=== PATIENT | female | born 1975 | race Caucasian/White ===

== ENCOUNTER 2024-03-02 03:27 | Emergency (ER) | payer OTHER, SELFPAY ==
[2024-03-02 03:36] VITALS: BP 156/86; PULSE 74; TEMP 36.6; O2SAT 97; BMI 29.6
--- NOTE | 2024-03-02 03:38 | ED_ITS ---
[facility] HPI - General Adult General Chief complaint: Headache Stated complaint: HEADACHE Time Seen by Provider: 03/02/24 03:34 Source: patient Mode of arrival: walk-in Limitations: no limitations History of Present Illness HPI narrative: The patient is a 48-year-old female presenting to the emergency department with her significant other secondary to migraine headache. Migraines located on left side of her head. It is associated with nausea and photophobia. Patient does have a history of migraines. This is not different than any of her other bad migraines . It is not the worst headache of her life. She has no neck pain or stiffness. No fever or chills. Symptoms started at midnight. The patient took her own Maxalt and Excedrin. There was no relief. Patient has had to come to the emergency department in the past for her headaches. Patient denies any blurry vision, double vision, loss of vision, trouble speaking or comprehending. No numbness or weakness in her extremities. No recent trauma to the head. Pain is moderate in severity. Light makes it worse. Nothing in particular makes it better. Related Data Allergies Allergy/AdvReac Type Severity Reaction Status Date / Time azithromycin (From Zithromax) Allergy Mild Rash Verified 03/02/24 03:36 Penicillins Allergy Mild Rash Verified 03/02/24 03:36 Opioid HPI Opioid Management Most Recent Opioid Data: Last Pain Scale 7 03/02/24 04:09 03/02/24 Last MAR Pain Assessment 03/02/24 04:09 Review of Systems ROS Narrative 10 Systems were reviewed, and unless not ed in the HPI, all other systems are reviewed, unremarkable, or noncontributory. PFSH PFS Social History Little interest or pleasure in doing things: not at all Feeling down, depressed, or hopeless: not at all Exam Narrative Exam Narrative: Prior to examining the patient, I have washed with hospital approved and provided Antiseptic Hand Speech Pathologist and have also applied gloves.? Prior to touching the patient, I asked for consent to examine the patient.? General: Alert and oriented, well nourished, mild distress. Eye: PERRL, EOMI, normal conjunctiva. Glasses, 4 mm and reactive HENT: Normocephalic, normal hearing, moist oral mucosa, no scleral icterus, no sinus tenderness. Neck: Supple, non-tender, no carotid bruits, no JVD, no lymphadenopathy. Lungs: Clear to auscultation and percussion, non-labored respiration. No rhon chi, rales, wheezing Heart: Normal rate, regular rhythm, no murmur, gallop or edema. Abdomen: Soft, non-tender, non-distended, normal bowel sounds, no masses. Musculoskeletal: Normal range of motion and strength, no tenderness or swelling. Skin: Skin is warm, dry and pink, no rashes or lesions. Neurologic: Awake, alert, and oriented X3, CN II-XII intact. Psychiatric: Cooperative, appropriate mood and affect.? Following the conclusion of the examination, I have washed my hands thoroughly after removing examination gloves. Constitutional Vital Signs, click to edit/add: Last Vital Signs Temp 97.8 F 03/02/24 03:36 Pulse 74 03/02/24 03:36 Resp 16 03/02/24 03:36 BP 156/86 H 03/02/24 03:36 Pulse Ox 97 03/02/24 03:36 O2 Del Method Room Air 03/02/24 03:36 Documenting provider has reviewed patient's vital signs: yes Common normals: no apparent distress General appearance: cooperative, comfortable, well kempt and well developed Orientation/consciousness: Yes awake, Yes oriented to person, Yes oriented to place and Yes oriented to time Course Course Hospital Course: 03:48 upon assessment of the patient she is going to have an IV start. She will receive 0.9% normal saline bolus with 1 L, Toradol 15 mg IV push, Benadryl 25 mg IV push, and Reglan 10 mg IV piggyback. Vital Signs Vital signs: Vital Signs Temperature 97.8 F 03/02/24 03:36 Pulse Rate 74 03/02/24 03:36 Respiratory Rate 16 03/02/24 03:36 Blood Pressure 156/86 H 03/02/24 03:36 Pulse Oximetry 97 03/02/24 03:36 Oxygen Delivery Method Room Air 03/02/24 03:36 Temperature 97.8 F 03/02/24 03:36 Pulse Rate 74 03/02/24 03:36 Respiratory Rate 16 03/02/24 03:36 Blood Pressure 156/86 H 03/02/24 03:36 Pulse Oximetry 97 03/02/24 03:36 Oxygen Delivery Method Room Air 03/02/24 03:36 Medical Decision Making MDM Narrative Medical decision making narrative: Patient is a 48-year-old female who presents to the emergency department with an intractable migraine headache. Differential Diagnosis Differential Diagnosis: Migraine headache, generalized headache, sinusitis, meningitis, dehydration Medical Records Medical records reviewed: Yes I reviewed the patient's medical records Lab Data Lab results reviewed: Yes I reviewed the patient's lab results Discharge Plan Discharge Chief Complaint: Headache Clinical Impression: Migraine Patient Disposition: Home, Self-Care Time of Disposition Decision: 04:46 Condition: Good Print Language: Cameroonian Instructions: Migraine Headache (ED) Referrals: Physician,Non-Staff, MD [Primary Care Provider] - 1 week
[2024-03-02] MEDS: 0.9 % SODIUM CHLORIDE 1,000 ML 1000 ML IV (04:08)
[2024-03-02] MEDS: KETOROLAC TROMETHAMINE 30 MG/ML VIAL 15 MG IVP (04:09)
[2024-03-02] MEDS: METOCLOPRAMIDE HCL 10 MG/2 ML VIAL IVP (04:09)
[2024-03-02] MEDS: DIPHENHYDRAMINE HCL 50 MG/ML VIAL 25 MG IV (04:09)
[2024-03-02 05:08] VITALS: BP 134/76; PULSE 72; O2SAT 99
== END 2024-03-02 05:08 | disposition home or self-care (01) ==
PROVIDERS: Emergency Provider Emergency Medicine
DX: G43.909 Migraine, unspecified, not intractable, without status migrainosus (principal)
CPT/HCPCS: 96374; 96375; 99284; J1200; J1885; J2765

== ENCOUNTER 2024-08-31 19:58 | Emergency (ER) | payer OTHER, SELFPAY ==
--- OUTSIDE RECORDS SUMMARY | 2019-07-24 10:30 | XMS_ITS | Continuity of Care Document ---
Author Organization [facility] Address [address] [place] [address] Phone Care Team Providers Care Agent Contract Clerk Name Role Phone Naveen Cooper Unavailable Unavailable Allergies, Adverse Reactions, Alerts Substance Reaction Status Criticality Penicillins Rash Active No Information erythromycin base Rash Active No Informa tion Medications Medication Instructions Dosage Effective Dates (start - stop) Status Comments Colace 100 mg Cap take 1 capsule (100MG) by oral route every day at bedtime as needed 100 MG - Active DHA 300 mg Cap take 1 by Oral route every day 1 - Active okay to subsitute any vitamin allowed by insurance. Prozac 20 mg Cap take 1 capsule (20MG) by oral route every day in the morning 20 MG - Active verapamil 40 mg Tab take 1 tablet (40MG) by oral route 2 times every day 40 MG - Active Procedures Procedure Date Covid Testing [facility] OFFICE/OUTPATIENT VISIT, EST COUNSELING AND EDUCATION OFFICE/OUTPATIENT VISIT, EST OFFICE/OUTPATIENT VISIT, EST COUNSELING AND EDUCATION ROUTINE VENIPUNCTURE OFFICE/OUTPATIENT VISIT, EST OFFICE/OUTPATIENT VISIT, EST CARE COORDINATION OFFICE/OUTPATIENT VISIT, EST OFFICE/OUTPATIENT VISIT, EST OFFICE/OUTPATIENT VISIT, EST OFFICE/OUTPATIENT VISIT, EST CARE COORDINATION OFFICE/OUTPATIENT VISIT, EST OFFICE/OUTPATIENT VISIT, EST ROUTINE VENIPUNCTURE OFFICE/OUTPATIENT VISIT, EST OFFICE/OUTPATIENT VISIT, EST ROUTINE VENIPUNCTURE COUNSELING AND EDUCATION OFFICE/OUTPATIENT VISIT, EST OFFICE/OUTPATIENT VISIT, EST URINE TEST PREV VISIT, NEW, AGE 18-39 REMOVE INTRAUTERINE DEVICE THIN PREP AND HPV INSERT INTRAUTERINE DEVICE Levonorgestrel iu contracept URINALYSIS, NONAUTO W/SCOPE URINE TEST Condoms NEW FP MEDICAID Results Test Name Date and Time Measure Units Reference Range Abnormal Flag Status Comments Panel Description: SARS-CoV-2, MIGUELITO Final SARS-CoV- 2, MIGUELITO 09:05:00 Not Detected Not Detected Final This test was developed and its performance characteristics determinedby 27 bards. This test has not been FDA cleared orapproved. This test has been authorized by FDA under an Emergency UseAuthorization (EUA). This test is only authorized for the duration oftime the declaration that circumstances exist justifying theauthorization of the emergency use of in vitro diagnostic tests fordetection of SARS-CoV-2 virus and/or diagnosis of COVID-19 infectionunder section 564(b)(1) of the Act, 21 U.S.C. 360bbb-3(b)(1), unlessthe authorization is terminated or revoked sooner.When diagnostic testing is negative, the possibility of a falsenegative result should be considered in the context of a patient'srecent exposures and the presence of clinical signs and symptomsconsistent with COVID-19. An individual without symptoms of COVID-19and who is not shedding SARS-CoV-2 virus would expect to have anegative (not detected) result in this assay.Performed by:[facility] ([facility] Panel Description: SARS-CoV-2 Antibody, IgM [facility] al SARS-CoV- 2 Antibody, IgM 020 06:22:00 Negative Negative Final This sample do es not contain detectable SARS-CoV-2 IgM antibodies.This negative result does not rule out SARS-CoV-2 infection.Correlation with epidemiologic risk factors and other clinical andlaboratory findings is recommended. Serologic results should not beused as the sole basis to diagnose or exclude recent [id number].P erformed by:[employer] ([place]) Panel Description: SARS-CoV-2 Antibody, IgG Fin al SARS-CoV- 2 Antibody, IgG 020 04:19:00 Negative Negative Final This sample do es not contain detectable SARS-CoV-2 IgG antibodies.This negative result does not rule out SARS-CoV-2 infection.Correlation with epidemiologic risk factors and other clinical andlaboratory findings is recommended. Serologic results should not beused as the sole basis to diagnose or exclude recent [id number].T his assay was performed using the [employer] SARS-CoV-2 IgG assay.Performed by:[employer] ([place]) Advance Directives Directive Yes / No Effective Date File Name No Information Encounters Encounter Description Practice Location Reason(s) For Visit Diagnoses Date Provider Providers Copied on Encounter [facility], [address] [place] [address], [id number], [place] tel:[phone] COVID [facility] Encounter for screening for other viral disease Marcie Torres. [address], [place], [id number], [place]. tel:[phone] OFFICE/OUTPAT IENT VISIT, [facility], [address], [place], [id number], [place] tel:[phone] [facility] Routine PN Visit (chief complaint) No Information Marcie Torres. [address], [place], [id number], [place]. tel:[phone] OFFICE/OUTPAT IENT VISIT, [facility], [address], [place], [id number], [place] tel:[phone] [facility] Routine PN Visit (chief complaint) No Information Sydnee Auguste. [address], [place], [id number], [place]. tel:[phone] OFFICE/OUTPAT IENT VISIT, [facility], [address], [place], [id number], [place] tel:[phone] [facility] Routine PN Visit (chief complaint) Other abnormal clinical findings Sydnee Auguste. [address], [place], [id number], [place]. tel:[phone] OFFICE/OUTPAT IENT VISIT, [facility], [address], [place], [id number], [place] tel:[phone] [facility] Routine PN Visit (chief complaint) No Information Sydnee Auguste. [address], [place], [id number], [place]. tel:[phone] OFFICE/OUTPAT IENT VISIT, [facility], [address] [place] [address], [id number], [place] tel:[phone] [facility] headache (chief complaint)D izziness (chief complaint) No Information Sydnee Kalyani. [address], [place], [id number], [place]. tel:[phone] OFFICE/OUTPAT IENT VISIT, [facility], [address] [place] [address], [id number], [place] tel:[phone] [facility] Routine PN Visit (chief complaint) No Information Sydnee Kalyani. [address], [place], [id number], [place]. tel:[phone] OFFICE/OUTPAT IENT VISIT, [facility], [address], [place], [id number], [place] tel:[phone] [facility] Routine PN Visit (chief complaint) Supervision of other normal Sydnee Kalyani. [address] [place] [address], [id number], [place]. tel:[phone] OFFICE/OUTPAT IENT VISIT, [facility], [address], [place], [id number], [place] tel:[phone] [facility] No Information Sydnee Auguste. [address], [place], [id number], [place]. tel:[phone] OFFICE/OUTPAT IENT VISIT, EST [facility], [address], [place], [id number], [place] tel:[phone] [facility] No Information Visci DO Hodge. [address], [place], [id number], [place]. tel:[phone] PREV VISIT, NEW, AGE 18-39 [facility], [address], [place], [id number], [place] tel:[phone] [facility] No Information Sydnee Auguste. [address], [place], [id number], [place]. tel:[phone] [facility], [address], [place], [id number], [place] tel:[phone] [facility] No Information No Information [facility], [address], [place], [id number], [place] tel:[phone] [facility] No Information No Information Family History Family Member Type Diagnosis Age At Onset Brother Problem (finding) Heart disease Brother Problem (finding) raised blood lipids Father Problem (finding) Heart disease Mother Problem (finding) hx thrombosis Father Problem (finding) myocardial inf arct in 1st degree male relative <55 years 46 Mother Problem (finding) hypertension Payers Payer name Insurance type Covered constitution party ID Authoriza tion(s) No Information Social History Type Description Quantity Date Captured Comments Alcohol Use Details Unknown Caffeine Use Details Unknown Tobacco Use Status No Information Smoking Status No Information Sex Female Sexual Orientation Straight or heterosexual Gender Identity Female Chief Complaint And Reason For Visit No Information Reason For Referral Reason For Referral No Information Plan Of Treatment Date Type Action Status Goal Tdap. Due on due Goal Influenza vaccine. Due on due Goal Depression screening. Due on due Goal Breast exam. Due on 020 due History Of Present Illness Encounter Date Complaint History Of Prese nt Illness No Information Functional Status Date Functional Assessmen t No Information Instructions Date Instruction Additional Infor mation No Information Assessments Type Assessment Date assessment Encounter for screening for othe r viral disease Patient Care Teams Name Effective Dates (start - stop) Status Members No Information
--- OUTSIDE RECORDS SUMMARY | 2024-08-15 11:00 | XMS_ITS ---
Author Organization [facility] es Address [address] [place] [address] Care Team Providers Care Health Evaluator Name Role Phone Brent Jodie Primary Care Provider Dr. jT Campos Unavailable [phone] REASON FOR VISIT FILLING Encounters Encounter Location Date Provider Diagnosis [facility] Juan [place] [address] [place] [address] 2024 Tj Campos Plan Of Treatment Next Appt Details Provider Name:Tj Campos, 0 09/02/2024 04:30:00 PM, [address] [place], [address], Provider Name:Tj Campos, 1 02/23/2024 10:25:00 AM, [address], [place], [address], Provider Name:Tj Campos, 1 02/29/2024 09:30:00 AM, [address] [place], [address], Progress Notes * TYRON PAULINO BDOB:[birth year] (49 yo F)Acc No.[id number]:08/15/2024 Patient: TYRON GIRARD Provider: Terrence Campos DDS :1975 A ge:49 Y S ex:Female Date:08/15/2024 Address:[address], [id number] Pcp:Jodie Kennedy Subjective: * Chief Complaints: * 1 . FILLING. * Medical History: Objective: * Vitals: Assessment: Plan: * Treatment: * Images: * Electronic signature of Dr. Tj Campos , DMD on 08/31/2024 at 08:06 PM EDT Sign off status: Pending * Provider: Terrence Campos DDS Date: 0 08/15/2024 Generated for Albert chavarria/Reina/Misael on: 08/31/2024 08:06 PM EDT
--- OUTSIDE RECORDS SUMMARY | 2024-08-31 20:07 | XMS_ITS | Encounter Summary ---
Author Organization [facility] Address [address] [place] [address] Phone Care Team Providers Care Bead Cutter Name Role Phone Liya Millan Primary Care P rovider Encounter Details Date Type Department Care Team (Late st Contact Info) Description 07/01/2020 Orders Only [facility] [address] [place] [address] Conversion, Onbase Social History Tobacco Use Types Packs/Day Years Used Date Smoking Tobacco: Never Assessed Comments Unknown Sex and Gender Information Value Date Recorded Sex Assigned at Not on file Legal Sex Female 11:36 AM EST Gender Identity Not on file Sexual Orientation Not on file documented as of this encounter Plan of Treatment Scheduled Orders Name Type Priority Associated Diagnoses Orde r Schedule OUTSIDE LAB SCAN Lab Ordered: 07/01/2020 documented as of this encounter Visit Diagnoses Not on filedocumented in this encounter Care Teams Bead Cutter Relationship Specialty Start Date End Date Liya Millan APRN-CNP [address] [place], [place] [id number] PCP - General 08/28/22 documented as of this encounter
--- OUTSIDE RECORDS SUMMARY | 2024-08-31 20:07 | XMS_ITS | Encounter Summary ---
Author Organization [facility] Address [address] [place] [address] Phone Care Team Providers Care Leather Tooler Name Role Phone Liya Millan Primary Care P rovider Encounter Details Date Type Department Care Team (Late st Contact Info) Description 03/30/2023 Scanned Document [facility] [address] [place] [id number] Scanning, Generic Provider Social History Tobacco Use Types Packs/Day Years Used Date Smoking Tobacco: Never Alcohol Use Standard Drinks/Week Comments Never 0 (1 standard drink = 0.6 oz pur e alcohol) Comments Unknown Sex and Gender Information Value Date Recorded Sex Assigned at Not on file Legal Sex Female 11:36 AM EST Gender Identity Not on file Sexual Orientation Not on file documented as of this encounter Plan of Treatment Not on file documented as of this encounter Visit Diagnoses Not on filedocumented in this encounter Care Teams Leather Tooler Relationship Specialty Start Date End Date Liya Millan APRN-CNP [address] [facility] [place] [id number] PCP - General 08/28/22 documented as of this encounter
--- OUTSIDE RECORDS SUMMARY | 2024-08-31 20:07 | XMS_ITS | Clinical Summary ---
Author Organization [facility] Address [address] [place] [address] Phone Care Team Providers Care Senior Benefits Manager Name Role Phone Liya Millan HOSPITAL UNIT CLERK-SENIOR FOREMAN Primary Care P rovider Allergies Active Allergy Reactions Criticality Noted Date Comments Erythromycin Unknown 03/09/2023 Penicillins Unknown 03/09/2023 Medications erenumab (Aimovig Autoinjector) 140 mg/mL injection Inject 1 mL (140 mg) under the skin every 30 (thirty) days. 2 Active albuterol (Ventolin HFA) 90 mcg/actuation inhaler Inhale 2 puffs every 4 hours if needed for shortness of breath. 2 Active cetirizine (ZyrTEC) 10 mg tablet Take 1 tablet (10 mg) by mouth once daily. 2 Active magnesium oxide (Mag-Ox) 400 mg (241.3 mg magnesium) tablet Take 1 tablet (400 mg) by mouth 2 times a day. 2 Active meloxicam (Mobic) 15 mg tablet Take 1 tablet (15 mg) by mouth once daily. 2 Active montelukast (Singulair) 10 mg tablet Take 1 tablet (10 mg) by mouth once daily. 2 Active omeprazole (PriLOSEC) [address] capsule Take 1 capsule (40 mg) by mouth once daily. 2 Active PARoxetine (Paxil) 20 mg tablet Take 1 tablet (20 mg) by mouth once daily in the morning. Take before meals. 2 Active rizatriptan (Maxalt) 10 mg tablet Take 1 tablet (10 mg) by mouth. Take one tablet by mouth at onset of headache, may repeat every 2 hours as needed, maximum of 3 tablets in 24 hours Active metoprolol succinate XL (Toprol-XL) 25 mg 24 hr tabletIndicatio ns:Palpitations ,Paroxysmal SVT (supraventricul ar tachycardia) Take 1 tablet (25 mg) by mouth once daily. 90 tablet 3 4 Active Active Problems Problem Noted Date Diagnosed Date BMI 30.0-30.9,adult 08/06/2023 Palpitations 03/09/2023 Paroxysmal SVT (supraventricular tachycardia) Premature atrial contraction 03/09/2023 PVC (premature ventricular contraction) 03/09/19 Immunizations Immunization Administration Dates Next Due Moderna SARS-CoV-2 Vaccination 03/01/2021,2020,05/12/2020 Tdap vaccine, age 7 year and older (BOOSTRIX, ADACEL) 10/15/2020,10/05/2020 Family History Medical History Relation Name Comments tachycardia Brother Heart attack Father Angina Mother tachycardia Mother Relation Name Status Comments Brother Father Mother Social History Tobacco Use Types Packs/Day Years Used Date Smoking Tobacco: Never Smokeless Tobacco: Never Tobacco Cessation:Counseling Given: Not Answered Alcohol Use Standard Drinks/Week Comments Never 0 (1 standard drink = 0.6 oz pur e alcohol) Comments Unknown Sex and Gender Information Value Date Recorded Sex Assigned at Not on file Legal Sex Female 11:36 AM EST Gender Identity Not on file Sexual Orientation Not on file Last Filed Vital Signs Vital Sign Reading Time Taken Comments Blood Pressure 108/70 08/06/2023 2:33 PM EDT Pulse 72 08/06/2023 2:33 PM EDT Temperature - - Respiratory Rate - - Oxygen Saturation - - Inhaled Oxygen Concentration - - Weight 73.9 kg (163 lb) 08/06/2023 2:33 PM EDT Height 154.9 cm (5' 1 ) 08/06/2023 2:33 PM EDT Body Mass Index 30.8 08/06/2023 2:33 PM EDT Plan of Treatment Health Maintenance Due Date Last Done Comments CT Colonography 1973 Colonoscopy 1973 FIT 1973 HIV Screening 1973 Lipid Panel 1973 Sigmoidoscopy 1973 MMR Vaccines (1 of 1 - Standard series) 1974 Diabetes Screening 08/09/1991 Hepatitis C Screening 08/09/1991 Hepatitis B Vaccines (1 of 3 - 19+ 3-dose series) 1992 Pneumococcal Vaccine (1 of 2 - PCV) 1992 Cervical Cancer Screening 1994 HPV/Cotest 1994 Pap Smear 1994 Mammogram 2013 Zoster Vaccines (1 of 2) 08/09/2023 COVID-19 Vaccine ( - 2023-2 5 season) 2023 03/01/2021, 06/09/2020, 05/12/2020 Influenza Vaccine (#1) 2024 Yearly Adult Physical 12/03/2024 12/03/2023 Colorectal Cancer Screening 06/28/2026 FIT-DNA (Cologuard) 06/28/2026 06/29/2023 DTaP/Tdap/Td Vaccines (3 - T d or Tdap) 10/15/2030 10/15/2020, 10/05/2020 HIB Vaccines Aged Out No longer eligi ble based on patient's age to complete this topic HPV Vaccines (No Doses Required) Completed Hepatitis A Vaccines Aged Out No long er eligible based on patient's age to complete this topic IPV Vaccines Aged Out No longer eligi ble based on patient's age to complete this topic Meningococcal Vaccine Aged Out No alley [place] eligible based on patient's age to complete this topic Rotavirus Vaccines Aged Out No longer eligible based on patient's age to complete this topic Insurance [facility] [employer] Care Teams Senior Benefits Manager Relationship Specialty Start Date End Date Liya Millan, HOSPITAL UNIT CLERK-SENIOR FOREMAN [address] [place] [phone] PCP - General 08/28/22
--- OUTSIDE RECORDS SUMMARY | 2024-08-31 20:07 | XMS_ITS | Clinical Summary ---
Author Organization [facility] Address [address] [place] [address] Care Team Providers Care Photo Tech Name Role Phone Naveen Jack Primary Care Provider [phone] Social History Tobacco Use Types Packs/Day Years Used Date Smoking Tobacco: Never Assessed Comments Unknown Sex and Gender Information Value Date Recorded Sex Assigned at Not on file Legal Sex Female 5:51 PM EDT Gender Identity Not on file Sexual Orientation Not on file Plan of Treatment Health Maintenance Due Date Last Done Comments Anxiety Screening 08/09/1991 Depression Screening 08/09/1991 HIV Screening 08/09/1991 Hepatitis C Screening 08/09/1991 DTaP,Tdap,Td Vaccine (1 - Tdap) 1992 Hepatitis B Vaccine (1 of 3 - 19+ 3-dose series) 08/08 Cervical Cancer Screening [address] Colonography 2018 Cologuard (FIT-DNA) 2018 Colonoscopy 2018 Colorectal Cancer Screening 2018 Diabetes Screening 2018 Fecal Occult Blood 2018 Lipid Screening 2018 Sigmoidoscopy 2018 Pneumococcal Vaccine: 50+ (1 of 1 - PCV) 08/09/2023 Shingrix Vaccine (1 of 2) 08/09/2023 Covid-19 Vaccine (1 - 2023-25 season) 2023 Influenza Vaccine (#1) 2024 Insurance [employer] Care Teams Photo Tech Relationship Specialty Start Date End Date Naveen Jack [address] [place] [phone] PCP - General Dater Assembler 07/08/12
--- OUTSIDE RECORDS SUMMARY | 2024-08-31 20:07 | XMS_ITS | Encounter Summary ---
Author Organization [facility] Address [address] [place] [address] Phone Care Team Providers Care Route Delivery Clerk Name Role Phone Liya Millan Primary Care P rovider Encounter Details Date Type Department Care Team (Late st Contact Info) Description 10/20/2021 Orders Only [facility] [address] [place] [address] Conversion, Onbase Social History Tobacco Use Types [...] r Schedule OUTSIDE LAB SCAN Lab Ordered: 10/20/2021 documented as of this encounter Visit Diagnoses Not on filedocumented in this encounter Care Teams Route Delivery Clerk Relationship Specialty Start Date End Date Liya Millan APRN-CNP [address] [place], [place] [id number] PCP - General 08/28/22 documented as of this encounter
--- OUTSIDE RECORDS SUMMARY | 2024-08-31 20:07 | XMS_ITS | Clinical Summary ---
Author Organization [facility] [facility] Address [id number] [address] [place] [address] Care Team Providers Care Fish Bin Tender Name Role Phone No Pcp, No Pcp Primary Care Provider Unavailabl e Allergies Active Allergy Reactions Criticality Noted Date Comments Erythromycin 11/05/2019 Penicillins 11/05/2019 Medications cetirizine (ZyrTEC) 10 mg tablet Take 10 mg by mouth daily. 10/14/19 20 Active AIMOVIG AUTOINJECTOR 70 mg/mL auto-injector INJECT 1 ML SUBCUTANEOUSLY ONCE EVERY MONTH 10/19/19 20 Active LINZESS 145 mcg capsule TAKE 1 CAPSULE BY MOUTH ONCE DAILY AT LEAST 30 MINUTES BEFORE THE MAIN MEAL OF THE DAY ON AN EMPTY STOMACH 10/13/19 20 Active meclizine (ANTIVERT) 25 mg tablet 09/16/19 20 Active meloxicam (MOBIC) 15 mg tablet Take 15 mg by mouth daily. 10/14/19 20 Active metoprolol succinate XL (TOPROL-XL) 25 mg 24 hr tablet TAKE 1 & 1 2 (ONE & ONE HALF) TABLETS BY MOUTH ONCE DAILY FOR 30 DAYS 10/14/19 20 Active montelukast (SINGULAIR) 10 mg tablet TAKE 1 TABLET BY MOUTH ONCE DAILY FOR 30 DAYS 10/09/19 20 Active naratriptan (AMERGE) 2.5 mg tablet 09/17/19 20 Active omeprazole (PriLOSEC) 40 mg capsule Take 40 mg by mouth daily. 10/09/19 20 Active PARoxetine (PAXIL) 20 mg tablet Take 20 mg by mouth daily. 09/25/19 20 Active rizatriptan (MAXALT) 5 mg tablet TAKE 1 TABLET BY MOUTH NEEDED FOR MIGRAINE. MAY REPEAT ONCE IN 2 HOURS. MAX OF 2 PER HEADACHE AND MAX OF 4 TABLETS PER WEEK 09/01/19 Active verapamiL (CALAN) 40 mg tablet Take 40 mg by mouth daily. 09/18/19 Active albuterol (PROVENTIL) 5 mg/mL nebulizer solution Inhale 2.5 mg every 6 (six) hours as needed for wheezing. Active hydroCHLOROthiaz tosin (HYDRODIURIL) 25 mg tabletIndication s:Dizziness Take 1 tablet (25 mg total) by mouth daily. 30 tablet 4 11/05/19 Active Active Problems Problem Noted Date Diagnosed Date Dizziness 11/05/2019 Hearing loss 11/05/2019 Social History Tobacco Use Types Packs/Day Years Used Date Smoking Tobacco: Never Smokeless Tobacco: Never Alcohol Use Standard Drinks/Week Comments Not Currently 0 (1 standard drink = 0.6 oz pur e alcohol) Childcare Answer Date Recorded Childcare Unknown 07/29/2018 Employment Answer Date Recorded Employment Unknown 07/29/2018 Purpose - Life Answer Date Recorded Purpose and direction in life Unknown Comments Unknown Sex and Gender Information Value Date Recorded Sex Assigned at Not on file Legal Sex Female 12:38 PM EDT Gender Identity Not on file Sexual Orientation Not on file Last Filed Vital Signs Vital Sign Reading Time Taken Comments Blood Pressure 122/76 11/05/2019 4:07 PM EDT Pulse - - Temperature - - Respiratory Rate - - Oxygen Saturation - - Inhaled Oxygen Concentration - - Weight 68.9 kg (152 lb) 11/05/2019 4:07 PM EDT Height 154.9 cm (5' 1 ) 11/05/2019 4:07 PM EDT Body Mass Index 28.72 11/05/2019 4:07 PM EDT Plan of Treatment Health Maintenance Due Date Last Done Comments Depression Screening 1985 Tobacco Screening 1985 Adult BMI Screening 08/09/1991 DTaP,Tdap and Td Vaccines (1 - Tdap) 1992 Pap Smear 1994 Zoster (Shingles) Vaccine (1 of 2) 08/09/2023 Influenza Vaccine 10/20/2024 Medical Devices Not on file Insurance [employer] Care Teams Fish Bin Tender Relationship Specialty Start Date End Date No Pcp[place] [address] PCP - General Family Medicine 11/05/19
--- OUTSIDE RECORDS SUMMARY | 2024-08-31 20:07 | XMS_ITS | Clinical Summary ---
Author Organization [facility] Address [address] [place] [address] Care Team Providers Care Road Grader Operator Name Role Phone Unallocated, Noms Provider Primary Care Provi yefri Allergies Active Allergy Reactions Criticality Noted Date Comments Erythromycin Rash Low 06/25/2024 Penicillins Itching,Unknown 11/05/2019 Wound Dressing Adhesive Rash Low 03/13/2023 Medications metoprolol succinate XL (Toprol-XL) 25 MG 24 hr tablet Take 25 mg by mouth in the morning. 12/11/19 23 Active montelukast (Singulair) 10 MG tablet Take 1 tablet by mouth once daily for 30 days Active omeprazole (PriLOSEC) [address] capsule Take 1 capsule by mouth once daily for 30 days Active Aimovig 140 MG/ML injection INJECT 140MG SUBCUTANEOUSLY ONCE EVERY MONTH for 28 days Active cetirizine (ZyrTEC) 10 MG tablet Take 10 mg by mouth Daily Active albuterol HFA 90 mcg/act inhalerIndicati ons:Cough, unspecified type,Influenza A Inhale 2 puffs every 4 (four) hours if needed for wheezing or shortness of breath 18 g 04/11/19 25 Active PARoxetine (Paxil) 20 MG tablet Take 20 mg by mouth in the morning. 07/16/19 25 Active Active Problems Problem Noted Date Diagnosed Date Acute hypokalemia 02/14/2024 Arthritis 02/14/2024 Asthma attack 02/14/2024 Body aches 02/14/2024 Calculus of kidney 02/14/2024 Cervical paraspinal muscle spasm 02/14/2024 Cervical strain 02/14/2024 Closed head injury 02/14/2024 Depressive disorder 02/14/2024 Dysphagia 02/14/2024 Dysuria 02/14/2024 Flank pain 02/14/2024 Foreign body in bladder 02/14/2024 Gastroesophageal reflux disease 02/14/2024 Gross hematuria 02/14/2024 History of kidney stones 02/14/2024 Hx of lithotripsy 02/14/2024 Increased frequency of urination 02/14/2024 Insufficient sleep syndrome 02/14/2024 Chronic constipation 02/14/2024 Laceration of finger of right hand 02/14/2024 Migraine headache 02/14/2024 Migraine without aura, intractable 02/14/2024 Nausea 02/14/2024 Neurocardiogenic syncope 02/14/2024 Sore throat 02/14/2024 Sprain of foot, left 02/14/2024 Strain of thoracic back region 02/14/2024 Stress incontinence of urine 02/14/2024 Trigger point of neck 02/14/2024 Ureteral stone with hydronephrosis 02/14/2024 Urinary tract infection 02/14/2024 Viral URI 02/14/2024 BMI 30.0-30.9,adult 08/06/2023 Palpitations 03/09/2023 Paroxysmal SVT (supraventricular tachycardia) Premature atrial contraction 03/09/2023 PVC (premature ventricular contraction) 03/09/19 Hearing loss 11/05/2019 Dizziness 11/05/2019 Tachycardia 10/24/2012 Encounters Date Type Department Care Team Description 08/21/2024 Telephone [facility] [address] [place] [address] Louann Vivar LPN 08/14/2024 8:30 AM EDT Ancillary Procedure [facility] [address] [place] [address] Menorrhagia with irregular cycle; Dyspareunia in female 08/14/2024 Travel 07/31/2024 Results Follow-Up [facility] [address] [place] [address] Ivonne Lee MA 07/28/2024 10:15 AM EDT Procedure Visit [facility] [address] [place] [address] Naveen Jack, Menorrhagia with irregular cycle; Stress incontinence; Dyspareunia in female; Cystocele with rectocele; Urethral hypermobility; Post-void dribbling 07/28/2024 Travel 06/25/2024 3:00 PM EDT Office Visit [facility] [address] [place] [address] Naveen Jack, Menorrhagia with irregular cycle; Stress incontinence; Dyspareunia in female; Cystocele with rectocele; Urethral hypermobility; Uterine prolapse 06/25/2024 Travel from Last 3 Months Family History Medical History Relation Name Comments Heart disease Father Hypertension Father Hypertension Mother Heart disease Paternal Grandfather Cancer Paternal Grandmother Relation Name Status Comments Brother 1 Alive Daughter 2 Alive Father Mother Alive Paternal Grandfather Paternal Grandmother Son 2 Alive Social History Tobacco Use Types Packs/Day Years Used Date Smoking Tobacco: Never Smokeless Tobacco: Never Tobacco Cessation:Counseling Given: Yes Alcohol Use Standard Drinks/Week Comments Never 0 (1 standard drink = 0.6 oz pure alcohol) caffeine intake: 1-2 cups per day tea PHQ-2 Answer Date Recorded Patient Health Questionnaire-2 Score 0 12/03/2023 Comments No Sex and Gender Information Value Date Recorded Sex Assigned at Not on file Legal Sex Female 7:09 PM EDT Gender Identity Not on file Sexual Orientation Not on file Last Filed Vital Signs Vital Sign Reading Time Taken Comments Blood Pressure 118/80 07/28/2024 10:24 AM EDT Pulse 86 04/11/2024 10:41 AM EST Temperature 36 C (96.8 F) 04/11/2024 10:41 AM EST Respiratory Rate 16 03/26/2024 4:44 PM EST Oxygen Saturation 95% 04/11/2024 10:41 AM EST Inhaled Oxygen Concentration - - Weight 75.3 kg (166 lb) 07/28/2024 10:24 AM EDT Height 154.9 cm (5' 1 ) 03/26/2024 4:44 PM EST Body Mass Index 31.37 03/26/2024 4:44 PM EST Plan of Treatment Health Maintenance Due Date Last Done Comments CT Colonography 1973 Colonoscopy 1973 FIT 1973 FOBT 1973 Sigmoidoscopy 1973 Pap Smear 1994 Cervical Cancer Screening 08/09/2003 HPV/Cotest 08/09/2003 Mammogram 2013 Influenza Vaccine (#1) 2024 Colorectal Cancer Screening 06/28/2026 FIT-DNA 06/28/2026 06/29/2023 Procedures Procedure Name Priority Date/Time Associated Diagnosis Comments US PELVIS TRANSVAGINAL Routine 08/14/2024 9:08 AM EDT Menorrhagia with irregular cycle Dyspareunia in female CULTURE, URINE, ROUTINE Routine 07/28/2024 12:00 PM EDT Post-void dribbling DC INSJ NON-NDWELLG BLADDER CATHETER Routine 07/28/2024 10:47 AM EDT Post-void dribbling from Last 3 Months Results * US pelvis transvaginal (08/14/2024 9:08 AM EDT) Anatomical Region Laterality Modality Pelvis Ultrasound Study GA Study Date Study ALEX Working ALEX (Source) 08/14/2024 Narrative 08/20/2024 5:09 PM EDT See Viewpoint report for summary us Naveen Jack DO IMG US PROCEDURES Final Resul t * Urine culture (07/28/2024 12:00 PM EDT) Pathologist [facility] NOTE No Growth 2 Days 07/30/2024 9:54 AM EDT [facility] Urine Urine specimen obtained by clean catch procedure / Unknown 07/28/2024 12:00 PM EDT 07/28/2024 3:47 PM EDT Comment:Clean-Voided Midstre am us Naveen Jack DO LAB MICROBIOLOGY - GENERAL OR DERABLES Final Result [facility] [address] [place] [address], [facility] [address] [place] [address] * DC INSJ NON-NDWELLG BLADDER CATHETER (07/28/2024 10:47 AM EDT) Naveen Camarena DO - 07/28/2024 10:47 AM EDT Naveen Jack DO 07/28/2024 11:12 AM Bladder Catheterization Date/Time: 07/28/2024 10:47 AM Performed by: Naveen Jack DO Authorized by: Naveen Jack DO Consent: Consent obtained: Verbal Consent given by: Patient Risks, benefits, and alternatives were discussed: yes Risks discussed: Infection and pain [place] protocol: Procedure explained and questions answered to patient or proxy's satisfaction: yes Pre-procedure details: Procedure purpose: Diagnostic Procedure details: Catheter insertion: Non-indwelling Catheter size: 8 Fr Bladder irrigation: no Number of attempts: 1 Urine characteristics: Clear Post-procedure details: Procedure completion: Tolerated well, no immediate complications Comments: 12cc Naveen Jack DO IN CLINIC/BEDSIDE ORDERABLES Final Result from Last 3 Months Insurance [employer] Care Teams Road Grader Operator Relationship Specialty Start Date End Date Unallocated, Noms Provider, [place] [address] PCP - General Family Medicine 03/13/23
--- OUTSIDE RECORDS SUMMARY | 2024-08-31 20:07 | XMS_ITS | Encounter Summary ---
Author Organization [facility] Address [address] [facility] [place] [address] Care Team Providers Care Metal Washing Machine Operator Name Role Phone Unallocated, Noms Provider Primary Care Provi yefri Encounter Details Date Type Department Care Team (Late st Contact Info) Description 08/21/2024 Telephone [facility] [address] [facility] [address] [place] [phone] Louann Vivar LPN Social History Tobacco Use Types Packs/Day Years [...] on file documented as of this encounter Miscellaneous Notes * Telephone Encounter - Kelin Singletary LPN - 08/26/2024 11:47 AM EDT Result Communication No results found from the In Basket message. 11:47 AM Results were successfully communicated with the patient and they acknowledged their understanding. * Telephone Encounter - Louann Vivar LPN - 08/21/2024 8:16 AM EDT PER KARYNA: U/S normal, no polyps/fibroids/cysts etc.. endometrium 4.2mm Attempted to reach patient to notify above, unable to leave message as mailbox full. documented in this encounter Plan of Treatment Not on file documented as of this encounter Visit Diagnoses Not on filedocumented in this encounter Care Teams Metal Washing Machine Operator Relationship Specialty Start Date End Date Unallocated, Noms Provider, [address] [place] [address] PCP - General Family Medicine 03/13/23 documented as of this encounter
--- OUTSIDE RECORDS SUMMARY | 2024-08-31 20:07 | XMS_ITS | Patient Health Record ---
Author Organization [employer] [facility] Address [address] [place] [address] Care Team Providers Care Warehouse Administrative Assistant Name Role Phone Jodie Kennedy Primary Care Provider Yanira Ferraro Unavailable Dr. Tj Campos Unavailable [phone] Ruba Salcedo Unavailable David Portillo Unavailable [phone] Kelle Warner Unavailable [phone] Patricia Green Unavailable [phone] Yanira Wilkes Unavailable [phone] Allergies Allergen (clinical drug ingredient) Drug/Non Drug Allergy documented on EMR Reaction Allergy Type Onset Date Status erythromycin Erythromycin rash Drug Allergy A ctive Penicillin Unknown Drug Allergy Active Results Component Value Reference Range Notes Follicle Stimulating Hormone Reviewed date:05/07/2024 08:34:49 AM Interpretation: Performing Lab:, [facility], [address] [place] Notes/Report: Reason for Exam Missed menses Follicle Stimulating Hormone 54.2 FEMALE NORMALS (PREMENOPAUSE) MID-FOLLICULAR PHASE: 3.9-8.8 mIU/mL MID-CYCLE PEAK: 4.5-22.5 mIU/mL MID-LUTEAL PHASE: 1.8-5.1 mIU/mL FEMALE NORMALS (POSTMENOPAUSE): 16.7-113.6 mIU/mL MALE NORMALS: 1.3-19.3 mIU/mL HCG,Quantitative Reviewed date:05/07/2024 08:34:31 AM Interpretation: Performing Lab: Notes/Report: Reason for Exam Missed menses Approximate Approximate hCG Gestational Age Range (mIU/ml) (weeks) 0.2-1 5-50 1-2 50-500 2-3 100-5,000 3-4 500-10,000 4-5 1,000-50,000 5-6 10,000-100,000 6-8 15,000-200,000 8-12 10,000-100,000 HCG,Quantitative 1.54 Estradiol Reviewed date:05/09/2024 07:34:08 AM Interpretation: Performing Lab: Notes/Report: Reason for Exam Missed menses Estradiol 47.0 . pg/mL Adult Female Range Follicular phase 12.5 - 166.0 Ovulation phase 85.8 - 498.0 Luteal phase 43.8 - 211.0 Postmenopausal <6.0 - 54.7 1st trimester 215.0 - >4300.0 [place] ECLIA methodology Performed at: [address] [id number] Superintendent Transmission: Rajinder Farrell PhD, Phone: [phone] Luteinizing Hormone Reviewed date:05/09/2024 07:34:26 AM Interpretation: Performing Lab:, [facility], [address] [place] [address] Notes/Report: Reason for Exam Missed menses Luteinizing Hormone 69.5 . m[iU]/mL Adult Female Range Follicular phase 2.4 - 12.6 Ovulation phase 14.0 - 95.6 Luteal phase 1.0 - 11.4 Postmenopausal 7.7 - 58.5 CA cardiac event monitor Reviewed date:06/27/2024 04:15:30 PM Interpretation: Performing Lab: Notes/Report: US pelvic complete Reviewed date:05/14/2024 07:43:49 AM Interpretation: Performing Lab: Notes/Report: [facility] Main [address] [address] Ultrasound Report Signed Patient: Tyron Paulino MR#: [id number] 453 : 1975 Acct:[id number] Age/Sex: 48 / F ADM Date: 05/13/24 Loc: Room: [facility] Attending Dr: Yanira Ferraro LUMBER STACKER DRIVER-C Ordering Provider: Yanira Ferraro Date of Service: 05/13/24 US/US pelvic complete: Elevated serum hCG;Missed menses ([id number]) US/US transvaginal: . Copies to: Yanira Ferraro Pelvic ultrasound. Reason for exam: Missed menses. Elevated beta hCG. Comparison: none Technique: Transabdominal imaging of the uterus and ovaries was performed. Transvaginal imaging of the uterus and ovaries was also obtained. Additional spectral Doppler analysis of the ovaries was a lso obtained. Findings: Uterus measures 9.0 x 4.3 x 4.6 cm. Endometrium measures 11 mm without evidence of intrauterine . Small amount of simple free fluid is seen. The right ovary measures 1.9 x 0.9 x 1.5 cm. The left ovary measures 1.9 x 1.1 x 1.1 cm. Normal arterial and venous Doppler waveforms. No adnexal mass. US/US transvaginal Impression: No ultrasound evidence of intrauterine . Differential considerations includes early IUP, miscarriage or possibly ectopic , however no additional evidence of ectopic is seen to suggest complex free fluid or adnexal mass. Correlation with beta hCG trend and repeat ultrasound is suggested to confirm viability. Impression dictated by: Tj Knox Jr., D.OJodie05/13/2024 6:28 PM Dictation Location: [place] [address] Tech: Rae Nowak Transcribed By: ELSA 05/13/241827 Dictated By: Tj Knox Jr, DO 05/13/241825 Signed By: <Electronically signed by Tj Knox Jr, DO in OV> 05/13/24 182 ECG 12 lead ECG Reviewed date:04/13/2024 03:47:31 PM Interpretation: Performing Lab: Notes/Report: [facility] Main [place] [address] [place] [address] Electrocardiograph Report Signed Patient: Tyron Paulino MR#: [id number] 453 : 1975 Acct:[id number] Age/Sex: 48 / F ADM Date: 04/12/24 Loc: Room: Type: [facility] Attending Dr: Yanira Ferraro LUMBER STACKER DRIVER-C Ordering Provider: Yanira Ferraro Date of Service: 04/12/24 ECG/ECG 12 lead ECG: Palpitations;SVT (supraventricular tachycardia) Copies to: Test Reason : Blood Pressure : */* mmHG Vent. Rate : 67 BPM Atrial Rate : 67 BPM P-R Int : 152 ms QRS Dur : 74 ms QT Int : 414 ms P-R-T Axes : 53 23 16 degrees QTcB Int : 437 ms Normal sinus rhythm Normal ECG When compared with ECG of 30-Mar-2023 10:47, No significant change was found Confirmed by Jose Otero ([id number]) on 04/12/2024 8:25:01 PM Referred By: Electronically Signed By: Jose Otero Transcribed By: MUS Signed By Jose Otero MD 04/12/242024 Complete Blood Count Auto Di ff Reviewed date:04/14/2024 08:15:11 AM Interpretation: Performing Lab:, [facility], [address] [place] Notes/Report: Reason for Exam Palpitations;SVT (supraventricular tachycardia) White Blood Count 3.6 3.8-11.6 10*3/uL Uncorrected WBC 3.6 3.8-11.6 10*3/uL Red Blood Count 4.17 3.60-5.00 10*6/uL Hemoglobin 12.1 11.8-15.4 g/dL Hematocrit 35.8 34.0-46.4 % Mean Corpuscular Volume 85.9 80-100 fL Mean Corpuscular Hemoglobin 29.0 24.7-34.3 pg Mean Corpuscular HGB Conc 33.7 32.0-35.0 g/dL Red Cell Distribution Width 13.4 11.9-15.3 % Platelet Count 242 150-450 10*3/uL Mean Platelet Volume 7.8 6.3-10.7 fL Neutrophils % (Auto) 48.4 . % Lymphocytes % (Auto) 27.1 . % Monocytes % (Auto) 16.2 . % Eosinophils % (Auto) 7.2 . % Basophils % (Auto) 1.1 . % NRBC% 0.2 0-0.5 /100{WBC} Neutrophils # (Auto) 1.7 1.8-7.7 10*3/uL Lymphocytes # (Auto) 1.0 1.00-4.8 10*3/uL Monocytes # (Auto) 0.6 0.0-0.8 10*3/uL Eosinophils # (Auto) 0.3 0.0-0.45 10*3/uL Basophils # (Auto) 0.0 0.0-0.2 10*3/uL HCG,Quantitative Reviewed date:05/18/2024 10:18:57 AM Interpretation: Performing Lab:, [facility], [address] [place] [address] , [facility] Notes/Report: Reason for Exam Missed menses;Elevated serum hCG Approximate Approximate hCG Gestational Age Range (mIU/ml) (weeks) 0.2-1 5-50 1-2 50-500 2-3 100-5,000 3-4 500-10,000 4-5 1,000-50,000 5-6 10,000-100,000 6-8 15,000-200,000 8-12 10,000-100,000 HCG,Quantitative 1.41 Free T4 (Free Thyroxine) Reviewed date:04/14/2024 08:15:55 AM Interpretation: Performing Lab: Notes/Report: Reason for Exam Palpitations;SVT (supraventricular tachycardia) Reason for Exam Screening cholesterol level Free T4 (Free Thyroxine) 0.58 0.61-1.12 ng/dL Triiodothyronine (T3) Free Reviewed date:04/14/2024 08:14:55 AM Interpretation: Performing Lab:, [facility], [address] [place] [address] , [place] Notes/Report: Reason for Exam Palpitations;SVT (supraventricular tachycardia) Triiodothyronine (T3) Free 3.11 2.50-3.90 pg/m L CA holter monitor recording Reviewed date:04/21/2024 03:12:21 PM Interpretation: Performing Lab: Notes/Report: Thyroid Stimulating Hormone Reviewed date:04/14/2024 08:14:52 AM Interpretation: Performing Lab: Notes/Report: Reason for Exam Palpitations;SVT (supraventricular tachycardia) Reason for Exam Screening cholesterol level Thyroid Stimulating Hormone 2.12 0.45-5.33 u[i U]/mL Magnesium Reviewed date:04/14/2024 08:14:46 AM Interpretation: Performing Lab: Notes/Report: Reason for Exam Palpitations;SVT (supraventricular tachycardia) Reason for Exam Screening cholesterol level Magnesium 1.7 1.9-2.7 mg/dL Comprehensive Metabolic Pane l Reviewed date:04/12/2024 03:13:07 PM Interpretation: Performing Lab:, [facility], [address] [place] Notes/Report: Reason for Exam Palpitations;SVT (supraventricular tachycardia) Reason for Exam Screening cholesterol level Glucose 83 70-100 mg/dL Random Glucose Reference Range is dependent on time and content of last meal. Glucose of more than 200 mg/dL in a nonstressed, ambulatory subject supports the diagnosis of Diabetes Mellitus. ADA recommended reference range Blood Urea Nitrogen 13 7-25 mg/dL Creatinine 0.80 0.60-1.20 mg/dL Sodium 141 136-145 mmol/L Potassium 4.0 3.5-5.1 mmol/L Chloride 108 98-107 mmol/L Carbon Dioxide 27.5 21.0-31.0 mmol/L Calcium 8.7 8.6-10.3 mg/dL Total Protein 6.5 6.4-8.9 g/dL Albumin Level 4.1 3.5-5.7 g/dL Globulin 2.4 Albumin/Globulin Ratio 1.7 Bilirubin,Total 0.3 0.3-1.0 mg/dL Aspartate Amino Transferase 15 13-39 U/L Alanine Aminotransferase 13 7-52 U/L Alkaline Phosphatase 84 34-104 U/L Estimated GFR >60.0 Anion Gap 9.5 6.0-15.0 meq/L Lipid Panel Reviewed date:04/14/2024 08:14:38 AM Interpretation: Performing Lab: Notes/Report: Reason for Exam Palpitations;SVT (supraventricular tachycardia) Reason for Exam Screening cholesterol level Cholesterol 215 140-200 mg/dL Chol less than 200 mg/dl low risk Chol 201-239 mg/dl borderline risk Chol 240 mg/dl and greater high risk HDL Cholesterol 50 23-92 mg/dL HDL CHOL ATP-III CLASSIFICATION Cardiovascular Risk HDL > or equal to 60 mg/dL LOW HDL < 40 mg/dL HIGH Triglyceride w/Reflex 156 0-149 mg/dL TRIG ATP III CLASSIFICATION TRIG less than 150 mg/dL Normal TRIG 150-199 mg/dL Borderline high TRIG 200-500 mg/dL High TRIG greater than 500 mg/dL Very high Standard traceable to the Center for Disease Conrtrol and Prevention (CDC) test method. LDL Cholesterol,Calculated 134 0-100 mg/dL LDL ATP III CLASSIFICATION LDL less than 100 mg/dL Optimal LDL 100-129 mg/dL Near or above optimal LDL 130-159 mg/dL Borderline high LDL 160-189 mg/dL High LDL greater than 189 mg/dL Very high VLDL CHOLESTEROL 31 Chol/HDL Ratio 4.3 <5.0 US pelvic complete Reviewed date:05/27/2024 03:02:29 PM Interpretation: Performing Lab: Notes/Report: [facility] Main [place] [address] [place] [address] Ultrasound Report Signed Patient: Tyron Paulino MR#: [id number] 453 : 1975 Acct:[id number] Age/Sex: 48 / F ADM Date: 05/27/24 Loc: Room: Type: [facility] Attending Dr: Yanira Ferraro LUMBER STACKER DRIVER-C Ordering Provider: Yanira Ferraro Date of Service: 05/27/24 US/US transvaginal: Missed menses;Elevated serum hCG ([id number]) US/US pelvic complete: 1 Copies to: Yanira Ferraro Pelvic ultrasound. Reason for exam: Elevated hCG. Missed menses. Comparison: Pelvic ultrasound 05/13/2024 Technique: Transabdominal imaging of the uterus and ovaries was performed. Transvaginal imaging of the uterus and ovaries was also obtained. Additional spectral Doppler analysis of the ovaries was also obtained. Findings: Uterus measures 9.3 x 4.6 x 4.8 cm. No fibroid is seen. Endometrium measures 15 mm with endometrial cysts noted. No definite intrauterine is seen. No free fluid is seen. Right ovary measures 1.9 x 1.6 x 1.2 cm. Left ovary measures 2.3 x 1.9 x 1.8 cm. No adnexal mass or cyst. Normal arterial and venous Doppler waveforms of the ovaries. US/US transvaginal Impression: No definitive ultrasound evidence of intrauterine is seen. Correlation with beta-hCG trend a repeat ultrasound is suggested for viability. No ultrasound evidence of ectopic is seen. Endometrium measuring 15 mm with cystic changes. Given the history, attention on follow-up is suggested. Impression dictated by: Tj Knox Jr., D.O.05/27/2024 2:46 PM Dictation Location: [place] [address] Tech: Rae Nowak Transcribed By: ELSA 05/27/24 1446 Dictated By: Tj Knox Jr, DO 05/27/24 1440 Signed By: <Electronically signed by Tj Knox Jr, DO in OV> 05/27/24 1446 US abdomen limited Reviewed date:04/13/2024 03:47:53 PM Interpretation: Performing Lab: Notes/Report: [facility] Main [place] [address] [place] [address] Ultrasound Report Signed Patient: Tyron Paulino MR#: [id number] 453 : 1975 Acct:[id number] Age/Sex: 48 / F ADM Date: 04/12/24 Loc: Room: Type: [facility] Attending Dr: Yanira Ferraro LUMBER STACKER DRIVER-C Ordering Provider: Yanira Ferraro Date of Service: 04/12/24 US/US abdomen limited: Periumbilical hernia Copies to: Yanira Ferraro LIMITED/TARGETED ABDOMINAL ULTRASOUND: CLINICAL HISTORY: history of hernia /pain left of umbilicus COMPARISON: None TECHNIQUE: Targeted ultrasound to the site of patient's discomfort was performed. US/US abdomen limited FINDINGS/IMPRESSION: No focal sonographic abnormality is identified at site of discomfort/lump. Clinical correlation is recommended Impression dictated by: Farhan Heaton M.D.04/12/2024 4:47 PM Dictation Location: [place] [address] Tech: Yanira Suh Transcribed By: ELSA 04/12/24 1647 Dictated By: Farhan Heaton MD 04/12/24 1645 Signed By: <Electronically signed by Farhan Heaton MD in OV> 04/12/24 1647 URINE - Urinary Tract Infect ion + High Risk Sexual Behavior (HTRx) Reviewed date:03/12/2024 08:01:42 AM Interpretation: Performing Lab: Notes/Report: Real-Time polymerase chain reaction (TaqMan qPCR) was utilized for detection for all tested organisms and resistance genes. Initiation of antimicrobial therapy prior to testing may affect results and can lead to the detection of non-living microorganisms. Detection of microbes must be correlated with current/recent antibiotic usage and patient signs and symptoms. Microbial sensitivity testing is not performed at this lab. Emergency Management Specialist to CFU/mL equivalent thresholds were established based on studies using known CFU/mL urine specimens performed at [facility] in [place], [place]. Testing performed by [facility] ([address], [place] [address]; CLIA# [id number]; Superintendent Transmission Tami Piedra, PhD, [facility])). This test was developed, and its performance characteristics determined by [facility]. It has not been cleared or approved by the FDA. However, such approval/clearance is not required, as the laboratory is regulated and qualified under CLIA to perform high-complexity testing. This test is used for clinical purposes and should not be regarded as investigational or for research. *Approximate copies of target nucleic acid per &micro;L (Low: <2,500 copies/&micro;L, Moderate: 2,500-50,000 copies/&micro;L, High: >50,000 copies/&micro;L) National Infectious Disease Consensus Data Potentially effective oral antibiotics, based on presence of detected microbes, antimicrobial resistance genes, and national antimicrobial sensitivity data (see Summary Antibiogram). Trichomonas vaginalis 0.000 23.000 - 32.119 ppm Trichomonas vaginalis Not Detected 23.000 - 32.119 ppm Streptococcus pyogenes (Grou p A strep) 0.000 19.961 - 24.689 ppm Streptococcus pyogenes (Grou p A strep) Not Detected 19.961 - 24.689 ppm Streptococcus agalactiae (Group B Strep) 0.000 26.000 - 32.222 ppm Streptococcus agalactiae (Group B Strep) Not Detected 26.000 - 32.222 ppm Staphylococcus aureus 0.000 26.000 - 30.902 ppm Staphylococcus aureus Not Detected 26.000 - 30.902 ppm Serratia marcescens 0.000 23.000 - 31.204 ppm Serratia marcescens Not Detected 23.000 - 31.204 ppm Pseudomonas aeruginosa 0.000 23.000 - 28.500 pp m Pseudomonas aeruginosa Not Detected 23.000 - 28.500 pp m Proteus mirabilis, vulgaris 0.000 23.000 - 28.5 00 ppm Proteus mirabilis, vulgaris Not Detected 23.000 - 28.5 00 ppm Neisseria gonorrhoeae 0.000 23.000 - 32.117 ppm Neisseria gonorrhoeae Not Detected 23.000 - 32.117 ppm Klebsiella pneumoniae, oxytoca 0.000 23.000 - 30.500 ppm Klebsiella pneumoniae, oxytoca Not Detected 23.000 - 30.500 ppm Escherichia coli 0.000 23.000 - 28.500 ppm Escherichia coli Not Detected 23.000 - 28.500 ppm Enterococcus faecalis, faecium 0.000 26.000 - 31.575 ppm Enterococcus faecalis, faecium Not Detected 26.000 - 31.575 ppm Enterobacter aerogenes, cloacae 0.000 23.000 - 31.535 ppm Enterobacter aerogenes, cloacae Not Detected 23.000 - 31.535 ppm Citrobacter freundii 0.000 23.000 - 31.881 ppm Citrobacter freundii Not Detected 23.000 - 31.881 ppm Chlamydia trachomatis 0.000 23.000 - 31.467 ppm Chlamydia trachomatis Not Detected 23.000 - 31.467 ppm Acinetobacter baumannii 0.000 19.961 - 24.689 p pm Acinetobacter baumannii Not Detected 19.961 - 24.689 p pm Morganella morganii 0.000 19.961 - 24.689 ppm Morganella morganii Not Detected 19.961 - 24.689 ppm Cyndee albicans, parapsilosis, tropicalis 0.000 19.961 - 30.770 ppm Cyndee albicans, parapsilosis, tropicalis Not Detected 19.961 - 30.770 ppm Cyndee glabrata (Nakaseomyces glabratus) 0.000 23.000 - 32.138 ppm Cyndee glabrata (Nakaseomyces glabratus) Not Detected 23.000 - 32.138 ppm Cyndee krusei (Pichia kudriavzevii) 0.000 23.000 - 32.271 ppm Cyndee krusei (Pichia kudriavzevii) Not Detected 23.000 - 32.271 ppm Mycoplasma genitalium 0.000 19.961 - 24.689 ppm Mycoplasma genitalium Not Detected 19.961 - 24.689 ppm Mycoplasma hominis 0.000 19.961 - 24.689 ppm Mycoplasma hominis Not Detected 19.961 - 24.689 ppm Staphylococcus saprophyticus 0.000 19.961 - 24. 689 ppm Staphylococcus saprophyticus Not Detected 19.961 - 24. 689 ppm Staphylococcus epidermidis, haemolyticus, lugdunensis 0.000 19.961 - 24.689 ppm Staphylococcus epidermidis, haemolyticus, lugdunensis Not Detected 19.961 - 24.689 ppm Ureaplasma urealyticum 0.000 19.961 - 24.689 pp m Ureaplasma urealyticum Not Detected 19.961 - 24.689 pp m Ureaplasma parvum 0.000 19.961 - 24.689 ppm Ureaplasma parvum Not Detected 19.961 - 24.689 ppm Urinalysis automated Reviewed date:03/10/2024 05:58:48 PM Interpretation: Performing Lab: Notes/Report: Urine-Color yellow Appearance cloudy Specific Brainard 1.030 pH 6.0 Glucose neg Protein 15 Occult Blood 80 Bilirubin neg Urobilinogen,Semi-Qn 0.2 Nitrite, Urine neg Ketones neg WBC Esterase 70 MM screening mammo BI w/CAD Reviewed date:10/24/2023 02:49:06 PM Interpretation: Performing Lab: Notes/Report: [facility] [place] [address] Mammography Report Signed Patient: Tyron Paulino MR#: [id number] 453 : 1975 Acct:[id number] Age/Sex: 48 / F ADM Date: 10/24/23 Loc: [place] Room: Type: [facility] Attending Dr: Liya Millan APRN, NP-C Copies to: Liya Millan APRN, CNP NO FAMILY PHYSICIAN Ordering Provider: Liya Millan APRN, CNP Date of Service: 10/24/23 MM/MM screening mammo BI w/CAD: Screening mammogram for breast cancer CLINICAL DATA: Screening for malignancy. SCREENING MAMMOGRAM - FULL FIELD DIGITAL WITH TOMOSYNTHESIS AND CAD COMPARISON:Mammograms dating back to 2018. Tomosynthesis craniocaudal and mediolateral oblique views of both breasts were obtained using low- dose digital technique. This examination was reviewed with the aid of CAD. FINDINGS: The breast parenchyma is heterogeneously dense. There are no dominant masses, typically malignant calcifications or architectural distortion. There has been no significant interval change. MM/MM screening mammo BI w/CAD IMPRESSION: NO MAMMOGRAPHIC EVIDENCE OF MALIGNANCY. ROUTINE FOLLOW-UP IS RECOMMENDED IN ONE YEAR. RESULT CODE: 1 Negative DENSITY CODE: 3 (approximately 51-75% glandular) FOLLOW UP: 1YR The false-negative rate of mammography is approximately 10-percent. Management of a palpable abnormality must be based on clinical grounds. Patient was entered into a reminder system with a target due date for the next mammogram. Impression dictated by: Tj Knox Jr., D.OJodie10/24/2023 12:26 PM Dictation Location: [facility] Transcribed By: ELSA 10/24/23 1226 Dictated By: Tj Knox Jr, DO 10/24/23 1225 Signed By: <Electronically signed by Tj Knox Jr, DO in OV> 10/24/23 1226 MM diagnostic mammo BI w/CAD Reviewed date:08/29/2024 07:58:32 AM Interpretation: Performing Lab: Notes/Report: [facility] Main [place] [address] [place] [address] Ultrasound Report Signed Patient: Tyron Paulino MR#: [id number] 453 : 1975 Acct:[id number] Age/Sex: 48 / F ADM Date: 07/31/24 Loc: [place] Room: Type: [facility] Attending Dr: Nkechi Nicholas MD Ordering Provider: Jodie Kennedy DO, RES; Yu/Nkechi Patel MD Date of Service: 07/31/24 MM/MM diagnostic mammo BI w/CAD: Mass overlapping multiple quadrants of right breast ([id number]) US/US breast RT limited: MIGRAINE WITH STATUS MIGRAINOSUS Copies to: Jodie Kennedy DO, RES Ketvertis/Nkechi Patel MD CLINICAL DATA: Lump right breast Bilateral DIAGNOSTIC MAMMOGRAM - WITH TOMOSYNTHESIS AND CAD , rightLIMITED BREAST ULTRASOUND COMPARISON:Mammograms dating back to 2018 Tomosynthesis imaging was obtained using low-dose digital technique. This examination was reviewed with the aid of CAD. Additional ultrasound imaging was also obtained. Mammogram: The breasts are composed of heterogeneously dense fibroglandular tissue. No areas of architectural distortion, worrisome masses or suspicious microcalcifications. Ultrasound: In the area of lump involving the 7:00 position of the right breast 1.5 cm from the nipple, dilated ducts are present with a complex cyst noted measuring 6 x 4 x 4 mm. No solid component is seen. US/US breast RT limited IMPRESSION: NO MAMMOGRAPHIC OR ULTRASOUND EVIDENCE OF MALIGNANCY. ROUTINE FOLLOW-UP IS RECOMMENDED IN ONE YEAR. RESULT CODE: 2 Benign Findings(s) DENSITY CODE: 2 (approximately 25-50% glandular) There are scattered areas of fibroglandular density. FOLLOW UP: 1YR The false-negative rate of mammography is approximately 10-percent. Management of a palpable abnormality must be based on clinical grounds. Impression dictated by: Tj Knox Jr., Mamadou 07/31/2024 12:14 PM Dictation Location: [facility] Tech: Christina Gillis Transcribed By: ELSA 07/31/24 1214 Dictated By: Tj Knox Jr, DO 07/31/24 1152 Signed By: <Electronically signed by Tj Knox Jr, DO in OV> 07/31/24 1214 US breast LT limited Reviewed date:11/14/2023 09:29:17 AM Interpretation: Performing Lab: Notes/Report: [facility] Main [place] [address] [place] [address] Ultrasound Report Signed Patient: Tyron Paulino MR#: [id number] 453 : 1975 Acct:[id number] Age/Sex: 48 / F ADM Date: 11/13/23 Loc: [facility] Room: Type: [facility] Attending Dr: Yanira Ferraro LUMBER STACKER DRIVER-C Ordering Provider: Yanira Ferraro Date of Service: 11/13/23 US/US breast LT limited: Breast pain, left;Mass of lower outer quadrant of left breas Copies to: Yanira Ferraro LIMITED LEFT BREAST ULTRASOUND CLINICAL DATA: Episode of dark yellowish nipple discharge. Burning sensation at the upper outer quadrant. COMPARISON: Reference is made to mammogram from October 24, 2023 Real-time ultrasound evaluation of the retroareolar and periareolar region was performed with extension toward the upper outer quadrant. There are some areas of dense echogenic glandular tissue. No discrete cystic or solid masses are seen. There is retroareolar duct ectasia however no intraluminal filling defects are noted. US/US breast LT limited IMPRESSION: RETROAREOLAR DUCT ECTASIA. NO OTHER SIGNIFICANT FINDINGS. Clinical management is recommended for patient's nipple discharge. Impression dictated by: Rolanda Grewal M.D.11/13/2023 11:39 AM Dictation Location: [facility] Tech: Neida Charlton Transcribed By: ELSA 11/13/23 1139 Dictated By: Rolanda Grewal MD 11/13/23 1122 Signed By: <Electronically signed by MD Rolanda Grewal in OV> 11/13/23 1139 Reason For Referral Reason 12/02 Due for pap, has not had for several years and has concerns for perimenopausal symptoms wants to discuss. *F/U 09/13 Diagnosis 1 Cervical cancer scre ening (Z12.4) Diagnosis 2 Perimenopausal sympt oms (N95.1) Referral Organization [facility] Referring Provider First Name Yanira Referring Provider Last Name Ronan Referring Provider Speciality Nurse Prac titioner Referred Provider [facility] PUBLIC HEALTH ASSISTANT, Group Referred Provider Specialty OB - Gynecol ogy General Notes Steel, Ronna 2023 01:46:14 PM >SENT TO [facility] Referral Priority Routine Reason DUPLICATE Urinary incontinence, leakage. Pt reports prolapsed bladder. Requests to see Dr. Jaquez. Diagnosis 1 Acquired female blad yefri prolapse (N81.10) Diagnosis 2 Frequency of micturi tion (R35.0) Diagnosis 3 Other urinary incont inence (N39.498) Referral Organization [facility] Referring Provider First Name Yanira Referring Provider Last Name Ronan Referring Provider Speciality Nurse Prac titioner Referred Provider HEMANTH JAQUEZ Referred Provider Specialty OB - Gynecol ogy Referral Priority Routine Reason Requests Dr. Devon holt. Ongoing left ankle pain for 5 weeks with swelling intermittently. Sprained and seen in ER. Xray neg for fx. Diagnosis 1 Acute left ankle true n (M25.572) Referral Organization [facility] Referring Provider First Name Yanira Referring Provider Last Name Ronan Referring Provider Speciality Nurse Marina casiano Referred Provider [facility] Referred Provider Specialty Orthopedic S urgery Referral Priority Routine Reason SCHEDULED 06/25 Send US and labs from 2024. Please send to Dr. Jaquez per pt request to see this provider. Low positive HCG, missed menses, no evidence of but Endometrium measuring 15 mm (thicker than last check) with cystic changes. Diagnosis 1 Missed menses (N92.6 ) Diagnosis 2 Elevated serum hCG ( R79.89) Diagnosis 3 Thickened endometriu m (R93.89) Referral Organization [facility] Referring Provider First Name Yanira Referring Provider Last Name Roann Referring Provider Speciality Nurse Marina casiano Referred Provider HEMANTH JAQUEZ Referred Provider Specialty OB - Gynecol ogy Referral Priority Urgent Medications Medication SIG (Take, Route, Frequency, Duration) Notes Start Date End Date Status Omeprazole 40 MG Take 1 capsule by mouth once daily; Duration: 90 days Active Magnesium Oxide 400 MG 1 tablet with food Orally Once a day; Duration: 30 days 04/16/2024 10/19/2024 Active Metoprolol Succinate 25 MG 1 tablet Orally Once a day; Duration: 30 days *CARDIOLOGY 10/07/2020 Active Meloxicam 15 MG TAKE 1 TABLET BY MOUTH ONCE DAILY Oral Once a day; Duration: 90 days Active Erenumab-aooe 140 MG/ML injection once a month Subcutaneous monthly; Duration: 90 days 07/09/2024 01/04/2025 Active PARoxetine HCl 20 MG 1 tablet in the morning Orally Once a day; Duration: 90 days Active Magnesium *CARDIOLOGY 10/07/2020 Active Triamcinolone Acetonide 0.1 % 1 application Externally Twice per day; Duration: 30 days As needed PRN 03/10/2024 Not-Taking Aimovig 140 MG/ML as directed Subcutaneous monthly; Duration: 28 days Active Rizatriptan Benzoate 5 MG 1 tablet Orally Once a day As needed PRN Not-Taking Albuterol Sulfate HFA 108 (90 Base) MCG/ACT 2 puffs as needed Inhalation every 4 hrs as needed shortness of breath; Duration: 30 days PRN Not-Taking Ajovy 225 MG/1.5ML as directed Subcutaneous every 30 days; Duration: 30 days 07/02/2024 09/30/2024 Active Albuterol Sulfate (2.5 MG/3ML) 0.083% 3 ml as needed Inhalation four times a day (qid) as needed (prn); Duration: 10 days PRN Not-Taking Cetirizine HCl 10 MG Take 1 tablet by mouth once daily; Duration: 90 days Active Montelukast Sodium 10 MG Take 1 tablet by mouth once daily; Duration: 90 days Active Immunizations Vaccine Route Administration Date Status Comme nts MODERNA Unknown 05/12/2020 Administered Received at [facility] MODERNA Unknown 06/09/2020 Administered received at pharmacy MODERNA Unknown 03/01/2021 Administered TDAP Unknown 10/15/2020 Administered zzz do not use FLUARIX 3 YRS AND OLDER Adult Unknown 02/01/2016 Refused Social History Tobacco Use: Social History Observation Description Date Details (start date - stop date) Never Smoker NA - NA Tobacco Screen: Question Answer Notes Are you a: never smoker Sexual Hx: Question Answer Notes Had sex in the last 12 months (vaginal, oral, or anal)? No Have you ever had an STD? No Alcohol Screening: Question Answer Notes Did you have a drink containing alcohol in the p ast year? No Interpretation Negative PRAPARE Question Answer Notes Date Completed/Updated: 10/20/2021 What is your current housing situation? I have h ousing Are you worried about losing your housing? No What is the highest level of school that you have finished? 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 Check all that apply I do not have problems meeting my needs Has lack of transportation k ept you from medical appointments, meetings, work or from getting things needed for daily living? No How often do you see or talk to people that you care about and feel close to? (For example: talking to friends on the phone, visiting friends or family, going to temple or club meetings) More than 5 times a week How stressed are you? Stress is when someone feels tense, nervous, anxious, or cant sleep at night because their mind is troubled Not at all In the past year have you sp ent more than 2 nights in a row in a penitentiary, long-term, jail center, or juvenile correctional facility? No Are you a refugee? No What country are you from? [place] Do you feel physically and e motionally safe where you currently live? Yes In the past year, have you b een afraid of your partner or ex-partner? No PRAPARE Score: 3 Section Notes: No alcohol 08-22-11: denies tobacco, joel es ETOH, denies illegal drug use 08-22-11: denies tobacco, joel es ETOH, denies illegal drug use 08-22-11: denies tobacco, joel es ETOH, denies illegal drug use 08-22-11: denies tobacco, joel es ETOH, denies illegal drug use 08-22-11: denies tobacco, joel es ETOH, denies illegal drug use 08-22-11: denies tobacco, joel es ETOH, denies illegal drug use 08-22-11: denies tobacco, joel es ETOH, denies illegal drug use 08-22-11: denies tobacco, joel es ETOH, denies illegal drug use No alcohol 04/20/11: denies tobacco, denies ETOH, denies illegal drug use. 08-22-11: denies tobacco, denies ETOH, denies illegal drug use 08-22-11: denies tobacco, joel es ETOH, denies illegal drug use 08-22-11: denies tobacco, joel es ETOH, denies illegal drug use 08-22-11: denies tobacco, joel es ETOH, denies illegal drug use 08-22-11: denies tobacco, joel es ETOH, denies illegal drug use 08-22-11: denies tobacco, joel es ETOH, denies illegal drug use 08-22-11: denies tobacco, joel es ETOH, denies illegal drug use 08-22-11: denies tobacco, joel es ETOH, denies illegal drug use 08-22-11: denies tobacco, joel es ETOH, denies illegal drug use 08-22-11: denies tobacco, joel es ETOH, denies illegal drug use 08-22-11: denies tobacco, joel es ETOH, denies illegal drug use 08-22-11: denies tobacco, joel es ETOH, denies illegal drug use 08-22-11: denies tobacco, joel es ETOH, denies illegal drug use 04/20/11: denies tobacco, joel es ETOH, denies illegal drug use. No alcohol No alcohol 08-22-11: denies tobacco, joel es ETOH, denies illegal drug use 08-22-11: denies tobacco, joel es ETOH, denies illegal drug use 08-22-11: denies tobacco, joel es ETOH, denies illegal drug use Problems Problem Type SNOMED Code ICD Code Onset Dates Problem Status W/U Status Risk Notes Problem Headache disorder (154227867) Other headache syndrome (G44.89) Active confirmed Problem Anxiety (44136763) Anxiety (F41.9) Active confi rmed Problem Chronic constipation (627920365) Chronic constipation (K59.00) Active confirmed Problem Gastroesophageal reflux disease (918944989) GERD without esophagitis (K21.9) Active confirmed Problem Chronic pain (28180313) Other chronic pain (G89.29) Active confirmed Problem Kidney stone (92696296) Kidney stones (N20.0) Active confirmed Problem Migraine (67395601) Migraine (G43.909) Active c onfirmed Problem Status migrainosus (301649063) Migraine with status migrainosus, not intractable, unspecified migraine type (G43.901) Active confirmed Problem Dysphagia (60462627) Dysphagia, unspecified type (R13.10) Active confirmed Problem Missed period (56609000) Missed menses (N92.6) Active confirmed Problem Tension-type headache (742463373) Tension-type headache, not intractable, unspecified chronicity pattern (G44.209) Active confirmed Problem Sciatica (76162310) Sciatic nerv e pain (M54.30) Active confirmed Problem Mild persistent asthma (267889566) Mild persistent asthma (J45.30) Active confirmed Problem Kidney stone (67456114) Left nephrolithiasis (N20.0) Active confirmed Problem Urinary incontinence (786010979) Other urinary incontinence (N39.498) Active confirmed Problem Neck pain (70329119) Neck pain, acute (M54.2) Active confirmed Problem Endometrium thickened (478098070) Thickened endometrium (R93.89) Active confirmed Vital Signs Heart Rate 67 /min 07/09/2024 Temperature 97.5 degrees Fahrenheit 07/09/2024 Respiratory Rate 18 /min 07/09/2024 Oximetry 99 % 07/09/2024 Blood pressure diastolic 75 mm Hg 07/09/2024 Height 61 in 07/09/2024 Blood pressure systolic 113 mm Hg 07/09/2024 Weight 165.7 lbs 07/09/2024 BMI 31.31 kg/m2 07/09/2024 Encounters Encounter Location Date Provider Diagnosis [address] [place] [address] 10/01/2023 Yanira Ferraro [place] [address] [place] [address] 10/09/2023 Yanira Ferraro Mild persistent asthma J45.30 [address] [place] [address] [place] [address] 11/14/2023 Yanira Ferraro [address] [place] [place] [address] 11/27/2023 Yanira Ferraro Migraine G43.[address] [place] [address] [place] [address] 01/15/2024 Yanira Ferraro Anxiety F41.9 and GERD without esophagitis K21.[address] [place] [address] [place] [address] 01/30/2024 Yanira Ferraro [place] [address] [place] [address] 02/18/2024 Yanira Ferraro Migraine G43.909 and Mild persistent asthma J45.30 [address] [place] [address] [place] [address] 03/05/2024 Yanira Ferraro [place] [address] [place] [address] 03/10/2024 Yanira Ferraro [place] [address] [place] [address] 03/12/2024 Yanira Ferraro [place] [address] [place] [address] 03/18/[address] [facility] [address] [place] [address] 04/14/[address] [facility] [address] [place] [address] 05/07/2024 Yanira Ferraro Elevated serum hCG R79.89 and Missed menses N92.6 [facility] [address] [place] [address] 05/14/2024 Yanira Ferraro Missed menses N92.6 and Elevated serum hCG R79.89 [facility] [address] [place] [address] 05/18/2024 Yanira Ferraro [address] [place] [address] 05/21/2024 Yanira Ronan GERD without esophagitis K21.9 [facility] [address] [place] [address] 05/21/[address] [facility] [address] [place] [address] 05/22/2024 Yanira Ferraro Anxiety F41.9 [facility] [address] [place] [address] 05/27/2024 Yanira Ferraro Missed menses N92.6 and Elevated serum hCG R79.89 [facility] [address] [place] [address] 06/03/[address] [facility] [address] [place] [address] 06/05/[address] [facility] [address] [place] [address] 06/27/2024 Jodie Kennedy Mild persistent asth ma J45.30 [facility] [address] [place] [address] 07/02/[address] [facility] [address] [place] [address] 07/07/[address] [facility] [address] [place] [address] 07/11/2024 Yanira [place] overlapping multiple quadrants of right breast N63.15 [address] [place] [address] 07/21/2024 [place] [place] [address] 08/01/2024 [address] [place] [address] 08/21/2024 [facility] Anxiety F41.[address] without esophagitis K21.9 [place] [address] [place] [address] 08/29/2024 [facility] [address] [place] [address] 09/03/2023 Yanira Ferraro GERD without esophagitis K21.9 ; Left nephrolithiasis N20.0 ; Mild persistent asthma J45.30 ; Migraine G43.909 ; Anxiety F41.9 ; Skin lesion L98.9 ; Other constipation K59.09 ; Screening mammogram for breast cancer Z12.31 ; Cervical cancer screening Z12.4 and Perimenopausal symptoms N95.1 [facility] [address] [place] [address] 10/24/2023 Yanira Ferraro Left nephrolithiasis N20.0 ; Migraine G43.909 ; Breast pain, left N64.4 and Mass of lower outer quadrant of left breast N63.23 [facility] [address] [place] [address] 03/10/2024 Yanirawoodrow Hodgeson Painful urination R30.9 ; Neck pain, acute M54.2 ; Acquired female bladder prolapse N81.10 ; Other eczema L30.8 and Acute left ankle pain M25.572 [facility] [address] [place] [address] 03/17/2024 Yanirawoodrow Hodgeson Neck pain, acute M54.2 ; Acquired female bladder prolapse N81.10 ; Periumbilical hernia K42.9 and Chronic constipation K59.09 [facility] [address] [place] [address] 04/01/2024 Yanira Ferraro Palpitations R00.2 ; SVT (supraventricular tachycardia) I47.10 ; Chronic constipation K59.09 and Screening cholesterol level Z13.220 [facility] [address] [place] [address] 05/02/2024 Yanira Ferraro Palpitations R00.2 ; SVT (supraventricular tachycardia) I47.10 and Missed menses N92.6 [facility] [address] [place] [address] 07/09/2024 Yanira Wilkes Migraine with status migrainosus, not intractable, unspecified migraine type G43.901 and Mass overlapping multiple quadrants of right breast N63.15 [facility] [address] [facility] [place] [address] 03/29/2024 David Portillo Somatic dysfunction of cervical region M99.01 ; Pain in thoracic spine M54.6 ; Somatic dysfunction of thoracic region M99.02 ; Other chronic pain G89.29 and Somatic dysfunction of head region M99.00 [address] [place] [address] 05/16/2024 Ruba Sánchez Encounter for dental examination and cleaning with abnormal findings Z01.21 ; Other dental procedure status Z98.818 ; Necrosis of pulp K04.1 and Dental caries on pit and fissure surface penetrating into dentin K02.52 [facility] [address] [place] [address] 08/18/2024 Patricia Green Dental caries on pit and fissure surface penetrating into dentin K02.52 and Necrosis of pulp K04.1 Assessments Encounter Date Diagnosis (ICD Code) Assessment Notes Treatment Notes Treatment Clinical Notes Section Notes 09/03/2023 GERD without esophagitis (ICD-10 - K21.9) GERD stable. Will continue current medications 09/03/2023 Left nephrolithiasis (ICD-10 - N20.0) Pt presenting with documented nephrolithiasis. Pt is established with Urology and has to have procedure to break up stone bc too large to pass. Discussed red flags and when to return to care. Joey order KUB for pt to get test if flank pain returns. Counseled on stone prevention guidelines and has medication in place for discomforts. 10/09/2023 Mild persistent asthma (ICD-10 - J45.30) 10/24/2023 Migraine (ICD-10 - G43.909) Migraines stable. Will continue current medication. F/u 3 months & PRN 10/24/2023 Left nephrolithiasis (ICD-10 - N20.0) Pt did have her lithotripsy and has one tiny stone on the right and gravel and feeling much better. 11/27/2023 Migraine (ICD-10 - G43.909) 01/15/2024 Anxiety (ICD-10 - F41.9) 02/18/2024 Migraine (ICD-10 - G43.909) 03/10/2024 Painful urination (ICD-10 - R30.9) U/A consistent for UTI, will send for culture. Start antibiotic, pt advised to take as prescribed and until gone. Potential side effects of abx discussed including upset stomach, diarrhea, if symptoms occur, please notify office. Good jimi-hygiene is discussed. Always wipe front to back, void after intercourse, avoid rectal to vaginal intercourse as this can transfer bacteria, void after intercourse. Increase oral fluids to flush system. Cranberry juice and orange juice are more acidic and good for the urinary tract. Avoid irritants such as alcohol, caffeine. If you develop fever, chills, blood in urine, back pain, go to the ER/urgent care. 03/10/2024 Neck pain, acute (ICD-10 - M54.2) Pt is advised to rest, ice for 20 min TID, home stretches are also encouraged. Will prescribe ketorolac 5 day course and education on use of med and possible s/e, do not take the mobic while taking. Muscle relaxer for spasm per instruction, pt VO. Can also schedule for OMT. 03/17/2024 Neck pain, acute (ICD-10 - M54.2) Pt is advised to rest, ice for 20 min TID, home stretches are also encouraged. Will prescribe ketorolac 5 day course and education on use of med and possible s/e, do not take the mobic while taking. Muscle relaxer for spasm per instruction, pt VO. Can also schedule for OMT will see if we can get her with resident who has evening or weekend hours. 03/29/2024 Pain in thoracic spine (ICD-10 - M54.6) Based on history and physical exam, the patient's back pain is likely benign in etiology. Discussed the importance of rest and conservative management. The patient has never had imaging of the thoracic spine before Recs: 1) TENS unit that can be used buying it from a place like [facility] 2) Icy/hot patch 3) Alternating between Tylenol and Ibuprofen PLAN: Zanaflex 4 mg BID 03/29/2024 Somatic dysfunction of cervical region (ICD-10 - M99.01) 04/01/2024 Palpitations (ICD-10 - R00.2) Will place order for EKG. Discussed normal heart rate variations and ectopic beats. Discussed red flag symptoms, parameters to RTC. Patient verbalized understanding. 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 Ordering event monitor. Pt does VU of when to go to ER and will call to schedule with her superintendent power and notify of her complaint also. 05/07/2024 Missed menses (ICD-10 - N92.6) 05/07/2024 Elevated serum hCG (ICD-10 - R79.89) 05/14/2024 Missed menses (ICD-10 - N92.6) 05/14/2024 Elevated serum hCG (ICD-10 - R79.89) 05/21/2024 GERD without esophagitis (ICD-10 - K21.9) 05/22/2024 Anxiety (ICD-10 - F41.9) 05/27/2024 Missed menses (ICD-10 - N92.6) 05/27/2024 Elevated serum hCG (ICD-10 - R79.89) 06/27/2024 Mild persistent asthma (ICD-10 - J45.30) 07/09/2024 Migraine with status migrainosus, not intractable, unspecified migraine type (ICD-10 - G43.901) Will represcribed amovig and complete a prior auth. Patient previously on amovig with great results. She has been to neurology and on multiple meds previously without improvement in her migraines. Her migraines are increasing in number and intensity while not on amovig. 07/09/2024 Mass overlapping multiple quadrants of right breast (ICD-10 - N63.15) Order placed for Mammogram and us of breast for further evaluation of right breast mass/cyst. All questions and concerns addressed. Follow up in 6 months sooner if needed. 07/11/2024 Mass overlapping multiple quadrants of right breast (ICD-10 - N63.15) 08/18/2024 Dental caries on pit and fissure surface penetrating into dentin (ICD-10 - K02.52) 04/01/2024 SVT (supraventricular tachycardia) (ICD-10 - I47.10) Pt does report hx of SVT and does have superintendent power. On metoprolol which pt reports was working to control her palpitations and/or SVT but now having frequent episodes. Pt recommended to get ECG and labs to see if any possible abnormality causing her to have more frequent palps. Pt does VU of when to go to ER and will call to schedule with her superintendent power and notify of her complaint also. 05/02/2024 Palpitations (ICD-10 - R00.2) Education on her testing results and did not capture irregular HR. Will have pt complete event monitor. Still has not scheduled with her Brim Presser and recommended to do so. 05/16/2024 Encounter for dental examination and cleaning with abnormal findings (ICD-10 - Z01.21) 08/21/2024 Anxiety (ICD-10 - F41.9) 08/21/2024 GERD without esophagitis (ICD-10 - K21.9) 05/16/2024 Other dental procedure status (ICD-10 - Z98.818) 05/02/2024 Missed menses (ICD-10 - N92.6) Pt reports no menses since Feb. Took home tests that were neg. Will get blood test and also hormone testing. 08/18/2024 Necrosis of pulp (ICD-10 - K04.1) 03/29/2024 Somatic dysfunction of thoracic region (ICD-10 - M99.02) Patient had somatic dysfunctions to the cervical, thoracic, and head regions, OMT was performed to 3 areas with a combination of soft tissue techniques and muscle energy. The patient tolerated it well with improvement in her pain from a 5/10 to a 3/10. Educated the patient about increasing water intake and that she may be sore for about a day after today's session. Discussed the use of NSAIDs PRN as well as alternating ice and heat to help with pain 03/17/2024 Acquired female bladder prolapse (ICD-10 - N81.10) Waiting to hear from OBGYN about referral. If she does not hear in next two weeks call our office. 03/10/2024 Acquired female bladder prolapse (ICD-10 - N81.10) Pt reports leaking and told in past she has prolapsed bladder. Would like to see OBGYN. Will place referral. 02/18/2024 Mild persistent asthma (ICD-10 - J45.30) 01/15/2024 GERD without esophagitis (ICD-10 - K21.9) 10/24/2023 Breast pain, left (ICD-10 - N64.4) Will get US bc of pt concerns, Mammogram came back normal. 09/03/2023 Mild persistent asthma (ICD-10 - J45.30) Asthma stable. Will continue current medication. 09/03/2023 Migraine (ICD-10 - G43.909) Migraines stable. Will continue current medication. 10/24/2023 Mass of lower outer quadrant of left breast (ICD-10 - N63.23) 03/10/2024 Other eczema (ICD-10 - L30.8) Exam consistent with eczema. Encouraged using a lotion like eucerin 4x a day. Can do topical steroid sparingly. Reviewed risks of long term care pharmacist steroid use. 03/17/2024 Periumbilical hernia (ICD-10 - K42.9) Will get US to evaluate her documented periumbilical hernia. Causing pain in left abdomen. 03/29/2024 Other chronic pain (ICD-10 - G89.29) 04/01/2024 Screening cholesterol level (ICD-10 - Z13.220) 04/01/2024 Chronic constipation (ICD-10 - K59.09) Encourage fluid intake, high fiber foods. Will send in for senna and colace since pt feels miralax not really helping. Pt can use suppositories to help with acute constipation and hard stools painful to pass at the rectum. Pt is recommended to keep bathroom routine to that can help encourage increased output. This can be something as simple as recommending patient sitting on the toilet for 5-10 minutes before bath time. after dinner or after school. These should be relaxing and stress free times that can include screen time, reading a book or magazine of choice to encouraging a relaxing environment. We never want patient to view or interpret these times in a negative way that would increase stress which could increase the issues surrounding the constipation. 05/16/2024 Necrosis of pulp (ICD-10 - K04.1) 05/16/2024 Dental caries on pit and fissure surface penetrating into dentin (ICD-10 - K02.52) 03/17/2024 Chronic constipation (ICD-10 - K59.09) Encourage fluid intake, high fiber foods. Will also start Miralax for patient to take daily until bowels moving and then can back down to maintenance dosing to keep stools soft and passable. Pt can use suppositories to help with acute constipation and hard stools painful to pass at the rectum. Pt is recommended to keep bathroom routine to that can help encourage increased output. This can be something as simple as recommending patient sitting on the toilet for 5-10 minutes before bath time. after dinner or after school. These should be relaxing and stress free times that can include screen time, reading a book or magazine of choice to encouraging a relaxing environment. We never want patient to view or interpret these times in a negative way that would increase stress which could increase the issues surrounding the constipation. 03/29/2024 Somatic dysfunction of head region (ICD-10 - M99.00) 03/10/2024 Acute left ankle pain (ICD-10 - M25.572) S/S consistent with a strain. Pt is advised to rest, ice for 20 min TID, home stretches are also encouraged. Prescribed Toradol 5 day course for pain in neck and ankle also. Can take Tylenol PRN also. Pt can use fabiola wrap for support. Will send to Ortho since persisting. 09/03/2023 Anxiety (ICD-10 - F41.9) Anxiety stable. Will continue current medication 09/03/2023 Skin lesion (ICD-10 - L98.9) Saw derm and addressed the lesion she was getting on her forehead. told herpes type lesion and given med to take if recurs. 09/03/2023 Other constipation (ICD-10 - K59.09) Discussed the importance of increasing water and fiber in diet, scheduled stooling routine. May use fiber gummies, or prune juice daily for maintenance. Discussed with pt that if daily maintenance does not produce regular BM's, may add MiraLax daily until regular BM's then slowly wean down to maintenance dose. Will also send stimulant med to use as needed. Pt VU. 09/03/2023 Screening mammogram for breast cancer (ICD-10 - Z12.31) Still has to complete. 09/03/2023 Cervical cancer screening (ICD-10 - Z12.4) Recommended to schedule pap. 09/03/2023 Perimenopausal symptoms (ICD-10 - N95.1) Requests to see OBGYN bc of perimenopausal symptoms such as irreg menses, variation in flow, anxiety at times, hot flashes. Will send referral. 09/03/2023 Other Order for cologuard sent 03/10/2024 Other CancelRx Respon se got Denied on 2024-03-10 18:40:35 for 'Nitrofurantoin Monohyd Macro 100 MG Capsule'Pharmacy Notes: Cancelled 03/29/2024 Other 07/09/2024 Other Body Mass Index : Care Instructions material was published, Body Mass Index: Care Instructions material was printed Plan Of Treatment Pending Test Test Name Order Date MM diagnostic mammo BI w/CAD 07/11/2024 MM screening mammo BI w/CAD 07/09/2024 breast BI limited 07/09/2024 Next Appt Details Provider Name:Tj Campos, 0 09/02/2024 04:30:00 PM, [address] [place], [address], Provider Name:Tj Campos, 1 02/23/2024 10:25:00 AM, [address], [place], [address], Provider Name:Tj Campos, 1 02/29/2024 09:30:00 AM, [address], [place], [address], Insurance Providers Payer Name Payer Address Payer Phone Subscriber Number Group Number Insured Name Patient Relationship to Insured Coverage Start Date Coverage End Date [employer] [place] [address] [place] [address] [id number] TYRON PAULINO Self - patient is the insured 2 [facility] [address] [place] [address] [id number] TYRON PAULINO Self - patient is the insured 1 [employer]ter[employer] [address] [place] [address] [id number] TRYON PAULINO Self - patient is the insured 3 3 zMEDICAID [facility] [address] [place] [address] [id number] TYRON PAULINO Self - patient is the insured 2 3 [facility] [address] [place] [address] [id number] TYRON PAULINO Self - patient is the insured 3 Dental [employer] [facility] [address] [place] [address] [id number] TYRON PAULINO Self - patient is the insured 3 Medications Administered Medication Instructions Date of Administration Dosage Notes TORADOL 07/04/2021 2 mL TORADOL 09/12/2022 60 mg Medical (General) History Medical History History ICD Code Asthma Tachycardia Depression SVT Nephrolithiasis EDC 09/18/12 Migraines 6 MM Left Kidney Stone Nonobstructing pe r CT 09/11 Surgical History Surgery Date(Month/Year) Breast Biopsy-benign 2002 D+C Lithotripsy 2023 Hospitalization History Reason Date(Month/Year) Vaginal Delivery x3
--- OUTSIDE RECORDS SUMMARY | 2024-08-31 20:07 | XMS_ITS | Encounter Summary ---
Author Organization [facility] Address [address] [place] [address] Phone Care Team Providers Care Dining Room Host/Hostess Name Role Phone Liya Millan APRN-TRANSMITTER ENGINEER Primary Care P rovider Encounter Details Date Type Department Care Team (Late st Contact Info) Description 09/19/2023 Scanned Document [facility] [address] [place] [id number] Scanning, Generic Provider Social History Tobacco Use [...] on filedocumented in this encounter Care Teams Dining Room Host/Hostess Relationship Specialty Start Date End Date Liya Millan APRN-CNP [address] [facility] [place] [phone] PCP - General 08/28/22 documented as of this encounter
--- OUTSIDE RECORDS SUMMARY | 2024-08-31 20:09 | XMS_ITS | CCD ---
Author Organization [facility] Inform ion Partnership [facility] Care Team Providers Care Animal Trainer Name Role Phone ChrisDionisio Unavailable Unavailable Unavailable LIYA MILLAN Primary Care Physician [facility] Services Primary Care Provider YENNY Perez Attending Provider MELINDA Millan Attending Provider [facility] Primary Care Provider [phone] Brendan Gastelum Unavailable [phone] [facility] Services Primary Care Provider MELINDA Millan Attending Provider MD Brendan Gastelum Attending Provider [facility] Primary Care Provider MELINDA Millan Attending Provider Dena Guillaume Unavailable Liya Millan Unavailable [phone] Dr. Mindy Garcia Referring Unavaila chelly Garcia, Dr. Menon Attending Unavaila Ms. Liya Le Primary Care Alea Dr. Mindy Billy Referring Unavaila ble Bernardo, Dr. Menon Attending Unavaila ble Yolande Alfred Unavailable [facility] Services Primary Care Provider YENNY Ferraro Attending Pr ovider MD Brendan Gastelum Attending Provider [phone] YENNY Alfred Attending Provider [facility] Services Primary Care Provider DO Elton Carrera Emergency Provider MD Carina Mcnulty Attending Provider MELINDA Millan Attending Provider [facility] Primary Care Provider DO Elton Carrera Emergency Provider MD Carina Mcnulty Attending Provider MELINDA Millan Attending Provider DO [place] Emergency Provider [facility] Primary Care Provider MELINDA Millan Attending Provider MD Carina Ward Attending Provider MYRNA York Attending Provider Liya Tristan Primary Care P rovider MINDY GARCIA Attending Unavailable LIYA MILLAN Primary Care Unavail able MINDY GARCIA Referring Unavailable LIYA MILLAN Primary Care Unavail able [facility], Services Primary Care Provider MELINDA Alfred Emergency Provider [facility] Primary Care Provider [phone] MD Carina Ward Attending Provider MELINDA Pabon Attending Provider [facility] Primary Care Provider [phone] NO FAMILY, PHYSICIAN Primary Care Provider MELINDA Nazario Attending Provider [phone] MELINDA Millan Attending Provider YENNY Ferraronifer Silva Attending Pr ovider [facility] Primary Care Provider MD Carina Ward Attending Provider Lulae Carina M. Attending Unavailable Lue, Carina M. Attending Unavailable Lue, Carina M. Attending Unavailable Lue, Carina M. Admitting Unavailable Lue, Carina M. Attending Unavailable Lue, Carina M. Referring Unavailable Lue, Carina M. Attending Unavailable Lue, Carina M. Referring Unavailable Lue, Carina MJodie Attending Unavailable Unallocated , [place] Provider Primary Care Provi yefri [facility] Care Prov ider Darek Alfred APRN Emergency Provider Sherin Garza APRN Emergency Provider Carina Ward Attending Unavailable Lue, Carina MJodie Attending Unavailable Lue, Carina MJodie Attending Unavailable Lue, Carina MJodie Referring Unavailable Ferraro TIMBER APPRAISER-CYanira Attending Pr ovider [facility] Primary Care Prov ider Sherin Garza APRN Emergency Provider [phone] Ronan MARTINEZ-Yanira Marsh Attending Pr ovider [facility] Primary Care Prov ider Ronan MARTINEZ-CYanira Attending Pr ovider Hemanth Jaquez DO Attending Provider [phone] Nkechi Nicholas Attending Unavailable Jodie Kennedy Referring Unavailable NON STAFF Primary Care Unavailable Yu, Nkechi Admitting Unavailable Melinda Verdin Attending Unavailable Melinda Verdin Admitting Unavailable NO FAMILY, PHYSICIAN Primary Care Unavailable [facility], Services Primary Care U Sherin Reeves Attending Unavailable Sherin Garza Admitting Unavailable [facility], Services Primary Care U Yanira Nunes Attending U navYanira Gramajo Admitting U navailable Liya Millan Attending Unavailab Liya Telles Admitting Unavailab le NO FAMILY, PHYSICIAN Primary Care Unavailable Carina Ward Attending Unavailable Carina Ward M Admitting Unavailable [facility] Primary Care Unavaila ble LuCarina rodriguez M Admitting Unavailable [facility] Primary Care Unavaila ble Carina Ward Attending Unavailable Darek Alfred Admitting Unavailable Darek Alfred Attending Unavailable [facility] Primary Care Unavaila ble Aubrie, Darek Attending Unavailable [facility] Darek Alfred Admitting Unavailable Yanira Ferraro Attending U [facility] Primary [facility] Yanira Ferraro Admitting U navailable Sharonda Pabon Admitting Unavailable Sharonda Pabon Attending Unavailable Marcie, Hemanth Attending Unavailable Hemanth Jaquez Admitting Unavailable Yanira Ferraro Admitting [facility] Yanira Ferraro Attending [facility] NO FAMILY, PHYSICIAN Primary Care Unavailable Carina Ward Admitting Unavailable Carina Ward Attending Unavailable NO FAMILY, PHYSICIAN Primary Care Unavailable [facility] Services Primary [facility] Yanira Ferraro [facility] Ronan, Yanira Ascencio Admitting U [facility], Services Primary Care U navailable Ronan, Yanira Ascencio Attending U [facility] Ronan, Yanira Ascencio Admitting U [facility] Attending [facility] Ferraro, Yanira Ascencio Admitting U [facility], Services Primary Care U navailable Ronan, Yanira Ascencio Admitting [facility] Ronan, Yanira Ascencio Attending U [facility], Services Primary [facility] Ronan, Yanira Ascencio Admitting [facility] Ronan, Yanira Ascencio Attending U navailable Carina Ward Attending Unavailable Carina Ward Admitting Unavailable [facility] Primary Care Unavaila KIKO Ibanez Attending Unavailable KIKO YORK Attending Unavailable YUNI SHOEMAKER Attending Unavailable HEMANTH JAQUEZ Attending Unavailable HEMANTH JAQUEZ Attending Unavailable DEREK SHORT Attending Unavailable DAREK EMMANUEL Attending Unavailable Allergies Allergy Classification Reported Allergen(s) Allergy Type Date of Onset Reaction(s) Facility Macrolides (antibiotic) (1 source) Azithromycin; Translations: [azithromycin] Drug Allergy Unknown (qualifier value) [facility] Penicillins (antibiotic) (3 sources) Penicillin; Translations: [penicillin] Drug Allergy 4 rash, unknown [facility] (20 sources) Erythromycin; Translations: [erythromycin] Drug Allergy 4 rash, Unknown [facility] (20 sources) Penicillin G Drug Allergy 3 [facility] (20 sources) Seasonal allergy Propensity to adverse reactions 3 Unknown, Itching [facility] (20 sources) Penicillins; Translations: [Penicillins] Allergy to drug (finding) 2 [facility] (9 sources) Azithromycin; Translations: [azithromycin] Drug Allergy Unknown (qualifier value) [facility] (9 sources) Penicillin; Translations: [penicillin] Drug Allergy unknown [facility] (20 sources) erythromycin base Allergy to substance 2 [facility] (1 source) Penicillins Drug Allergy 4 Unknown [facility] Work Phone: (15 sources) Penicillins Drug Allergy 0 Itching, Unknown [facility] (15 sources) Wound Dressing Adhesive Propensity to adverse reactions 4 [facility] Medications Current Medications Medication Drug Class(es) Dates Sig (Normalized) Sig (Original) Aimovig 140 MG/ML (2 sources) Aimovig 140 MG/M L as directed Subcutaneous Active [id number] 200 actuat albuterol 0.09 mg/actuat metered dose inhaler (20 sources) beta2-Adrenergic Agonist Start: 04-11-2024 take 2 puff(s) by inhalation every four hours for wheezing albuterol HFA 90 mcg/act inhaler Indications: Cough, unspecified type , Influenza A Inhale 2 puffs every 4 (four) hours if needed for wheezing or shortness of breath 18 g 04/11/2024 Active Start: 07-04-2021 take 2 puff(s) by in halation every four hours albuterol (Ventolin HFA) 90 mcg/actuation inhaler Inhale 2 puffs every 4 hours if needed for shortness of breath. 07/04/2021 Active Start: 07-04-2021 take 2 puff(s) by mo uth every four hours as needed Ventolin HFA 108 (90 Base) MCG/ACT Inhalation Aerosol Solution INHALE 2 PUFFS BY MOUTH EVERY 4 HOURS NEEDED FOR SHORTNESS OF BREATH Quantity: 18 Refills: 0 Ordered: 18-Jul-2021 DO Start : 04-Jul-2021 Active Start: 05-06-2020 albuterol Star t Date: 05/06/20 Status: Ordered Start: 01-31-2020 End: 01-10-2022 take 1 puff(s) by inhalation every four to six hours as needed for wheezing Albuterol Sulfate (Proventil Hfa) 90 mcg/actuation Hfa Aerosol Inhaler Discontinued 2 PUFF INHALATION EVERY 4-6 HOURS as needed for Shortness Of Breath Or Wheezing January 31, 2020 1:00am January 10, 2022 1:55pm with spacer Start: 01-26-2019 End: 07-28-2024 take 2.5 mg by inhalation every six hours as needed Albuterol Sulfate 2.5 mg/0.5 mL solution for nebulization Discontinued 2.5 MG INHALATION Q6H as needed for bronchospasm January 26, 2019 4:37pm July 28, 2024 6:09pm Start: 04-20-2018 End: 01-26-2019 take 5 mg by inhalation every six hours as needed Albuterol Sulfate 2.5 mg/0.5 mL solution for nebulization Discontinued 5 MG INHALATION Q6H as needed for bronchospasm April 20, 2018 1:00am January 26, 2019 4:37pm Start: 11-05-2016 Albuterol Sulf ate Active 2 INH INHALATION Q6H November 04, 2016 11:00pm administer with spacer Start: 11-05-2016 Albuterol Sulf ate Active 2 INH INHALATION Q6H November 05, 2016 12:00am administer with spacer End: 04-11-2024 take 2 puff(s) by inhalation every four hours as needed albuterol HFA 90 mcg/act inhaler 2 puffs as needed Inhalation every 4 hrs as needed shortness of breath for 30 days 04/11/2024 Discontinued (Reorder) take 1 puff(s) by in halation every four hours as needed Proventil HFA 108 (90 Base) MCG/ACT 1 puff as needed Inhalation every 4 hrs Active Albuterol 90 MCG/ACT (14 sources) Albuterol 90 MCG /ACT Inhalation Active Albuterol Sulfate 90 mcg/actuation HFA aerosol inhaler (9 sources) Start: 11-05-2016 Albuterol Sulf ate 90 mcg/actuation HFA aerosol inhaler Active 2 INH INHALATION Q6H as needed for bronchospasm November 05, 2016 12:00am administer with spacer Start: 11-05-2016 Albuterol Sulf ate 90 mcg/actuation HFA aerosol inhaler Active 2 INH INHALATION Q6H as needed for bronchospasm November 04, 2016 11:00pm administer with spacer black cohosh extract 40 mg oral capsule (2 sources) Start: 12-03-2023 End: 01-02-2024 take 1 tablet by mouth once daily Black Cohosh 40 MG capsule Indications: Hormone imbalance Take 1 tablet by mouth Daily 30 capsule 3 12/03/2023 01/02/2024 Active cetirizine hydrochloride 10 mg oral tablet (20 sources) Histamine-1 Receptor Antagonist Start: 11-04-2016 take 1 tablet by mouth once daily at bedtime Cetirizine 10 mg tablet Active 10 MG PO Daily at bedtime November 04, 2016 12:00am dextromethorphan hydrobromide 15 mg / guaiFENesin 400 mg / pseudoephedrine hydrochloride 60 mg oral tablet (1 source) alpha-Adrenergic Agonist, Uncompetitive Z-irqabt-K-aspartat e Receptor Antagonist, Sigma-1 Agonist Start: 12-07-2022 take 1 tablet by mouth every four hours Capmist DM 60-15-400 MG 1 tablet as needed Orally every 4 hours for 10 days Nov, Active doxycycline monohydrate 100 mg oral capsule (20 sources) Tetracycline-class Drug Start: 02-14-2022 take 1 capsule by mouth every twelve hours Doxycycline Monohydrate 100 MG 1 capsule Orally Twice a day for 7 day(s) Jan, Active Start: 03-30-2018 End: 04-20-2018 take 1 capsule by mouth twice daily Doxycycline Hyclate 100 mg capsule Discontinued 100 MG PO Twice daily 08 12March 30, 2018 1:00am April 20, 2018 5:18pm 1 ml erenumab-aooe 140 mg/ml auto-injector (20 sources) Start: 10-20-2021 inject 140 mg by subcutaneous injection every month Erenumab-Aooe (Aimovig Autoinjector) 140 mg/mL auto-injector Active 140 MG SUBCUT every month September 28, 2023 12:00am Start: 10-20-2021 Aimovig SureCl ick Autoinjector-aooe 140 mg/mL subcutaneous solution Refills(s) 0 Start Date: 03/29/23 Status: Ordered Start: 12-30-2019 End: 09-28-2023 inject 70 mg by subcutaneous injection every month Erenumab-Aooe (Aimovig Autoinjector) 70 mg/mL auto-injector Discontinued 70 MG SUBCUT every month December 30, 2019 1:00am September 28, 2023 5:14pm fluconazole 150 mg oral tablet (1 source) Azole Antifungal Start: 09-25-2022 Diflucan 150 MG 1 tablet Orally once for 2 days Take the first pill today, take the second pill in 3 days Sep, Active fluticasone propionate 0.05 mg/actuat metered dose nasal spray (5 sources) Corticosteroid Start: 12-07-2022 take 1 spray(s) nasal route once daily Flonase Allergy Relief 50 MCG/ACT 1 spray in each nostril Nasally Once a day for 30 day(s) Nov, Active Start: 02-14-2022 take 1 spray(s) nasa l route twice daily Fluticasone Propionate 50 MCG/ACT 1 spray in each nostril Nasally Twice a day for 14 days Jan, Active meloxicam 15 mg oral tablet (20 sources) Nonsteroidal Anti-inflammatory Drug Start: 01-26-2019 take 1 tablet by mouth once daily at bedtime Meloxicam 15 mg tablet Active 15 MG PO Daily at bedtime January 26, 2019 1:00am 24 hr metoprolol succinate 25 mg extended release oral tablet (20 sources) beta-Adrenergic Lavern Start: 12-10-2022 take 1 tablet by mouth every twenty-four hours in the morning metoprolol succinate XL (Toprol-XL) 25 MG 24 hr tablet Take 25 mg by mouth in the morning. 12/10/2022 Active Start: 01-26-2019 End: 08-05-2024 take 1 tablet by mouth once daily at bedtime Metoprolol Succinate 25 mg tablet extended release 24 hr Active 25 MG PO Daily at bedtime January 26, 2019 1:00am take 1 tablet by [facility] once at mealtime Metoprolol Tartrate 25 MG 1 tablet with food Orally once dialy Active Metoprolol Tartr ate Active montelukast 10 mg oral tablet (20 sources) Leukotriene Receptor Antagonist Start: 11-04-2016 take 1 tablet by mouth once daily at bedtime Montelukast 10 mg tablet Active 10 MG PO Daily at bedtime November 04, 2016 12:00am take 2 tablets by [facility] every twenty-four hours Singulair 5 MG 2 tablets in the evening Orally Once a day Active omeprazole 20 mg delayed release oral capsule (20 sources) Proton Pump Inhibitor Start: 05-06-2020 take 1 capsule by mouth once daily omeprazole 20 mg Cap-DR 20 mg = 1 cap(s), Oral, Daily, # 30 cap(s) Start Date: 05/06/20 Status: Ordered Start: 11-04-2016 take 1 capsule by [facility] once daily at bedtime Omeprazole 40 mg capsule,delayed release(DR/EC) Active 40 MG PO Daily at bedtime November 04, 2016 12:00am oseltamivir 75 mg oral capsule (2 sources) Neuraminidase Inhibitor Start: 04-11-2024 End: 04-16-2024 take 1 capsule by mouth in the morning oseltamivir (Tamiflu) 75 MG capsule Indications: Cough, unspecified type , Influenza A Take 1 capsule (75 mg) by mouth in the morning and 1 capsule (75 mg) before bedtime. Do all this for 5 days. 10 capsule 04/11/2024 04/16/2024 Active PARoxetine hydrochloride 20 mg oral tablet (20 sources) Serotonin Reuptake Inhibitor Start: 11-04-2016 End: 02-06-2017 take 1 tablet by mouth once daily at bedtime Paroxetine Hcl (Paxil) 20 mg Tablet Active 20 MG PO Daily at bedtime February 06, 2017 1:00am End: 07-28-2024 PARoxetine (Paxil) 10 MG tab let 1 (one) time each day at the same time 07/28/2024 Discontinued (Dose adjustment) Paxil Active predniSONE 20 mg oral tablet (20 sources) Start: 07-28-2024 take 3 tablets by mouth once daily, then take 2 tablets by mouth once daily, then take 1 tablet by mouth once daily Prednisone 20 mg tablet Active 20 MG PO .COMPLEX July 28, 2024 12:00am Take 3 tabs po daily x 3 days, then take 2 tabs po daily x 3 days, then take 1 tab po daily x 3 days. Start: 02-14-2022 take 1 tablet by [place] th every twelve hours predniSONE 20 MG 1 tablet Orally twice a day for 5 days Jan, Active Start: 01-31-2020 End: 01-10-2022 Prednisone 10 mg Tablet Discontinued 60 MG PO Daily January 31, 2020 1:00am January 10, 2022 1:56pm administer with food or milk Start: 01-31-2020 End: 01-10-2022 take 60 mg by mouth once daily at mealtime Prednisone Discontinued 60 MG PO Daily January 31, 2020 1:00am January 10, 2022 1:56pm administer with food or milk Start: 03-30-2018 End: 04-20-2018 take 3 tablets by mouth once daily at mealtime Prednisone 20 mg tablet Discontinued 60 MG PO Daily 9 March 30, 2018 1:00am April 20, 2018 5:18pm administer with food or milk Start: 03-30-2018 End: 04-20-2018 take 60 mg by mouth once daily at mealtime Prednisone Discontinued 60 MG PO Daily 9 March 30, 2018 1:00am April 20, 2018 5:18pm administer with food or milk Start: 11-05-2016 End: 02-06-2017 take 3 tablets by mouth once daily at mealtime Prednisone 20 mg tablet Discontinued 60 MG PO Daily November 05, 2016 12:00am February 06, 2017 8:14pm administer with food or milk Start: 11-05-2016 End: 02-06-2017 take 60 mg by mouth once daily at mealtime Prednisone Discontinued 60 MG PO Daily November 05, 2016 12:00am February 06, 2017 8:14pm administer with food or milk rizatriptan 5 mg oral tablet (20 sources) Serotonin-1b and Serotonin-1d Receptor Agonist Start: 05-06-2020 Maxalt Oral, Daily Start Date: 05/06/20 Status: Ordered Start: 06-23-2017 End: 10-05-2020 take 1 tablet by mouth once daily as needed for headache Rizatriptan 5 mg tablet Active 5 MG PO Daily as needed for Headache October 05, 2020 12:00am Start: 06-03-2017 Maxalt 10 MG 1 tablet as needed one time Orally at onset migraine, may repeat single dose in 1-2 hrs for 1 day(s) May, Active rizatriptan (Max alt) 10 mg tablet Take 1 tablet (10 mg) by mouth. Take one tablet by mouth at onset of headache, may repeat every 2 hours as needed, maximum of 3 tablets in 24 hours Active Sennosides (Vegetable Laxative) 8.6 mg tablet (15 sources) Start: 09-28-2023 take 1 tablet by [place] th once daily as needed for constipation Sennosides (Vegetable Laxative) 8.6 mg tablet Active 8.6 MG PO Daily as needed for constipation September 28, 2023 12:00am Start: 09-28-2023 take 1 tablet by [place] th once daily as needed for constipation Sennosides (Vegetable Laxative) 8.6 mg tablet Active 8.6 MG PO Daily as needed for constipation September 27, 2023 11:00pm Start: 09-28-2023 take 1 tablet by mouth once da qi Sennosides (Vegetable Laxative) 8.6 mg tablet Active 8.6 MG PO Daily September 28, 2023 12:00am sennosides, nursing home 8.6 mg oral tablet (2 sources) Start: 09-28-2023 Sennosides (Vegetable Laxative) 8.6 mg tablet Active MG PO September 28, 2023 12:00am verapamil hydrochloride 40 mg oral tablet (20 sources) Calcium Channel Lavern Start: 05-06-2020 take 1 mg by mouth three times daily verapamil 40 mg oral tablet mg tab(s), Oral, TID Start Date: 05/06/20 Status: Ordered Start: 11-04-2016 End: 10-05-2020 take 1 tablet by mouth once daily Verapamil 40 mg tablet Discontinued 40 MG PO Daily November 04, 2016 12:00am October 05, 2020 6:53am Completed/Discontinued Medications Medication Drug Class(es) Dates Sig (Normalized) Sig (Original) acetaminophen 325 mg / HYDROcodone bitartrate 5 mg oral tablet (20 sources) Opioid Agonist Start: 03-16-2024 End: 07-28-2024 take 1 tablet by mouth every four to six hours as needed for pain Hydrocodone-Acetami nophen 5-325 mg tablet Discontinued 1 TAB PO EVERY 4-6 HOURS as needed for pain 10 March 16, 2024 July 28, 2024 6:01pm Start: 06-23-2017 End: 11-17-2017 take 1 tablet by mouth every six hours as needed for pain Hydrocodone-Acetaminophen ([place]) 5-325 mg tablet Discontinued 1 TAB PO Q6H as needed for pain June 23, 2017 November 17, 2017 12:39pm cefadroxil 500 mg oral capsule (2 sources) Cephalosporin Antibacterial Start: 11-06-2022 take 1 capsule by mouth every twelve hours Cefadroxil 500 MG 1 capsule Orally every 12 hrs for 7 days Oct, Not-Taking cefdinir 300 mg oral capsule (5 sources) Cephalosporin Antibacterial Start: 04-20-2022 take 1 capsule by mouth every twelve hours Cefdinir 300 MG 1 capsule Orally every 12 hrs for 10 day(s) Apr, Not-Taking cephalexin 500 mg oral capsule (20 sources) Cephalosporin Antibacterial Start: 10-16-2023 End: 07-28-2024 take 1 capsule by mouth twice daily Cephalexin 500 mg capsule Discontinued 500 MG PO Twice daily 11 23October 16, 2023 12:00am July 28, 2024 6:00pm Start: 11-29-2021 take 1 capsule by [facility] every twelve hours Cephalexin 500 MG 1 capsule Orally Twice a day for 10 days Nov, Active Start: 09-21-2019 End: 12-30-2019 take 1 capsule by mouth four times daily Cephalexin (Keflex) 500 mg capsule Discontinued 500 MG PO Four times daily 40 September 21, 2019 12:00am December 30, 2019 1:13pm Start: 01-26-2019 End: 12-30-2019 take 2 capsules by mouth twice daily Cephalexin (Keflex) 500 mg capsule Discontinued 1000 MG PO Twice daily 15 09January 26, 2019 1:00am December 30, 2019 1:13pm ciprofloxacin 500 mg oral tablet (20 sources) Quinolone Antimicrobial Start: 03-18-2023 End: 05-03-2023 take 1 tablet by mouth twice daily Ciprofloxacin Hcl 500 mg tablet Discontinued 500 MG PO Twice daily 01 09March 18, 2023 1:00am May 03, 2023 8:15am cyclobenzaprine hydrochloride 10 mg oral tablet (20 sources) Muscle Relaxant Start: 06-23-2017 End: 11-17-2017 take 1 tablet by mouth every eight hours as needed for muscle spasms Cyclobenzaprine 10 mg tablet Discontinued 10 MG PO Q8H as needed for muscle spasm June 23, 2017 12:00am November 17, 2017 12:39pm diclofenac sodium 75 mg delayed release oral tablet (20 sources) Nonsteroidal Anti-inflammatory Drug Start: 11-17-2017 End: 03-30-2018 take 1 tablet by mouth once daily Diclofenac Sodium 75 mg tablet,delayed release (DR/EC) Discontinued 75 MG PO Daily November 17, 2017 12:00am March 30, 2018 11:09pm ibuprofen 600 mg oral tablet (20 sources) Nonsteroidal Anti-inflammatory Drug Start: 01-26-2019 End: 10-05-2020 Ibuprofen 600 mg tablet Discontinued 600 MG PO every 6 to 8 hours as needed for pain January 26, 2019 1:00am October 05, 2020 6:53am Start: 06-23-2017 End: 11-17-2017 take 1 tablet by mouth three times daily as needed for pain Ibuprofen 800 mg tablet Discontinued 800 MG PO Three times daily as needed for pain June 23, 2017 12:00am November 17, 2017 12:39pm Ketorolac (20 sources) Nonsteroidal Anti-inflammatory Drug, Cyclooxygenase Inhibitor Start: 08-11-2018 Toradol p er 15 mg Jul, 60 mg Start: 02-24-2018 Toradol per 15 mg Feb, 60 mg Start: 02-26-2017 Toradol per 15 mg Feb, 2 mL Start: 12-19-2015 Toradol per 15 mg Nov, 30 mg lidocaine 0.05 mg/mg medicated patch (20 sources) Antiarrhythmic, Amide Local Anesthetic Start: 04-24-2021 End: 01-10-2022 apply 1 dose topically every twenty-four hours Lidocaine 5 % adhesive patch,medicated Discontinued 1 PATCH TOPICAL Q24H April 24, 2021 1:00am January 10, 2022 1:55pm leave on most painful area for up to 12 hrs magnesium oxide 400 mg oral tablet (20 sources) Start: 01-10-2022 End: 07-06-2023 take 1 tablet by mouth once daily Magnesium Oxide 400 mg (241.3 mg magnesium) tablet Discontinued 400 MG PO Daily January 10, 2022 1:00am July 06, 2023 12:17pm Start: 10-18-2021 take 1 tablet by [place] twice daily magnesium oxide (Mag-Ox) 400 mg (241.3 mg magnesium) tablet Take 1 tablet (400 mg) by mouth 2 times a day. 10/18/2021 Active Start: 10-18-2021 take 1 tablet by [place] twice daily Magnesium Oxide -Mg Supplement 400 (240 Mg) MG Oral Tablet TAKE 1 TABLET BY MOUTH TWICE DAILY Quantity: 180 Refills: 3 Ordered: 28-Aug-2022 Mindy Garcia MD Start : 18-Oct-2021 Active methocarbamol 750 mg oral tablet (20 sources) Muscle Relaxant Start: 04-24-2021 End: 01-10-2022 take 1 tablet by mouth three times daily Methocarbamol 750 mg tablet Discontinued 750 MG PO Three times daily April 24, 2021 1:00am January 10, 2022 1:55pm mupirocin 0.02 mg/mg topical ointment (2 sources) RNA Synthetase Inhibitor Antibacterial Start: 11-06-2022 Mupirocin 2 % 1 application to affected area Externally once a day for 7 days Oct, Not-Taking naproxen 500 mg oral tablet (20 sources) Nonsteroidal Anti-inflammatory Drug Start: 03-18-2023 End: 05-03-2023 take 1 tablet by mouth twice daily as needed for pain Naproxen (Naprosyn) 500 mg tablet Discontinued 500 MG PO Twice daily as needed for pain 14 March 18, 2023 1:00am May 03, 2023 8:16am nitrofurantoin, macrocrystals 25 mg / nitrofurantoin, monohydrate 75 mg oral capsule (18 sources) Nitrofuran Antibacterial Start: 09-28-2023 End: 10-16-2023 take 1 capsule by mouth every twelve hours at mealtime Nitrofurantoin Monohyd/M-Cryst (Macrobid) 100 mg capsule Discontinued 100 MG PO Every 12 hours 14 7 September 28, 2023 12:00am October 16, 2023 11:49am must administer with a meal/food Start: 07-31-2021 take [address] [facility] every twelve hours Macrobid 100 MG 1 capsule with food Orally twice a day for 7 day(s) Jul, Active ondansetron 4 mg disintegrating oral tablet (20 sources) Serotonin-3 Receptor Antagonist Start: 08-29-2023 End: 10-16-2023 take 1 tablet by mouth every six hours as needed for nausea and vomiting Ondansetron 4 mg tablet,disintegrating Discontinued 4 MG PO Every 6 hours as needed for nausea and vomiting August 29, 2023 12:31pm October 16, 2023 11:49am Start: 03-18-2023 End: 05-03-2023 take 1 tablet by mouth every eight hours as needed for nausea and vomiting Ondansetron Hcl 4 mg tablet Discontinued 4 MG PO Q8H as needed for nausea and vomiting 15 March 18, 2023 1:00am May 03, 2023 8:16am Start: 2021 take 1 tablet by [facility] every eight hours as needed Ondansetron 8 MG 1 tablet on the tongue and allow to dissolve as needed Orally every 8 hours as needed for 3 day(s) Jul, Active Start: 09-21-2019 End: 10-05-2020 take 1 tablet by mouth every eight hours as needed for nausea and vomiting Ondansetron 4 mg tablet,disintegrating Discontinued 4 MG PO Q8H as needed for nausea and vomiting September 21, 2019 12:00am October 05, 2020 6:53am OXcarbazepine 150 mg oral tablet (20 sources) Anti-epileptic Agent Start: 06-23-2017 End: 04-20-2018 take 1 tablet by mouth once daily Oxcarbazepine (Trileptal) 150 mg Tablet Discontinued 150 MG PO Daily June 23, 2017 12:00am April 20, 2018 5:18pm oxybutynin chloride 5 mg oral tablet (15 sources) Cholinergic Muscarinic Antagonist Start: 10-01-2023 End: 07-28-2024 take 1 tablet by mouth three times daily as needed for pain Oxybutynin Chloride 5 mg tablet Discontinued 5 MG PO Three times daily as needed for bladder spasms, stent pain 60 October 01, 2023 12:00am July 28, 2024 6:10pm oxyCODONE hydrochloride 5 mg oral tablet (20 sources) Opioid Agonist Start: 03-18-2023 End: 05-03-2023 take 1 tablet by mouth once daily as needed for pain Oxycodone 5 mg tablet Discontinued 5 MG PO Daily as needed for severe pain (scale score 7-10) 7 March 18, 2023 May 03, 2023 8:16am potassium chloride 20 meq extended release oral tablet (20 sources) Start: 02-07-2017 End: 06-23-2017 take 1 tablet by mouth once daily at mealtime Potassium Chloride 20 mEq tablet extended release Discontinued 20 MEQ PO Daily February 07, 2017 1:00am June 23, 2017 7:35pm administer with food (meal or snack) sulfamethoxazole 800 mg / trimethoprim 160 mg oral tablet (15 sources) Dihydrofolate Reductase Inhibitor Antibacterial, Sulfonamide Antimicrobial Start: 10-01-2023 End: 10-16-2023 take 1 tablet by mouth every twelve hours Sulfamethoxazole- Trimethoprim (Bactrim Ds) 800-160 mg tablet Discontinued 1 TAB PO Every 12 hours 2 October 01, 2023 12:00am October 16, 2023 11:49am tamsulosin hydrochloride 0.4 mg oral capsule (20 sources) alpha-Adrenergic Lavern Start: 09-28-2023 Tamsulosin Active MG PO September 28, 2023 12:00am Start: 08-24-2023 End: 07-28-2024 take 1 capsule by mouth once daily Tamsulosin 0.4 mg capsule Discontinued 0.4 MG PO Daily September 28, 2023 12:00am July 28, 2024 6:10pm Start: 03-18-2023 End: 05-03-2023 take 1 capsule by mouth once daily Tamsulosin (Flomax) 0.4 mg capsule Discontinued 0.4 MG PO Daily March 18, 2023 1:00am May 03, 2023 8:16am valACYclovir 1000 mg oral tablet (18 sources) Herpesvirus Nucleoside Analog DNA Polymerase Inhibitor, Herpes Simplex Virus Nucleoside Analog DNA Polymerase Inhibitor, Herpes Zoster Virus Nucleoside Analog DNA Polymerase Inhibitor Start: 09-19-2023 End: 10-01-2023 Valacyclovir 1 gram tablet Discontinued 1000 MG PO As Directed as needed for skin rash September 19, 2023 12:00am October 01, 2023 11:44am Start: 09-19-2023 End: 10-01-2023 Valacyclovir Discontinued 10 00 MG PO As Directed September 19, 2023 12:00am October 01, 2023 11:44am Problems Active Problems Problem Classification Problem Date Documented Da te Episodic/Chronic Abdominal pain (20 sources) Flank pain; Translations: [Unspecified abdominal pain] Onset: 4 05-06-2020 Episodic Acute and chronic tonsillitis (14 sources) Acute bacterial tonsillitis; Translations: [Acute tonsillitis due to other specified organisms] Episodic Allergic reactions (2 sources) Contact dermatitis; Translations: [Unspecified contact dermatitis, unspecified cause] 07-28-2024 Episodic Asthma (20 sources) Asthma; Translations: [Exacerbation of asthma] Onset: 4 05-06-2020 Chronic Rojo (1 source) Burn of second degree of left lower leg, initial encounter Episodic Calculus of urinary tract (20 sources) Kidney stone; Translations: [Calculus of kidney] Onset: 4 05-06-2020 Episodic Cardiac dysrhythmias (20 sources) Premature atrial contraction; Translations: [Supraventricular premature beats] Onset: 4 05-06-2020 Chronic Conditions associated with dizziness or vertigo (20 sources) Dizziness; Translations: [Dizziness and giddiness] Onset: 0 02-07-2017 Episodic Esophageal disorders (20 sources) Gastroesophageal reflux disease; Translations: [Gastro-esophageal reflux disease without esophagitis] Onset: 4 05-06-2020 Chronic Fluid and electrolyte disorders (20 sources) Acute hypokalemia; Translations: [Hypokalemia] Onset: 4 02-07-2017 Episodic Genitourinary symptoms and ill-defined conditions (20 sources) Genuine stress incontinence; Translations: [Stress incontinence (female) (male)] Onset: 4 05-31-2020 Chronic Headache; including migraine (20 sources) Refractory migraine; Translations: [Migraine, unspecified, intractable, with status migrainosus] Onset: 4 05-06-2020 Chronic Immunizations and screening for infectious disease (1 source) Encounter for screening for other viral diseases Episodic Influenza (2 sources) Influenza due to Influenza A virus; Translations: [Influenza due to other identified influenza virus with other respiratory manifestations] 04-11-2024 Episodic Menstrual disorders (4 sources) Menometrorrhagia; Translations: [Excessive and frequent menstruation with irregular cycle] Onset: 5 06-25-2024 Chronic Miscellaneous mental health disorders (13 sources) Not getting enough sleep; Translations: [Insufficient sleep syndrome] Onset: 4 02-14-2024 Chronic Mood disorders (20 sources) Depressive disorder; Translations: [Depressive disorder] Onset: 4 05-06-2020 Chronic Nausea and vomiting (20 sources) Nausea; Translations: [Nausea] Onset: 4 09-13-2019 Episodic Open wounds of extremities (20 sources) Laceration of finger; Translations: [Laceration without foreign body of unspecified finger without damage to nail, initial encounter] Onset: 4 10-05-2020 Episodic Osteoarthritis (20 sources) Arthritis; Translations: [Unspecified osteoarthritis, unspecified site] Onset: 4 05-06-2020 Chronic Other acquired deformities (2 sources) Contracture of joint of right ankle; Translations: [Contracture, right ankle] 03-26-2024 Chronic Other diseases of bladder and urethra (3 sources) Urethral hypermobility; Translations: [Hypermobility of urethra] 06-25-2024 Episodic Other diseases of kidney and ureters (1 source) Urinary tract obstruction; Translations: [Hydronephrosis with renal and ureteral calculous obstruction] Onset: 4 Episodic Other diseases of veins and lymphatics (4 sources) Vascular insufficiency; Translations: [Venous insufficiency (chronic) (peripheral)] 03-17-2024 Episodic Other ear and sense organ disorders (13 sources) Hearing loss; Translations: [Unspecified hearing loss, unspecified ear] Onset: 0 02-14-2024 Chronic Other endocrine disorders (2 sources) Disorder of endocrine system; Translations: [Endocrine disorder, unspecified] 12-03-2023 Episodic Other female genital disorders (3 sources) Pain in female genitalia on intercourse; Translations: [Unspecified dyspareunia] 06-25-2024 Chronic Other gastrointestinal disorders (20 sources) Irritable bowel syndrome characterized by constipation; Translations: [Irritable bowel syndrome with constipation] 05-06-2020 Chronic Other gastrointestinal disorders (14 sources) Chronic idiopathic constipation; Translations: [Chronic idiopathic constipation] Chronic Other gastrointestinal disorders (20 sources) Irritable bowel syndrome; Translations: [Irritable bowel syndrome without diarrhea] 12-30-2019 Chronic Other gastrointestinal disorders (14 sources) Constipation; Translations: [Constipation, unspecified] Episodic Other gastrointestinal disorders (20 sources) Chronic constipation; Translations: [Other constipation] Onset: 4 12-30-2019 Episodic Other gastrointestinal disorders (20 sources) Dysphagia; Translations: [Dysphagia, unspecified] Onset: 4 01-11-2022 Episodic Other gastrointestinal disorders (5 sources) Dysphagia, unspecified; Translations: [Dysphagia, unspecified] Episodic Other injuries and conditions due to external causes (20 sources) Closed injury of head; Translations: [Unspecified injury of head, initial encounter] Onset: 4 04-24-2021 Episodic Other lower respiratory disease (4 sources) Cough; Translations: [Cough, unspecified type] 02-14-2024 Episodic Other nutritional; endocrine; and metabolic disorders (15 sources) Body mass index 30+ - obesity; Translations: [Body mass index (BMI) 30.0-30.9, adult] Onset: 4 08-06-2023 Chronic Other nutritional; endocrine; and metabolic disorders (2 sources) Body mass index (BMI) 30.0-30.9, adult; Translations: [Body mass index (BMI) 30.0-30.9, adult] Onset: 4 Chronic Other nutritional; endocrine; and metabolic disorders (20 sources) Body mass index 25-29 - overweight; Translations: [Body mass index (BMI) 27.0-27.9, adult] 05-06-2020 Episodic Other nutritional; endocrine; and metabolic disorders (5 sources) Overweight in adulthood with body mass index of 25 or more but less than 30; Translations: [Body Mass Index 29.0-29.9, adult] Episodic Other nutritional; endocrine; and metabolic disorders (3 sources) Overweight; Translations: [Overweight] Episodic Other screening for suspected conditions (not mental disorders or infectious disease) (7 sources) Cancer cervix screening status; Translations: [Encounter for screening for malignant neoplasm of cervix] Onset: 4 12-03-2023 Episodic Other upper respiratory infections (20 sources) Acute pharyngitis, unspecified; Translations: [Acute upper respiratory infection, unspecified] Onset: 4 Episodic Prolapse of female genital organs (5 sources) Cystocele; Translations: [Cystocele, unspecified] 06-25-2024 Chronic Residual codes; unclassified (20 sources) Past history of procedure; Translations: [Other specified postprocedural states] Onset: 4 07-06-2023 Episodic Residual codes; unclassified (20 sources) Generalized aches and pains; Translations: [Pain, unspecified] Onset: 4 07-06-2023 Episodic Spondylosis; intervertebral disc disorders; other back problems (20 sources) Low back pain; Translations: [Low back pain] Onset: 4 01-26-2019 Episodic Sprains and strains (20 sources) Strain of thoracic region; Translations: [Strain of muscle and tendon of back wall of thorax, initial encounter] Onset: 4 06-23-2017 Episodic Unclassified (1 source) Supraventricular tachycardia, unspecified (CMS-HCC); Translations: [Supraventricular tachycardia, unspecified (CMS-HCC)] Onset: 4 Unclassified (1 source) Unspecified lump in the right breast, overlapping quadrants; Translations: [Unspecified lump in the right breast, overlapping quadrants] Onset: 5 Unclassified (1 source) Supraventricular tachycardia, unspecified; Translations: [Supraventricular tachycardia, unspecified] Onset: 5 Urinary tract infections (20 sources) Acute cystitis with hematuria; Translations: [Urinary tract infectious disease] Onset: 2 Resolved: 2 Episodic Viral infection (2 sources) Disease caused by 2019-nCoV; Translations: [COVID-19] 02-14-2024 Episodic Past or Other Problems Problem Classification Problem Date Documented Date Episodic/Chronic Abdominal hernia (1 source) Umbilical hernia without obstruction or gangrene; Translations: [Umbilical hernia without obstruction or gangrene] Onset: 04-12-2024 Episodic Cardiac dysrhythmias (20 sources) Palpitations; Translations: [Palpitations] Onset: 10-24-2012 08-06-2023 Episodic Fracture of lower limb (10 sources) Closed fracture of distal fibula ; Translations: [Other fracture of upper and lower end of right fibula, initial encounter for closed fracture] Onset: 03-16-2024 03-16-2024 Episodic Genitourinary symptoms and ill-defined conditions (20 sources) Dysuria; Translations: [Sarath hematuria] Onset: 07-31-2021 Resolved: 07-31-2021 Episodic Nonmalignant breast conditions (2 sources) Unspecified lump in the left breast, lower outer quadrant; Translations: [Mastodynia] Onset: 11-13-2023 Episodic Other connective tissue disease (13 sources) Spasm of cervical paraspinous muscle; Translations: [Other muscle spasm] Onset: 02-14-2024 02-14-2024 Episodic Other diseases of kidney and ureters (13 sources) Hydronephrosis with renal and ureteral calculous obstruction; Translations: [Calculus of ureter] Onset: 02-14-2024 02-14-2024 Episodic Other injuries and conditions due to external causes (16 sources) Foreign body in bladder; Translations: [Foreign body in bladder, initial encounter] Onset: 10-11-2023 Episodic Syncope (16 sources) Near syncope; Translations: [Syncope and collapse] Onset: 02-14-2024 02-14-2024 Episodic Unclassified (2 sources) Never smoked tobacco; Translations: [Never a smoker] Unclassified (1 source) Vaginal yeast infection B37.31 Unclassified (1 source) Cough R05.9 Unclassified (7 sources) Obstructive hydronephrosis 03-29-2023 Unclassified (1 source) Supraventricular tachycardia, unspecified (CMS-HCC); Translations: [Supraventricular tachycardia, unspecified (CMS-HCC)] Onset: 08-06-2023 Results Test Name Value Interpretation Reference Range Facility MM diagnostic mammo BI w/CAD on 07-31-2024 MM diagnostic mammo BI w/CAD [facility] Main [place] [address] [place] [address] Ultrasound Report Signed Patient: Tyron Paulino MR#: [id number] : 1975 Acct:[id number] Age/Sex: 48 / F ADM Date: 07/31/24 Loc: [place] Room: Type: [facility] Attending Dr: Nkechi Nicholas MD Ordering Provider: Jodie Kennedy DO, RES; Yu/PreceptorNkechi MD Date of Service: 07/31/24 MM/MM diagnostic mammo BI w/CAD: Mass overlapping multiple quadrants of right breast ([id number]) US/US breast RT limited: MIGRAINE WITH STATUS [...] grounds. Impression dictated by: Tj Knox Jr., D.O. 07/31/2024 12:14 PM Dictation Location: [facility] Tech: Christina Gillis Transcribed By: ELSA 07/31/24 1214 Dictated By: Tj Knox Jr, DO 07/31/24 1152 Signed By: 07/31/24 1214 Normal [facility] Bladder Catheterizationon Hemanth Jaquez DO 07/28/2024 11:12 AM Bladder Catheterization Date/Time: 07/28/2024 10:47 AM Performed by: Hemanth Jaquez DO Authorized by: Hemanth Jaquez DO Consent: Consent obtained: Verbal Consent given by: Patient Risks, benefits, and alternatives were discussed: yes Risks discussed: Infection and pain [place] protocol: Procedure explained and questions answered to patient or proxy's satisfaction: yes Pre-procedure details: Procedure purpose: Diagnostic Procedure details: Catheter insertion: Non-indwelling Catheter size: 8 Fr Bladder irrigation: no Number of attempts: 1 Urine characteristics: Clear Post-procedure details: Procedure completion: Tolerated well, no immediate complications Comments: [facility]cc [facility] Urine Cultureon 07-28-2024 Bacteria identified Cx Nom (U) No Growth 2 Days PERFORMED BY: [place] [address] PATHOLOGIST BIOINFORMATICS SPECIALIST FRANKLYN WANG M.D. Normal [facility] Comment on above: Performed By: #### A DDONUAPLUS #### [address] US pelvic completeon 025 US pelvic complete [facility] [place] [address] Ultrasound Report Signed Patient: Tyron Paulino MR#: [id number] : 1975 Acct:[id number] Age/Sex: 48 / F ADM Date: 05/27/24 Loc: Room: Type: [facility] Attending Dr: Yanira Ferraro TIMBER APPRAISER-C Ordering Provider: Yanira Ferraro Date of Service: 05/27/24 US/US transvaginal: Missed menses;Elevated serum hCG ([id number]) US/US pelvic complete: 1 Copies to: Yanira [...] Knox Jr., D.O.05/27/2024 2:46 PM Dictation Location: [facility] Tech: Rae Eliu Transcribed By: ELSA 05/27/24 1446 Dictated By: Tj Knox Jr, DO 05/27/24 1440 Signed By: 05/27/24 1446 Normal [facility] Choriogonadotropin.beta subu nit [Units/volume] in Serum or PlasmaOrdered By: Yanira Ferraro on 05-17-2024 HCG.beta subunit Qn Choriogonadotropin.b eta subunit [Units/volume] in Serum or Plasma [facility] Comment on above: Approximate Approxim ate hCG Gestational Age Range (mIU/ml) (weeks)0.2-1 5-50 1-2 50-500 2-3 100-5,000 3-4 500-10,000 4-5 1,000-50,000 5-6 10,000-100,000 6-8 15,000-200,000 8-12 10,000-100,000 HCG,Quantitativeon 5 HCG,Quantitative 1.41 m[iU]/mL Normal [facility] Comment on above: Order Comment: Reaso n for Exam Missed menses;Elevated serum hCG Result Comment: Appr oximate Approximate hCG Gestational Age Range (mIU/ml) (weeks) 0.2-1 5-50 1-2 50-500 2-3 100-5,000 3-4 500-10,000 4-5 1,000-50,000 5-6 10,000-100,000 6-8 15,000-200,000 8-12 10,000-100,000 PERFORMED BY: [place] [address] PATHOLOGIST BIOINFORMATICS SPECIALIST DOROTEO LANDON M.D. Performed By: #### H CGQNT #### [address] US pelvic completeon 025 US pelvic complete [facility] Main [place] [address] [place] [address] Ultrasound Report Signed Patient: Tyron Paulino MR#: [id number] : 1975 Acct:[id number] Age/Sex: 48 / F ADM Date: 05/13/24 Loc: Room: Type: [facility] Attending Dr: Yanira Ferraro TIMBER APPRAISER-C Ordering Provider: Yanira Ferraro Date of Service: 05/13/24 US/US pelvic complete: Elevated serum hCG;Missed menses ([id number]) US/US transvaginal: . Copies to: Yanira Ferraro [...] Knox Jr., D.OJodie05/13/2024 6:28 PM Dictation Location: [place] [address] Tech: Rae Nowak Transcribed By: ELSA 05/13/241827 Dictated By: Tj Knox Jr, DO 05/13/241825 Signed By: 05/13/241827 Normal [facility] Choriogonadotropin.beta subu nit [Units/volume] in Serum or PlasmaOrdered By: Yanira Ferraro on 05-06-2024 HCG.beta subunit Qn Choriogonadotropin.b eta subunit [Units/volume] in Serum or Plasma [facility] Comment on above: Approximate Approxim ate hCG Gestational Age Range (mIU/ml) (weeks)0.2-1 5-50 1-2 50-500 2-3 100-5,000 3-4 500-10,000 4-5 1,000-50,000 5-6 10,000-100,000 6-8 15,000-200,000 8-12 10,000-100,000 Estradiolon 05-06-2024 Estradiol 47.0 pg/mL Normal . [facility] Comment on above: Order Comment: SEND TO [facility] Result Comment: Adul t Female Range Follicular phase 12.5 - 166.0 Ovulation phase 85.8 - 498.0 Luteal phase 43.8 - 211.0 Postmenopausal <6.0 - 54.7 1st trimester 215.0 - >4300.0 [place] ECLIA methodology Performed at: - [facility] [id number] Resident Hall Director: Rajinder Farrell PhD, Phone: [phone] PERFORMED BY: [place] [address] [place] [address] PATHOLOGIST BIOINFORMATICS SPECIALIST DOROTEO LANDON M.D. Performed By: #### C IKTTY #### [facility] , Follicle Stimulating Hormone on 05-06-2024 Follicle Stimulating Hormone 54.2 m[iU]/mL Normal [facility] Comment on above: Order Comment: Name Collection Type:: Clean-Voided Midstream Result Comment: FEMA LE NORMALS (PREMENOPAUSE) MID-FOLLICULAR PHASE: 3.9-8.8 mIU/mL MID-CYCLE PEAK: 4.5-22.5 mIU/mL MID-LUTEAL PHASE: 1.8-5.1 mIU/mL FEMALE NORMALS (POSTMENOPAUSE): 16.7-113.6 mIU/mL MALE NORMALS: 1.3-19.3 mIU/mL Performed By: #### A DDONUAPLUS #### [address] Follitropin [Units/volume] i n Serum or PlasmaOrdered By: Yanira Ferraro on 05-06-2024 Follitropin Qn Follitropin [Units/v olume] in Serum or Plasma [facility] Comment on above: FEMALE NORMALS (ADITYA ENOPAUSE) MID-FOLLICULAR PHASE: 3.9-8.8 mIU/mL MID-CYCLE PEAK: 4.5-22.5 mIU/mL MID-LUTEAL PHASE: 1.8-5.1 mIU/mLFEMALE NORMALS (POSTMENOPAUSE): 16.7-113.6 mIU/mLMALE NORMALS: 1.3-19.3 mIU/mL HCG,Quantitativeon HCG,Quantitative 1.54 m[iU]/mL Normal [facility] Comment on above: Order Comment: Name Collection Type:: Clean-Voided Midstream Result Comment: Appr oximate Approximate hCG Gestational Age Range (mIU/ml) (weeks) 0.2-1 5-50 1-2 50-500 2-3 100-5,000 3-4 500-10,000 4-5 1,000-50,000 5-6 10,000-100,000 6-8 15,000-200,000 8-12 10,000-100,000 PERFORMED BY: [place] [address] PATHOLOGIST BIOINFORMATICS SPECIALIST DOROTEO LANDON M.D. Performed By: #### A DDONUAPLUS #### [facility] [address] [place] [id number] [facility] Luteinizing Hormoneon 2024 Luteinizing Hormone 69.5 m[iU]/mL Normal . [facility] Comment on above: Order Comment: Name Collection Type:: Clean-Voided Midstream Result Comment: Adul t Female Range Follicular phase 2.4 - 12.6 Ovulation phase 14.0 - 95.6 Luteal phase 1.0 - 11.4 Postmenopausal 7.7 - 58.5 Performed By: #### A DDONUAPLUS #### [facility] [address] [place] [id number] [facility] Serum or plasma estradiol (E 2) measurement (mass/volume)Ordered By: Yanira Ferraro on 05-06-2024 E2 [Mass/Vol] Serum or plasma estr adiol (E2) measurement (mass/volume) . [facility] Comment on above: Adult Female Range F ollicular phase 12.5 - 166.0 Ovulation phase 85.8 - 498.0 Luteal phase 43.8 - 211.0 Postmenopausal <6.0 - 54.7 1st trimester 215.0 - >4300.0[place] ECLIA methodologyPerformed at: [facility] [address] [id number] Director: Rajinder Farrell PhD, Phone: [phone] Serum or plasma lutropin apolonia surement (units/volume)Ordered By: Yanira Ferraro on 05-06-2024 Lutropin Qn Serum or plasma lutr opin measurement (units/volume) . [facility] Comment on above: Adult Female Range F ollicular phase 2.4 - 12.6 Ovulation phase 14.0 - 95.6 Luteal phase 1.0 - 11.4 Postmenopausal 7.7 - 58.5 Alanine aminotransferase [En zymatic activity/volume] in Serum or PlasmaOrdered By: Yanira Ferraro on 04-12-2024 ALT [Catalytic activity/Vol] Alanine aminotransferase [Enzymatic activity/volume] in Serum or Plasma [facility] Albumin [Mass/volume] in Ser um or Plasma by Bromocresol green (BCG) dye binding methoOrdered By: Yanira Ferraro on 04-12-2024 Albumin BCG dye [Mass/Vol] Albumin [Mass/volume] in Serum or Plasma by Bromocresol green (BCG) dye binding metho 3.5-5.7 [facility] Alkaline phosphatase [Enzyma tic activity/volume] in Serum or PlasmaOrdered By: Yanira Ferraro on 04-12-2024 ALP [Catalytic activity/Vol] Alkaline phosphatase [Enzymatic activity/volume] in Serum or Plasma 34-104 [facility] Aspartate aminotransferase [ Enzymatic activity/volume] in Serum or PlasmaOrdered By: Yanira Ferraro on 04-12-2024 AST [Catalytic activity/Vol] Aspartate aminotransferase [Enzymatic activity/volume] in Serum or Plasma 13-39 [facility] Basophils Auto (Bld) [#/Vol] Ordered By: Yanira Ferraro on 04-12-2024 Basophils (Bld) [#/Vol] Automated basophil count 0.0-0.2 [facility] Basophils/100 WBC Auto (Bld) Ordered By: Yanira Ferraro on 04-12-2024 Basophils/100 WBC (Bld) Automated basophil % . [facility] Bilirubin.total [Mass/volume ] in Serum or PlasmaOrdered By: Yanira Ferraro on 04-12-2024 Bilirubin [Mass/Vol] Bilirubin.total [Mass/volume] in Serum or Plasma 0.3-1.0 [facility] Calcium [Mass/volume] in Ser um or PlasmaOrdered By: Yanira Ferraro on 04-12-2024 Calcium [Mass/Vol] Calcium [Mass/volume ] in Serum or Plasma 8.6-10.3 [facility] Carbon dioxide, total [Moles /volume] in Serum or PlasmaOrdered By: Yanira Ferraro on 04-12-2024 CO2 [Moles/Vol] Carbon dioxide, tota l [Moles/volume] in Serum or Plasma 21.0-31.0 [facility] Chloride [Moles/volume] in S crow or PlasmaOrdered By: Yanira Ferraro on 04-12-2024 Chloride [Moles/Vol] Chloride [Moles/vol ume] in Serum or Plasma High 98-107 [facility] Cholesterol [Mass/volume] in Serum or PlasmaOrdered By: Yanira Ferraro on 04-12-2024 Cholesterol [Mass/Vol] Cholesterol [Mass/volume] in Serum or Plasma High 140-200 [facility] Comment on above: Chol less than 200 m g/dl low riskChol 201-239 mg/dl borderline riskChol 240 mg/dl and greater high risk Cholesterol in HDL [Mass/vol ume] in Serum or PlasmaOrdered By: Yanira Ferraro on 04-12-2024 Cholesterol in HDL [Mass/Vol] Serum or plasma high density lipoprotein (HDL) cholesterol measurement [facility] Comment on above: HDL CHOL ATP-III CLA SSIFICATION Cardiovascular RiskHDL > or equal to 60 mg/dL LOWHDL < 40 mg/dL HIGH Cholesterol in LDL Calc [Mas s/Vol]Ordered By: Yanira Ferraro on 04-12-2024 Cholesterol in LDL [Mass/Vol] Cholesterol in LDL [Mass/volume] in Serum or Plasma by calculation High 0-100 [facility] Comment on above: LDL ATP III CLASSIFI CATIONLDL less than 100 mg/dL OptimalLDL 100-129 mg/dL Near or above optimalLDL 130-159 mg/dL Borderline highLDL 160-189 mg/dL HighLDL greater than 189 mg/dL Very high Cholesterol in VLDL Calc [Ma ss/Vol]Ordered By: Yanira Ferraro on 04-12-2024 Cholesterol in VLDL [Mass/Vol] Cholesterol in VLDL [Mass/volume] in Serum or Plasma by calculation [facility] Complete Blood Count Auto Di ffon 04-12-2024 Basophils (Bld) [#/Vol] 0.0 10*3/uL Normal 0.0-0.2 [facility] Comment on above: Order Comment: Reaso n for Exam Palpitations;SVT (supraventricular tachycardia) Result Comment: PERF ORMED BY: [place] [address] PATHOLOGIST BIOINFORMATICS SPECIALIST DOROTEO LANDON M.D. Performed By: #### L IPID, TSH3, CBC, T4F, T3F, CMP, MG #### [address] Basophils/100 WBC (Bld) 1.1 % Normal . [facility] Comment on above: Order Comment: Reaso n for Exam Palpitations;SVT (supraventricular tachycardia) Performed By: #### L IPID, TSH3, CBC, T4F, T3F, CMP, MG #### [address] Eosinophils (Bld) [#/Vol] 0.3 10*3/uL Normal 0.0-0.45 [facility] Comment on above: Order Comment: Reaso n for Exam Palpitations;SVT (supraventricular tachycardia) Performed By: #### L IPID, TSH3, CBC, T4F, T3F, CMP, MG #### [address] Eosinophils/100 WBC (Bld) 7.2 % Normal . [facility] Comment on above: Order Comment: Reaso n for Exam Palpitations;SVT (supraventricular tachycardia) Performed By: #### L IPID, TSH3, CBC, T4F, T3F, CMP, MG #### [address] Erythrocyte distribution width (RBC) [Ratio] 13.4 % Normal 11.9-15.3 [facility] Comment on above: Order Comment: Reaso n for Exam Palpitations;SVT (supraventricular tachycardia) Performed By: #### L IPID, TSH3, CBC, T4F, T3F, CMP, MG #### [address] Hematocrit (Bld) [Volume fraction] 35.8 % Normal 34.0-46.4 [facility] Comment on above: Order Comment: Reaso n for Exam Palpitations;SVT (supraventricular tachycardia) Performed By: #### L IPID, TSH3, CBC, T4F, T3F, CMP, MG #### [address] Hemoglobin (Bld) [Mass/Vol] 12.1 g/dL Normal 11.8-15.4 [facility] Comment on above: Order Comment: Reaso n for Exam Palpitations;SVT (supraventricular tachycardia) Performed By: #### L IPID, TSH3, CBC, T4F, T3F, CMP, MG #### [address] Lymphocytes (Bld) [#/Vol] 1.0 10*3/uL Normal 1.00-4.8 [facility] Comment on above: Order Comment: Reaso n for Exam Palpitations;SVT (supraventricular tachycardia) Performed By: #### L IPID, TSH3, CBC, T4F, T3F, CMP, MG #### [address] Lymphocytes/100 WBC (Bld) 27.1 % Normal . [facility] Comment on above: Order Comment: Reaso n for Exam Palpitations;SVT (supraventricular tachycardia) Performed By: #### L IPID, TSH3, CBC, T4F, T3F, CMP, MG #### [address] MCH (RBC) [Entitic mass] 29.0 pg Normal 24.7-34.3 [facility] Comment on above: Order Comment: Reaso n for Exam Palpitations;SVT (supraventricular tachycardia) Performed By: #### L IPID, TSH3, CBC, T4F, T3F, CMP, MG #### [address] MCV (RBC) [Entitic vol] 85.9 fL Normal 80-100 [facility] Comment on above: Order Comment: Reaso n for Exam Palpitations;SVT (supraventricular tachycardia) Performed By: #### L IPID, TSH3, CBC, T4F, T3F, CMP, MG #### [address] Mean Corpuscular HGB Conc 33.7 g/dL Normal 32.0-35.0 [facility] Comment on above: Order Comment: Reaso n for Exam Palpitations;SVT (supraventricular tachycardia) Performed By: #### L IPID, TSH3, CBC, T4F, T3F, CMP, MG #### [facility] [address] Monocytes (Bld) [#/Vol] 0.6 10*3/uL Normal 0.0-0.8 [facility] Comment on above: Order Comment: Reaso n for Exam Palpitations;SVT (supraventricular tachycardia) Performed By: #### L IPID, TSH3, CBC, T4F, T3F, CMP, MG #### [place] [address] [place] Monocytes/100 WBC (Bld) 16.2 % Normal . [facility] Comment on above: Order Comment: Reaso n for Exam Palpitations;SVT (supraventricular tachycardia) Performed By: #### L IPID, TSH3, CBC, T4F, T3F, CMP, MG #### [address] Neutrophils (Bld) [#/Vol] 1.7 10*3/uL Low 1.8-7.7 [facility] Comment on above: Order Comment: Reaso n for Exam Palpitations;SVT (supraventricular tachycardia) Performed By: #### L IPID, TSH3, CBC, T4F, T3F, CMP, MG #### [address] Neutrophils/100 WBC (Bld) 48.4 % Normal . [facility] Comment on above: Order Comment: Reaso n for Exam Palpitations;SVT (supraventricular tachycardia) Performed By: #### L IPID, TSH3, CBC, T4F, T3F, CMP, MG #### [address] NRBC% 0.2 /100{WBC} Normal 0-0.5 [facility] Comment on above: Order Comment: Reaso n for Exam Palpitations;SVT (supraventricular tachycardia) Performed By: #### L IPID, TSH3, CBC, T4F, T3F, CMP, MG #### [place] [address] [place] Platelet mean volume (Bld) [Entitic vol] 7.8 fL Normal 6.3-10.7 [facility] Comment on above: Order Comment: Reaso n for Exam Palpitations;SVT (supraventricular tachycardia) Performed By: #### L IPID, TSH3, CBC, T4F, T3F, CMP, MG #### [address] Platelets (Bld) [#/Vol] 242 10*3/uL Normal 150-450 [facility] Comment on above: Order Comment: Reaso n for Exam Palpitations;SVT (supraventricular tachycardia) Performed By: #### L IPID, TSH3, CBC, T4F, T3F, CMP, MG #### [address] RBC (Bld) [#/Vol] 4.17 10*6/uL Normal 3.60-5.00 [facility] Comment on above: Order Comment: Reaso n for Exam Palpitations;SVT (supraventricular tachycardia) Performed By: #### L IPID, TSH3, CBC, T4F, T3F, CMP, MG #### [address] WBC (Bld) [#/Vol] 3.6 10*3/uL Low 3.8-11.6 [facility] Comment on above: Order Comment: Reaso n for Exam Palpitations;SVT (supraventricular tachycardia) Performed By: #### L IPID, TSH3, CBC, T4F, T3F, CMP, MG #### [address] Comprehensive Metabolic Pane nolan 04-12-2024 Albumin [Mass/Vol] 4.1 g/dL Normal 3.5-5.7 [facility] Comment on above: Order Comment: Reaso n for Exam Palpitations;SVT (supraventricular tachycardia) Reason for Exam Screening cholesterol level Performed By: #### L IPID, TSH3, CBC, T4F, T3F, CMP, MG #### [address] Albumin/Globulin [Mass ratio] 1.7 {ratio} Normal [facility] Comment on above: Order Comment: Reaso n for Exam Palpitations;SVT (supraventricular tachycardia) Reason for Exam Screening cholesterol level Performed By: #### L IPID, TSH3, CBC, T4F, T3F, CMP, MG #### [facility] [address] ALP [Catalytic activity/Vol] 84 U/L Normal 34-104 [facility] Comment on above: Order Comment: Reaso n for Exam Palpitations;SVT (supraventricular tachycardia) Reason for Exam Screening cholesterol level Performed By: #### L IPID, TSH3, CBC, T4F, T3F, CMP, MG #### [facility] [address] [place] [id number] [facility] ALT [Catalytic activity/Vol] 13 U/L Normal 7-52 [facility] Comment on above: Order Comment: Reaso n for Exam Palpitations;SVT (supraventricular tachycardia) Reason for Exam Screening cholesterol level Performed By: #### L IPID, TSH3, CBC, T4F, T3F, CMP, MG #### [facility] [address] [place], [place] [id number] [facility] Anion gap [Moles/Vol] 9.5 mmol/L Normal 6.0-15.0 [facility] Comment on above: Order Comment: Reaso n for Exam Palpitations;SVT (supraventricular tachycardia) Reason for Exam Screening cholesterol level Performed By: #### L IPID, TSH3, CBC, T4F, T3F, CMP, MG #### [facility] [address] [place] [id number] [facility] AST [Catalytic activity/Vol] 15 U/L Normal 13-39 [facility] Comment on above: Order Comment: Reaso n for Exam Palpitations;SVT (supraventricular tachycardia) Reason for Exam Screening cholesterol level Performed By: #### L IPID, TSH3, CBC, T4F, T3F, CMP, MG #### [facility] [address] [place], [place] [id number] [facility] Bilirubin [Mass/Vol] 0.3 mg/dL Normal 0.3-1.0 [facility] Comment on above: Order Comment: Reaso n for Exam Palpitations;SVT (supraventricular tachycardia) Reason for Exam Screening cholesterol level Performed By: #### L IPID, TSH3, CBC, T4F, T3F, CMP, MG #### [facility] [address] [place] [id number] [facility] Calcium [Mass/Vol] 8.7 mg/dL Normal 8.6-10.3 [facility] Comment on above: Order Comment: Reaso n for Exam Palpitations;SVT (supraventricular tachycardia) Reason for Exam Screening cholesterol level Performed By: #### L IPID, TSH3, CBC, T4F, T3F, CMP, MG #### [facility] [address] [place] [id number] [place] Chloride [Moles/Vol] 108 mmol/L High 98-107 [facility] Comment on above: Order Comment: Reaso n for Exam Palpitations;SVT (supraventricular tachycardia) Reason for Exam Screening cholesterol level Performed By: #### L IPID, TSH3, CBC, T4F, T3F, CMP, MG #### [facility] [address] [place] [id number] [place] CO2 [Moles/Vol] 27.5 mmol/L Normal 21.0-31.0 [facility] Comment on above: Order Comment: Reaso n for Exam Palpitations;SVT (supraventricular tachycardia) Reason for Exam Screening cholesterol level Performed By: #### L IPID, TSH3, CBC, T4F, T3F, CMP, MG #### [facility] [address] [place] [id number] [place] Creatinine [Mass/Vol] 0.80 mg/dL Normal 0.60-1.20 [facility] Comment on above: Order Comment: Reaso n for Exam Palpitations;SVT (supraventricular tachycardia) Reason for Exam Screening cholesterol level Performed By: #### L IPID, TSH3, CBC, T4F, T3F, CMP, MG #### [facility] [address] [place] [id number] [place] GFR/1.73 sq M.predicted MDRD (S/P/Bld) [Vol rate/Area] mL/min/{1.73_m2} Normal [facility] Comment on above: Order Comment: Reaso n for Exam Palpitations;SVT (supraventricular tachycardia) Reason for Exam Screening cholesterol level Performed By: #### L IPID, TSH3, CBC, T4F, T3F, CMP, MG #### [facility] [address] Globulin (S) [Mass/Vol] 2.4 g/dL Normal [facility] Comment on above: Order Comment: Reaso n for Exam Palpitations;SVT (supraventricular tachycardia) Reason for Exam Screening cholesterol level Performed By: #### L IPID, TSH3, CBC, T4F, T3F, CMP, MG #### [facility] [address] Glucose [Mass/Vol] 83 mg/dL Normal 70-100 [facility] Comment on above: Order Comment: Reaso n for Exam Palpitations;SVT (supraventricular tachycardia) Reason for Exam Screening cholesterol level Result Comment: [facility] Glucose Reference Range is dependent on time and content of last meal. Glucose of more than 200 mg/dL in a nonstressed, ambulatory subject supports the diagnosis of Diabetes Mellitus. ADA recommended reference range Performed By: #### L IPID, TSH3, CBC, T4F, T3F, CMP, MG #### [facility] [address] Potassium [Moles/Vol] 4.0 mmol/L Normal 3.5-5.1 [facility] Comment on above: Order Comment: Reaso n for Exam Palpitations;SVT (supraventricular tachycardia) Reason for Exam Screening cholesterol level Performed By: #### L IPID, TSH3, CBC, T4F, T3F, CMP, MG #### [facility] [address] [place] [address] [place] Protein [Mass/Vol] 6.5 g/dL Normal 6.4-8.9 [facility] Comment on above: Order Comment: Reaso n for Exam Palpitations;SVT (supraventricular tachycardia) Reason for Exam Screening cholesterol level Performed By: #### L IPID, TSH3, CBC, T4F, T3F, CMP, MG #### [facility] [address] [place] [phone] [facility] Sodium [Moles/Vol] 141 mmol/L Normal 136-145 [facility] Comment on above: Order Comment: Reaso n for Exam Palpitations;SVT (supraventricular tachycardia) Reason for Exam Screening cholesterol level Performed By: #### L IPID, TSH3, CBC, T4F, T3F, CMP, MG #### [facility] [address] [place] [id number] [facility] Urea nitrogen [Mass/Vol] 13 mg/dL Normal 7-25 [facility] Comment on above: Order Comment: Reaso n for Exam Palpitations;SVT (supraventricular tachycardia) Reason for Exam Screening cholesterol level Performed By: #### L IPID, TSH3, CBC, T4F, T3F, CMP, MG #### [facility] [address] Creatinine [Mass/volume] in Serum or PlasmaOrdered By: Yanira Ferraro on 04-12-2024 Creatinine [Mass/Vol] Creatinine [Mass/v olume] in Serum or Plasma 0.60-1.20 [facility] ECG 12 lead ECGon 04-12-2024 ECG 12 lead ECG [facility] [place] [address] [place] [address] Electrocardiograph Report Signed Patient: Tyron Paulino MR#: [id number] : 1975 Acct:[id number] Age/Sex: 48 / F ADM Date: 04/12/24 Loc: Room: Type: [facility] Attending Dr: Yanira Ferraro TIMBER APPRAISER-C Ordering Provider: Yanira Ferraro Date of Service: [...] change was found Confirmed by Jose Otero ([id number]) on 04/12/2024 8:25:01 PM Referred By: Electronically Signed By: Jose Otero Transcribed By: MUS Signed By Jose Otero MD 04/12/242024 Normal [facility] Eosinophils Auto (Bld) [#/Vo l]Ordered By: Yanira Ferraro on 04-12-2024 Eosinophils (Bld) [#/Vol] Automated eosinophil count 0.0-0.45 [facility] Eosinophils/100 WBC Auto (Bl d)Ordered By: Yanira Ferraro on 04-12-2024 Eosinophils/100 WBC (Bld) Automated eosinophil % . [facility] Erythrocyte distribution wid th Auto (RBC) [Ratio]Ordered By: Yanira Ferraro on 04-12-2024 Erythrocyte distribution width (RBC) [Ratio] Erythrocyte distribution width [Ratio] by Automated count 11.9-15.3 [facility] Free T4 (Free Thyroxine)on 0 04-12-2024 Free T4 [Mass/Vol] 0.58 ng/dL Low 0.61-1.12 [facility] Comment on above: Order Comment: Reaso n for Exam Palpitations;SVT (supraventricular tachycardia) Reason for Exam Screening cholesterol level Performed By: #### L IPID, TSH3, CBC, T4F, T3F, CMP, MG #### [facility] [address] [place] [address] Globulin Calc (S) [Mass/Vol] Ordered By: Yanira Ferraro on 04-12-2024 Globulin (S) [Mass/Vol] Serum globulin measurement by calculation (mass/volume) [facility] Glucose [Mass/volume] in Ser um or PlasmaOrdered By: Yanira Ferraro on 04-12-2024 Glucose [Mass/Vol] Glucose [Mass/volume ] in Serum or Plasma 70-100 [facility] Comment on above: ADA recommended refe rence rangeRandom Glucose Reference Range is dependent on time and content of last meal. Glucose of more than 200 mg/dL in a nonstressed, ambulatory subject supports the diagnosis of Diabetes Mellitus. Hematocrit Auto (Bld) [Volum e fraction]Ordered By: Yanira Ferraro on 04-12-2024 Hematocrit (Bld) [Volume fraction] Hematocrit [Volume Fraction] of Blood by Automated count 34.0-46.4 [facility] Hemoglobin [Mass/volume] in BloodOrdered By: Yanira Ferraro on 04-12-2024 Hemoglobin (Bld) [Mass/Vol] Hemoglobin [Mass/volume] in Blood 11.8-15.4 [facility] Leukocytes [#/volume] correc federico for nucleated erythrocytes in Blood by Automated counOrdered By: aYnira Ferraro on 04-12-2024 WBC corrected for nucl RBC Auto (Bld) [#/Vol] Leukocytes [#/volume] corrected for nucleated erythrocytes in Blood by Automated coun Low 3.8-11.6 [facility] Lipid Panelon 04-12-2024 Cholesterol [Mass/Vol] 215 mg/dL High 140-200 [facility] Comment on above: Order Comment: Reaso n for Exam Palpitations;SVT (supraventricular tachycardia) Reason for Exam Screening cholesterol level Result Comment: Chol less than 200 mg/dl low risk Chol 201-239 mg/dl borderline risk Chol 240 mg/dl and greater high risk Performed By: #### L IPID, TSH3, CBC, T4F, T3F, CMP, MG #### [facility] [address] Cholesterol in HDL [Mass/Vol] 50 mg/dL Normal 23-92 [facility] Comment on above: Order Comment: Reaso n for Exam Palpitations;SVT (supraventricular tachycardia) Reason for Exam Screening cholesterol level Result Comment: HDL CHOL ATP-III CLASSIFICATION Cardiovascular Risk HDL > or equal to 60 mg/dL LOW HDL < 40 mg/dL HIGH Performed By: #### L IPID, TSH3, CBC, T4F, T3F, CMP, MG #### [facility] [address] [place] [phone] [place] Cholesterol.total/Cho lesterol in HDL [Mass ratio] 4.3 {ratio} Normal <5.0 [facility] Comment on above: Order Comment: Reaso n for Exam Palpitations;SVT (supraventricular tachycardia) Reason for Exam Screening cholesterol level Performed By: #### L IPID, TSH3, CBC, T4F, T3F, CMP, MG #### [facility] [address] LDL Cholesterol,Calculate d 134 mg/dL High 0-100 [facility] Comment on above: Order Comment: Reaso n for Exam Palpitations;SVT (supraventricular tachycardia) Reason for Exam Screening cholesterol level Result Comment: LDL ATP III CLASSIFICATION LDL less than 100 mg/dL Optimal LDL 100-129 mg/dL Near or above optimal LDL 130-159 mg/dL Borderline high LDL 160-189 mg/dL High LDL greater than 189 mg/dL Very high Performed By: #### L IPID, TSH3, CBC, T4F, T3F, CMP, MG #### [facility] [address] Triglyceride w/Reflex 156 mg/dL High 0-149 [facility] Comment on above: Order Comment: Reaso n for Exam Palpitations;SVT (supraventricular tachycardia) Reason for Exam Screening cholesterol level Result Comment: TRIG ATP III CLASSIFICATION TRIG less than 150 mg/dL Normal TRIG 150-199 mg/dL Borderline high TRIG 200-500 mg/dL High TRIG greater than 500 mg/dL Very high Standard traceable to the Center for Disease Conrtrol and Prevention (CDC) test method. Performed By: #### L IPID, TSH3, CBC, T4F, T3F, CMP, MG #### [facility] [address] VLDL CHOLESTEROL 31 mg/dL Normal [facility] Comment on above: Order Comment: Reaso n for Exam Palpitations;SVT (supraventricular tachycardia) Reason for Exam Screening cholesterol level Performed By: #### L IPID, TSH3, CBC, T4F, T3F, CMP, MG #### [facility] [address] Lymphocytes Auto (Bld) [#/Vo l]Ordered By: Yanira Ferraro on 04-12-2024 Lymphocytes (Bld) [#/Vol] Lymphocytes [#/volume] in Blood by Automated count 1.00-4.8 [facility] Lymphocytes/100 WBC Auto (Bl d)Ordered By: Yanira Ferraro on 04-12-2024 Lymphocytes/100 WBC (Bld) Lymphocytes/100 leukocytes in Blood by Automated count . [facility] MCH Auto (RBC) [Entitic mass ]Ordered By: Yanira Ferraro on 04-12-2024 MCH (RBC) [Entitic mass] MCH [Entitic mass] by Automated count 24.7-34.3 [facility] MCHC Auto (RBC) [Mass/Vol]Or dered By: Yanira Ferraro on 04-12-2024 MCHC (RBC) [Mass/Vol] MCHC [Mass/volume] by Automated count 32.0-35.0 [facility] MCV Auto (RBC) [Entitic vol] Ordered By: Yanira Ferraro on 04-12-2024 MCV (RBC) [Entitic vol] MCV [Entitic volume] by Automated count 80-100 [facility] Magnesiumon 04-12-2024 Magnesium [Mass/Vol] 1.7 mg/dL Low 1.9-2.7 [facility] Comment on above: Order Comment: Reaso n for Exam Palpitations;SVT (supraventricular tachycardia) Reason for Exam Screening cholesterol level Performed By: #### L IPID, TSH3, CBC, T4F, T3F, CMP, MG #### [facility] [address] [place] [address] Magnesium [Mass/volume] in S crow or PlasmaOrdered By: Yanira Ferraro on 04-12-2024 Magnesium [Mass/Vol] Magnesium [Mass/vol ume] in Serum or Plasma Low 1.9-2.7 [facility] Monocytes Auto (Bld) [#/Vol] Ordered By: Yanira Ferraro on 04-12-2024 Monocytes (Bld) [#/Vol] Automated blood monocyte count 0.0-0.8 [facility] Monocytes/100 WBC Auto (Bld) Ordered By: Yanira Ferraro on 04-12-2024 Monocytes/100 WBC (Bld) Automated monocyte % . [facility] Neutrophils Auto (Bld) [#/Vo l]Ordered By: Yanira Ferraro on 04-12-2024 Neutrophils (Bld) [#/Vol] Neutrophils [#/volume] in Blood by Automated count Low 1.8-7.7 [facility] Neutrophils/100 WBC Auto (Bl d)Ordered By: Yanira Ferraro on 04-12-2024 Neutrophils/100 WBC (Bld) Automated neutrophil % . [facility] No Panel InformationOrdered By: Yanira Ferraro on 04-12-2024 Estimated GFR (CKD-EPI) > 60.0 mL/Min [facility] Creatinine Clearance (Chem N/A [facility] Nucleated erythrocytes [Pres ence] in Blood by Automated countOrdered By: Yanira Ferraro on 04-12-2024 Nucleated RBC Auto Ql (Bld) Nucleated erythrocytes [Presence] in Blood by Automated count 0-0.5 [facility] Platelet mean volume Auto (B ld) [Entitic vol]Ordered By: Yanira Ferraro on 04-12-2024 Platelet mean volume (Bld) [Entitic vol] Platelet mean volume [Entitic volume] in Blood by Automated count 6.3-10.7 [facility] Platelets Auto (Bld) [#/Vol] Ordered By: Yanira Ferraro on 04-12-2024 Platelets (Bld) [#/Vol] Platelets [#/volume] in Blood by Automated count 150-450 [facility] Potassium [Moles/volume] in Serum or PlasmaOrdered By: Yanira Ferraro on 04-12-2024 Potassium [Moles/Vol] Potassium [Moles/v olume] in Serum or Plasma 3.5-5.1 [facility] Protein [Mass/volume] in Ser um or PlasmaOrdered By: Yanira Ferraro on 04-12-2024 Protein [Mass/Vol] Protein [Mass/volume ] in Serum or Plasma 6.4-8.9 [facility] RBC Auto (Bld) [#/Vol]Ordere d By: Yanira Ferraro on 04-12-2024 RBC (Bld) [#/Vol] Erythrocytes [#/volu me] in Blood by Automated count 3.60-5.00 [facility] Serum or plasma albumin/glob ulin mass ratioOrdered By: Yanira Ferraro on 04-12-2024 Albumin/Globulin [Mass ratio] Serum or plasma albumin/globulin mass ratio [facility] Serum or plasma anion gap de terminationOrdered By: Yanira Ferraro on 04-12-2024 Anion gap [Moles/Vol] Serum or plasma an ion gap determination 6.0-15.0 [facility] Serum or plasma total choles terol/high density lipoprotein (HDL) cholesterol mass ratOrdered By: Yanira Ferraro on 04-12-2024 Cholesterol.total/Cho lesterol in HDL [Mass ratio] Serum or plasma total cholesterol/high density lipoprotein (HDL) cholesterol mass rat <5.0 [facility] Sodium [Moles/volume] in Ser um or PlasmaOrdered By: Yanira Ferraro on 04-12-2024 Sodium [Moles/Vol] Sodium [Moles/volume ] in Serum or Plasma 136-145 [facility] Thyroid Stimulating Hormoneo n 04-12-2024 TSH Qn 2.12 m[IU]/L Normal 0.45-5.33 [facility] Comment on above: Order Comment: Name Collection Type:: Clean-Voided Midstream Result Comment: PERF ORMED BY: [place] [address] PATHOLOGIST BIOINFORMATICS SPECIALIST DOROTEO LANDON M.D. Performed By: #### A DDONUAPLUS #### [address] Thyrotropin [Units/volume] i n Serum or PlasmaOrdered By: Yanira Ferraro on 04-12-2024 TSH Qn Thyrotropin [Units/v olume] in Serum or Plasma 0.45-5.33 [facility] Thyroxine (T4) free [Mass/vo lume] in Serum or PlasmaOrdered By: Yanira Ferraro on 04-12-2024 Free T4 [Mass/Vol] Thyroxine (T4) free [Mass/volume] in Serum or Plasma Low 0.61-1.12 [facility] Triglyceride [Mass/volume] i n Serum or PlasmaOrdered By: Yanira Ferraro on 04-12-2024 Triglyceride [Mass/Vol] Triglyceride [Mass/volume] in Serum or Plasma High 0-149 [facility] Comment on above: TRIG ATP III CLASSIF ICATIONTRIG less than 150 mg/dL NormalTRIG 150-199 mg/dL Borderline highTRIG 200-500 mg/dL High TRIG greater than 500 mg/dL Very highStandard traceable to the Center for Disease Conrtrol and Prevention (CDC) test method. Triiodothyronine (T3) Freeon 04-12-2024 Triiodothyronine (T3) Free 3.11 pg/mL Normal 2.50-3.90 [facility] Comment on above: Order Comment: Reaso n for Exam Palpitations;SVT (supraventricular tachycardia) Result Comment: PERF ORMED BY: [place] [address] PATHOLOGIST BIOINFORMATICS SPECIALIST DOROTEO LANDON M.D. Performed By: #### L IPID, TSH3, CBC, T4F, T3F, CMP, MG #### [address] Triiodothyronine (T3) Free [ Mass/volume] in Serum or PlasmaOrdered By: Yanira Ferraro on 04-12-2024 Free T3 [Mass/Vol] Triiodothyronine (T3 ) Free [Mass/volume] in Serum or Plasma 2.50-3.90 [facility] US abdomen limitedon 025 US abdomen limited [facility] [place] [address] Ultrasound Report Signed Patient: Tyron Paulino MR#: [id number] 453 : 1975 Acct:[id number] Age/Sex: 48 / F ADM Date: 04/12/24 Loc: Room: Type: [facility] Attending Dr: Yanira Ferraro TIMBER APPRAISER-C Ordering Provider: Yanira Ferraro Date of Service: [...] Farhan Heaton M.D.04/12/2024 4:47 PM Dictation Location: [place] [address] Tech: Yanira Suh Transcribed By: ELSA 04/12/241646 Dictated By: Farhan Heaton MD 04/12/241644 Signed By: 04/12/241646 Normal [facility] Urea nitrogen [Mass/volume] in Serum or PlasmaOrdered By: Yanira Ferraro on 04-12-2024 Urea nitrogen [Mass/Vol] Urea nitrogen [Mass/volume] in Serum or Plasma 09-12 [facility] WBC Auto (Bld) [#/Vol]Ordere d By: Yanira Ferraro on 04-12-2024 WBC (Bld) [#/Vol] Leukocytes [#/volume ] in Blood by Automated count Low 3.8-11.6 [facility] No Panel Informationon 04-11 Interpretation and review of laboratory results Abnormal [facility] RESULT 1 Positive Negatvie [facility] RESULT 2 Negative Negatvie [facility] S. pyogenes DNA MIGUELITO+probe No m (Unsp spec)on 04-11-2024 Interpretation and review of laboratory results Normal [facility] RESULT Negative Negative [facility] Patient Letter FTon 2024 Patient Letter [facility] Patient Letter [facility] March 20, 2024 TYRON [address] [place] [address] : 1975 Dear Tyron , You missed your scheduled appointment on: 03/20/2024. Please note our appointment slots fill quickly. When you fail to cancel or reschedule an appointment the office is unable to fill the appointment slot that was reserved for you. In the future, we ask that you call 24 hours in advance to cancel your appointment. Our current reminder system gives you the opportunity to cancel by responding to our reminder text, phone call or email. You can also call the office to reschedule during normal business hours or use our on-line scheduling portal at your convenience. Our goal is to provide convenient and quality care to all of our patients. We appreciate your consideration regarding any future cancellations. Sincerely, [facility] [address] [place] [address] [place] [address] [facility] Reminderson 03-20-2024 Reminders Reminders From: Olivia Oro To: SHANNON Odenshukri Ward; Sent: 10/12/2023 08:12:03 EDT Show up: 03/13/2024 07:12:00 EST Subject: schedule 6 mos JOHNATHAN Due Date/Time: 04/13/2024 07:11:00 EST Reminder Message Please Remember to:_please schedule this pt for a 6 mos JOHNATHAN. she will also need KUB for appt. both ordered today on 10/12/23. thanks. 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 [facility] XR ankle RT min 3V*on 2024 XR ankle RT min 3V* [facility] Main [place] [address] [place] [address] XRay Report Signed Patient: Tyron Paulino MR#: [id number] 453 : 1975 Acct:[id number] Age/Sex: 48 / F ADM Date: 03/16/24 Loc: ER Room: Type: [facility] ER Attending Dr: Copies to: Sherin Garza APRN Ordering Provider: Sherin Garza APRN Date of Service: 03/16/24 XR/XR ankle RT min 3V*: Extremity Injury, Lower RIGHT ANKLE - 3 views CLINICAL HISTORY: Right ankle pain status post fall today COMPARISON: Right ankle 03/04/2016 FINDINGS: Soft tissue swelling is present. Ankle mortise appears intact without acute bony process. Plantar spurring. XR/XR ankle RT min 3V* IMPRESSION: SOFT TISSUE SWELLING WITHOUT ACUTE BONY PROCESS. Impression dictated by: Tj Knox Jr., D.O.03/17/2024 8:29 AM Dictation Location: [facility] Transcribed By: [facility] 03/17/24828 Dictated By: Tj Knox Jr, DO 03/17/24827 Signed By: 03/17/24828 Normal [facility] Laboratory - Microbiology an d Antimicrobial susceptibilityon 02-14-2024 SARS-CoV-2 (COVID-19) RNA MIGUELITO+probe Ql (Unsp spec) Positive [facility] Healthcare No Panel Informationon 02-13 Interpretation and review of laboratory results Abnormal [facility] Healthcare [facility] XR ankle LT min 3V*on 2023 XR ankle LT min 3V* [facility] Main [place] [id number] XRay Report Signed Patient: Tyron Paulino MR#: [id number] 453 : 1975 Acct:[id number] Age/Sex: 48 / F ADM Date: 02/04/24 Loc: ER Room: Type: [facility] ER Attending Dr: Copies to: Darek Alfred APRN Ordering Provider: Darek Alfrde APRN Date of Service: 02/04/24 XR/XR ankle LT min 3V*: Extremity Injury, Lower LEFT ANKLE - 3 views CLINICAL DATA: Patient rolled left ankle a few days ago and has continued lateral pain and swelling COMPARISON: None AP, lateral and oblique views were obtained. There is no evidence of fracture or dislocation. There is a plantar calcaneal spur. Slight anterolateral soft tissue swelling is noted. XR/XR ankle LT min 3V* IMPRESSION: NO ACUTE BONY INJURY. Impression dictated by: Rolanda Grewal M.D.02/04/2024 5:52 PM Dictation Location: [facility] Transcribed By: ELSA 02/04/241751 Dictated By: Rolanda Grewal MD 02/04/241749 Signed By: 02/04/241751 Normal [facility] Provider Letteron 11-30-2023 Provider Letter Provider Letter November 30, 2023 TYRON LORA [address] [place] [address] : 1975 Dear Tyron Paulino, We have been trying to reach you with no success. It is important that you return our call regarding your results upon receiving this letter. Also, at the time of your call, please provide us with your current information. Thank you for your prompt attention to this matter. Sincerely, Carina Ward MD [address] [place] [address] [phone] Normal [facility] US renal BIon 11-26-2023 [place] [address] Ultrasound Report Signed Patient: Tyron Paulino MR#: [id number] 453 : 1975 Acct:[id number] Age/Sex: 48 / F ADM Date: 11/26/23 Loc: Room: Type: [facility] Attending Dr: Carina Ward MD Ordering Provider: Carina Ward MD Date of Service: 11/26/23 US/US renal BI: KIDNEY STNES Copies to: Carina Ward MD BILATERAL RENAL AND BLADDER ULTRASOUND CLINICAL HISTORY: Kidney stones. COMPARISON: KUB performed today FINDINGS: Estimation of renal size is approximately 11.23 cm on the right and 11.03 cm on the left. No contour deforming mass, shadowing stone or hydronephrosis. The urinary bladder is minimally distended with a volume of 3.38 ml. No shadowing stone or focal lesion. US/US renal BI IMPRESSION: No acute findings. Impression dictated by: Tj Knox Jr., D.O.11/26/2023 10:57 AM Dictation Location: [place] [address] Tech: Christina Laguna Transcribed By: [facility] 11/26/23 1057 Dictated By: Tj Knox Jr, DO 11/26/23 1053 Signed By: 11/26/23 1057 Normal [facility] XR KUBon 11-26-2023 XR KUB [place] [id number] XRay Report Signed Patient: Tyron Paulino MR#: [id number] 453 : 1975 Acct:[id number] Age/Sex: 48 / F ADM Date: 11/26/23 Loc: Room: Type: [facility] CLI Attending Dr: Carina Ward MD Copies to: Carina Ward MD Ordering Provider: Carina Ward MD Date of Service: 11/26/23 XR/XR KUB: KIDNEY STONE KUB: CLINICAL INFORMATION: Follow-up right kidney stone. COMPARISON: KUB 03/28/2023. FINDINGS: Moderate stool burden limits evaluation. A punctate stone is seen involving the right kidney measuring 2 mm. No additional suspicious urinary tract calculi are noted. Phleboliths are seen within the pelvis. No bowel obstruction or free air. XR/XR KUB IMPRESSION: 2 MM STONE RIGHT KIDNEY. Impression dictated by: Tj Knox Jr., D.OJodie11/26/2023 10:59 AM Dictation Location: [place] [address] Transcribed By: [facility] 11/26/23 1059 Dictated By: Tj Knox Jr, DO 11/26/23 1057 Signed By: 11/26/23 1059 Normal [facility] US breast LT limitedon 11-12 US breast LT limited [facility] [place] [address] Ultrasound Report Signed Patient: Tyron Paulino MR#: [id number] 453 : 1975 Acct:[id number] Age/Sex: 48 / F ADM Date: 11/13/23 Loc: [facility] Room: [facility] Attending Dr: Yanira Ferraro 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 Ordering Provider: Yanira Ferraro Date of Service: [...] Rolanda Grewal M.D.11/13/2023 11:39 AM Dictation Location: [facility] Tech: Neida Charlton Transcribed By: ELSA 11/13/23 1139 Dictated By: Rolanda Grewal MD 11/13/23 1122 Signed By: 11/13/23 1139 Normal [facility] MM screening mammo BI w/CADo n 10-24-2023 MM screening mammo BI w/CAD [facility] Main [place] [address] [place] [address] Mammography Report Signed Patient: Tyron Paulino MR#: [id number] 453 : 1975 Acct:[id number] Age/Sex: 48 / F ADM Date: 10/24/23 Loc: [place] Room: Type: [facility] Attending Dr: LISETH Smith APRNC Copies to: Liya Millan APRN, CNP NO [...] mammogram. Impression dictated by: Tj Knox Jr., D.O.10/24/2023 12:26 PM Dictation Location: [facility] Transcribed By: ELSA 10/24/23 1226 Dictated By: Tj Knox Jr, DO 10/24/23 1225 Signed By: 10/24/23 1226 Normal [facility] Laboratory - Chemistry and C hemistry - challengeon 10-16-2023 Bilirubin Ql (U) Negative [facility] Glucose (U) [Mass/Vol] Negative [facility] Ketones Ql (U) Negative [facility] pH (U) 6.0 [pH] [facility] Specific gravity (U) [Rel density] 1.020 [facility] Urobilinogen (U) [Mass/Vol] 0.2 mg/dL [facility] Laboratory - Specimen inform ationon 10-16-2023 Appearance (U) clear [facility] Color (U) yellow [facility] Laboratory - Urinalysison Leukocyte esterase Test strip Ql (U) Negative [facility] Nitrite Ql (U) Negative [facility] Protein Ql (U) trace [facility] No Panel Informationon 10-15 Urine Occult Blood Negative [facility] Urine Cultureon 10-16-2023 Bacteria identified Cx Nom (U) 50,000 colonies/ml mixed bacterial skin contaminants 2 Days PERFORMED BY: [place] [address] PATHOLOGIST BIOINFORMATICS SPECIALIST SHINE PARKS M.D. Normal [facility] Comment on above: Performed By: #### A DDONUAPLUS #### [address] Urine culture routineOrdered By: Melinda Verdin on 10-16-2023 Bacteria identified Cx Nom (U) 2 Days [facility] Ambulatory Visit Summaryon 0 10-12-2023 Ambulatory Visit Summary Ambulatory Visit Summary TYRON PAULINO :1975 Visit Date:10/12/2023 Ambulatory Visit Instructions Your Diagnosis Foreign body in bladder Kidney stones Tests Performed US Renal -- Results Pending -- XR Abdomen 1 View -- Results Pending -- Please visit your patient portal for your results or contact your primary care physician. Your Care Team Attending Physician - Carina Ward MD Primary Care Physician - LIYA MILLAN CNP This Is Your Medications List tamsulosin (tamsulosin 0.4 mg Cap) Contact prescribing physician if questions or concerns albuterol cetirizine (cetirizine 10 mg Tab) erenumab (Aimovig SureClick Autoinjector-aooe 140 mg/mL subcutaneous solution) meloxicam (meloxicam 15 mg oral tablet) montelukast (montelukast 10 mg Tab) omeprazole (omeprazole 20 mg Cap-DR) paroxetine (Paxil 20 mg Tab) rizatriptan (Maxalt) verapamil (verapamil 40 mg oral tablet) Procedures Performed Cystoscopic removal of ureteric stent (10/12/2023), Cystoscopic removal of ureteric stent (04/12/2023), Cystoscopic insertion of ureteric stent (04/03/2023), Breast surgery, Colonoscopy, D&C - Dilatation and curettage, Mammogram. Discharge Vitals Heart Rate (Peripheral) 64 Blood Pressure 114/82 Height 155 cm Height 61 in Weight 75 kg Weight 165 lb BMI 31.22 What to do next Scheduled Follow-Up Appointments 2024 9:00 AM EST With: Carina Ward MD Where: [facility] [address] [place] [address]- You Need to Schedule the Following Appointments Follow Up with Carina Ward MD, URL, URO When: Where: Medications What How Much When Instructions Unchanged tamsulosin (tamsulosin 0.4 mg Cap) 1 Capsules By Mouth Every day stone passage Unchanged albuterol Contact prescribing physician if questions or concerns Unchanged cetirizine (cetirizine 10 mg Tab) TAKE 1 TABLET BY MOUTH ONCE DAILY Contact prescribing physician if questions or concerns Unchanged erenumab (Aimovig SureClick Autoinjector-aooe 140 mg/ mL subcutaneous solution) Contact prescribing physician if questions or concerns Unchanged meloxicam (meloxicam 15 mg oral tablet) By Mouth Every day Contact prescribing physician if questions or concerns Unchanged montelukast (montelukast 10 mg Tab) By Mouth Every day Contact prescribing physician if questions or concerns Unchanged omeprazole (omeprazole 20 mg Cap-DR) 1 Capsules By Mouth Every day Contact prescribing physician if questions or concerns Unchanged paroxetine (Paxil 20 mg Tab) By Mouth Every day Contact prescribing physician if questions or concerns Unchanged rizatriptan (Maxalt) By Mouth Every day Contact prescribing physician if questions or concerns Unchanged verapamil (verapamil 40 mg oral tablet) By Mouth 3 times a day Contact prescribing physician if questions or concerns Medications and Immunizations Administered Given lidocaine Top 2% Gel w/Appl 6 mL, 6 mL, Topical. For: Foreign body in bladder, Kidney stones Allergies azithromycin (Unknown) penicillin (unknown) Problems Ongoing - Any problem that you are currently receiving treatment for. Arthritis Asthma BMI 29.0-29.9,adult Chronic GERD Depression Flank pain Foreign body in bladder Frequent urination Gross hematuria History of kidney stones Irritable bowel syndrome with constipation Kidney stones Left flank pain Migraines Nephrolithiasis Stress incontinence SVT (supraventricular tachycardia) Historical - Any problem that you are no longer receiving treatment for. Ureteral stone with hydronephrosis Patient Survey You may receive a survey via text or e-mail asking about your office visit. Please share your experience with us by completing your survey. We appreciate your feedback and thank you for choosing us for your care. Education Materials Dietary Guidelines to Help Prevent Kidney Stones Kidney stones are deposits of minerals and salts that form inside your kidneys. Your risk of developing kidney stones may be greater depending on your diet, your lifestyle, the medicines you take, and whether you have certain medical conditions. Most people can lower their risks of developing kidney stones by following these dietary guidelines. Your dietitian may give you more specific instructions depending on your overall health and the type of kidney stones you tend to develop. What are tips for following this plan? Reading food labels ? Choose foods with no salt added or low-salt labels. Limit your salt (sodium) intake to less than 1,500 mg a day. ? Choose foods with calcium for each meal and snack. Try to eat about 300 mg of calcium at each meal. Foods that contain 200?500 mg of calcium a serving include: ? 8 oz (237 mL) of milk, [id number] milk, and calcium-fortifiedfruit juice. Calcium-fortified me (more content not included)... Normal [facility] Urology Office/Clinic Noteon 10-12-2023 Urology Office/Clinic Note Urology Office/Clinic Note Chief Complaint Cysto Lt stent removal HPI Staff Cysto/Lt stent removal. History of Present Illness Tests reviewed: reviewed op note, stone analysis I have reviewed the previous health record information and history for this patient from Dr. Ward. I have reviewed and verified the staff HPI to be accurate for this encounter. Review of Systems PHQ Score Initial Depression Screen Score: 0 SCORE ROS - Provider Constitutional: denies weight loss, denies hot flashes. Eyes: denies eye problems. Gastrointestinal: denies nausea, denies vomiting. Cardiovascular: denies chest pain or angina. Integumentary: no dryness Musculoskeletal: denies musculoskeletal symptoms. ENMT: denies otolaryngeal symptoms. Respiratory: no shortness of breath. Heme/Lymph: denies easy bleeding tendency, denies easy bruising tendency. Psychiatric: no confusion, no anxiety. Genitourinary: See HPI. Physical Exam Vitals & Measurements HR: 64(Peripheral) BP: 114/82 HT: 61 in HT: 155 cm WT: 75 kg WT: 165 lb BMI: 31.22 General Appearance: alert , no acute distress, well nourished, well developed female. Head: normocephalic . Eyes: normal orbit and globe. ENMT: normal examination of external ears. Chest: symmetric chest rise, respirations non labored . Cardiovascular: regular rate and rhythm. Abdomen: soft , non distended, no tenderness Genitourinary: bladder nonpalpable, no flank tenderness. Lymph Nodes: unremarkable palpation of the cervical area. Skin: warm, dry, no bruising. Psychiatric: cooperative, affect appropriate for age, normal judgement, euthymic mood. Procedure Operative Information Anesthesia Type: Local Procedure: Local Cystoscopy with Stent Removal Complications: None Surgical risks, benefits, details of the procedure have been explained to the patient. Full informed consent has been obtained. Intraoperative Information Prepped: Patient is placed in supine/frog leg position. The patient was prepped with the Betadine solution. Anesthesia: 2% Xylocaine Jelly per urethra. Procedure: Cystoscopy and left stent removal. The flexible Cystoscope was passed in retrograde fashion into the bladder without difficulty. The bladder was viewed in entirety and found to be without tumors or stones. Mild inflammation was seen surrounding the orifice with the stent seen protruding from it. The stent was then grasped and removed in its entirety. Specimens Removed: None Postoperative Information The patient tolerated the procedure well and was subsequently discharged home. Assessment/Plan 1. Foreign body in bladder (T19.1XXA: Foreign body in bladder, initial encounter) S/p cysto, L RGP, URS, laser litho, basket extraction, stent placement 10/01/23. Pt had IO cysto, L stent removal today wo complications. 2. Kidney stones (N20.0: Calculus of kidney) CT AP wo con 08/28/23 [facility] - Multiple bilateral renal stones, L>R. Largest is on L 6-7 mm. No hydro. S/p cysto, L RGP, URS, laser litho, basket extraction, stent placement 10/01/23. Stone analysis - 90% CaOx mono, 10% CaOx di. Educated pt on dietary modifications and fluid intake for stone prevention. Follow up 6 mos with KUB and JOHNATHAN or sooner if needed. Pt understands and agrees with plan. -JOHNATHAN in 6-8 wks to ensure no hydro (wo appt). Will call with results. -Increase fluid intake. Add lemon. Diet mods. Follow-up With When Contact Information Ed ESTEBAN, Carina Sharma, URL, URO Additional Instructions: 6 mos with KUB and JOHNATHAN Patient Education Dietary Guidelines to Help Prevent Kidney Stones Olivia Padron, personally scribed for Dr. Ward on 10/12/2023 08:08:09. . Documentation recorded by the scribe, Olivia Oro, accurately reflects the services(s) I performed and decisions made by me. Authenticated by Dr. Ward on 10/12/2023 17:45:13. Problem List/Past Medical History Ongoing Arthritis Asthma BMI 29.0-29.9,adult Chronic GERD Depression Flank pain Foreign body in bladder Frequent urination Gross hematuria History of kidney stones Irritable bowel syndrome with constipation Kidney stones Left flank pain Migraines Nephrolithiasis Stress incontinence SVT (supraventricular tachycardia) Historical Ureteral stone with hydronephrosis Procedure/Surgical History Cystoscopic removal of ureteric stent (10/12/2023), Cystoscopic removal of ureteric stent (04/12/2023), Cystoscopic insertion of ureteric stent (04/03/2023), Breast surgery, Colonoscopy, D&C - Dilatation and curettage, Mammogram. Medications Aimovig SureClick Autoinjector-aooe 140 mg/mL subcutaneous solution albuterol cetirizine 10 mg Tab Maxalt, Oral, Daily meloxicam 15 mg oral tablet, Oral, Daily montelukast 10 mg Tab, Oral, Daily omeprazole 20 mg Cap-DR, 20 mg= 1 cap(s), Oral, Daily Paxil 20 mg Tab, Oral, Daily tamsulosin 0.4 mg Cap, 0.4 mg= 1 cap(s), Oral, Daily, 1 (more content not included)... Normal [facility] Comment on above: Result Comment: Elec tronically Signed By: Carina Ward MD\.br\Date and Time Signed: 10/12/23 17:45 EDT\.br\Electronically Co-Signed By: Olivia Oro\.br\Date and Time Co-Signed: 10/12/23 08:08 EDT Ammonium urate crystals dete ction in stone by infrared spectroscopyOrdered By: Carina Ward on 10-01-2023 Ammonium urate crystals Infrared spectroscopy Ql (Stone) N/A [facility] Calcium bilirubinate measure mentOrdered By: Carina Ward on 10-01-2023 Calcium bilirubinate (Stone) [Mass fraction] N/A [facility] Calcium carbonate measuremen tOrdered By: Carina Ward on 10-01-2023 Calcium carbonate (Stone) [Mass fraction] N/A [facility] Calcium hydrogen phosphate d ihydrate/Total in StoneOrdered By: Carina Ward on 10-01-2023 Calcium hydrogen phosphate dihydrate (Stone) [Mass fraction] N/A [facility] Calcium oxalate dihydrate cr ystals detection in stone by infrared spectroscopyOrdered By: Carina Ward on 10-01-2023 Calcium oxalate dihydrate crystals Infrared spectroscopy Ql (Stone) 10 % . [facility] Calcium oxalate monohydrate/ Total in StoneOrdered By: Carina Ward on 10-01-2023 Calcium oxalate monohydrate (Stone) [Mass fraction] 90 % . [facility] Calcium phosphate measuremen tOrdered By: Carina Ward on 10-01-2023 Calcium phosphate (Stone) [Mass fraction] N/A [facility] Calculi, Urinaryon Ca Oxalate Dihydrate 10 % Normal . [facility] Comment on above: Order Comment: SEND TO [facility] Performed By: #### C ALCULI #### [facility] , Ca Oxalate Monohydrate 90 % Normal . [facility] Comment on above: Order Comment: SEND TO [facility] Performed By: #### C ALCULI #### [facility] , Color (U) Brown Normal . [facility] Comment on above: Order Comment: SEND TO [facility] Performed By: #### C ALCULI #### [facility] , Comment: Comment Normal . [facility] Comment on above: Order Comment: SEND TO [facility] Result Comment: Joanna sanders questions regarding Calculi Analysis contact [facility] at: [phone]. Performed By: #### C ALCULI #### [facility] , Composition Comment Normal . [facility] Comment on above: Order Comment: SEND TO [facility] Result Comment: Perc entage (Represents the % composition) Performed By: #### C ALCULI #### [facility] , Disclaimer: Comment Normal . [facility] Comment on above: Order Comment: SEND TO [facility] Result Comment: This test was developed and its performance characteristics determined by [facility]. It has not been cleared or approved by the Food and Drug Administration. Performed at: [facility] - [facility] [id number] Resident Hall Director: Zofia Castaneda PhD, Phone: [phone] Performed By: #### C ALCULI #### [facility] , Note Comment Normal . [facility] Comment on above: Order Comment: SEND TO [facility] Result Comment: Calc javier report will follow via computer, mail or assistant director of residence life delivery. PERFORMED BY: [facility] [place] [address] PATHOLOGIST BIOINFORMATICS SPECIALIST SHINE PARKS M.D. Performed By: #### C ALCULI #### [facility] , Photo Comment Normal . [facility] Comment on above: Order Comment: SEND TO [facility] Result Comment: Phot ograph will follow under a separate cover Performed By: #### C ALCULI #### [facility] , Size 3x2 Normal . [facility] Comment on above: Order Comment: SEND TO [facility] Result Comment: Mult iple pieces received. Dimensions of the largest piece reported. Performed By: #### C ALCULI #### [facility] , Source Comment Normal . [facility] Comment on above: Order Comment: SEND TO [facility] Result Comment: Left Kidney Performed By: #### C ALCULI #### [facility] , Weight 35 Normal . [facility] Comment on above: Order Comment: SEND TO [facility] Performed By: #### C ALCULI #### [facility] , Calculus analysis interpreta tion in stoneOrdered By: Carina Ward on 10-01-2023 Calculus analysis [Interp] N/A [facility] Calculus analysis [Interp] Comment . [facility] Comment on above: Physician questions regarding Calculi [facility]: [phone]. Calculi report will follow via computer, mail or courierdelivery. Calculus analysis with calcu tyler photography interpretation in stoneOrdered By: Carina Ward on 10-01-2023 Calculus analysis with calculus photography [Interp] Comment . [facility] Comment on above: Photograph will foll ow under a separate cover Cellular material measuremen t in stone by estimated (mass/mass)Ordered By: Carina Ward on 10-01-2023 Cellular material Est (Stone) [Mass/Mass] N/A [facility] Cholesterol/Total in StoneOr dered By: Carina Ward on 10-01-2023 Cholesterol (Stone) [Mass fraction] N/A [facility] Composition of stoneOrdered By: Carina Ward on 10-01-2023 Composition Nom (Stone) Comment . [facility] Comment on above: Percentage (Represen ts the % composition) Cystine measurementOrdered B y: Carina Ward on 10-01-2023 Cystine (Unsp spec) [Moles/Vol] N/A [facility] Determination of color of ca lculusOrdered By: Carina Ward on 10-01-2023 Color (Stone) Brown . [facility] [place] urethrocystogram retroon 10-01-2023 [place] urethrocystogram retro [facility] [place] [address] Fluoroscopy Report Signed Patient: Tyron Paulino MR#: [id number] : 1975 Acct:[id number] Age/Sex: 48 / F ADM Date: 10/01/23 Loc: [place] Room: Type: [facility] Attending Dr: Carina Ward MD Copies to: Carina Ward MD Ordering Provider: Carina Ward MD Date of Service: 10/01/23 FL/FL urethrocystogram retro: RETRO Fluoroscopic assessment for left retrograde pyelogram HISTORY: Left nephrolithiasis. 23 image was obtained. Cumulative Air Kerma in mGy: 5 mGy Left nephrolithiasis redemonstrated. The retrograde catheter placement. Contrast administered. Stones removed. Ureteral stent placed. FL/FL urethrocystogram retro IMPRESSION: Intraoperative assessment for left ureteral stone removal and stent placement Impression dictated by: Kayode Squires M.D.10/01/2023 4:04 PM Dictation Location: [place] [address] Transcribed By: [facility] 10/01/23 1604 Dictated By: Kayode Squires DO 10/01/23 1602 Signed By: 10/01/23 1604 Normal [facility] HCG ( test) IA.rapi d Ql (U)Ordered By: Darek Deal on 10-01-2023 HCG ( test) Ql (U) Negative [facility] HCG,Urineon 10-01-2023 Beta HCG ( test) Ql (U) Negative Normal [facility] Comment on above: Result Comment: PERF ORMED BY: [facility] [place] [address] PATHOLOGIST BIOINFORMATICS SPECIALIST SHINE PARKS M.D. Performed By: #### C ALCULI #### [facility] , Hydroxyapatite [Energy Diffe rence] in 24 hour UrineOrdered By: Carina Ward on 10-01-2023 Hydroxyapatite (24H U) [Energy diff] N/A [facility] Nolan 10-01-2023 L Specimen: [id number] Received: 10/01/23 Status: CHARLES Relisa Num: [id number] Spec Type: Surgical Subm Dr: Carina Ward MD Tissues: A Gross Only (LEFT KIDNEY STONES) Procedures: Level 1 Gross Age/ Patient Sex Location Account Attending Physician Tyron Paulino 48/F [place] [id number] Carina Ward MD SPEC NUM: [id number] RECD: 10/01/23 STATUS: CHARLES ALEMAN NUM: [id number] JERE: 10/01/23- SUBM DR: Carina Ward MD ENTERED: 10/01/[address] [facility] [address]: SPEC TYPE: Surgical DEPT: S ENTERED BY: [id number] RECV BY: [id number] ORDERED: Level 1 Gross ORDERED: Level 1 Gross Pathological Diagnosis Left Kidney stone, removal: Urinary calculus, gross examination only. Sent for chemical analysis. Clinical Information Kidney stones Gross Description Received fresh, labeled with the patient's name, date of and L kidney stone are 8 ochoa, rough and irregularly shaped stones ranging from 0.2-0.1 cm and collectively measuring 1.0 x 0.2 x 0.1 cm. The specimen is for gross only examination and is entirely sent out to [facility] for chemical analysis. CPT Codes 27468 Specimen: [id number] Received: 10/01/23 Status: CHARLES Ramoslisa Num: [id number] Spec Type: Surgical Subm Dr: Carina Ward MD Tissues: A Gross Only (LEFT KIDNEY STONES) Procedures: Level 1 Gross Patient: Tyron Paulino [id number] (Continued) Signed (signature on file) Doroteo Landon MD 10/16/23 4757 Normal [facility] Measurement of proportion of calculus composed of dried blood (mass/mass)Ordered By: Carina Ward on 10-01-2023 Blood.dried (Stone) [Mass fraction] N/A [facility] Newberyite/Total in StoneOrd ered By: Carina Ward on 10-01-2023 Newberyite (Stone) [Mass fraction] N/A [facility] No Panel InformationOrdered By: Carina Ward on 10-01-2023 Stone 2,8 Dihydroxyadenine N/A [facility] Stone Analysis Disclaimer Comment . [facility] Comment on above: This test was develo ped and its performance characteristicsdetermined by [employer]. It has not been cleared or approvedby the Food and Drug Administration.Performed at: [facility] [id number] Director: Zofia Castaneda PhD, Phone: [phone] Stone Bilirubinate N/A [facility] Stone Calcium Palmitate N/A [facility] Stone Calcium Stearate N/A [facility] Stone Carbonate Apatite N/A [facility] Stone Drug or Metabolite N/A [facility] Stone Other Constituent N/A [facility] Stone Xanthine N/A [facility] Size [Entitic volume] of Sto neOrdered By: Carina Ward on 10-01-2023 Size (Stone) [Entitic vol] 3x2 mm . [facility] Comment on above: Multiple pieces rece ived. Dimensions of the largest piecereported. Sodium urate crystals detect ion in stone by infrared spectroscopyOrdered By: Carina Ward on 10-01-2023 Sodium urate crystals Infrared spectroscopy Ql (Stone) N/A [facility] Specimen source subject [Typ e]Ordered By: Carina Ward on 10-01-2023 Specimen source subject Nom Comment . [facility] Comment on above: Left Kidney Triamterene measurement in c alculusOrdered By: Carina Ward on 10-01-2023 Triamterene (Stone) [Mass fraction] N/A [facility] Triple phosphate/Total in St oneOrdered By: Carina Ward on 10-01-2023 Triple phosphate (Stone) [Mass fraction] N/A [facility] Uric acid dihydrate crystals detection in stone by infrared spectroscopyOrdered By: Carina Ward on 10-01-2023 Urate dihydrate crystals Infrared spectroscopy Ql (Stone) N/A [facility] Laboratory - Chemistry and C hemistry - challengeon 09-28-2023 Bilirubin Ql (U) [facility] Glucose (U) [Mass/Vol] Negative [facility] Ketones Ql (U) trace [facility] pH (U) 7.0 [pH] [facility] Specific gravity (U) [Rel density] 1.020 [facility] Urobilinogen (U) [Mass/Vol] 0.2 mg/dL [facility] Laboratory - Specimen inform ationon 09-28-2023 Appearance (U) cloudy [facility] Color (U) yellow [facility] Laboratory - Urinalysison Leukocyte esterase Test strip Ql (U) [facility] Nitrite Ql (U) Positive [facility] Protein Ql (U) 100 [facility] No Panel Informationon 09-27 Urine Occult Blood large [facility] Urine Cultureon 09-28-2023 Bacteria identified Cx Nom (U) ORGANISM: Escherichia coli (O:ESCCOL) [place] Count >100,000 Aerobic MARCELINO Charge ([id number]) SUSCEPTIBILITY ORGANISM: O:ESCCOL ANTIBIOTIC INTERPRETATION MARCELINO Amikacin S <16 Amoxacillin/K Clavulanate S <8 Ampicillin S <8 Ampicillin/Sulbactam S <4 Aztreonam S <4 Cefazolin S <2 Cefepime S <2 Ceftazidime S <1 Ceftazidime/Avibactam S <4 Ceftolozane/Tazobactam S <2 Ceftriaxone S <1 Cefuroxime S <4 Ciprofloxacin R >2 Ertapenem S <0.5 Gentamicin S <2 Levofloxacin R >4 Meropenem S <1 Meropenem/Vaborbactam S <2 Nitrofurantoin S <32 Piperacillin/Tazobactam S <8 Tetracycline S <4 Tigecycline S <2 Tobramycin S <2 Trimethoprim/Sulfamethoxaz ole S <0.5 S = SUSCEPTIBLE I = INTERMEDIATE R = RESISTANT BLANK = DATA NOT AVAILABLE, OR DRUG NOT ADVISABLE OR TESTED R* = RESISTANCE DUE TO EXTENDED SPECTRUM BETA-LACTAMASES ESBL = EXTENDED SPECTRUM BETA-LACTAMASE TFG = THYMIDINE-DEPENDENT STRAIN LEE = BETA-LACTAMASE POSITIVE IB = INDUCIBLE BETA-LACTAMASE. APPEARS IN PLACE OF 'S' WITH SPECIES KNOWN TO POSSESS INDUCIBLE BETA-LACTAMASES. POTENTIALLY THEY MAY BECOME RESISTANT TO ALL B-LACTAM DRUGS. PERFORMED BY: [place] [address] PATHOLOGIST BIOINFORMATICS SPECIALIST SHINE PARKS M.D. Normal [facility] Comment on above: Performed By: #### C UU #### [facility] [address] [place] [address] Urine culture routineOrdered By: Sharonda Pabon on 09-28-2023 Bacteria identified Cx Nom (U) Escherichia coli Abnormal [facility] Activated partial thrombopla stin time (aPTT) in platelet poor plasma by coagulation aOrdered By: Carina Ward on 09-19-2023 aPTT Coag (PPP) [Time] 31.7 s 25.1-36.5 [facility] Comment on above: A hematocrit value g reater than 55% may lead to inaccurate results in coagulation testing. Patients having hematocrit values >55% require a special collection tube for coagulation studies. Please contact the laboratory at [phone] for redraw instructions. Automated basophil %Ordered By: Carina Ward on 09-19-2023 Basophils/100 WBC (Bld) 1.2 % Normal . [facility] Comment on above: Performed By: #### A DDONUAPLUS #### [facility] [address] [place] [address] Automated basophil countOrde red By: Carina Ward on 09-19-2023 Basophils (Bld) [#/Vol] 0.1 10*3/uL Normal 0.0-0.2 [facility] Comment on above: Result Comment: PERF ORMED BY: [place] [address] PATHOLOGIST BIOINFORMATICS SPECIALIST SHINE PARKS M.D. Performed By: #### A DDONUAPLUS #### [address] Automated blood monocyte cou ntOrdered By: Carina Ward on 09-19-2023 Monocytes (Bld) [#/Vol] 0.4 10*3/uL Normal 0.0-0.8 [facility] Comment on above: Performed By: #### A DDONUAPLUS #### [address] Automated eosinophil %Ordere d By: Carina Ward on 09-19-2023 Eosinophils/100 WBC (Bld) 2.2 % Normal . [facility] Comment on above: Performed By: #### A DDONUAPLUS #### [address] Automated eosinophil countOr dered By: Carina Ward on 09-19-2023 Eosinophils (Bld) [#/Vol] 0.1 10*3/uL Normal 0.0-0.45 [facility] Comment on above: Performed By: #### A DDONUAPLUS #### [address] Automated monocyte %Ordered By: Carina Ward on 09-19-2023 Monocytes/100 WBC (Bld) 6.7 % Normal . [facility] Comment on above: Performed By: #### A DDONUAPLUS #### [address] Automated neutrophil %Ordere d By: Carina Ward on 09-19-2023 Neutrophils/100 WBC (Bld) 59.5 % Normal . [facility] Comment on above: Performed By: #### A DDONUAPLUS #### [address] Basic Metabolic Panelon 08-21 GFR/1.73 sq M.predicted MDRD (S/P/Bld) [Vol rate/Area] mL/min/{1.73_m2} Normal [facility] Comment on above: Performed By: #### A DDONUAPLUS #### [address] Bilirubin Test strip Ql (U)O rdered By: Carina Ward on 09-19-2023 Bilirubin Ql (U) Negative Negative [facility] Calcium [Mass/volume] in Ser um or PlasmaOrdered By: Carina Ward on 09-19-2023 Calcium [Mass/Vol] 8.9 mg/dL Normal 8.6-10.3 [facility] Comment on above: Result Comment: PERF ORMED BY: [place] [address] PATHOLOGIST BIOINFORMATICS SPECIALIST SHINE PARKS M.D. Performed By: #### A DDONUAPLUS #### [address] Carbon dioxide, total [Moles /volume] in Serum or PlasmaOrdered By: Carina Ward on 09-19-2023 CO2 [Moles/Vol] 25.6 mmol/L Normal 21.0-31.0 [facility] Comment on above: Performed By: #### A DDONUAPLUS #### [address] Chloride [Moles/volume] in S crow or PlasmaOrdered By: Carina Ward on 09-19-2023 Chloride [Moles/Vol] 108 mmol/L High 98-107 [facility] Comment on above: Performed By: #### A DDONUAPLUS #### [address] Color of Urine by AutoOrdere d By: Carina Ward on 09-19-2023 Color (U) Light-yellow Normal Yellow [facility] Comment on above: Order Comment: Name Collection Type:: Clean-Voided Midstream Performed By: #### A DDONUAPLUS #### [place] [address] [place] Complete Blood Count Auto Di ffon 09-19-2023 Mean Corpuscular HGB Conc 33.8 g/dL Normal 32.0-35.0 [facility] Comment on above: Performed By: #### A DDONUAPLUS #### [address] NRBC% 0.1 /100{WBC} Normal 0-0.5 [facility] Comment on above: Performed By: #### A DDONUAPLUS #### [address] Creatinine [Mass/volume] in Serum or PlasmaOrdered By: Carina Ward on 09-19-2023 Creatinine [Mass/Vol] 0.71 mg/dL Normal 0.60-1.20 [facility] Comment on above: Performed By: #### A DDONUAPLUS #### [address] Erythrocyte distribution wid th [Ratio] by Automated countOrdered By: Carina Ward on 09-19-2023 Erythrocyte distribution width (RBC) [Ratio] 13.6 % Normal 11.9-15.3 [facility] Comment on above: Performed By: #### A DDONUAPLUS #### [address] Erythrocytes [#/volume] in B lood by Automated countOrdered By: Carina Ward on 09-19-2023 RBC (Bld) [#/Vol] 4.25 10*6/uL Normal 3.60-5.00 [facility] Comment on above: Performed By: #### A DDONUAPLUS #### [address] Glucose [Mass/volume] in Ser um or PlasmaOrdered By: Carina Ward on 09-19-2023 Glucose [Mass/Vol] 91 mg/dL Normal 70-100 [facility] Comment on above: ADA recommended refe rence rangeRandom Glucose Reference Range is dependent on time and content of last meal. Glucose of more than 200 mg/dL in a nonstressed, ambulatory subject supports the diagnosis of Diabetes Mellitus. Result Comment: Celina om Glucose Reference Range is dependent on time and content of last meal. Glucose of more than 200 mg/dL in a nonstressed, ambulatory subject supports the diagnosis of Diabetes Mellitus. ADA recommended reference range Performed By: #### A DDONUAPLUS #### [address] Glucose [Mass/volume] in Uri ne by Test stripOrdered By: Carina Ward on 09-19-2023 Glucose Test strip (U) [Mass/Vol] Normal mg/dL Normal [facility] Hematocrit [Volume Fraction] of Blood by Automated countOrdered By: Carina Ward on 09-19-2023 Hematocrit (Bld) [Volume fraction] 36.8 % Normal 34.0-46.4 [facility] Comment on above: Performed By: #### A DDONUAPLUS #### [address] Hemoglobin Test strip Ql (U) Ordered By: Carina Ward on 09-19-2023 Hemoglobin Ql (U) Negative Negative [facility] Hemoglobin [Mass/volume] in BloodOrdered By: Carina Ward on 09-19-2023 Hemoglobin (Bld) [Mass/Vol] 12.4 g/dL Normal 11.8-15.4 [facility] Comment on above: Performed By: #### A DDONUAPLUS #### [address] Ketones [Presence] in Urine by Test stripOrdered By: Carina Ward on 09-19-2023 Ketones Ql (U) Negative Normal Negative [facility] Comment on above: Order Comment: Name Collection Type:: Clean-Voided Midstream Performed By: #### A DDONUAPLUS #### [place] [address] [place] Leukocyte esterase [Presence ] in Urine by Test stripOrdered By: Carina Ward on 09-19-2023 Leukocyte esterase Test strip Ql (U) Negative Normal Negative [facility] Comment on above: Order Comment: Name Collection Type:: Clean-Voided Midstream Performed By: #### A DDONUAPLUS #### [address] Leukocytes [#/volume] correc federico for nucleated erythrocytes in Blood by Automated counOrdered By: Carina Ward on 09-19-2023 WBC corrected for nucl RBC Auto (Bld) [#/Vol] 5.8 10*3/uL 3.8-11.6 [facility] Leukocytes [#/volume] in Blo od by Automated countOrdered By: Carina Ward on 09-19-2023 WBC (Bld) [#/Vol] 5.8 10*3/uL Normal 3.8-11.6 [facility] Comment on above: Performed By: #### A DDONUAPLUS #### [address] Lymphocytes [#/volume] in Bl ood by Automated countOrdered By: Carina Ward on 09-19-2023 Lymphocytes (Bld) [#/Vol] 1.8 10*3/uL Normal 1.00-4.8 [facility] Comment on above: Performed By: #### A DDONUAPLUS #### [address] Lymphocytes/100 leukocytes i n Blood by Automated countOrdered By: Carina Ward on 09-19-2023 Lymphocytes/100 WBC (Bld) 30.4 % Normal . [facility] Comment on above: Performed By: #### A DDONUAPLUS #### [address] MCH [Entitic mass] by Automa federico countOrdered By: Carina Ward on 09-19-2023 MCH (RBC) [Entitic mass] 29.3 pg Normal 24.7-34.3 [facility] Comment on above: Performed By: #### A DDONUAPLUS #### [address] MCHC Auto (RBC) [Mass/Vol]Or dered By: Carina Ward on 09-19-2023 MCHC (RBC) [Mass/Vol] 33.8 g/dL 32.0-35.0 [facility] MCV [Entitic volume] by Auto mated countOrdered By: Carina Ward on 09-19-2023 MCV (RBC) [Entitic vol] 86.6 fL Normal 80-100 [facility] Comment on above: Performed By: #### A DDONUAPLUS #### [facility] [address] Neutrophils [#/volume] in Bl ood by Automated countOrdered By: Carina Ward on 09-19-2023 Neutrophils (Bld) [#/Vol] 3.4 10*3/uL Normal 1.8-7.7 [facility] Comment on above: Performed By: #### A DDONUAPLUS #### [address] Nitrite Test strip Ql (U)Ord ered By: Carina Ward on 09-19-2023 Nitrite Ql (U) Negative Negative [facility] No Panel InformationOrdered By: Carina Ward on 09-19-2023 Estimated GFR (CKD-EPI) > 60.0 mL/Min [facility] Creatinine Clearance (Chem N/A [facility] Nucleated erythrocytes [Pres ence] in Blood by Automated countOrdered By: Carina Ward on 09-19-2023 Nucleated RBC Auto Ql (Bld) 0.1 /100{WBC} 0-0.5 [facility] Partial Thromboplastin Timeo n 09-19-2023 aPTT Coag (Bld) [Time] 31.7 s Normal 25.1-36.5 [facility] Comment on above: Result Comment: A he matocrit value greater than 55% may lead to inaccurate results in coagulation testing. Patients having hematocrit values >55% require a special collection tube for coagulation studies. Please contact the laboratory at [phone] for redraw instructions. PERFORMED BY: [place] [address] PATHOLOGIST BIOINFORMATICS SPECIALIST SHINE PARKS M.D. Performed By: #### A DDONUAPLUS #### [address] Platelet mean volume [Entiti c volume] in Blood by Automated countOrdered By: Carina Ward on 09-19-2023 Platelet mean volume (Bld) [Entitic vol] 7.6 fL Normal 6.3-10.7 [facility] Comment on above: Performed By: #### A DDONUAPLUS #### [place] [address] [place] Platelets [#/volume] in Bloo d by Automated countOrdered By: Carina Ward on 09-19-2023 Platelets (Bld) [#/Vol] 284 10*3/uL Normal 150-450 [facility] Comment on above: Performed By: #### A DDONUAPLUS #### [place] [address] [place] Potassium [Moles/volume] in Serum or PlasmaOrdered By: Carina Ward on 09-19-2023 Potassium [Moles/Vol] 4.4 mmol/L Normal 3.5-5.1 [facility] Comment on above: Performed By: #### A DDONUAPLUS #### [address] Protein Test strip (U) [Mass /Vol]Ordered By: Carina Ward on 09-19-2023 Protein (U) [Mass/Vol] Negative Negative [facility] Serum or plasma anion gap de terminationOrdered By: Carina Ward on 09-19-2023 Anion gap [Moles/Vol] 8.8 mmol/L Normal 6.0-15.0 [facility] Comment on above: Performed By: #### A DDONUAPLUS #### [place] [address] [place] Sodium [Moles/volume] in Ser um or PlasmaOrdered By: Carina Ward on 09-19-2023 Sodium [Moles/Vol] 138 mmol/L Normal 136-145 [facility] Comment on above: Performed By: #### A DDONUAPLUS #### [address] Specific gravity Test strip (U) [Rel density]Ordered By: Carina Ward on 07-31-2024 Specific gravity (U) [Rel density] 1.019 1.001-1.03 0 [facility] Urea nitrogen [Mass/volume] in Serum or PlasmaOrdered By: Carina Ward on 09-19-2023 Urea nitrogen [Mass/Vol] 12 mg/dL Normal 7-25 [facility] Comment on above: Performed By: #### A DDONUAPLUS #### [address] Urinalysison 09-19-2023 Bilirubin,Urine Negative Normal Negative [facility] Comment on above: Order Comment: Name Collection Type:: Clean-Voided Midstream Performed By: #### A DDONUAPLUS #### [address] Glucose Ql (U) Normal Normal Normal [facility] Comment on above: Order Comment: Name Collection Type:: Clean-Voided Midstream Performed By: #### A DDONUAPLUS #### [place] [address] [place] Nitrite,Urine Negative Normal Negative [facility] Comment on above: Order Comment: Name Collection Type:: Clean-Voided Midstream Performed By: #### A DDONUAPLUS #### [address] Occult Blood,Urine Negative Normal Negative [facility] Comment on above: Order Comment: Name Collection Type:: Clean-Voided Midstream Result Comment: PERF ORMED BY: [place] [id number] PATHOLOGIST BIOINFORMATICS SPECIALIST SHINE PARKS M.D. Performed By: #### A DDONUAPLUS #### [place] [address] [place] Protein,Urine Negative Normal Negative [facility] Comment on above: Order Comment: Name Collection Type:: Clean-Voided Midstream Performed By: #### A DDONUAPLUS #### [address] Specificy [place],Urine 1.019 Normal 1.001-1.03 0 [facility] Comment on above: Order Comment: Name Collection Type:: Clean-Voided Midstream Performed By: #### A DDONUAPLUS #### [address] Urobilinogen,Urine Normal Normal Normal [facility] Comment on above: Order Comment: Name Collection Type:: Clean-Voided Midstream Performed By: #### A DDONUAPLUS #### [address] Urine appearanceOrdered By: Carina Ward on 09-19-2023 Appearance (U) Clear Normal Clear [facility] Comment on above: Order Comment: Name Collection Type:: Clean-Voided Midstream Performed By: #### A DDONUAPLUS #### [address] Urobilinogen Test strip (U) [Mass/Vol]Ordered By: Carina Ward on 09-19-2023 Urobilinogen (U) [Mass/Vol] Normal mg/dL Normal [facility] pH of Urine by Test stripOrd ered By: Carina Ward on 09-19-2023 pH (U) 8.0 [pH] Normal 5.0-9.0 [facility] Comment on above: Order Comment: Name Collection Type:: Clean-Voided Midstream Performed By: #### A DDONUAPLUS #### [place] [address] [place] Urine Cytology ([facility])on 08-30-2023 Microscopic exam Cytology (U) [Interp] Diagnosis Info Invalid Interpretation Code [facility] Comment on above: Result Comment: A:Ur ine,Urine:Voided Interpretation - Adequate cellularity for evaluation. MicroScopic Description - Adequacy - Adequate Gross Description Site ID:A color dark Yellow fixative Alcohol Specimen designated Urine received in alcohol preservative and labeled with the patient?s name, consists of 100ml clear dark yellow fluid. Electronically signed by : on: 08/30/2023 17:40:01 Performed By: #### 1 [id number] #### [facility] [address] [place] [address] Bacteria [Presence] in Urine by AutomatedOrdered By: Darek Alfred on 08-29-2023 Bacteria Auto Ql (U) None seen [HPF] None Seen [facility] Bilirubin Test strip Ql (U)O rdered By: Darek Alfred on 08-29-2023 Bilirubin Ql (U) Negative Negative [facility] Calcium oxalate crystals [Pr esence] in Urine by Computer assisted methodOrdered By: Darek Alfred on 08-29-2023 Calcium oxalate crystals Computer assisted Ql (U) Rare [HPF] [facility] Color of Urine by AutoOrdere d By: Darek Alfred on 08-29-2023 Color (U) Light-yellow Normal Yellow [facility] Comment on above: Order Comment: Name Collection Type:: Clean-Voided Midstream Performed By: #### A DDONUAPLUS #### [place] [address] [place] Dipstick and Microscopicon 0 08-29-2023 Bacteria,Urine None Seen Normal None Seen [facility] Comment on above: Order Comment: Name Collection Type:: Clean-Voided Midstream Performed By: #### A DDONUAPLUS #### [facility] [address] [id number] [place] Bilirubin,Urine Negative Normal Negative [facility] Comment on above: Order Comment: Name Collection Type:: Clean-Voided Midstream Performed By: #### A DDONUAPLUS #### [facility] [address] [id number] [place] Calcium Oxalate Crystals,Urine Rare Normal [facility] Comment on above: Order Comment: Name Collection Type:: Clean-Voided Midstream Performed By: #### A DDONUAPLUS #### [facility] [address] [id number] [place] Glucose Ql (U) Normal Normal Normal [facility] Comment on above: Order Comment: Name Collection Type:: Clean-Voided Midstream Performed By: #### A DDONUAPLUS #### [facility] [address] [id number] [place] Hyaline Casts,Urine None Normal 0-8 [facility] Comment on above: Order Comment: Name Collection Type:: Clean-Voided Midstream Performed By: #### A DDONUAPLUS #### [place] [address] [place] Mucus,Urine Rare Normal [facility] Comment on above: Order Comment: Name Collection Type:: Clean-Voided Midstream Result Comment: PERF ORMED BY: [place] [address] PATHOLOGIST BIOINFORMATICS SPECIALIST SHINE PARKS M.D. Performed By: #### A DDONUAPLUS #### [place] [address] [place] Nitrite,Urine Negative Normal Negative [facility] Comment on above: Order Comment: Name Collection Type:: Clean-Voided Midstream Performed By: #### A DDONUAPLUS #### [place] [address] [place] Occult Blood,Urine 3+ High Negative [facility] Comment on above: Order Comment: Name Collection Type:: Clean-Voided Midstream Result Comment: PERF ORMED BY: [place] [address] PATHOLOGIST BIOINFORMATICS SPECIALIST SHINE PARKS M.D. Performed By: #### A DDONUAPLUS #### [place] [address] [place] Protein,Urine Negative Normal Negative [facility] Comment on above: Order Comment: Name Collection Type:: Clean-Voided Midstream Performed By: #### A DDONUAPLUS #### [place] [address] [place] RBC,Urine Innumerable High 0-4 [facility] Comment on above: Order Comment: Name Collection Type:: Clean-Voided Midstream Performed By: #### A DDONUAPLUS #### [place] [address] [place] Specificy [place],Urine 1.018 Normal 1.001-1.03 0 [facility] Comment on above: Order Comment: Name Collection Type:: Clean-Voided Midstream Performed By: #### A DDONUAPLUS #### [facility] [address] Squamous Epithelial Cell,Urine 1-2 Normal 0-2 [facility] Comment on above: Order Comment: Name Collection Type:: Clean-Voided Midstream Performed By: #### A DDONUAPLUS #### [facility] [address] Urobilinogen,Urine Normal Normal Normal [facility] Comment on above: Order Comment: Name Collection Type:: Clean-Voided Midstream Performed By: #### A DDONUAPLUS #### [facility] [address] WBC,Urine 1-2 Normal 0-4 [facility] Comment on above: Order Comment: Name Collection Type:: Clean-Voided Midstream Performed By: #### A DDONUAPLUS #### [address] Epithelial cells.squamous [# /area] in Urine sediment by Automated countOrdered By: Darek Alfred on 08-29-2023 Epithelial cells.squamous Auto (Urine sed) [#/Area] 1-2 [HPF] 0-2 [facility] Erythrocytes [#/area] in Uri ne sediment by Automated countOrdered By: Darek Alfred on 08-29-2023 RBC Auto (Urine sed) [#/Area] Innumerable [HPF] High 0-4 [facility] Glucose [Mass/volume] in Uri ne by Test stripOrdered By: Darek Alfred on 08-29-2023 Glucose Test strip (U) [Mass/Vol] Normal mg/dL Normal [facility] Hemoglobin Test strip Ql (U) Ordered By: Darek Alfred on 08-29-2023 Hemoglobin Ql (U) 3+ High Negative [facility] Hyaline casts [#/area] in Ur ine sediment by Automated countOrdered By: Darek Alfred on 08-29-2023 Hyaline casts Auto (Urine sed) [#/Area] None [LPF] 0-8 [facility] Ketones [Presence] in Urine by Test stripOrdered By: Darek Alfred on 08-29-2023 Ketones Ql (U) Negative Normal Negative [facility] Comment on above: Order Comment: Name Collection Type:: Clean-Voided Midstream Performed By: #### A DDONUAPLUS #### [facility] [address] Leukocyte esterase [Presence ] in Urine by Test stripOrdered By: Darek Alfred on 08-29-2023 Leukocyte esterase Test strip Ql (U) Negative Normal Negative [facility] Comment on above: Order Comment: Name Collection Type:: Clean-Voided Midstream Performed By: #### A DDONUAPLUS #### [facility] [address] [place] [address] [place] Leukocytes [#/area] in Urine sediment by Automated countOrdered By: Darek Alfred on 08-29-2023 WBC Auto (Urine sed) [#/Area] 1-2 [HPF] 0-4 [facility] Mucus [Presence] in Urine by AutomatedOrdered By: Darek Alfred on 08-29-2023 Mucus Auto Ql (U) Rare [LPF] [facility] Nitrite Test strip Ql (U)Ord ered By: Darek Alfred on 08-29-2023 Nitrite Ql (U) Negative Negative [facility] Protein Test strip (U) [Mass /Vol]Ordered By: Darek Alfred on 08-29-2023 Protein (U) [Mass/Vol] Negative Negative [facility] Specific gravity Test strip (U) [Rel density]Ordered By: Darek Alfred on 08-29-2023 Specific gravity (U) [Rel density] 1.018 1.001-1.03 0 [facility] Urine appearanceOrdered By: Darek Alfred on 08-29-2023 Appearance (U) Clear Normal Clear [facility] Comment on above: Order Comment: Name Collection Type:: Clean-Voided Midstream Performed By: #### A DDONUAPLUS #### [place] [address] [place] Urobilinogen Test strip (U) [Mass/Vol]Ordered By: Darek Alfred on 07-10-2024 Urobilinogen (U) [Mass/Vol] Normal mg/dL Normal [facility] pH of Urine by Test stripOrd ered By: Darek Alfred on 08-29-2023 pH (U) 7.5 [pH] Normal 5.0-9.0 [facility] Comment on above: Order Comment: Name Collection Type:: Clean-Voided Midstream Performed By: #### A DDONUAPLUS #### [address] abdomen pelvis wo conon 0 08-28-2023 CT abdomen pelvis wo con [facility] [place] [address] [place] [address] CT Scan Report Signed Patient: Tyron Paulino MR#: [id number] : 1975 Acct:[id number] Age/Sex: 48 / F ADM Date: 08/28/23 Loc: CT Room: Type: [facility] Attending Dr: Carina Ward MD Copies to: Carina Ward MD Ordering Provider: Carina Ward MD Date of Service: 08/28/23 CT/CT abdomen pelvis wo con: FLANK PAIN, KIDNEY STONE CT ABDOMEN AND PELVIS WITHOUT CONTRAST COMPARISON: 03/10/2023 CLINICAL DATA: Left flank pain and intermittent hematuria. History of kidney stones. Spiral images were obtained through the abdomen and pelvis without contrast. This CT exam was performed using one or more following dose reduction techniques: Automated exposure control, adjustment of the mA and/or kV according to patient size, or use of iterative reconstruction technique. Limited cuts through the lung bases show no contributory findings. Evaluation of the intra-abdominal organs is slightly limited by the absence of contrast. No calcified gallstones are visualized. No intrahepatic masses are seen. Spleen, pancreas and adrenal glands show no acute findings. There are multiple bilateral renal stones, greater on the left. The largest stone is on the left measuring 6 - 7 mm in size. No hydronephrosis is present. No ureteral dilatation is seen. The ureters are difficult to follow distally. There are no obvious stones along the expected course. The abdominal aorta is normal caliber. There are small lymph nodes. No ascites is seen. Small bowel loops are not dilated. Moderate stool is visualized throughout the colon. There is minimal degenerative change at the spine. There is a tiny umbilical hernia containing fat. Images through the pelvis show no dilated small bowel. There is no appendiceal inflammation. There is additional stool at the distal colon. No diverticular disease is seen. The uterus is slightly levoverted. There are no adnexal cysts. The urinary bladder is collapsed, precluding evaluation. There is no ascites. CT/CT abdomen pelvis wo con IMPRESSION: BILATERAL NEPHROLITHIASIS. NO OBVIOUS OBSTRUCTIVE UROPATHY. COLLAPSED URINARY BLADDER, LIMITING ASSESSMENT. NO OTHER ACUTE FINDINGS. Impression dictated by: Rolanda Grewal M.D.08/28/2023 2:11 PM Dictation Location: [place] [address] Transcribed By: [facility] 08/28/23 1411 Dictated By: Rolanda Grewal MD 08/28/23 1323 Signed By: 08/28/23 1411 Normal [facility] Physician [facility] Ambulatory Visit Summaryon 0 08-24-2023 Ambulatory Visit Summary Ambulatory Visit Summary TYRON PAULINO :1975 Visit Date:08/24/2023 Ambulatory Visit Instructions Your Diagnosis Kidney stones Gross hematuria History of kidney stones Left flank pain Tests Performed CT Abdomen/Pelvis w/o Contrast -- Results Pending -- Please visit your patient portal for your results or contact your primary care physician. Your Care Team Attending Physician - Carina Ward MD Primary Care Physician - LIYA MILLAN CNP This Is Your Medications List tamsulosin (tamsulosin 0.4 mg Cap) Contact prescribing physician if questions or concerns albuterol cetirizine (cetirizine 10 mg Tab) erenumab (Aimovig SureClick Autoinjector-aooe 140 mg/mL subcutaneous solution) meloxicam (meloxicam 15 mg oral tablet) montelukast (montelukast 10 mg Tab) omeprazole (omeprazole 20 mg Cap-DR) paroxetine (Paxil 20 mg Tab) rizatriptan (Maxalt) verapamil (verapamil 40 mg oral tablet) Procedures Performed Cystoscopic removal of ureteric stent (04/12/2023), Cystoscopic insertion of ureteric stent (04/03/2023), Breast surgery, Colonoscopy, D&C - Dilatation and curettage, Mammogram. Discharge Vitals Heart Rate (Peripheral) 60 Respiratory Rate 18 Blood Pressure 116/84 Height 155 cm Height 61 in Weight 75 kg Weight 165 lb BMI 31.22 What to do next Scheduled Follow-Up Appointments Sunday 9:00 AM EDT With: Ed ESTEBAN, Carina Sharma Where: [facility] Normal [facility] Provider Letteron 08-24-2023 Provider Letter Provider Letter August 24, 2023 TYRON PAULINO [address] [place] [address] : 1975 To Whom It May Concern, Please excuse above patient from work. Date of Illness: From: 08/24/2023 To: 08/24/2023 May Return to Work On: Restrictions: _ Comments: _ Sincerely, [facility] [address] [place] [address] Normal [facility] Urine Cytology ([facility])on 0 08-24-2023 Method of Extraction Voided Normal [facility] Comment on above: Performed By: #### 1 [id number] #### [facility] [address] [place] [address] Number of Jars 1 Invalid Interpretation Code [facility] Comment on above: Performed By: #### 1 [id number] #### [facility] [address] [place] [address] Specimen Urine Normal [facility] Comment on above: Performed By: #### 1 [id number] #### [facility] [address] [place] [address] Type of Service Technical Only Normal [facility] Comment on above: Performed By: #### 1 [id number] #### [facility] [address] [place] [address] Urology Office/Clinic Noteon 08-24-2023 Urology Office/Clinic Note Urology Office/Clinic Note Chief Complaint PO Lithotripsy HPI Staff PO Lithotripsy/stent placement 04/03/23 Cysto/stent removal 04/12/23 JOHNATHAN 06/08/23 Previous DX: kidney stones, gross hematuria, frequency and stress incontinence. Dysuria: denies Incomplete bladder emptying: denies Hematuria: yes visible blood off and on for the past few weeks, UA shows LARGE Frequency: denies Urgency: sometimes Nocturia: denies Stream: denies Leaking: yes Post void dripping: denies Wearing pads/ Depends: sometimes wears liner Urge incontinence: yes Stress incontinence: yes Incontinence without Sensory Awareness: denies Abdominal pain: denies Flank pain: yes left sided pain started 3 days ago Sexual complaints: denies History of Present Illness Tests reviewed: reviewed UA, JOHNATHAN I have reviewed the previous health record information and history for this patient from Dr. Ward. I have reviewed and verified the staff HPI to be accurate for this encounter. There have been no associated fever, chills. Denies any urinary infections since last encounter. Review of Systems PHQ Score Initial Depression Screen Score: 0 SCORE ROS - Provider Constitutional: denies weight loss, denies hot flashes. Eyes: denies eye problems. Gastrointestinal: denies nausea, denies vomiting. Cardiovascular: denies chest pain or angina. Integumentary: no dryness Musculoskeletal: denies musculoskeletal symptoms. ENMT: denies otolaryngeal symptoms. Respiratory: no shortness of breath. Heme/Lymph: denies easy bleeding tendency, denies easy bruising tendency. Psychiatric: no confusion, no anxiety. Genitourinary: See HPI. Physical Exam Vitals & Measurements HR: 60(Peripheral) RR: 18 BP: 116/84 HT: 61 in HT: 155 cm WT: 75 kg WT: 165 lb BMI: 31.22 General Appearance: alert , no acute distress, well nourished, well developed female. 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 BBS not completed (10). 1. Kidney stones (N20.0: Calculus of kidney) CT 04/2020 - stones in the renal collecting system bilaterally. [facility] ER visit 03/18/23 due to hematuria and L flank pain. Had completed Cipro abx course a few weeks prior for UTI. 03/18/23 - BUN 15. Cr 0.79. CT AP wo con 03/18/23 [facility] - Bilateral renal stones measuring up to 7 mm. Moderate R hydroureteronephrosis with small column of stones in distal R ureter in pelvis measuring up to 5 mm. Personal review: RLP stone 4 mm, possible Hardik's plaque. L- multiple 7 mm lower pole stones and smaller stones throughout. KUB 03/28/23 [facility] - 5 mm right distal ureteral stone still noted, overlying SI joint inferiorly. Several calcified renal stones at mid to lower pole on L, measure up to 5 mm. Cysto, R RGP, R URS, laser litho, ureteral stone extraction, R stent placement, R renal stone removal 04/03/23. 100% Ca Ox Bowman. Cysto, R ureteral stent removed 04/12/23. JOHNATHAN 06/08/23 - Neg. Reviewed JOHNATHAN with pt. Previously had L flank pain while she was passing a R sided stone. Having L flank pain x 3 days. Follow up 1 month to review imaging or sooner if needed. Pt understands and agrees with plan. -Pt to call or go to the ER if they were to experience fever, shaking, chills, uncontrolled nausea, vomiting, or pain. -Will call with CT scan results if acute, otherwise review at fu. Pt declined quicker JOHNATHAN/KUB at this time. -Would like medical expulsive therapy if stone < 5 mm. Risks/benefits discussed -Will schedule cysto, L RPG, stent possible L URS, Laser Lithotripsy pending CT large ureteral stone with low chance of passing or uncontrolled pain. The procedural risks, benefits, details, and treatment alternatives have been discussed with the patient. These include bleeding, infection, inability to break or retrieve all of the stone, injury to the ureter (the tube which connects the kidney to the bladder), injury to the kidney scarring of the ureter, and need for repeat procedures, among others. Full informed consent has been obtained. Will order General anesthesia. -Start tamsulosin 0.4 mg daily for stone passage. Risks/benefits discussed 2. Gross hematuria (R31.0: Gross hematuria) FISH/cytology negative 04/2020. Cysto 04/03/23 neg for bladder tumors. Non-smoker. UA shows large blood, neg for infection. Visible blood off and on for the past few weeks. Had brown urine 3 days ago. Has also been bright red. -Will send urine for cytology. (In case no stone noted on CT). 3. History of kidney stones (Z87.442: Personal history of urinary calculi) Passed a stone approximately 09/2021. 4. Left flank pain (R10.9: Unspecified abdominal pain) Having L sided flank pain x 3 days. No nausea, fever, or chills. See #1. Follow-up With When Contact Information Ed ESTEBAN, Carina Sharma, URL, URO Additional Instructions: f/u pending CT Patient Education Laser Therapy for Kidney Stones I, ivis Braga (more content not included)... Normal [facility] Comment on above: Result Comment: Elec tronically Signed By: Carina Ward MD\.br\Date and Time Signed: 08/24/23 11:00 EDT\.br\Electronically Co-Signed By: Olivia Oro P\.br\Date and Time Co-Signed: 08/24/23 10:51 EDT ECG 12 Leadon 08-06-2023 Normal sinus rhythm with nonspecific inferior ST-T changes were normal QRS duration and QTc interval [facility] Work Phone: Influenza virus B Ag [Presen ce] in Upper respiratory specimen by Rapid immunoassayon 07-06-2023 FLUBV Ag IA.rapid Ql (Nph) Negative [facility] No Panel Informationon 07-05 Influenza Type A (Rapid) Negative [facility] POC SARS CoV-2 Antigen Negative [facility] No Panel InformationOrdered By: Stephanie Dubon on 07-06-2023 Quick Strep (POC) [facility] RAD - Ultrasound Reporton RAD - Ultrasound Report [id number] Normal [facility] Alanine aminotransferase [En zymatic activity/volume] in Serum or PlasmaOrdered By: Liya Millan on 05-31-2023 ALT [Catalytic activity/Vol] 11 U/L 7-52 [facility] Albumin [Mass/volume] in Ser um or Plasma by Bromocresol green (BCG) dye binding methoOrdered By: Liya Millan on 05-31-2023 Albumin BCG dye [Mass/Vol] 3.9 g/dL 3.5-5.7 [facility] Alkaline phosphatase [Enzyma tic activity/volume] in Serum or PlasmaOrdered By: Liya Millan on 05-31-2023 ALP [Catalytic activity/Vol] 55 U/L 34-104 [facility] Aspartate aminotransferase [ Enzymatic activity/volume] in Serum or PlasmaOrdered By: Liya Millan on 05-31-2023 AST [Catalytic activity/Vol] 13 U/L 13-39 [facility] Bilirubin.total [Mass/volume ] in Serum or PlasmaOrdered By: Liya Millan on 05-31-2023 Bilirubin [Mass/Vol] 0.3 mg/dL 0.3-1.0 [facility] Calcium [Mass/volume] in Ser um or PlasmaOrdered By: Liya Millan on 05-31-2023 Calcium [Mass/Vol] 8.5 mg/dL Low 8.6-10.3 [facility] Carbon dioxide, total [Moles /volume] in Serum or PlasmaOrdered By: Liya Millan on 05-31-2023 CO2 [Moles/Vol] 24.2 mmol/L 21.0-31.0 [facility] Chloride [Moles/volume] in S crow or PlasmaOrdered By: Liya Millan on 05-31-2023 Chloride [Moles/Vol] 109 mmol/L High 98-107 [facility] Cholesterol [Mass/volume] in Serum or PlasmaOrdered By: Liya Millan on 05-31-2023 Cholesterol [Mass/Vol] 218 mg/dL High 140-200 [facility] Comment on above: Chol less than 200 m g/dl low riskChol 201-239 mg/dl borderline riskChol 240 mg/dl and greater high risk Cholesterol in LDL Calc [Mas s/Vol]Ordered By: Liya Millan on 05-31-2023 Cholesterol in LDL [Mass/Vol] 140 mg/dL High 0-100 [facility] Comment on above: LDL ATP III CLASSIFI CATIONLDL less than 100 mg/dL OptimalLDL 100-129 mg/dL Near or above optimalLDL 130-159 mg/dL Borderline highLDL 160-189 mg/dL HighLDL greater than 189 mg/dL Very high Cholesterol in VLDL Calc [Ma ss/Vol]Ordered By: Liya Millan on 05-31-2023 Cholesterol in VLDL [Mass/Vol] 21 mg/dL [facility] Creatinine [Mass/volume] in Serum or PlasmaOrdered By: Liya Millan on 05-31-2023 Creatinine [Mass/Vol] 0.72 mg/dL 0.60-1.20 [facility] Globulin Calc (S) [Mass/Vol] Ordered By: Liya Millan on 05-31-2023 Globulin (S) [Mass/Vol] 2.5 g/dL [facility] Glucose [Mass/volume] in Ser um or PlasmaOrdered By: Liya Millan on 05-31-2023 Glucose [Mass/Vol] 89 mg/dL 70-100 [facility] Comment on above: ADA recommended refe rence rangeRandom Glucose Reference Range is dependent on time and content of last meal. Glucose of more than 200 mg/dL in a nonstressed, ambulatory subject supports the diagnosis of Diabetes Mellitus. No Panel InformationOrdered By: Liya Millan on 05-31-2023 Estimated GFR (CKD-EPI) > 60.0 mL/Min [facility] Creatinine Clearance (Chem N/A [facility] Potassium [Moles/volume] in Serum or PlasmaOrdered By: Liya Millan on 05-31-2023 Potassium [Moles/Vol] 4.4 mmol/L 3.5-5.1 [facility] Protein [Mass/volume] in Ser um or PlasmaOrdered By: Liya Millan on 05-31-2023 Protein [Mass/Vol] 6.4 g/dL 6.4-8.9 [facility] Serum or plasma albumin/glob ulin mass ratioOrdered By: Liya Millan on 05-31-2023 Albumin/Globulin [Mass ratio] 1.6 {ratio} [facility] Serum or plasma anion gap de terminationOrdered By: Liya Millan on 05-31-2023 Anion gap [Moles/Vol] 8.2 mmol/L 6.0-15.0 [facility] Serum or plasma high density lipoprotein (HDL) cholesterol measurementOrdered By: Liya Millan on 05-31-2023 Cholesterol in HDL [Mass/Vol] 57 mg/dL 23- [facility] Comment on above: HDL CHOL ATP-III CLA SSIFICATION Cardiovascular RiskHDL > or equal to 60 mg/dL LOWHDL < 40 mg/dL HIGH Serum or plasma total choles terol/high density lipoprotein (HDL) cholesterol mass ratOrdered By: Liya Millan on 05-31-2023 Cholesterol.total/Cho lesterol in HDL [Mass ratio] 3.8 {ratio} <5.0 [facility] Sodium [Moles/volume] in Ser um or PlasmaOrdered By: Liya Millan on 05-31-2023 Sodium [Moles/Vol] 137 mmol/L 136-145 [facility] Thyrotropin [Units/volume] i n Serum or PlasmaOrdered By: Liya Millan on 05-31-2023 TSH Qn 4.17 m[IU]/L 0.45-5.33 [facility] Triglyceride [Mass/volume] i n Serum or PlasmaOrdered By: Liya Millan on 05-31-2023 Triglyceride [Mass/Vol] 106 mg/dL 0-149 [facility] Comment on above: TRIG ATP III CLASSIF ICATIONTRIG less than 150 mg/dL NormalTRIG 150-199 mg/dL Borderline highTRIG 200-500 mg/dL High TRIG greater than 500 mg/dL Very highStandard traceable to the Center for Disease Conrtrol and Prevention (CDC) test method. Urea nitrogen [Mass/volume] in Serum or PlasmaOrdered By: Liya Millan on 05-31-2023 Urea nitrogen [Mass/Vol] 12 mg/dL 7 [facility] Operative Reporton Operative Report [id number]#1.00TIFF Normal [facility] Operative Reporton 4 Operative Report [id number]#1.00TIFF Normal [facility] Lab Reportson 04-12-2023 Lab Reports [id number]#1.00TIFF Normal [facility] Consent for Procedure/Surger yon 04-06-2023 Consent for Procedure/Surgery [id number]#1.00TIFF Normal [facility] Pathology Noteon 04-06-2023 Pathology Note [id number]#1.00TIFF Normal [facility] Operative Reporton 4 Operative Report [id number]#1.00TIFF Normal [facility] Ammonium urate crystals dete ction in stone by infrared spectroscopyOrdered By: Carina Ward on 04-03-2023 Ammonium urate crystals Infrared spectroscopy Ql (Stone) N/A [facility] Calcium bilirubinate measure mentOrdered By: Carina Ward on 04-03-2023 Calcium bilirubinate (Stone) [Mass fraction] N/A [facility] Calcium carbonate measuremen tOrdered By: Carina Ward on 04-03-2023 Calcium carbonate (Stone) [Mass fraction] N/A [facility] Calcium hydrogen phosphate d ihydrate/Total in StoneOrdered By: Carina Ward on 04-03-2023 Calcium hydrogen phosphate dihydrate (Stone) [Mass fraction] N/A [facility] Calcium oxalate dihydrate cr ystals detection in stone by infrared spectroscopyOrdered By: Carina Ward on 04-03-2023 Calcium oxalate dihydrate crystals Infrared spectroscopy Ql (Stone) N/A [facility] Calcium oxalate monohydrate/ Total in StoneOrdered By: Carina Ward on 04-03-2023 Calcium oxalate monohydrate (Stone) [Mass fraction] 100 % . [facility] Calcium phosphate measuremen tOrdered By: Carina Ward on 04-03-2023 Calcium phosphate (Stone) [Mass fraction] N/A [facility] Calculus analysis interpreta tion in stoneOrdered By: Carina Ward on 04-03-2023 Calculus analysis [Interp] N/A [facility] Calculus analysis [Interp] See comment . [facility] Comment on above: Calculus received we t. Wet calculi must be dried beforeanalysis, which delays reporting of results. Leaving calculiwet (such as water, saline, blood, urine) may lead tochanges in composition. Physician questions regarding Calculi Analysis contactLog[facility] HospitalCorp at: [phone]. Calculi report will follow via computer, mail or courierdelivery. Calculus analysis with calcu tyler photography interpretation in stoneOrdered By: Carina Ward on 04-03-2023 Calculus analysis with calculus photography [Interp] See comment . [facility] Comment on above: Photograph will foll ow under a separate cover Cellular material measuremen t in stone by estimated (mass/mass)Ordered By: Carina Ward on 04-03-2023 Cellular material Est (Stone) [Mass/Mass] N/A [facility] Cholesterol/Total in StoneOr dered By: Carina Ward on 04-03-2023 Cholesterol (Stone) [Mass fraction] N/A [facility] Composition of stoneOrdered By: Carina Ward on 04-03-2023 Composition Nom (Stone) See comment . [facility] Comment on above: Percentage (Represen ts the % composition) Cystine measurementOrdered B y: Carina Ward on 04-03-2023 Cystine (Unsp spec) [Moles/Vol] N/A [facility] Determination of color of ca lculusOrdered By: Carina Ward on 04-03-2023 Color (Stone) Brown . [facility] Hydroxyapatite [Energy Diffe rence] in 24 hour UrineOrdered By: Carina Ward on 04-03-2023 Hydroxyapatite (24H U) [Energy diff] N/A [facility] Measurement of proportion of calculus composed of dried blood (mass/mass)Ordered By: Carina Ward on 04-03-2023 Blood.dried (Stone) [Mass fraction] N/A [facility] Newberyite/Total in StoneOrd ered By: Carina Ward on 04-03-2023 Newberyite (Stone) [Mass fraction] N/A [facility] No Panel InformationOrdered By: Carina Ward on 04-03-2023 Stone 2,8 Dihydroxyadenine N/A [facility] Stone Analysis Disclaimer See comment . [facility] Comment on above: This test was develo ped and its performance characteristicsdetermined by [employer]. It has not been cleared or approvedby the Food and Drug Administration.Performed at: [facility] - [address] [id number] Director: Zofia Castaneda PhDDA, Phone: [phone] Stone Bilirubinate N/A [facility] Stone Calcium Palmitate N/A [facility] Stone Calcium Stearate N/A [facility] Stone Carbonate Apatite N/A [facility] Stone Drug or Metabolite N/A [facility] Stone Other Constituent N/A [facility] Stone Xanthine N/A [facility] Size [Entitic volume] of Sto neOrdered By: Carina Ward on 04-03-2023 Size (Stone) [Entitic vol] 3x7 mm . [facility] Comment on above: Multiple pieces rece ived. Dimensions of the largest piecereported. Sodium urate crystals detect ion in stone by infrared spectroscopyOrdered By: Carina Ward on 04-03-2023 Sodium urate crystals Infrared spectroscopy Ql (Stone) N/A [facility] Specimen source subject [Typ e]Ordered By: Carina Ward on 04-03-2023 Specimen source subject Nom Ureter . [facility] Triamterene measurement in c alculusOrdered By: Carina Ward on 04-03-2023 Triamterene (Stone) [Mass fraction] N/A [facility] Triple phosphate/Total in St oneOrdered By: Carina Ward on 04-03-2023 Triple phosphate (Stone) [Mass fraction] N/A [facility] Uric acid dihydrate crystals detection in stone by infrared spectroscopyOrdered By: Carina Ward on 04-03-2023 Urate dihydrate crystals Infrared spectroscopy Ql (Stone) N/A [facility] Lab Reportson 04-02-2023 Lab Reports [id number]#1.00TIFF Normal [facility] RAD - MISCon 04-02-2023 RAD - MISC [id number]#1.00TIFF Normal [facility] Activated partial thrombopla stin time (aPTT) in platelet poor plasma by coagulation aOrdered By: Carina Ward on 03-30-2023 aPTT Coag (PPP) [Time] 31.8 s 25.1-36.5 [facility] Comment on above: A hematocrit value g reater than 55% may lead to inaccurate results in coagulation testing. Patients having hematocrit values >55% require a special collection tube for coagulation studies. Please contact the laboratory at [phone] for redraw instructions. Automated erythrocytes count in urine sediment (number/area)Ordered By: Carina Ward on 03-30-2023 RBC Auto (Urine sed) [#/Area] 20-49 [HPF] 0-4 [facility] Automated leukocytes count i n urine sediment (number/area)Ordered By: Carina Ward on 03-30-2023 WBC Auto (Urine sed) [#/Area] 5-9 [HPF] 0-4 [facility] Basophils Auto (Bld) [#/Vol] Ordered By: Carina Ward on 03-30-2023 Basophils (Bld) [#/Vol] 0.1 10*3/uL 0.0-0.2 [facility] Basophils/100 WBC Auto (Bld) Ordered By: Carina Ward on 03-30-2023 Basophils/100 WBC (Bld) 0.8 % . [facility] Bilirubin Test strip Ql (U)O rdered By: Carina Ward on 03-30-2023 Bilirubin Ql (U) Negative Negative [facility] Calcium [Mass/volume] in Ser um or PlasmaOrdered By: Craina Ward on 03-30-2023 Calcium [Mass/Vol] 8.9 mg/dL 8.6-10.3 [facility] Carbon dioxide, total [Moles /volume] in Serum or PlasmaOrdered By: Carina Ward on 03-30-2023 CO2 [Moles/Vol] 27.1 mmol/L 21.0-31.0 [facility] Chloride [Moles/volume] in S crow or PlasmaOrdered By: Carina Ward on 03-30-2023 Chloride [Moles/Vol] 106 mmol/L 98-107 [facility] Color Auto (U)Ordered By: Sarah Ward on 03-30-2023 Color (U) Yellow Yellow [facility] Consent for Procedure/Surger yon 03-30-2023 Consent for Procedure/Surgery [id number]#1.00TIFF Normal [facility] Consent for Procedure/Surgery [id number]#1.00TIFF Normal [facility] Creatinine [Mass/volume] in Serum or PlasmaOrdered By: Carina Ward on 03-30-2023 Creatinine [Mass/Vol] 0.77 mg/dL 0.60-1.20 [facility] ED Note-Physicianon 03-30-19 ED Note-Physician [id number]#1.00TIFF Normal [facility] Eosinophils Auto (Bld) [#/Vo l]Ordered By: Carina Ward on 03-30-2023 Eosinophils (Bld) [#/Vol] 0.2 10*3/uL 0.0-0.45 [facility] Eosinophils/100 WBC Auto (Bl d)Ordered By: Carina Ward on 03-30-2023 Eosinophils/100 WBC (Bld) 2.6 % . [facility] Erythrocyte distribution wid th Auto (RBC) [Ratio]Ordered By: Carina Ward on 03-30-2023 Erythrocyte distribution width (RBC) [Ratio] 13.4 % 11.9-15.3 [facility] Glucose [Mass/volume] in Ser um or PlasmaOrdered By: Carina Ward on 03-30-2023 Glucose [Mass/Vol] 87 mg/dL 70-100 [facility] Comment on above: ADA recommended refe rence rangeRandom Glucose Reference Range is dependent on time and content of last meal. Glucose of more than 200 mg/dL in a nonstressed, ambulatory subject supports the diagnosis of Diabetes Mellitus. Hematocrit Auto (Bld) [Volum e fraction]Ordered By: Carina Ward on 03-30-2023 Hematocrit (Bld) [Volume fraction] 36.7 % 34.0-46.4 [facility] Hemoglobin [Mass/volume] in BloodOrdered By: Carina Ward on 03-30-2023 Hemoglobin (Bld) [Mass/Vol] 12.5 g/dL 11.8-15.4 [facility] Ketones Auto test strip (U) [Mass/Vol]Ordered By: Carina Ward on 03-30-2023 Ketones (U) [Mass/Vol] Negative Negative [facility] Lab Reportson 03-30-2023 Lab Reports [id number]#1.00TIFF Normal [facility] - UrinalysisOrder ed By: Carina Ward on 03-30-2023 Hyaline casts LM Ql (Urine sed) 0-8 [LPF] 0-8 [facility] Leukocytes [#/volume] correc federico for nucleated erythrocytes in Blood by Automated counOrdered By: Carina Ward on 03-30-2023 WBC corrected for nucl RBC Auto (Bld) [#/Vol] 6.4 10*3/uL 3.8-11.6 [facility] Lymphocytes Auto (Bld) [#/Vo l]Ordered By: Carina Ward on 03-30-2023 Lymphocytes (Bld) [#/Vol] 2.4 10*3/uL 1.00-4.8 [facility] Lymphocytes/100 WBC Auto (Bl d)Ordered By: Carina Ward on 03-30-2023 Lymphocytes/100 WBC (Bld) 37.0 % . [facility] MCH Auto (RBC) [Entitic mass ]Ordered By: Carina Ward on 03-30-2023 MCH (RBC) [Entitic mass] 30.0 pg 24.7-34.3 [facility] MCHC Auto (RBC) [Mass/Vol]Or dered By: Carina Ward on 03-30-2023 MCHC (RBC) [Mass/Vol] 34.0 g/dL 32.0-35.0 [facility] MCV Auto (RBC) [Entitic vol] Ordered By: Carina Ward on 03-30-2023 MCV (RBC) [Entitic vol] 88.2 fL 80-100 [facility] Monocytes Auto (Bld) [#/Vol] Ordered By: Carina Ward on 03-30-2023 Monocytes (Bld) [#/Vol] 0.5 10*3/uL 0.0-0.8 [facility] Monocytes/100 WBC Auto (Bld) Ordered By: Carina Ward on 03-30-2023 Monocytes/100 WBC (Bld) 7.6 % . [facility] Neutrophils Auto (Bld) [#/Vo l]Ordered By: Carina Ward on 03-30-2023 Neutrophils (Bld) [#/Vol] 3.3 10*3/uL 1.8-7.7 [facility] Neutrophils/100 WBC Auto (Bl d)Ordered By: Carina Ward on 03-30-2023 Neutrophils/100 WBC (Bld) 52.0 % . [facility] Nitrite Test strip Ql (U)Ord ered By: Carina Ward on 03-30-2023 Nitrite Ql (U) Negative Negative [facility] No Panel InformationOrdered By: Carina Ward on 03-30-2023 Estimated GFR (CKD-EPI) > 60.0 mL/Min [facility] Creatinine Clearance (Chem N/A [facility] Nucleated erythrocytes [Pres ence] in Blood by Automated countOrdered By: Carina Ward on 03-30-2023 Nucleated RBC Auto Ql (Bld) 0.1 /100{WBC} 0-0.5 [facility] Physician Orderon 03-30-2023 Physician Order [id number]#1.00TIFF Normal [facility] Platelet mean volume Auto (B ld) [Entitic vol]Ordered By: Carina Ward on 03-30-2023 Platelet mean volume (Bld) [Entitic vol] 7.4 fL 6.3-10.7 [facility] Platelets Auto (Bld) [#/Vol] Ordered By: Carina Ward on 03-30-2023 Platelets (Bld) [#/Vol] 278 10*3/uL 150-450 [facility] Potassium [Moles/volume] in Serum or PlasmaOrdered By: Carina Ward on 03-30-2023 Potassium [Moles/Vol] 4.3 mmol/L 3.5-5.1 [facility] Protein Auto test strip (U) [Mass/Vol]Ordered By: Carina Ward on 03-30-2023 Protein (U) [Mass/Vol] Trace mg/dL Negative [facility] RBC Auto (Bld) [#/Vol]Ordere d By: Carina Ward on 03-30-2023 RBC (Bld) [#/Vol] 4.16 10*6/uL 3.60-5.00 [facility] 03-30-2023 Screens [id number]#1.00TIFF Normal [facility] Serum or plasma anion gap de terminationOrdered By: Carina Ward on 03-30-2023 Anion gap [Moles/Vol] 10.2 mmol/L 6.0-15.0 [facility] Sodium [Moles/volume] in Ser um or PlasmaOrdered By: Carina Ward on 03-30-2023 Sodium [Moles/Vol] 139 mmol/L 136-145 [facility] Specific gravity Auto test s trip (U) [Rel density]Ordered By: Carina Ward on 03-30-2023 Specific gravity (U) [Rel density] 1.020 1.001-1.03 0 [facility] Squamous epithelial cells de tection in urine sediment by light microscopyOrdered By: Carina Ward on 03-30-2023 Epithelial cells.squamous LM Ql (Urine sed) 10-19 [HPF] 0-2 [facility] Urea nitrogen [Mass/volume] in Serum or PlasmaOrdered By: Carina Ward on 03-30-2023 Urea nitrogen [Mass/Vol] 14 mg/dL 7-25 [facility] Urine bacteria detection by automated methodOrdered By: Carina Ward on 03-30-2023 Bacteria Auto Ql (U) 2+ None Seen [facility] Urine clarity by refractomet ry automatedOrdered By: Carina Ward on 03-30-2023 Clarity Refractometry automated (U) Clear Clear [facility] Urine glucose measurement by automated test strip (mass/volume)Ordered By: Carina Ward on 03-30-2023 Glucose Auto test strip (U) [Mass/Vol] Normal mg/dL Normal [facility] Urine hemoglobin detection b y automated test stripOrdered By: Carina Ward on 03-30-2023 Hemoglobin Auto test strip Ql (U) 1+ Negative [facility] Urine leukocyte esterase det ection by automated test stripOrdered By: Carina Ward on 03-30-2023 Leukocyte esterase Auto test strip Ql (U) Negative Negative [facility] Urobilinogen Auto test strip (U) [Mass/Vol]Ordered By: Carina Ward on 03-30-2023 Urobilinogen (U) [Mass/Vol] Normal mg/dL Normal [facility] WBC Auto (Bld) [#/Vol]Ordere d By: Carina Ward on 03-30-2023 WBC (Bld) [#/Vol] 6.4 10*3/uL 3.8-11.6 [facility] pH Auto test strip (U)Ordere d By: Carina Ward on 03-30-2023 pH (U) 8.5 [pH] 5.0-9.0 [facility] Ambulatory Visit Summaryon 0 03-29-2023 Ambulatory Visit Summary TYRON PAULINO :1975 Visit Date:03/29/2023 Ambulatory Visit Instructions Your Diagnosis Ureteral stone with hydronephrosis Kidney stones Gross hematuria History of kidney stones Your Care Team Attending Physician - Carina Ward MD Primary Care Physician - LIYA MILLAN CNP This Is Your Medications List Contact prescribing physician if questions or concerns albuterol cetirizine (cetirizine 10 mg Tab) erenumab (Aimovig SureClick Autoinjector-aooe 140 mg/mL subcutaneous solution) meloxicam (meloxicam 15 mg oral tablet) montelukast (montelukast 10 mg Tab) omeprazole (omeprazole 20 mg Cap-DR) paroxetine (Paxil 20 mg Tab) rizatriptan (Maxalt) verapamil (verapamil 40 mg oral tablet) Procedures Performed Breast surgery, Colonoscopy, D&C - Dilatation and curettage, Mammogram. Discharge Vitals Blood Pressure 122/78 Height 155 cm Height 61 in Weight 71.9 kg Weight 158.18 lb BMI 29.93 What to do next You Need to Schedule the Following Appointments Follow Up with Ed ESTEBAN, RACHEL Neves, URO When: Comments: venecia R ureteroscopy Where: [address] [place] [address] [phone] Medications What How Much When Instructions Unchanged albuterol Contact prescribing physician if questions or concerns Unchanged cetirizine (cetirizine 10 mg Tab) TAKE 1 TABLET BY MOUTH ONCE DAILY Contact prescribing physician if questions or concerns Unchanged erenumab (Aimovig SureClick Autoinjector-aooe 140 mg/ mL subcutaneous solution) Contact prescribing physician if questions or concerns Unchanged meloxicam (meloxicam 15 mg oral tablet) By Mouth Every day Contact prescribing physician if questions or concerns Unchanged montelukast (montelukast 10 mg Tab) By Mouth Every day Contact prescribing physician if questions or concerns Unchanged omeprazole (omeprazole 20 mg Cap-DR) 1 Capsules By Mouth Every day Contact prescribing physician if questions or concerns Unchanged paroxetine (Paxil 20 mg Tab) By Mouth Every day Contact prescribing physician if questions or concerns Unchanged rizatriptan (Maxalt) By Mouth Every day Contact prescribing physician if questions or concerns Unchanged verapamil (verapamil 40 mg oral tablet) By Mouth 3 times a day Contact prescribing physician if questions or concerns Allergies azithromycin (Unknown) penicillin (unknown) Problems Ongoing - Any problem that you are currently receiving treatment for. Arthritis Asthma BMI 29.0-29.9,adult Chronic GERD Depression Flank pain Frequent urination Gross hematuria History of kidney stones Irritable bowel syndrome with constipation Kidney stones Migraines Nephrolithiasis Stress incontinence SVT (supraventricular tachycardia) Ureteral stone with hydronephrosis Patient Survey You may receive a survey via text or e-mail asking about your office visit. Please share your experience with us by completing your survey. We appreciate your feedback and thank you for choosing us for your care. Education Materials Ureteroscopy, Care After After a ureteroscopy, it is common to have a burning feeling when you urinate. It is also common to have: ? Blood in your urine. ? Mild soreness in the bladder or kidney. ? A need to urinate often and urgently. If you need a tube to keep your ureter open (ureteral stent), this may cause some pain in the kidney or bladder areas. The pain is usually mild. You may need to urinate often and urgently. Follow these instructions at home: The instructions below may help you care for yourself at home. Your health care provider may give you more instructions. If you have questions, ask your health care provider. Medicines ? Take loca-jcf-nsjxqrt and prescription medicines as told by your health care provider. ? If you were prescribed antibiotics, take them as told by your health care provider. Do not stop taking them even if you start to feel better. General instructions ? Keep all follow-up visits. This is important. If you had a stent placed, ask your health care provider when you need to have it removed. Eating and drinking restrictions ? Follow instructions from your health care provider about what you may eat and drink. ? Drink enough fluid to keep your urine pale yellow. Drink 16 ounces of water each hour for the next few hours as told. Bathing ? Take a warm bath or hold a warm, damp washcloth over the urethral opening to relieve any burning feeling. Activity ? If you were given a sedative during your procedure, do not drive or use machines until your health care provider says that it is safe. A sedative is a medicine that helps you relax. ? Return to your normal activities when your health care provider says that it is safe. Contact a health care provider if: ? You have chills or a fever. ? You have burning pain for longer than 24 hours. ? (more content not included)... Normal [facility] Patient Educationon 03-29-19 Patient Education Urology Ureteroscopy, Care After After a ureteroscopy, it is common to have a burning feeling when you urinate. It is also common to have: ? Blood in your urine. ? Mild soreness in the bladder or kidney. ? A need to urinate often and urgently. If you need a tube to keep your ureter open (ureteral stent), this may cause some pain in the kidney or bladder areas. The pain is usually mild. You may need to urinate often and urgently. Follow these instructions at home: The instructions below may help you care for yourself at home. Your health care provider may give you more instructions. If you have questions, ask your health care provider. Medicines ? Take hqyg-vtz-jnsfcni and prescription medicines as told by your health care provider. ? If you were prescribed antibiotics, take them as told by your health care provider. Do not stop taking them even if you start to feel better. General instructions ? Keep all follow-up visits. This is important. If you had a stent placed, ask your health care provider when you need to have it removed. Eating and drinking restrictions ? Follow instructions from your health care provider about what you may eat and drink. ? Drink enough fluid to keep your urine pale yellow. Drink 16 ounces of water each hour for the next few hours as told. Bathing ? Take a warm bath or hold a warm, damp washcloth over the urethral opening to relieve any burning feeling. Activity ? If you were given a sedative during your procedure, do not drive or use machines until your health care provider says that it is safe. A sedative is a medicine that helps you relax. ? Return to your normal activities when your health care provider says that it is safe. Contact a health care provider if: ? You have chills or a fever. ? You have burning pain for longer than 24 hours. ? You have blood in your urine for longer than 24 hours. Get help right away if: ? You have large amounts of blood in your urine. ? You have blood clots in your urine. ? You have bad pain. ? You have chest pain or trouble breathing. ? You feel like you have a full bladder, but cannot urinate. These symptoms may be an emergency. Get help right away. Call 911. ? Do not wait to see if the symptoms will go away. ? Do not drive yourself to the hospital. Summary ? If you need a tube to keep your ureter open, this may cause some pain in the kidney or bladder areas. The pain is usually mild. You may need to urinate often and urgently. ? If you were given a sedative, do not drive or use machines until your health care provider says that it is safe. ? Contact your health care provider if you have burning pain for longer than 24 hours. This information is not intended to replace advice given to you by your health care provider. Make sure you discuss any questions you have with your health care provider. Document Revised: 06/02/2022 Document Reviewed: 06/02/2022 [employer] Patient Education ? 2022 iodine. Ureteroscopy Ureteroscopy is a procedure to check for and treat problems inside part of the urinary tract. In this procedure, a long rigid or flexible tube with a lens and light at the end (ureteroscope) is used to look at the inside of the kidneys and the ureters. The ureters are the tubes that carry urine from the kidneys to the bladder. The ureteroscope is inserted into one or both of the ureters. You may need this procedure if you have frequent urinary tract infections (UTIs), blood in your urine, or a stone in one or both of your ureters. A ureteroscopy can be done: ? To find the cause of urine blockage in a ureter and to evaluate other abnormalities inside the ureters or kidneys. ? To remove stones. ? To remove or treat growths of tissue (polyps), abnormal tissue, and some types of tumors. ? To remove a tissue sample and check it for disease under a microscope (biopsy). Tell a health care provider about: ? Any allergies you have. ? All medicines you are taking, including vitamins, herbs, eye drops, creams, and ugzg-ibr-[id number] medicines. ? Any problems you or family members have had with anesthetic medicines. ? Any bleeding problems you have. ? Any surgeries you have had. ? Any medical conditions you have. ? Whether you are or may be . What are the risks? Your health care provider will talk with you about risks. These may include: ? Abdominal pain or a burning feeling or pain while urinating. ? Abnormal bleeding. ? A UTI. ? Allergic reactions to medicines. ? Scarring that narrows the ureter (stricture) or swelling. ? Creating a hole (perforation) in the ureter. ? Damage to other structures or organs, such as the part of your body that drains urine from your bladder (urethra), your bladder, or your uterus. What happens before the procedure? When to stop eating and drinking ? 8 hours bef (more content not included)... Normal [facility] RAD - MISCon 03-29-2023 [facility] MIS [id number] Normal [facility] Urology Office/Clinic Noteon 03-29-2023 Urology Office/Clinic Note Chief Complaint [facility] F/U for hematuria and left side flank pain HPI Staff RWR Pt. Pt was last seen on 11/15/21. Pt was seen at [facility] on 03/18/23 due to hematuria and left sided flank pain, nausea. CT SCAN 03/18/23. BUN 15, Creatinine 0.79 03/18/23. Previous DX: kidney stones, gross hematuria, frequency and stress incontinence. Has not passed yet Flomax 0.4 mg- she said she gets dizzy sometimes and does not know if this from the med PVR 50 B&BSQ 10 Dysuria: _sometimes after urinating, pain and burning, ranges from pain for a couple minutes to a couple hours Incomplete bladder emptying: _usually Hematuria: sometimes, last time she seen blood was 03/18/23 when she went [facility] last about 3 days Frequency: _every 3-4 hours Urgency: usually Nocturia: _denies Stream: denies hesitation, normal stream Leaking: _yes Post void dripping: yes Wearing pads/ Depends: _pads wore if she has a cold because she will leak when she coughs Urge incontinence: _denies Stress incontinence: _yes Incontinence without Sensory Awareness: denies Abdominal pain: right side pain started 1-2 days before ER Flank pain: right side pain started 1-2 days before ER Sexual complaints: denies History of Present Illness Tests reviewed: reviewed UA, external records including CT scan, ER notes, labs, KUB I have reviewed the previous health record information and history for this patient from Dr. Sprague and external providers I have reviewed and verified the staff HPI to be accurate for this encounter. Review of Systems PHQ Score Initial Depression Screen Score: 0 SCORE ROS - Provider Constitutional: denies weight loss, denies hot flashes. Eyes: denies eye problems. Gastrointestinal: denies nausea, denies vomiting. Cardiovascular: denies chest pain or angina. Integumentary: no dryness Musculoskeletal: denies musculoskeletal symptoms. ENMT: denies otolaryngeal symptoms. Respiratory: no shortness of breath. Heme/Lymph: denies easy bleeding tendency, denies easy bruising tendency. Psychiatric: no confusion, no anxiety. Genitourinary: See HPI. Physical Exam Vitals & Measurements BP: 122/78 HT: 61 in HT: 155 cm WT: 71.9 kg WT: 158.18 lb BMI: 29.93 General Appearance: alert , no acute distress, well nourished, well developed female. Genitourinary: bladder nonpalpable, moderate flank pain. 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 BBS 10. 1. Ureteral stone with hydronephrosis (N13.2: Hydronephrosis with renal and ureteral calculous obstruction) CT 04/2020 - stones in the renal collecting system bilaterally. [facility] ER visit 03/18/23 due to hematuria and L flank pain. Had completed Cipro abx course a few weeks prior for UTI. 03/18/23 - BUN 15. Cr 0.79. CT AP wo con 03/18/23 FR - Bilateral renal stones measuring up to 7mm. Moderate R hydroureteronephrosis with small column of stones in distal R ureter in pelvis measuring up to 5mm. Personal review: RLP stone 4mm, possible Hardik's plaque. L- multiple 7 mm lower pole stones and smaller stones throughout. KUB 03/28/23 [facility] -5 mm right distal ureteral stone still noted, overlying SI joint inferiorly. Several calcified renal stones at mid to lower pole on L, measure up to 5mm. Discussed imaging results. Advised pt she has more stones on L but R stone is in ureter which is causing pain and needs to be addressed more urgently. Was not given strainer. Will provide strainer for pt today. Patient has not passed stone yet. Still having intermittent flank pain and nausea, denies fever or chills. Discussed management options including medical expulsive therapy x 4-6 week vs intervention including extracorporeal shockwave lithotripsy vs ureteroscopy with laser lithotripsy/stone basket extraction possible stent. Risks/benefits of each were discussed including but not limited to: MET- renal damage, pain or infection; ESWL- bleeding, hematoma, pain, infection, inability to break up the stone, ureteral obstruction, cardiac arrhythmias, damage to surrounding structures and need for additional procedures; ureteroscopy - bleeding, pain, infection, damage to surrounding structures, ureteral perforation, stricture, inability to treat the stone and need for additional procedures. If a stent is placed, pt understands this is not permanent and needs to be removed or exchanged within 3 months to prevent encrustation, infection, permanent renal damage and need for more invasive procedures. Pt prefers to proceed with ureteroscopy for definitive stone treatment -Strain urine -Will schedule a Cystoscopy with Right Retrogrades, Right Ureteroscopy, Right Laser Litho, Right Stone Basket, Right possible stent placement. The procedure risks, benefits, alternatives and complications have been discussed with the patient. These include but are not limited to bleeding, pain, infection, ureteral perforation, extravasation, stricture formation, sepsis, obstruction, inability t (more content not included)... Normal [facility] Comment on above: Result Comment: Elec tronically Signed By: Carina Ward MD\.br\Date and Time Signed: 03/29/23 13:08 EST\.br\Electronically Co-Signed By: April Matthew\.br\Date and Time Co-Signed: 03/29/23 11:15 EST Alanine aminotransferase [En zymatic activity/volume] in Serum or PlasmaOrdered By: Elton Carrera on 03-18-2023 ALT [Catalytic activity/Vol] 11 U/L 7-52 [facility] Albumin [Mass/volume] in Ser um or Plasma by Bromocresol green (BCG) dye binding methoOrdered By: Elton Carrera on 03-18-2023 Albumin BCG dye [Mass/Vol] 4.2 g/dL 3.5-5.7 [facility] Alkaline phosphatase [Enzyma tic activity/volume] in Serum or PlasmaOrdered By: Elton Carrera on 03-18-2023 ALP [Catalytic activity/Vol] 69 U/L 34-104 [facility] Aspartate aminotransferase [ Enzymatic activity/volume] in Serum or PlasmaOrdered By: Elton Carrera on 03-18-2023 AST [Catalytic activity/Vol] 17 U/L 13-39 [facility] Automated erythrocytes count in urine sediment (number/area)Ordered By: Elton Carrera on 03-18-2023 RBC Auto (Urine sed) [#/Area] Innumerable [HPF] 0-4 [facility] Automated leukocytes count i n urine sediment (number/area)Ordered By: Elton Carrera on 03-18-2023 WBC Auto (Urine sed) [#/Area] Innumerable [HPF] 0-4 [facility] Automated urine hyaline cast s count (number/volume)Ordered By: Elton Carrera on 03-18-2023 Hyaline casts Auto (U) [#/Vol] None seen [LPF] 0-1 [facility] Basophils Auto (Bld) [#/Vol] Ordered By: Elton Carrera on 03-18-2023 Basophils (Bld) [#/Vol] 0.0 10*3/uL 0.0-0.2 [facility] Basophils/100 WBC Auto (Bld) Ordered By: Elton Carrera on 03-18-2023 Basophils/100 WBC (Bld) 0.5 % . [facility] Bilirubin Test strip Ql (U)O rdered By: Elton Carrera on 03-18-2023 Bilirubin Ql (U) Negative Negative [facility] Bilirubin.direct [Mass/volum e] in Serum or PlasmaOrdered By: Elton Carrera on 03-18-2023 Bilirubin.direct [Mass/Vol] 0.00 mg/dL 0.03-0.18 [facility] Comment on above: If the DBIL is less than 0.1, IBIL is not able to becalculated. Bilirubin.total [Mass/volume ] in Serum or PlasmaOrdered By: Elton Carrera on 03-18-2023 Bilirubin [Mass/Vol] 0.3 mg/dL 0.3-1.0 [facility] Calcium [Mass/volume] in Ser um or PlasmaOrdered By: Elton Carrera on 03-18-2023 Calcium [Mass/Vol] 8.8 mg/dL 8.6-10.3 [facility] Carbon dioxide, total [Moles /volume] in Serum or PlasmaOrdered By: Elton Carrera on 03-18-2023 CO2 [Moles/Vol] 24.2 mmol/L 21.0-31.0 [facility] Casts typing in urine sedime nt by light microscopyOrdered By: Elton Carrera on 03-18-2023 Casts LM Nom (Urine sed) None seen [LPF] None Seen [facility] Chloride [Moles/volume] in S crow or PlasmaOrdered By: Elton Carrera on 03-18-2023 Chloride [Moles/Vol] 106 mmol/L 98-107 [facility] Color Auto (U)Ordered By: Benito Carrera on 03-18-2023 Color (U) Red Yellow [facility] Creatinine [Mass/volume] in Serum or PlasmaOrdered By: Elton Carrera on 03-18-2023 Creatinine [Mass/Vol] 0.79 mg/dL 0.60-1.20 [facility] Eosinophils Auto (Bld) [#/Vo l]Ordered By: Elton Carrera on 03-18-2023 Eosinophils (Bld) [#/Vol] 0.1 10*3/uL 0.0-0.45 [facility] Eosinophils/100 WBC Auto (Bl d)Ordered By: Elton Carrera on 03-18-2023 Eosinophils/100 WBC (Bld) 1.5 % . [facility] Erythrocyte distribution wid th Auto (RBC) [Ratio]Ordered By: Elton Carrera on 03-18-2023 Erythrocyte distribution width (RBC) [Ratio] 13.2 % 11.9-15.3 [facility] Globulin Calc (S) [Mass/Vol] Ordered By: Elton Carrera on 03-18-2023 Globulin (S) [Mass/Vol] 3.1 g/dL [facility] Glucose [Mass/volume] in Ser um or PlasmaOrdered By: Elton Carrera on 03-18-2023 Glucose [Mass/Vol] 111 mg/dL 70-100 [facility] Comment on above: ADA recommended refe rence rangeRandom Glucose Reference Range is dependent on time and content of last meal. Glucose of more than 200 mg/dL in a nonstressed, ambulatory subject supports the diagnosis of Diabetes Mellitus. HCG ( test) IAsilvina d Ql (U)Ordered By: Elton Carrera on 03-18-2023 HCG ( test) Ql (U) Negative [facility] Hematocrit Auto (Bld) [Volum e fraction]Ordered By: Elton Carrera on 03-18-2023 Hematocrit (Bld) [Volume fraction] 41.3 % 34.0-46.4 [facility] Hemoglobin [Mass/volume] in BloodOrdered By: Elton Carrera on 03-18-2023 Hemoglobin (Bld) [Mass/Vol] 14.0 g/dL 11.8-15.4 [facility] Ketones Auto test strip (U) [Mass/Vol]Ordered By: Elton Carrera on 03-18-2023 Ketones (U) [Mass/Vol] Negative Negative [facility] Leukocytes [#/volume] correc federico for nucleated erythrocytes in Blood by Automated counOrdered By: Elton Carrera on 03-18-2023 WBC corrected for nucl RBC Auto (Bld) [#/Vol] 8.3 10*3/uL 3.8-11.6 [facility] Lipase [Enzymatic activity/v olume] in Serum or PlasmaOrdered By: Elton Carrera on 03-18-2023 Lipase [Catalytic activity/Vol] 35.0 U/L 11.0-82.0 [facility] Lymphocytes Auto (Bld) [#/Vo l]Ordered By: Elton Carrera on 03-18-2023 Lymphocytes (Bld) [#/Vol] 1.8 10*3/uL 1.00-4.8 [facility] Lymphocytes/100 WBC Auto (Bl d)Ordered By: Elton Carrera on 03-18-2023 Lymphocytes/100 WBC (Bld) 21.5 % . [facility] MCH Auto (RBC) [Entitic mass ]Ordered By: Elton Carrera on 03-18-2023 MCH (RBC) [Entitic mass] 30.0 pg 24.7-34.3 [facility] MCHC Auto (RBC) [Mass/Vol]Or dered By: Elton Carrera on 03-18-2023 MCHC (RBC) [Mass/Vol] 33.9 g/dL 32.0-35.0 [facility] MCV Auto (RBC) [Entitic vol] Ordered By: Elton Carrera on 03-18-2023 MCV (RBC) [Entitic vol] 88.4 fL 80-100 [facility] Monocyte distribution width [Entitic volume] in Blood by AutomatedOrdered By: Elton Carrera on 03-18-2023 Monocyte distribution width Auto (Bld) [Entitic vol] 19.31 % 0.00-20.00 [facility] Monocytes Auto (Bld) [#/Vol] Ordered By: Elton Carrera on 03-18-2023 Monocytes (Bld) [#/Vol] 0.4 10*3/uL 0.0-0.8 [facility] Monocytes/100 WBC Auto (Bld) Ordered By: Elton Carrera on 03-18-2023 Monocytes/100 WBC (Bld) 4.7 % . [facility] Neutrophils Auto (Bld) [#/Vo l]Ordered By: Elton Carrera on 03-18-2023 Neutrophils (Bld) [#/Vol] 5.9 10*3/uL 1.8-7.7 [facility] Neutrophils/100 WBC Auto (Bl d)Ordered By: Elton Carrera on 03-18-2023 Neutrophils/100 WBC (Bld) 71.8 % . [facility] Nitrite Test strip Ql (U)Ord ered By: Elton Carrera on 03-18-2023 Nitrite Ql (U) Negative Negative [facility] No Panel InformationOrdered By: Elton Carrera on 03-18-2023 Estimated GFR (CKD-EPI) > 60.0 mL/Min [facility] Creatinine Clearance (Chem 80.59 [facility] Nucleated erythrocytes [Pres ence] in Blood by Automated countOrdered By: Elton Carrera on 03-18-2023 Nucleated RBC Auto Ql (Bld) 0.0 /100{WBC} 0-0.5 [facility] Platelet mean volume Auto (B ld) [Entitic vol]Ordered By: Elton Carrera on 03-18-2023 Platelet mean volume (Bld) [Entitic vol] 7.4 fL 6.3-10.7 [facility] Platelets Auto (Bld) [#/Vol] Ordered By: Elton Carrera on 03-18-2023 Platelets (Bld) [#/Vol] 289 10*3/uL 150-450 [facility] Potassium [Moles/volume] in Serum or PlasmaOrdered By: Elton Carrera on 03-18-2023 Potassium [Moles/Vol] 4.3 mmol/L 3.5-5.1 [facility] Protein Auto test strip (U) [Mass/Vol]Ordered By: Elton Carrera on 03-18-2023 Protein (U) [Mass/Vol] 100 mg/dL Negative [facility] Protein [Mass/volume] in Ser um or PlasmaOrdered By: Elton Carrera on 03-18-2023 Protein [Mass/Vol] 7.3 g/dL 6.4-8.9 [facility] RBC Auto (Bld) [#/Vol]Ordere d By: Elton Carrera on 03-18-2023 RBC (Bld) [#/Vol] 4.67 10*6/uL 3.60-5.00 [facility] Serum or plasma albumin/glob ulin mass ratioOrdered By: Elton Carrera on 03-18-2023 Albumin/Globulin [Mass ratio] 1.4 {ratio} [facility] Serum or plasma anion gap de terminationOrdered By: Elton Carrera on 03-18-2023 Anion gap [Moles/Vol] 10.1 mmol/L 6.0-15.0 [facility] Serum or plasma non-glucuron idated bilirubin measurement (mass/volume)Ordered By: Elton Carrera on 03-18-2023 Bilirubin.indirect [Mass/Vol] 0.3 mg/dL [facility] Sodium [Moles/volume] in Ser um or PlasmaOrdered By: Elton Carrera on 03-18-2023 Sodium [Moles/Vol] 136 mmol/L 136-145 [facility] Specific gravity Auto test s trip (U) [Rel density]Ordered By: Elton Carrera on 03-18-2023 Specific gravity (U) [Rel density] 1.023 1.001-1.03 0 [facility] Squamous epithelial cells de tection in urine sediment by light microscopyOrdered By: Elton Carrera on 03-18-2023 Epithelial cells.squamous LM Ql (Urine sed) 10-19 [HPF] 0-2 [facility] Urea nitrogen [Mass/volume] in Serum or PlasmaOrdered By: Elton Carrera on 03-18-2023 Urea nitrogen [Mass/Vol] 15 mg/dL 7-25 [facility] Urine bacteria detection by automated methodOrdered By: Elton Carrera on 03-18-2023 Bacteria Auto Ql (U) 2+ None Seen [facility] Urine clarity by refractomet ry automatedOrdered By: Elton Carrera on 03-18-2023 Clarity Refractometry automated (U) Turbid Clear [facility] Urine culture routineOrdered By: Elton Carrera on 03-18-2023 Bacteria identified Cx Nom (U) 2 Days [facility] Bacteria identified Cx Nom (U) 2 Days [facility] Urine glucose measurement by automated test strip (mass/volume)Ordered By: Elton Carrera on 03-18-2023 Glucose Auto test strip (U) [Mass/Vol] Normal mg/dL Normal [facility] Urine hemoglobin detection b y automated test stripOrdered By: Elton Carrera on 03-18-2023 Hemoglobin Auto test strip Ql (U) 3+ Negative [facility] Urine leukocyte esterase det ection by automated test stripOrdered By: Elton Carrera on 03-18-2023 Leukocyte esterase Auto test strip Ql (U) 3+ Negative [facility] Urobilinogen Auto test strip (U) [Mass/Vol]Ordered By: Elton Carrera on 03-18-2023 Urobilinogen (U) [Mass/Vol] Normal mg/dL Normal [facility] WBC Auto (Bld) [#/Vol]Ordere d By: Elton Carrera on 03-18-2023 WBC (Bld) [#/Vol] 8.3 10*3/uL 3.8-11.6 [facility] Yeast detection in urine sed iment by light microscopyOrdered By: Eltonabdoulaye Carrera on 03-18-2023 Yeast LM Ql (Urine sed) None seen [HPF] None Seen [facility] pH Auto test strip (U)Ordere d By: Elton Carrera on 03-18-2023 pH (U) 6.0 [pH] 5.0-9.0 [facility] Quick Strepon 12-07-2022 S. pyogenes Org specific cx Ql (Throat) Negative [employer] Other Quick Strep [employer] Other SARS-CoV-2 (COVID-19) RNA NA A+probe Ql (Resp)on 12-07-2022 SARS-CoV-2 (COVID-19) RNA MIGUELITO+probe Ql (Unsp spec) Negative [employer] Other Urinalysis - DIPSTICKon 08-0 Appearance (U) cloudy [employer] Other Bilirubin Ql (U) small [employer] Other Color (U) YELLOW [employer] Other Glucose Ql (U) Negative [employer] Other Hemoglobin Ql (U) large [employer] Other Ketones Ql (U) trace [employer] Other Leukocyte esterase Test strip Ql (U) trace [employer] Other Nitrite Ql (U) Negative [employer] Other pH (U) 6.0 [pH] [employer] Other Protein Ql (U) +100 [employer] Other Specific gravity (U) [Rel density] 1.025 [employer] Other Urobilinogen (U) [Mass/Vol] wnl [employer] Other Urinalysis - DIPSTICK [employer] Other HCG ( test) IAsilvina d Ql (U)Ordered By: Brendan Gastelum on 09-13-2022 HCG ( test) Ql (U) Negative [facility] Office Visit (Cardiology)on 08-28-2022 Follow-up visit Diagnoses/Problems Assessed Palpitations (785.1) (R00.2) PVC (premature ventricular contraction) (427.69) (I49.3) Premature atrial contraction (427.61) (I49.1) Paroxysmal SVT (supraventricular tachycardia) (427.0) (I47.1) Overweight with body mass index (BMI) of 29 to 29.9 in adult (278.02,V85.25) (E66.3,Z68.29) Never a smoker Orders Overweight with body mass index (BMI) of 29 to 29.9 in adult Healthy Weight Tips; Status:Complete - Retrospective Authorization; Done: [id number] Some eating tips that can help you lose weight.; Status:Complete - Retrospective Authorization; Done: [id number] Paroxysmal SVT (supraventricular tachycardia) Renew: Metoprolol Succinate ER 25 MG Oral Tablet Extended Release 24 Hour; TAKE 1 TABLET BY MOUTH EVERY DAY Paroxysmal SVT (supraventricular tachycardia), Premature atrial contraction IO EKG Electrocardiogram- 12 Lead; Status:Complete; Done: [id number] Paroxysmal SVT (supraventricular tachycardia), PVC (premature ventricular contraction) Renew: Magnesium Oxide -Mg Supplement 400 (240 Mg) MG Oral Tablet; TAKE 1 TABLET BY MOUTH TWICE DAILY SocHx: Never a smoker Tobacco Use Screening; Status:Complete; Done: [id number] Patient Instructions Please bring all medicines, vitamins, and herbal supplements with you when you come to the office. Prescriptions will not be filled unless you are compliant with your follow up appointments or have a follow up appointment scheduled as per instruction of your physician. Refills should be requested at the time of your visit. Chief Complaint TYRON PAULINO is being seen for a 9 month follow-up of. History of Present Illness Patient is here for follow-up to management for previous complaint of palpitation with documentation of PACs and PVCs markedly improved with low-dose beta-lavern and magnesium. Since last time I saw her she denies any change in cardiac status or symptoms and she feels well. She described good response to current medical therapy. She denies any active cardiac symptomatology described functional class I. Assessment 1. Palpitation clearly due to ectopic beat with previous documentation of sporadic PACs and PVCs markedly improved with adjustment of his medication to metoprolol and magnesium oxide 2. History of supraventricular tachycardia with no recent recurrence 3. Previous history of lightheadedness and dizziness improved with increasing fluid and salt intake 4. Mild obesity Plan 1. I advised the patient to continue present medical regimen 2. I advised the patient to buy a home heart rate monitoring device 3. I advised her to exercise and lose weight 4. I reviewed with her the result of previous echo Holter etc. 5. We will see her back in the office in 8 a month Surgical History Problems History of Breast biopsy History of Complete colonoscopy History of Dilation and curettage Current Meds Medication NameInstruction Aimovig 140 MG/ML Subcutaneous Solution Auto-injectorINJECT 140 MG SUBCUTANEOUSLY ONCE A MONTH Cetirizine HCl - 10 MG Oral TabletTAKE 1 TABLET DAILY. Magnesium Oxide -Mg Supplement 400 (240 Mg) MG Oral TabletTAKE 1 TABLET BY MOUTH TWICE DAILY Maxalt 10 MG Oral TabletTAKE 1 TABLET AT ONSET OF HEADACHE. MAY REPEAT EVERY 2 HOURS NEEDED. MAXIMUM 3 TABLETS IN 24 HOURS. Meloxicam 15 MG Oral TabletTAKE 1 TABLET DAILY. Metoprolol Succinate ER 25 MG Oral Tablet Extended Release 24 HourTAKE 1 TABLET BY MOUTH EVERY DAY Montelukast Sodium 10 MG Oral TabletTAKE 1 TABLET DAILY. Omeprazole 40 MG Oral Capsule Delayed ReleaseTAKE 1 CAPSULE Daily PARoxetine HCl - 20 MG Oral TabletTAKE 1 TABLET BY MOUTH ONCE DAILY IN THE MORNING Ventolin HFA 108 (90 Base) MCG/ACT Inhalation Aerosol SolutionINHALE 2 PUFFS BY MOUTH EVERY 4 HOURS NEEDED FOR SHORTNESS OF BREATH Patient did not bring medication list or bottles. Updated verbally with patient Allergies Medication erythromycin Recorded By: Tammy Nichole; 12/23/2020 12:51:52 PM Penicillins Recorded By: Tammy Nichole; 12/23/2020 12:51:52 PM Social History Problems Caffeine use (V49.89) (Z78.9) GREEN TEA DAILY Never a smoker No alcohol use No illicit drug use Review of Systems Constitutional: not feeling tired. Cardiovascular: no intermittent leg claudication and as noted in HPI. Respiratory: no cough and no shortness of breath. Gastrointestinal: no change in bowel habits and no blood in stools. Integumentary: no skin rashes. Neurological: no seizures and no frequent falls. All other systems have been reviewed and are negative for complaint. Vitals Vital Signs Recorded: 28Aug2022 03:23PM Heart Rate64, L Radial [id number], LUE, Sitting [id number], LUE, Sitting Height5 ft 1 in Fdtthk162 lb BMI Xyuhivbtdg10.48 kg/m2 BSA Calculated1.7 Tobacco Useb) No PHQ-2 #1. Over the last 2 weeks have you felt down, depressed or hopeless? (If yes, answer PHQ-9 below)No PHQ-2 #2. Over the last 2 weeks have you felt little i (more content not included)... Normal [employer] Tobacco Screening.on 023 Adult depression screening assessment No [facility] 250 DO Work Phone: Tobacco use status CPHS b) No [facility] 250 DO Work Phone: Quick Strepon 04-20-2022 S. pyogenes Org specific cx Ql (Throat) Positive [employer] Other Quick Strep [employer] Other SARS-CoV-2 (COVID-19) RNA NA A+probe Ql (Resp)on 02-05-2022 SARS-CoV-2 (COVID-19) RNA MIGUELITO+probe Ql (Unsp spec) Positive [employer] Other [facility] 02-03-2022 S. pyogenes Org specific cx Ql (Throat) Positive [employer] Other Quick Strep [employer] Other HCG ( test) IA.rapi d Ql (U)Ordered By: Brendan Gastelum on 01-11-2022 HCG ( test) Ql (U) Negative [facility] COVID-19 SOFIAOrdered By: Patsy Gastelum on 01-09-2022 SARS-CoV+SARS-CoV-2 (COVID-19) Ag IA.rapid Ql (Resp) Negative Negative [facility] Comment on above: This is a duplicate Angela SARS Antigen (ALEYDA) result to be used for statistical tracking purpose only. No Panel InformationOrdered By: Brendan Gastelum on 01-09-2022 SARS Antigen (LFIA) [facility] SARS Antigen (LFIA) [facility] Quick Strepon 01-04-2022 S. pyogenes Org specific cx Ql (Throat) Negative [email or web address] [facility] [employer] Other Quick Strep [email or web address] [facility] [employer] Other SARS-CoV-2 (COVID-19) RNA NA A+probe Ql (Resp)on 01-04-2022 SARS-CoV-2 (COVID-19) RNA MIGUELITO+probe Ql (Unsp spec) Negative [facility] [employer] Other Human papilloma virus 16+18+ 31+33+35+39+45+51+52+56+58+59+66+68 DNA [Presence] in CerOrdered By: Liya Millan on 11-30-2021 HPV 16+18+31+33+35+39+45+ 51+52+56+58+59+66+68 DNA Probe+sig amp Ql (Cvx) Negative Negative [facility] Comment on above: This nucleic acid am plification test detects fourteen high- risk HPV types (16,18,31,33,35,39,45,51,52,56,58,59,66,68)without differentiation.Performed at: =G - [facility] [address] [id number] Director: Amy Abbott MD, Phone: [phone] at: - [facility] [address] [id number] Director: Amy Abbott MD, Phone: [phone] No Panel InformationOrdered By: Liya Millan on 11-30-2021 Thin Prep Pap Comment Note . [facility] Comment on above: TESTS RESULT FLAG UN ITS REF RANGE LAB D IAGNOSIS: 02 NEGATIVE FOR INTRAEPITHELIAL LESION OR MALIGNANCY.Specimen adequacy: 02 Satisfactory for evaluation. No endocervical component is identified.Performed by: Jose Ortiz Hand Tennis Ball Coverer ([facility]). 02Note: Note 02 The Pap smear is a screening test designed to aid in the detection of premalignant and malignant conditions of the uterine cervix. It is not a diagnostic procedure and should not be used as the sole means of detecting cervical cancer. Both false-positive and false-negative reports do occur.Test Methodology: Note 02 This liquid based ThinPrep(R) pap test was screened with the use of an image guided system. --- FLAG LEGEND: L-Low Normal,H-High Normal,LL-Alert Low,HH-Alert High <-Panic Low,>-Panic High,A-Abnormal,AA-Critical Abnormal ----Performed at:[address] [address] Amy Abbott MD, Thin Prep Pap Screen Note . [facility] Comment on above: TESTS RESULT FLAG UN ITS REF RANGE LAB Clinician Provided Cytology Information No. of containers..01 ThinPrep MarciaAge Damiano OSEI Soraya... 30-65 01 FLAG LEGEND: L-Low Normal,H-High Normal,LL-Alert Low,HH-Alert High <-Panic Low,>-Panic High,A-Abnormal,AA-Critical Abnormal ----Performed at:[address] [address] Amy Abbott MD, Office Visit (Cardiology)on 11-30-2021 Follow-up visit Diagnoses/Problems Assessed Palpitations (785.1) (R00.2) Premature atrial contraction (427.61) (I49.1) Paroxysmal SVT (supraventricular tachycardia) (427.0) (I47.1) PVC (premature ventricular contraction) (427.69) (I49.3) Never a smoker Overweight with body mass index (BMI) of 29 to 29.9 in adult (278.02,V85.25) (E66.3,Z68.29) Orders Overweight with body mass index (BMI) of 29 to 29.9 in adult Healthy Weight Tips; Status:Complete - Retrospective Authorization; Done: 30Nov2021 Paroxysmal SVT (supraventricular tachycardia) Renew: Magnesium Oxide 400 (240 Mg) MG Oral Tablet; TAKE 1 TABLET BY MOUTH TWICE DAILY SocHx: Never a smoker Tobacco Use Screening; Status:Complete; Done: 30Nov2021 Tobacco Use Screening; Status:Complete; Done: 30Nov2021 Patient Instructions Please bring all medicines, vitamins, and herbal supplements with you when you come to the office. Prescriptions will not be filled unless you are compliant with your follow up appointments or have a follow up appointment scheduled as per instruction of your physician. Refills should be requested at the time of your visit home ECG monitoring device's discussed- [employer]ala[employer]al/ [employer] Follow up in 9 months with an ECG Chief Complaint OVERDUE NEEDS REFILLS. History of Present Illness Patient is here for follow-up continue management for previous evaluation for palpitation with documentation of few PACs and PVCs. Since last time I saw her she reports marked improvement with the addition of low-dose beta-blockers and magnesium. She feels well. She denies lightheadedness, dizziness or syncope. Assessment 1. Palpitation clearly due to ectopic beat with previous documentation of sporadic PACs and PVCs markedly improved with adjustment of his medication to metoprolol and magnesium oxide 2. History of supraventricular tachycardia with no recent recurrence 3. Previous history of lightheadedness and dizziness improved with increasing fluid and salt intake 4. Mild obesity Plan 1. I advised the patient to continue present medical regimen 2. I advised the patient to buy a home heart rate monitoring device 3. I advised her to exercise and lose weight 4. I reviewed with her the result of previous echo Holter etc. 5. We will see her back in the office in 9 months with an EKG Current Meds Medication NameInstruction Aimovig 140 MG/ML Subcutaneous Solution Auto-injectorINJECT 140 MG SUBCUTANEOUSLY ONCE A MONTH Cetirizine HCl - 10 MG Oral TabletTAKE 1 TABLET DAILY. Magnesium Oxide 400 (240 Mg) MG Oral TabletTAKE 1 TABLET BY MOUTH TWICE DAILY Maxalt 10 MG Oral TabletTAKE 1 TABLET AT ONSET OF HEADACHE. MAY REPEAT EVERY 2 HOURS NEEDED. MAXIMUM 3 TABLETS IN 24 HOURS. Meloxicam 15 MG Oral TabletTAKE 1 TABLET DAILY. Metoprolol Succinate ER 25 MG Oral Tablet Extended Release 24 HourTAKE 1 TABLET BY MOUTH EVERY DAY Montelukast Sodium 10 MG Oral TabletTAKE 1 TABLET DAILY. Omeprazole 40 MG Oral Capsule Delayed ReleaseTAKE 1 CAPSULE Daily PARoxetine HCl - 20 MG Oral TabletTAKE 1 TABLET BY MOUTH ONCE DAILY IN THE MORNING Ventolin HFA 108 (90 Base) MCG/ACT Inhalation Aerosol SolutionINHALE 2 PUFFS BY MOUTH EVERY 4 HOURS NEEDED FOR SHORTNESS OF BREATH Allergies Medication erythromycin Recorded By: Tammy Nichole; 12/23/2020 12:51:52 PM Penicillins Recorded By: Tammy Nichole; 12/23/2020 12:51:52 PM Social History Problems Caffeine use (V49.89) (Z78.9) GREEN TEA DAILY Never a smoker No alcohol use No illicit drug use Review of Systems Constitutional: not feeling tired. Cardiovascular: no intermittent leg claudication and as noted in HPI. Respiratory: no cough and no shortness of breath. Gastrointestinal: no change in bowel habits and no blood in stools. Integumentary: no skin rashes. Neurological: no seizures and no frequent falls. All other systems have been reviewed and are negative for complaint. Vitals Vital Signs Recorded: 30Nov2021 03:13PM Heart Rate72, L Radial Chsrvwfo892, LUE, Sitting Mcntssptl58, LUE, Sitting Height5 ft 1 in Ntgtcp075 lb BMI Gaumeagkkl14.48 kg/m2 BSA Calculated1.7 Tobacco Useb) No PHQ-2 #1. Over the last 2 weeks have you felt down, depressed or hopeless? (If yes, answer PHQ-9 below)No PHQ-2 #2. Over the last 2 weeks have you felt little interest or pleasure in doing things? (If yes, answer PHQ-9 below)No Physical Exam Constitutional: alert and in no acute distress. Neck: neck is supple, symmetric, trachea midline, no masses and no thyromegaly . Pulmonary: no increased work of breathing or signs of respiratory distress and lungs clear to auscultation. Cardiovascular: carotid pulses 2+ bilaterally with no bruit , JVP was normal, no thrills , regular rhythm, normal S1 and S2, no murmurs , pedal pulses 2+ bilaterally and no edema . Abdomen: abdomen non-tender, no masses and no hepatomegaly . Skin: skin warm and dry, normal skin turgor . Psychiatric judgment and insight is normal and (more content not included)... Normal [employer] Tobacco Screening.on 022 Adult depression screening assessment No [facility] 250 DO Work Phone: Tobacco use status CPHS b) No [facility] 250 DO Work Phone: Albumin [Mass/volume] in Ser um or PlasmaOrdered By: Liya Millan on 10-20-2021 Albumin [Mass/Vol] 3.8 g/dL 3.2-5.5 [facility] Basophils Auto (Bld) [#/Vol] Ordered By: Liya Millan on 10-20-2021 Basophils (Bld) [#/Vol] 0.1 10*3/uL 0.0-0.2 [facility] Basophils/100 WBC Auto (Bld) Ordered By: Liya Millan on 10-20-2021 Basophils/100 WBC (Bld) 1.1 % . [facility] Blood hemoglobin measurement (mass/volume)Ordered By: Liya Millan on 10-20-2021 Hemoglobin (Bld) [Mass/Vol] 13.4 g/dL 11.8-15.4 [facility] Blood leukocytes automated c ount (number/volume)Ordered By: Liya Millan on 10-20-2021 WBC (Bld) [#/Vol] 4.8 10*3/uL 4.5-11.0 [facility] Creatinine and Glomerular fi ltration rate.predicted panel (S/P/Bld)Ordered By: Liya Millan on 10-20-2021 Creatinine [Mass/Vol] 0.68 mg/dL 0.44-1.03 [facility] Eosinophils Auto (Bld) [#/Vo l]Ordered By: Liya Millan on 10-20-2021 Eosinophils (Bld) [#/Vol] 0.1 10*3/uL 0.0-0.45 [facility] Eosinophils/100 WBC Auto (Bl d)Ordered By: Liya Millan on 10-20-2021 Eosinophils/100 WBC (Bld) 2.5 % . [facility] Erythrocyte distribution wid th Auto (RBC) [Ratio]Ordered By: Liya Millan on 10-20-2021 Erythrocyte distribution width (RBC) [Ratio] 13.5 % 11.9-15.3 [facility] Estimated glomerular filtrat ion rate (GFR) non- AmericanOrdered By: Liya Millan on 10-20-2021 GFR/1.73 sq M.predicted among non-blacks MDRD (S/P/Bld) [Vol rate/Area] > 60 mL/Min [facility] Globulin Calc (S) [Mass/Vol] Ordered By: Liya Millan on 10-20-2021 Globulin (S) [Mass/Vol] 2.5 g/dL [facility] Hematocrit Auto (Bld) [Volum e fraction]Ordered By: Liya Millan on 10-20-2021 Hematocrit (Bld) [Volume fraction] 40.1 % 34.0-46.4 [facility] Laboratory - Chemistry and C hemistry - challengeOrdered By: Liya Millan on 10-20-2021 Cobalamin (Vitamin B12) [Mass/Vol] 376 pg/mL 180-914 [facility] - Hematology and Cell countsOrdered By: Liya Millan on 10-20-2021 Nucleated RBC/100 WBC (Bld) [Ratio] 0.1 % 0-0.5 [facility] Lymphocytes Auto (Bld) [#/Vo l]Ordered By: Liya Millan on 10-20-2021 Lymphocytes (Bld) [#/Vol] 1.3 10*3/uL 1.00-4.8 [facility] Lymphocytes/100 WBC Auto (Bl d)Ordered By: Liya Millan on 10-20-2021 Lymphocytes/100 WBC (Bld) 27.5 % . [facility] MCH Auto (RBC) [Entitic mass ]Ordered By: Liya Millan on 10-20-2021 MCH (RBC) [Entitic mass] 30.4 pg 24.7-34.3 [facility] MCHC Auto (RBC) [Mass/Vol]Or dered By: Lyia Millan on 10-20-2021 MCHC (RBC) [Mass/Vol] 33.5 g/dL 32.0-35.0 [facility] MCV Auto (RBC) [Entitic vol] Ordered By: Liya Millan on 10-20-2021 MCV (RBC) [Entitic vol] 90.6 fL 80-100 [facility] Monocytes Auto (Bld) [#/Vol] Ordered By: Liya Millan on 10-20-2021 Monocytes (Bld) [#/Vol] 0.3 10*3/uL 0.0-0.8 [facility] Monocytes/100 WBC Auto (Bld) Ordered By: Liya Millan on 10-20-2021 Monocytes/100 WBC (Bld) 5.8 % . [facility] Neutrophils Auto (Bld) [#/Vo l]Ordered By: Liya Millan on 10-20-2021 Neutrophils (Bld) [#/Vol] 3.0 10*3/uL 1.8-7.7 [facility] Neutrophils/100 WBC Auto (Bl d)Ordered By: Liya Millan on 10-20-2021 Neutrophils/100 WBC (Bld) 63.1 % . [facility] No Panel InformationOrdered By: Liya Millan on 10-20-2021 Estimated GFR () > 60 mL/Min [facility] Comment on above: GFR estimated refere nce range: According to KDOQI guidelines, <60 ml/min/1.73m2 is sufficient to diagnose a patient with chronic kidney disease. Pharmacy Creatinine Clearance (Chem N/A [facility] Platelet mean volume Auto (B ld) [Entitic vol]Ordered By: Liya Millan on 10-20-2021 Platelet mean volume (Bld) [Entitic vol] 8.6 fL 6.3-10.7 [facility] Platelets Auto (Bld) [#/Vol] Ordered By: Liya Millan on 10-20-2021 Platelets (Bld) [#/Vol] 306 10*3/uL 150-450 [facility] Protein [Mass/volume] in Ser um or PlasmaOrdered By: Liya Millan on 10-20-2021 Protein [Mass/Vol] 6.3 g/dL 6.1-7.9 [facility] RBC Auto (Bld) [#/Vol]Ordere d By: Liya Millan on 10-20-2021 RBC (Bld) [#/Vol] 4.42 10*6/uL 3.60-5.00 [facility] Serum or plasma alanine brown otransferase measurement without P-5'-P (enzymatic activiOrdered By: Liya Millan on 10-20-2021 ALT No additional P-5'-P [Catalytic activity/Vol] 11 U/L 10-60 [facility] Serum or plasma albumin/glob ulin mass ratioOrdered By: Liya Millan on 10-20-2021 Albumin/Globulin [Mass ratio] 1.5 {ratio} [facility] Serum or plasma alkaline yaw sphatase measurement (enzymatic activity/volume)Ordered By: Liya Millan on 10-20-2021 ALP [Catalytic activity/Vol] 57 U/L 32-92 [facility] Serum or plasma anion gap de terminationOrdered By: Liya Millan on 10-20-2021 Anion gap [Moles/Vol] 10.5 mmol/L 6.0-15.0 [facility] Serum or plasma aspartate am inotransferase measurement (enzymatic activity/volume)Ordered By: Liya Millan on 10-20-2021 AST [Catalytic activity/Vol] 12 U/L 10-42 [facility] Serum or plasma calcium syl urement (mass/volume)Ordered By: Liya Millan on 10-20-2021 Calcium [Mass/Vol] 9.2 mg/dL 8.2-10.2 [facility] Serum or plasma chloride apolonia surement (moles/volume)Ordered By: Liya Millan on 10-20-2021 Chloride [Moles/Vol] 106 mmol/L 95-114 [facility] Serum or plasma glucose syl urement (mass/volume)Ordered By: Liya Millan on 10-20-2021 Glucose [Mass/Vol] 90 mg/dL 70-100 [facility] Comment on above: ADA recommended refe rence range Random Glucose Reference Range is dependent on time and content of last meal. Glucose of more than 200 mg/dL in a nonstressed, ambulatory subject supports the diagnosis of Diabetes Mellitus. ADA recommended refe rence rangeRandom Glucose Reference Range is dependent on time and content of last meal. Glucose of more than 200 mg/dL in a nonstressed, ambulatory subject supports the diagnosis of Diabetes Mellitus. Serum or plasma potassium me asurement (moles/volume)Ordered By: Liya Millan on 10-20-2021 Potassium [Moles/Vol] 4.0 mmol/L 3.5-5.1 [facility] Serum or plasma sodium measu rement (moles/volume)Ordered By: Liya Millan on 10-20-2021 Sodium [Moles/Vol] 137 mmol/L 136-146 [facility] Serum or plasma total biliru bin measurement (mass/volume)Ordered By: Liya Millan on 10-20-2021 Bilirubin [Mass/Vol] 0.5 mg/dL 0.3-1.2 [facility] Serum or plasma total carbon dioxide measurement (moles/volume)Ordered By: Liya Millan on 10-20-2021 CO2 [Moles/Vol] 24.5 mmol/L 22.0-30.0 [facility] Serum or plasma urea nitroge n measurement (mass/volume)Ordered By: Liya Millan on 10-20-2021 Urea nitrogen [Mass/Vol] 13 mg/dL 9-23 [facility] TSH DL <= 0.005 mIU/L QnOrde red By: Liya Millan on 10-20-2021 TSH Qn 2.55 m[IU]/L 0.45-5.33 [facility] Urine culture routineOrdered By: Dionisio Perez on 08-02-2021 Bacteria identified Cx Nom (U) 2 Days [facility] Urinalysis - DIPSTICKon 07-20 Appearance (U) clear [employer] Other Bilirubin Ql (U) Negative [employer] Other Color (U) yellow [employer] Other Glucose Ql (U) Negative [employer] Other Hemoglobin Ql (U) moderate [email or web address] Other Ketones Ql (U) Negative [employer] Other Leukocyte esterase Test strip Ql (U) trace [employer] Other Nitrite Ql (U) Negative [employer] Other pH (U) 6.0 [pH] [facility] [employer] Other Protein Ql (U) Negative [employer] Other Specific gravity (U) [Rel density] 1.[address] [facility] [employer] Other Urobilinogen (U) [Mass/Vol] 0.2 mg/dL [facility] [employer] Other Urinalysis - DIPSTICK [facility] [employer] Other Vital Signs Date Time Vital Sign Value Performing Clinician Facility 07-28-2024 18:04-0400 Body height 157.48 cm [facility] [employer] Work Phone: [facility] 07-28-2024 18:04-0400 Body mass index (BMI) [Ratio] 29.2 kg/m2 [facility] [employer] Work Phone: [facility] 07-28-2024 18:04-0400 Body temperature 98.1 [degF] [facility] [employer] Work Phone: [facility] 07-28-2024 18:04-0400 Body weight 72.57 kg [facility] [employer] Work Phone: [facility] 07-28-2024 18:04-0400 Diastolic blood pressure 73 mm[Hg] [facility] [employer] Work Phone: [facility] 07-28-2024 18:04-0400 Heart rate 76 /min [facility] [employer] Work Phone: [facility] 07-28-2024 18:04-0400 Respiratory rate 16 /min [facility] [employer] Work Phone: [facility] 07-28-2024 18:04-0400 SaO2% (BldA) [Mass fraction] 97 % [facility] [employer] Work Phone: [facility] 07-28-2024 18:04-0400 Systolic blood pressure 111 mm[Hg] [facility] [employer] Work Phone: [facility] 07-28-2024 10:24-0400 Body mass index (BMI) [Ratio] 31.37 kg/m2 Hemanth Visci DO Work Phone: [facility] 07-28-2024 10:24-0400 Body weight 75.3 kg Hemanth Visci DO Work Phone: [facility] 07-28-2024 10:24-0400 Diastolic blood pressure 80 mm[Hg] Hemanth Visci DO Work Phone: [facility] 07-28-2024 10:24-0400 Systolic blood pressure 118 mm[Hg] Hemanth Visci DO Work Phone: [facility] 06-25-2024 15:03-0400 Body mass index (BMI) [Ratio] 31.18 kg/m2 Hemanth Visci DO Work Phone: [facility] 06-25-2024 15:03-0400 Body weight 74.84 kg Hemanth Visci DO Work Phone: [facility] 06-25-2024 15:03-0400 Diastolic blood pressure 74 mm[Hg] Hemanth Visci DO Work Phone: [facility] 06-25-2024 15:03-0400 Systolic blood pressure 102 mm[Hg] Hemanth Visci DO Work Phone: [facility] 04-11-2024 10:41-0500 Body mass index (BMI) [Ratio] 29.29 kg/m2 Yuni Shoemaker [employer] Work Phone: [facility] 04-11-2024 10:41-0500 Body temperature 96.8 [degF] Yuni Shoemaker [employer] Work Phone: [facility] 04-11-2024 10:41-0500 Body weight 70.31 kg Yuni Shoemaker [employer] Work Phone: [facility] 04-11-2024 10:41-0500 Diastolic blood pressure 60 mm[Hg] Yuni Shoemaker [employer] Work Phone: [facility] 04-11-2024 10:41-0500 Heart rate 86 /min Yuni Shoemaker [employer] Work Phone: [facility] 04-11-2024 10:41-0500 SaO2% (BldA) [Mass fraction] 95 % Yuni Shoemaker [employer] Work Phone: [facility] 04-11-2024 10:41-0500 Systolic blood pressure 142 mm[Hg] Yuni Shoemaker [employer] Work Phone: [facility] 03-26-2024 16:44-0500 Body height 154.9 cm Kiko Brown DPM Work Phone: [facility] 03-26-2024 16:44-0500 Body mass index (BMI) [Ratio] 30.42 kg/m2 Kiko Brown DPM Work Phone: [facility] 03-26-2024 16:44-0500 Body weight 73.03 kg Kiko Brown DPM Work Phone: [facility] 03-26-2024 16:44-0500 Respiratory rate 16 /min Kiko Brown DPM Work Phone: [facility] 03-17-2024 10:43-0500 Body height 154.9 cm Kiko Brown DPM Work Phone: [facility] 03-17-2024 10:43-0500 Body mass index (BMI) [Ratio] 30.42 kg/m2 Kiko Brown DPM Work Phone: [facility] 03-17-2024 10:43-0500 Body weight 73.03 kg Kiko Brown DPM Work Phone: [facility] 03-17-2024 10:43-0500 Respiratory rate 18 /min Kiko Brown DPM Work Phone: [facility] 03-16-2024 21:11-0500 Body height 157.48 cm [facility] Work Phone: [facility] 03-16-2024 21:11-0500 Body temperature 97.7 [degF] [facility] Work Phone: [facility] 03-16-2024 21:11-0500 Body weight 75.2 kg [facility] [employer] Work Phone: [facility] 03-16-2024 21:11-0500 Diastolic blood pressure 60 mm[Hg] [facility] [employer] Work Phone: [facility] 03-16-2024 21:11-0500 Heart rate 67 /min [facility] [employer] Work Phone: [facility] 03-16-2024 21:11-0500 Respiratory rate 16 /min [facility] [employer] Work Phone: [facility] 03-16-2024 21:11-0500 SaO2% (BldA) [Mass fraction] 99 % [facility] [employer] Work Phone: [facility] 03-16-2024 21:11-0500 Systolic blood pressure 124 mm[Hg] [facility] [employer] Work Phone: [facility] 02-14-2024 17:02-0500 Body mass index (BMI) [Ratio] 30.42 kg/m2 Darek Sebring DO Work Phone: [facility] 02-14-2024 17:02-0500 Body temperature 97.81 [degF] Darek Sebring DO Work Phone: [facility] 02-14-2024 17:02-0500 Body weight 73.03 kg Darek Sebring DO Work Phone: [facility] 02-14-2024 17:02-0500 Diastolic blood pressure 80 mm[Hg] Darek Sebring DO Work Phone: [facility] 02-14-2024 17:02-0500 Heart rate 69 /min Darek Sebring DO Work Phone: [facility] 02-14-2024 17:02-0500 SaO2% (BldA) [Mass fraction] 98 % Darek Sebring DO Work Phone: [facility] 02-14-2024 17:02-0500 Systolic blood pressure 132 mm[Hg] Darek Emmanuel DO Work Phone: [facility] 02-04-2024 17:03-0500 Body height 157.48 cm [facility] Work Phone: [facility] 02-04-2024 17:03-0500 Body temperature 98.2 [degF] [facility] [employer] Work Phone: [facility] 02-04-2024 17:03-0500 Body weight 71.5 kg [facility] [employer] Work Phone: [facility] 02-04-2024 17:03-0500 Diastolic blood pressure 55 mm[Hg] [facility] [employer] Work Phone: [facility] 02-04-2024 17:03-0500 Heart rate 80 /min [facility] [employer] Work Phone: [facility] 02-04-2024 17:03-0500 Respiratory rate 16 /min [facility] [employer] Work Phone: [facility] 02-04-2024 17:03-0500 SaO2% (BldA) [Mass fraction] 97 % [facility] [employer] Work Phone: [facility] 02-04-2024 17:03-0500 Systolic blood pressure 114 mm[Hg] [facility] [employer] Work Phone: [facility] 12-03-2023 13:18-0400 Body mass index (BMI) [Ratio] 30.42 kg/m2 Derek Short MD Work Phone: [facility] 12-03-2023 13:18-0400 Body weight 73.03 kg Derek Short MD Work Phone: [facility] 12-03-2023 13:18-0400 Diastolic blood pressure 78 mm[Hg] Derek Short MD Work Phone: [facility] 12-03-2023 13:18-0400 Systolic blood pressure 120 mm[Hg] Derek Short MD Work Phone: [facility] 10-16-2023 11:53-0400 Body height 157.48 cm [facility] Work Phone: [facility] 10-16-2023 11:53-0400 Body mass index (BMI) [Ratio] 29.8 kg/m2 [facility] Work Phone: [facility] 10-16-2023 11:53-0400 Body temperature 98.2 [degF] [facility] Work Phone: [facility] 10-16-2023 11:53-0400 Body weight 73.93 kg Services [employer] Work Phone: [facility] 10-16-2023 11:53-0400 Diastolic blood pressure 65 mm[Hg] Services [employer] Work Phone: [facility] 10-16-2023 11:53-0400 Heart rate 61 /min Services [employer] Work Phone: [facility] 10-16-2023 11:53-0400 SaO2% (BldA) [Mass fraction] 98 % Services [employer] Work Phone: [facility] 10-16-2023 11:53-0400 Systolic blood pressure 98 mm[Hg] Services [facility] [employer] Work Phone: [facility] 10-12-2023 07:52-0400 Blood Pressure Location Carina Lue [facility] 10-12-2023 07:52-0400 Diastolic blood pressure 82 mm[Hg] Carina Lue [facility] 10-12-2023 07:52-0400 Heart rate 64 /min Carina Lue [facility] 10-12-2023 07:52-0400 Systolic blood pressure 114 mm[Hg] Carina Lue [facility] 10-01-2023 16:15-0400 Diastolic blood pressure 70 mm[Hg] [facility] Work Phone: [facility] 10-01-2023 16:15-0400 Heart rate 72 /min [facility] Work Phone: [facility] 10-01-2023 16:15-0400 Respiratory rate 20 /min [facility] Work Phone: [facility] 10-01-2023 16:15-0400 SaO2% (BldA) [Mass fraction] 97 % [facility] Work Phone: [facility] 10-01-2023 16:15-0400 Systolic blood pressure 118 mm[Hg] [facility] Work Phone: [facility] 10-01-2023 13:38-0400 Body temperature 97.5 [degF] [facility] Work Phone: [facility] 10-01-2023 13:38-0400 Inhaled oxygen flow rate 8 L/min [facility] Work Phone: [facility] 10-01-2023 11:46-0400 Body height 157.48 cm [facility] Work Phone: [facility] 10-01-2023 11:46-0400 Body weight 74 kg [facility] Work Phone: [facility] 10-01-2023 00:00-0400 Body weight 35 mg [facility] Work Phone: [facility] 09-28-2023 17:09-0400 Body height 157.48 cm [facility] Work Phone: [facility] 09-28-2023 17:09-0400 Body mass index (BMI) [Ratio] 29.8 kg/m2 [facility] Work Phone: [facility] 09-28-2023 17:09-0400 Body temperature 98.1 [degF] [facility] Work Phone: [facility] 09-28-2023 17:09-0400 Body weight 73.93 kg [facility] Work Phone: [facility] 09-28-2023 17:09-0400 Diastolic blood pressure 70 mm[Hg] [facility] Work Phone: [facility] 09-28-2023 17:09-0400 Heart rate 85 /min [facility] Work Phone: [facility] 09-28-2023 17:09-0400 SaO2% (BldA) [Mass fraction] 98 % [facility] Work Phone: [facility] 09-28-2023 17:09-0400 Systolic blood pressure 101 mm[Hg] [facility] Work Phone: [facility] 08-29-2023 10:33-0400 Body height 157.48 cm [facility] Work Phone: [facility] 08-29-2023 10:33-0400 Body temperature 97.9 [degF] [facility] Work Phone: [facility] 08-29-2023 10:33-0400 Body weight 74.7 kg [facility] Work Phone: [facility] 08-29-2023 10:33-0400 Diastolic blood pressure 56 mm[Hg] [facility] Work Phone: [facility] 08-29-2023 10:33-0400 Heart rate 69 /min [facility] Work Phone: [facility] 08-29-2023 10:33-0400 Respiratory rate 18 /min [facility] Work Phone: [facility] 08-29-2023 10:33-0400 SaO2% (BldA) [Mass fraction] 99 % [facility] Work Phone: [facility] 08-29-2023 10:33-0400 Systolic blood pressure 116 mm[Hg] [facility] Work Phone: [facility] 08-24-2023 10:33-0400 Blood Pressure Location Carina Lue [facility] 08-24-2023 10:33-0400 Diastolic blood pressure 84 mm[Hg] Carina Lue [facility] 08-24-2023 10:33-0400 Heart rate 60 /min Carina Lue [facility] 08-24-2023 10:33-0400 Respiratory rate 18 /min Carina Lue [facility] 08-24-2023 10:33-0400 Systolic blood pressure 116 mm[Hg] Carina Lue [facility] 08-06-2023 14:33-0400 Body height 154.9 cm Mindy Garcia MD Work Phone: [facility] 08-06-2023 14:33-0400 Body mass index (BMI) [Ratio] 30.8 kg/m2 Mindy Garcia MD Work Phone: [facility] 08-06-2023 14:33-0400 Body weight 73.94 kg Mindy Garcia MD Work Phone: [facility] 08-06-2023 14:33-0400 Diastolic blood pressure 70 mm[Hg] Mindy Garcia MD Work Phone: [facility] 08-06-2023 14:33-0400 Heart rate 72 /min Mindy Garcia MD Work Phone: [facility] 08-06-2023 14:33-0400 Systolic blood pressure 108 mm[Hg] Mindy Garcia MD Work Phone: [facility] 07-06-2023 12:15-0400 Body height 157.48 cm [facility] Work Phone: [facility] 07-06-2023 12:15-0400 Body mass index (BMI) [Ratio] 29.2 kg/m2 [facility] Work Phone: [facility] 07-06-2023 12:15-0400 Body temperature 97.4 [degF] [facility] Work Phone: [facility] 07-06-2023 12:15-0400 Body weight 72.57 kg [facility] Work Phone: [facility] 07-06-2023 12:15-0400 Diastolic blood pressure 71 mm[Hg] [facility] Work Phone: [facility] 07-06-2023 12:15-0400 Heart rate 75 /min [facility] Work Phone: [facility] 07-06-2023 12:15-0400 SaO2% (BldA) [Mass fraction] 98 % [facility] Work Phone: [facility] 07-06-2023 12:15-0400 Systolic blood pressure 105 mm[Hg] Services [employer] Work Phone: [facility] 05-03-2023 10:58-0400 Diastolic blood pressure 54 mm[Hg] [facility] Work Phone: [facility] 05-03-2023 10:58-0400 Heart rate 89 /min [facility] Work Phone: [facility] 05-03-2023 10:58-0400 Respiratory rate 18 /min [facility] Work Phone: [facility] 05-03-2023 10:58-0400 SaO2% (BldA) [Mass fraction] 99 % [facility] Work Phone: [facility] 05-03-2023 10:58-0400 Systolic blood pressure 103 mm[Hg] [facility] Work Phone: [facility] 05-03-2023 08:14-0400 Body temperature 97.4 [degF] [facility] Work Phone: [facility] 05-03-2023 08:12-0400 Body height 157.48 cm [facility] Work Phone: [facility] 05-03-2023 08:12-0400 Body weight 73 kg [facility] Work Phone: [facility] 04-03-2023 11:35-0500 Body weight 118 mg [facility] Work Phone: [facility] 03-29-2023 10:07-0500 Blood Pressure Location Carina Lue [facility] 03-29-2023 10:07-0500 Diastolic blood pressure 78 mm[Hg] Carina Lue [facility] 03-29-2023 10:07-0500 Systolic blood pressure 122 mm[Hg] Carina Lue [facility] 03-18-2023 14:37-0500 Diastolic blood pressure 57 mm[Hg] [facility] Work Phone: [facility] 03-18-2023 14:37-0500 Heart rate 60 /min [facility] Work Phone: [facility] 03-18-2023 14:37-0500 Respiratory rate 16 /min [facility] Work Phone: [facility] 03-18-2023 14:37-0500 SaO2% (BldA) [Mass fraction] 98 % [facility] Work Phone: [facility] 03-18-2023 14:37-0500 Systolic blood pressure 105 mm[Hg] [facility] Work Phone: [facility] 03-18-2023 13:57-0500 Body temperature 98 [degF] Services Family [employer] Work Phone: [facility] 03-18-2023 11:17-0500 Body height 157.48 cm Services [facility] [employer] Work Phone: [facility] 03-18-2023 11:17-0500 Body weight 73 kg Services [facility] Work Phone: [facility] 12-07-2022 13:20-0400 Body height 154.94 cm Dena Guillaume Other [employer] Other 12-07-2022 13:20-0400 Body mass index (BMI) [Ratio] 29.47 kg/m2 Dena Guillaume Other [employer] Other 12-07-2022 13:20-0400 Body temperature 98.2 [degF] Dena Guillaume Other [employer] Other 12-07-2022 13:20-0400 Body weight 70.76 kg Dena Guillaume Other [employer] Other 12-07-2022 13:20-0400 Diastolic blood pressure 67 mm[Hg] Dena Guillaume Other [employer] Other 12-07-2022 13:20-0400 SaO2% (BldA) [Mass fraction] 97 % Dena Guillaume Other [employer] Other 12-07-2022 13:20-0400 Systolic blood pressure 101 mm[Hg] Dena Guillaume Other [employer] Other 11-06-2022 18:00-0400 Body height 154.94 cm Dionisio Perez Other [employer] Other 11-06-2022 18:00-0400 Body mass index (BMI) [Ratio] 29.28 kg/m2 Dionisio Perez Other [employer] Other 11-06-2022 18:00-0400 Body weight 70.31 kg Dionisio Perez Other [employer] Other 11-06-2022 18:00-0400 Diastolic blood pressure 75 mm[Hg] Dionisio Perez Other [employer] Other 11-06-2022 18:00-0400 Respiratory rate 18 /min Dionisio Perez Other [employer] Other 11-06-2022 18:00-0400 SaO2% (BldA) [Mass fraction] 98 % Dionisio Perez Other [employer] Other 11-06-2022 18:00-0400 Systolic blood pressure 114 mm[Hg] Dionisio Perez Other [employer] Other 09-25-2022 11:15-0400 Body height 154.94 cm Yolande Natarajanmond Other [employer] Other 09-25-2022 11:15-0400 Body mass index (BMI) [Ratio] 29.28 kg/m2 Yolande Natarajanmond Other [employer] Other 09-25-2022 11:15-0400 Body temperature 97.8 [degF] Yolande Natarajanmond Other [employer] Other 09-25-2022 11:15-0400 Body weight 70.31 kg Yolande Natarajanmond Other [employer] Other 09-25-2022 11:15-0400 Diastolic blood pressure 78 mm[Hg] Yolande Alfred Other [employer] Other 09-25-2022 11:15-0400 SaO2% (BldA) [Mass fraction] 98 % Yolande Alfred Other [email or web address] [facility] [employer] Other 09-25-2022 11:15-0400 Systolic blood pressure 117 mm[Hg] Yolande Alfred Other [employer] Other 09-13-2022 14:07-0400 Diastolic blood pressure 58 mm[Hg] Services [employer] Work Phone: [facility] 09-13-2022 14:07-0400 Heart rate 77 /min [facility] Work Phone: [facility] 09-13-2022 14:07-0400 Respiratory rate 16 /min Services [employer] Work Phone: [facility] 09-13-2022 14:07-0400 SaO2% (BldA) [Mass fraction] 100 % [facility] Work Phone: [facility] 09-13-2022 14:07-0400 Systolic blood pressure 102 mm[Hg] [facility] Work Phone: [facility] 09-13-2022 12:03-0400 Body height 156.21 cm [facility] Work Phone: [facility] 09-13-2022 12:03-0400 Body weight 69.39 kg [facility] Work Phone: [facility] 08-28-2022 15:23-0400 Body height 154.94 cm Liya Millan Work Phone: [facility] 250 DO Work Phone: 08-28-2022 15:23-0400 Body mass index (BMI) [Ratio] 29.48 kg/m2 Liya Marshall Yana Work Phone: [facility] [employer] 250 DO Work Phone: 08-28-2022 15:23-0400 Body surface area Derived from formula 1.7 m2 Liya Marshall Yana Work Phone: [facility] [employer] 250 DO Work Phone: 08-28-2022 15:23-0400 Body weight 70.76 kg Liya Marshall Naylaerrodolfo Work Phone: [facility] [employer] 250 DO Work Phone: 08-28-2022 15:23-0400 Diastolic blood pressure 78 mm[Hg] Liya Marshall Naylaerrodolfo Work Phone: [facility] 250 DO Work Phone: 08-28-2022 15:23-0400 Heart rate 64 /min Liya Marshall Naylaerrodolfo Work Phone: [facility] 250 DO Work Phone: 08-28-2022 15:23-0400 Systolic blood pressure 110 mm[Hg] Liya Marshall Yana Work Phone: [facility] [place] 250 DO Work Phone: 04-20-2022 18:05-0500 Body height 154.94 cm Dena Guillaume Other [employer] Other 04-20-2022 18:05-0500 Body mass index (BMI) [Ratio] 29.28 kg/m2 Dena Guillaume Other [employer] Other 04-20-2022 18:05-0500 Body temperature 98 [degF] Dena Guillaume Other [employer] Other 04-20-2022 18:05-0500 Body weight 70.31 kg Dena Guillaume Other [employer] Other 04-20-2022 18:05-0500 Diastolic blood pressure 77 mm[Hg] Dena Guillaume Other [employer] Other 04-20-2022 18:05-0500 Respiratory rate 18 /min Dena Guillaume Other [employer] Other 04-20-2022 18:05-0500 SaO2% (BldA) [Mass fraction] 98 % Dena Guillaume Other [employer] Other 04-20-2022 18:05-0500 Systolic blood pressure 115 mm[Hg] Dena Guillaume Other [employer] Other 02-14-2022 17:15-0500 Body height 154.94 cm Dionisio Perez Other [employer] Other 02-14-2022 17:15-0500 Body mass index (BMI) [Ratio] 29.47 kg/m2 Dionisio Perez Other [employer] Other 02-14-2022 17:15-0500 Body temperature 98 [degF] Dionisio Chris Other [employer] Other 02-14-2022 17:15-0500 Body weight 70.76 kg Dionisio Chris Other [employer] Other 02-14-2022 17:15-0500 Respiratory rate 18 /min Dionisio Chris Other [employer] Other 02-14-2022 17:15-0500 SaO2% (BldA) [Mass fraction] 98 % Dionisio Perez Other [employer] Other 02-03-2022 16:40-0500 Body height 154.94 cm Dionisio Perez Other [employer] Other 02-03-2022 16:40-0500 Body mass index (BMI) [Ratio] 29.47 kg/m2 Dionisio Perez Other [employer] Other 02-03-2022 16:40-0500 Body temperature 97.3 [degF] Dionisio Perez Other [employer] Other 02-03-2022 16:40-0500 Body weight 70.76 kg Dionisio Perez Other [employer] Other 02-03-2022 16:40-0500 Diastolic blood pressure 68 mm[Hg] Dionisio Perez Other [employer] Other 02-03-2022 16:40-0500 SaO2% (BldA) [Mass fraction] 97 % Dionisio Perez Other [employer] Other 02-03-2022 16:40-0500 Systolic blood pressure 111 mm[Hg] Dionisio Chris Other [employer] Other 01-11-2022 12:59-0500 Diastolic blood pressure 67 mm[Hg] [facility] Work Phone: [facility] 01-11-2022 12:59-0500 Heart rate 71 /min [facility] Work Phone: [facility] 01-11-2022 12:59-0500 Respiratory rate 16 /min [facility] Work Phone: [facility] 01-11-2022 12:59-0500 SaO2% (BldA) [Mass fraction] 98 % Services [employer] Work Phone: [facility] 01-11-2022 12:59-0500 Systolic blood pressure 120 mm[Hg] Services [employer] Work Phone: [facility] 01-11-2022 11:14-0500 Body height 154.94 cm Services [employer] Work Phone: [facility] 01-11-2022 11:14-0500 Body temperature 97.8 [degF] Services [facility] [employer] Work Phone: [facility] 01-11-2022 11:14-0500 Body weight 70.76 kg Services [employer] Phone: [facility] 01-04-2022 18:05-0500 Body height 154.94 cm Dionisio Perez Other [employer] Other 01-04-2022 18:05-0500 Body mass index (BMI) [Ratio] 28.91 kg/m2 Dionisio Perez Other [employer] Other 01-04-2022 18:05-0500 Body temperature 98.2 [degF] Dionisio Chris Other [employer] Other 01-04-2022 18:05-0500 Body weight 69.4 kg Dionisio Perez Other [employer] Other 01-04-2022 18:05-0500 Respiratory rate 18 /min Dionisio Perez Other [employer] Other 01-04-2022 18:05-0500 SaO2% (BldA) [Mass fraction] 99 % Dionisio Perez Other [employer] Other 11-30-2021 15:13-0400 Body height 154.94 cm Mindy Garcia MD Work Phone: [facility] 250 DO Work Phone: 11-30-2021 15:13-0400 Body mass index (BMI) [Ratio] 29.48 kg/m2 Mindy Garcia MD Work Phone: [facility] 250 DO Work Phone: 11-30-2021 15:13-0400 Body surface area Derived from formula 1.7 m2 Mindy Garcia MD Work Phone: [facility] 250 DO Work Phone: 11-30-2021 15:13-0400 Body weight 70.76 kg Mindy Garcia MD Work Phone: [facility] 250 DO Work Phone: 11-30-2021 15:13-0400 Diastolic blood pressure 80 mm[Hg] Mindy Garcia MD Work Phone: [facility] 250 DO Work Phone: 11-30-2021 15:13-0400 Heart rate 72 /min Mindy Garcia MD Work Phone: [facility] 250 DO Work Phone: 11-30-2021 15:13-0400 Systolic blood pressure 110 mm[Hg] Mindy Garcia MD Work Phone: [facility] 250 DO Work Phone: 07-31-2021 15:20-0400 Body height 154.94 cm Dionisio Perez Other [employer] Other 07-31-2021 15:20-0400 Body mass index (BMI) [Ratio] 28.91 kg/m2 Dionisio Perez Other [employer] Other 07-31-2021 15:20-0400 Body temperature 97.6 [degF] Dionisio Perez Other [employer] Other 07-31-2021 15:20-0400 Body weight 69.4 kg Dionisio Perez Other [employer] Other 07-31-2021 15:20-0400 Respiratory rate 18 /min Dionisio Perez Other [employer] Other 07-31-2021 15:20-0400 SaO2% (BldA) [Mass fraction] 98 % Dionisio Perez Other [employer] Other Encounters Encounter Date Encounter Type Care Provider Facility Start: 08-14-2024 End: 08-14-2024 ambulatory KIKO YORK Not Available Start: 07-31-2024 End: 07-31-2024 ambulatory Nkechi Nicholas Facility:[facility] Start: 07-28-2024 End: 07-28-2024 Patient encounter procedure Services [facility] Work Phone: [facility] Work Phone: Start: 07-28-2024 End: 07-28-2024 ambulatory Services [facility] Work Phone: [facility] Work Phone: Start: 07-28-2024 End: 07-28-2024 Departed Referred Services [facility] Work Phone: [facility] [place] Work Phone: Start: 07-28-2024 Registered Referred Services [facility] Work Phone: [facility] [place] Work Phone: Start: 07-28-2024 End: 07-28-2024 ambulatory HEMANTH A VISCI Not Available Start: 07-28-2024 End: 07-28-2024 Office outpatient visit 25 minutes Hemanth A Visci DO Work Phone: [facility] Comment on above: Menorrhagia with irr egular cycle; Stress incontinence; Dyspareunia in female; Cystocele with rectocele; Urethral hypermobility; Post-void dribbling Start: 06-25-2024 End: 06-25-2024 Office outpatient visit 25 minutes Hemanth A Visci DO Work Phone: [facility] Comment on above: Menorrhagia with irr egular cycle; Stress incontinence; Dyspareunia in female; Cystocele with rectocele; Urethral hypermobility; Uterine prolapse Start: 06-25-2024 End: 06-25-2024 ambulatory HEMANTH A VISCI Not Available Start: 06-20-2024 Non-patient / Non-visit [facility] Work Phone: [facility] Work Phone: Start: 06-01-2024 End: 06-01-2024 Patient encounter procedure Services [facility] Work Phone: [facility]Electrodiagnostics Work Phone: Start: 06-01-2024 End: 06-01-2024 ambulatory Services [facility] Work Phone: [facility] Work Phone: Start: 05-27-2024 End: 05-27-2024 Patient encounter procedure Services [facility] Work Phone: [facility] [place] Work Phone: Start: 05-27-2024 End: 05-27-2024 ambulatory Services [facility] Work Phone: [facility] Work Phone: Start: 05-17-2024 End: 05-17-2024 [facility] encounter [facility] Work Phone: [facility] [place] Work Phone: Start: 05-17-2024 End: 05-17-2024 [facility]ulatory [facility] Work Phone: [facility] Work Phone: Start: 05-13-2024 End: 05-13-2024 Patient encounter procedure [facility] Work Phone: [facility] [place] Work Phone: Start: 05-13-2024 End: 05-13-2024 ambulatory [facility] Work Phone: [facility] Work Phone: Start: 05-06-2024 End: 05-06-2024 Patient encounter procedure [facility] Work Phone: [facility] [place] Work Phone: Start: 05-06-2024 End: 05-06-2024 ambulatory [facility] Work Phone: [facility] Work Phone: Start: 04-18-2024 Non-patient / Non-visit [facility] Work Phone: [facility] Work Phone: Start: 04-12-2024 End: 04-12-2024 Patient encounter procedure [facility] Work Phone: [facility]Elect[facility] Work Phone: Start: 04-12-2024 End: 04-12-2024 ambulatory Services [facility] Work Phone: [facility] Work Phone: Start: 04-12-2024 End: 04-12-2024 Patient encounter procedure [facility] Work Phone: [facility] [place] Work Phone: Start: 04-12-2024 End: 04-12-2024 ambulatory Yanira Ferraro Facility:[facility] Start: 04-11-2024 End: 04-11-2024 ambulatory YUNI SHOEMAKER Not Available Start: 04-11-2024 End: 04-11-2024 Office outpatient visit 25 minutes Yuni Shoemaker [employer] Work Phone: [facility] Comment on above: Influenza A (Primary Dx); Cough, unspecified type Start: 03-26-2024 End: 03-26-2024 Office outpatient visit 15 minutes Kiko York DPM Work Phone: [facility] Comment on above: Sprain of anterior t alofibular ligament of right ankle, initial encounter (Primary Dx); Venous insufficiency; Contracture of right ankle Start: 03-26-2024 End: 03-26-2024 ambulatory KIKO YORK Not Available Start: 03-26-2024 End: 03-26-2024 Bamboo flowsheet Kiko York DPM Work Phone: [facility] Start: 03-26-2024 End: 03-26-2024 Bamboo flowsheet Kiko York DPM Work Phone: [facility] Start: 03-20-2024 End: 03-20-2024 ambulatory Carina Ward Facility: [place] Start: 03-20-2024 End: 03-20-2024 Patient encounter procedure Carina Ward [facility] [place] Start: 03-17-2024 End: 03-17-2024 Bamboo flowsheet Kiko York DPM Work Phone: [facility] Start: 03-17-2024 End: 03-17-2024 Bamboo flowsheet Kiko York DPM Work Phone: [facility] Start: 03-17-2024 End: 03-17-2024 Office outpatient visit 15 minutes Kiko York DPM Work Phone: [facility] [place] [facility] Comment on above: Sprain of anterior t alofibular ligament of right ankle, initial encounter (Primary Dx); Venous insufficiency Start: 03-17-2024 End: 03-17-2024 ambulatory KIKO YORK Not Available Start: 03-16-2024 End: 03-16-2024 Emergency department patient visit Services [facility] Work Phone: [facility]Emergency Room Work Phone: Start: 02-14-2024 End: 02-14-2024 Office outpatient visit 15 minutes Darek Emmanuel DO Work Phone: [facility] Comment on above: COVID-19 (Primary Dx ); Cough, unspecified type Start: 02-14-2024 End: 02-14-2024 ambulatory DAREK EMMANUEL Not Available Start: 02-04-2024 End: 02-04-2024 Emergency department patient visit Services [facility] Work Phone: [facility]Emergency Room Work Phone: Start: 12-03-2023 End: 12-03-2023 Patient encounter status Derek Short MD Work Phone: [facility] Work Phone: Start: 12-03-2023 End: 12-03-2023 Periodic preventive med est patient 40-64yrs Derek Short MD Work Phone: [facility] Comment on above: Encounter for gyneco logical examination without abnormal finding (Primary Dx); Screening for malignant neoplasm of cervix; Encounter for screening mammogram for malignant neoplasm of breast; Hormone imbalance Start: 12-03-2023 End: 12-03-2023 ambulatory DEREK SHORT Not Available Start: 11-26-2023 End: 11-26-2023 Patient encounter procedure Services [facility] Work Phone: [facility]-Ultrasound [place] Work Phone: Start: 11-26-2023 End: 11-26-2023 ambulatory Services [facility] Work Phone: [facility] Work Phone: Start: 11-13-2023 End: 11-13-2023 Patient encounter procedure Services [facility] Work Phone: [facility]-Ultrasound Cntr for Breast Car Start: 11-13-2023 End: 11-13-2023 ambulatory Services [facility] Work Phone: [facility] Work Phone: Start: 10-24-2023 End: 10-24-2023 ambulatory Services [facility] Work Phone: [facility] Work Phone: Start: 10-24-2023 End: 10-24-2023 Patient encounter procedure Services [facility] Work Phone: [facility]-Center for Breast Care Work Phone: Start: 10-16-2023 End: 10-16-2023 ambulatory Services [facility] Work Phone: [facility] Work Phone: Start: 10-16-2023 End: 10-16-2023 Patient encounter procedure Services [facility] Work Phone: [facility] Work Phone: Start: 10-12-2023 End: 10-12-2023 ambulatory Carina Ward Facility:[facility] Start: 10-12-2023 End: 10-12-2023 Patient encounter procedure Carina Ward [facility] Start: 10-05-2023 ambulatory Carina Ward Facility:[facility] Start: 10-01-2023 End: 10-01-2023 Admission to same day surgery center Services [facility] Work Phone: [facility]Surgery Center [place] Start: 10-01-2023 End: 10-01-2023 ambulatory Services [facility] Work Phone: [facility] Work Phone: Start: 10-01-2023 End: 10-01-2023 ambulatory Carina GarciaJodie Ed Facility: [facility] Start: 10-01-2023 End: 10-01-2023 Off-Site Carina Ward [facility] Start: 09-28-2023 End: 09-28-2023 Departed Referred Services [facility] Work Phone: [facility]-Lab [facility] [place] Work Phone: Start: 09-28-2023 End: 09-28-2023 ambulatory Services [facility] Work Phone: [facility] Work Phone: Start: 09-28-2023 End: 09-28-2023 Patient encounter procedure Services [facility] Work Phone: [facility] Work Phone: Start: 09-19-2023 End: 09-19-2023 Patient encounter procedure Services Family [facility] Work Phone: [facility]-Pre-Surgical Testing Work Phone: Start: 09-19-2023 End: 09-19-2023 ambulatory Services [facility] Work Phone: [facility] Work Phone: Start: 08-29-2023 End: 08-29-2023 Emergency department patient visit Services [facility] Work Phone: [facility]-Emergency Room Work Phone: Start: 08-28-2023 End: 08-28-2023 Patient encounter procedure Services [facility] Work Phone: [facility]-CT Scan [place] Work Phone: Start: 08-28-2023 End: 08-28-2023 ambulatory Services Family [facility] Work Phone: [facility] Work Phone: Start: 08-24-2023 End: 08-24-2023 Lab Drop off Carina Ward [facility] Start: 08-24-2023 End: 08-24-2023 ambulatory Carina Ward Facility:[facility] Start: 08-24-2023 End: 08-24-2023 Patient encounter procedure Carina JoseJodie Cottonjanelle [facility] Start: 08-07-2023 End: 08-07-2023 ambulatory [facility] Ambulatory Start: 08-06-2023 End: 08-06-2023 ambulatory [facility] Ambulatory Start: 08-06-2023 End: 08-06-2023 Office outpatient visit 25 minutes Mindy Garcia MD Work Phone: [facility] Comment on above: Palpitations (Primar y Dx); Paroxysmal SVT (supraventricular tachycardia) ([facility]); Premature atrial contraction; PVC (premature ventricular contraction); BMI 30.0-30.9,adult Start: 07-14-2023 End: 07-14-2023 ambulatory Services Family [facility] Work Phone: [facility] Work Phone: Start: 07-14-2023 End: 07-14-2023 Patient encounter procedure Services [facility] Work Phone: [facility]-MRI Main [place] Work Phone: Start: 07-06-2023 End: 07-06-2023 ambulatory Services [facility] Work Phone: [facility] Work Phone: Start: 07-06-2023 End: 07-06-2023 Patient encounter procedure Services [facility] Work Phone: [facility] Work Phone: Start: 06-08-2023 End: 06-08-2023 ambulatory Services [facility] Work Phone: [facility] Work Phone: Start: 06-08-2023 End: 06-08-2023 Patient encounter procedure Services [facility] Work Phone: [facility] Ctr-Ultrasound [place] Work Phone: Start: 05-31-2023 End: 05-31-2023 ambulatory Services [facility] Work Phone: [facility] Work Phone: Start: 05-31-2023 End: 05-31-2023 Departed Referred Services [facility] Work Phone: [facility] Ctr-[facility] Start: 05-03-2023 End: 05-03-2023 Emergency department patient visit Services [facility] Work Phone: [facility]-Emergency Room Work Phone: Start: 04-12-2023 End: 04-12-2023 ambulatory Carina Ward Facility:[facility] Start: 04-12-2023 End: 04-12-2023 Off-Site Carina Ward [facility] Start: 04-03-2023 End: 04-03-2023 ambulatory Services [facility] Work Phone: [facility] Work Phone: Start: 04-03-2023 End: 04-03-2023 Departed Referred Services [facility] Work Phone: [facility]-Lab [place] Work Phone: Start: 04-03-2023 End: 04-03-2023 ambulatory Carinakamila Ward Facility:[id number] Start: 03-30-2023 End: 03-30-2023 ambulatory Services [facility] Work Phone: [facility] C[facility] Work Phone: Start: 03-30-2023 End: 03-30-2023 Patient encounter procedure Services Family [facility] Work Phone: [facility] Ctr-Electrodiagnostics Work Phone: Start: 03-29-2023 End: 03-29-2023 ambulatory Carina Ward Facility:[facility] Start: 03-29-2023 End: 03-29-2023 Patient encounter procedure Carina Ward [facility] Start: 03-28-2023 End: 03-28-2023 ambulatory Services [facility] Work Phone: [facility] Work Phone: Start: 03-28-2023 End: 03-28-2023 Patient encounter procedure Services [facility] Work Phone: [facility] Ctr-XRay [place] Work Phone: Start: 03-18-2023 End: 03-18-2023 Emergency department patient visit Services [facility] Work Phone: [facility]-Emergency Room Work Phone: Start: 12-07-2022 End: 12-07-2022 ambulatory Dena Guillaume Other [employer] Other Start: 12-07-2022 Office outpatient vi sit 15 minutes Dena Guillaume [facility] Start: 11-06-2022 End: 11-06-2022 ambulatory Dionisio Perez Other [employer] Other Start: 11-06-2022 Office outpatient vi sit 15 minutes Dioinsio Perez [facility] Start: 09-25-2022 Office outpatient vi sit 15 minutes Yolande Alfred [facility] Start: 09-25-2022 End: 09-25-2022 ambulatory Services [facility] Work Phone: [employer] [facility] Other Start: 09-25-2022 End: 09-25-2022 Departed Referred Services [facility] Work Phone: [facility]-Lab [place] Work Phone: Start: 09-13-2022 End: 09-13-2022 Admission to same day surgery center Services [facility] Work Phone: [facility] Ctr-Digestive Health Work Phone: Start: 09-12-2022 End: 09-12-2022 Patient encounter procedure Services [facility] [employer] Work Phone: [facility]-XRay Main [place] Work Phone: Start: 08-29-2022 End: 08-29-2022 ambulatory Brendan Gastelum Other [employer] [facility] Other Start: 08-29-2022 Telephone encounter Brendan Jackson [facility] Start: 08-28-2022 ambulatory Ms. Liya Ortiz Yana Facility: Start: 08-28-2022 Office outpatient vi sit 15 minutes Liya Millan Work Phone: [facility] 250 DO Work Phone: Start: 04-20-2022 End: 04-20-2022 ambulatory Dena Guillaume Other [employer] [facility] Other Start: 04-20-2022 Office outpatient vi sit 15 minutes Dena Guillaume [facility] Start: 03-31-2022 End: 03-31-2022 ambulatory Services [facility] Work Phone: [facility] [employer] Work Phone: Start: 03-31-2022 End: 03-31-2022 Patient encounter procedure Services [facility] Work Phone: [facility] C[facility]-Center for Breast Care Work Phone: Start: 02-21-2022 End: 02-21-2022 ambulatory Brendan Gastelum Other [employer] Other Start: 02-21-2022 Telephone encounter Brendan Jackson ck [facility] Start: 02-14-2022 End: 02-14-2022 ambulatory Dionisio Perez Other [employer] Other Start: 02-14-2022 Office outpatient vi sit 15 minutes Dionisio Chris [facility] Start: 02-05-2022 End: 02-05-2022 ambulatory Dionisio Perez Other [employer] Other Start: 02-05-2022 Office outpatient vi sit 5 minutes Dionisio Chris [facility] Start: 02-03-2022 End: 02-03-2022 ambulatory Dionisio Perez Other [employer] Other Start: 02-03-2022 Office outpatient vi sit 15 minutes Dionisio Chris [facility] Start: 01-11-2022 End: 01-11-2022 Admission to same day surgery center Services [facility] Work Phone: [facility] C[facility]-Digestive Health Start: 01-11-2022 End: 01-11-2022 ambulatory Services [facility] Work Phone: [facility] Work Phone: Start: 01-09-2022 End: 01-09-2022 ambulatory Services [facility] Work Phone: [facility] C[facility] Work Phone: Start: 01-09-2022 End: 01-09-2022 Patient encounter procedure Services [employer] Work Phone: [facility] Start: 01-04-2022 End: 01-04-2022 ambulatory Dionisio Perez Other [employer] [facility] Other Start: 01-04-2022 Office outpatient vi sit 15 minutes Dionisio Perez [facility] [address] Start: 12-15-2021 End: 12-15-2021 ambulatory Brendan Gastelum Other [employer] [facility] Other Start: 12-15-2021 Telephone encounter Brendan berry [facility] Start: 12-14-2021 End: 12-14-2021 ambulatory Brendan Gastelum Other [employer] [facility] Other Start: 12-14-2021 Telephone encounter Brendan Jackson jamal [facility] Start: 11-30-2021 Office outpatient vi sit 15 minutes Mindy Garcia MD Work Phone: [facility] 250 DO Work Phone: Start: 11-30-2021 End: 11-30-2021 ambulatory Services Family [facility] Work Phone: [facility] Work Phone: Start: 11-30-2021 End: 11-30-2021 Departed Referred Services [facility] Work Phone: [facility] [place] [facility] Start: 11-15-2021 Rx Renewal Mindy orr MD Work Phone: [facility] 250 DO Work Phone: Start: 10-20-2021 End: 10-20-2021 Departed Referred Services [facility] Work Phone: [facility] [place] [facility] Start: 10-18-2021 End: 10-18-2021 Patient encounter procedure David SPRAGUE [facility] Start: 09-05-2021 Rx Renewal Mindy orr MD Work Phone: -[facility] 250 DO Work Phone: Start: 2021 End: 2021 ambulatory Dionisio Perez Other [employer] Other Start: 2021 Telephone encounter Dionisio Arciniega [facility] [address] Start: 07-31-2021 End: 07-31-2021 Departed Referred Services [employer] Work Phone: [facility]-Lab Urgent Care 250 Start: 07-31-2021 End: 07-31-2021 ambulatory Dionisio Perez Other [employer] [facility] Other Start: 07-31-2021 Office outpatient vi sit 15 minutes Dionisio Perez [facility] [address] Procedures Date Procedure Procedure Detail Performing Clinician Start: 07-28-2024 Insj non-ndwellg bladder catheter Renard Jaquez DO Work Phone: Start: 05-27-2024 Pelvic echography Services [facility] [employer] Work Phone: Start: 05-27-2024 Transvaginal echography Services [facility] [employer] Work Phone: Start: 05-13-2024 Pelvic echography Services [facility] [employer] Work Phone: Start: 05-13-2024 Transvaginal echography Services [facility] [employer] Work Phone: Start: 04-12-2024 Ultrasonography of abdomen Services [facility] [employer] Work Phone: Start: 04-11-2024 Iaadiadoo influenza Keon Quiñones DO Work Phone: Start: 03-16-2024 X-ray of right ankle Services [facility] [employer] Work Phone: Start: 02-14-2024 POCT COVID ANTIGEN Keon Quiñones DO Work Phone: Start: 02-04-2024 X-ray of left ankle Services [employer] Work Phone: Start: 11-26-2023 Supine abdominal X-ray Services [employer] Phone: Start: 11-26-2023 Ultrasonography of bilateral kidneys Services [employer] Phone: Start: 11-13-2023 Ultrasonography of left breast Services [employer] Phone: Start: 10-24-2023 Screening mammography of bilateral breasts Services [employer] Phone: Start: 10-16-2023 Bacteria identified in Urine by Culture Services [employer] Phone: Start: 10-16-2023 Urine culture Services [employer] Phone: Start: 10-12-2023 Cystoscopic removal of ureteric stent Carina Ward Start: 10-01-2023 Cystoscopy Services [employer] Phone: Start: 09-28-2023 Bacteria identified in Urine by Culture Services [employer] Phone: Start: 09-28-2023 Urine culture Services [employer] Phone: Start: 08-28-2023 CT of abdomen and pelvis without contrast Services [employer] Phone: Start: 08-06-2023 Ecg routine ecg w/least 12 lds w/i&r Mindy Garcia MD Work Phone: Start: 07-14-2023 MRI of right foot Services [employer] Phone: Start: 07-06-2023 Quick Strep (POC) Services [employer] Phone: Start: 06-08-2023 Ultrasonography of bilateral kidneys Services [employer] Phone: Start: 05-03-2023 X-ray of right foot Services [employer] Phone: Start: 04-12-2023 Cystoscopic removal of ureteric stent Carina Ed Start: 04-03-2023 Cystoscopic insertion of ureteric stent Carina Ward Start: 03-28-2023 End: 03-28-2023 X-ray of left foot Services [employer] Work Phone: Start: 03-18-2023 Urine culture Services [employer] Phone: Start: 03-18-2023 CT of abdomen and pelvis without contrast Services [employer] Work Phone: Start: 09-13-2022 [email or web address] Work Phone: Start: 09-12-2022 X-ray of cervical spine Services [employer] Phone: Start: 03-31-2022 Screening mammography of bilateral breasts Services [employer] Phone: Start: 01-11-2022 Esophagogastroduodenoscopy Services [facility] Work Phone: Start: 01-09-2022 SARS Antigen (LFIA) Services [employer] Work Phone: Biopsy of breast Mindy salguero MD Work Phone: Breast surgery (qualifier value) [employer] Colonoscopy [employer] Dilation and curettage Jenna Xiong MD Work Phone: Dilation and curettage of uterus [employer] Mammography [facility] [employer] Total colonoscopy Mindy martinez MD Work Phone: Urine culture Services [facility] [employer] Work Phone: Plan of Treatment Date Care Activity Detail Author Start: 10-15-2030 DTaP/Tdap/Td Vaccine s (3 - Td or Tdap) DTaP/Tdap/Td Vaccines (3 - Td or Tdap) [facility] Start: 06-28-2026 Screening for malign ant neoplasm of colon [facility] Start: 12-02-2024 End: 03-04-2025 DBT Breast - bilateral screening Bilateral screening mammogram with tomosynthesis Imaging Routine Encounter for screening mammogram for malignant neoplasm of breast Expected: 12/02/2024, Expires: 03/04/2025 [facility] Comment on above: Expected: 12/02/2024 , Expires: 03/04/2025 Start: 10-20-2024 Influenza vaccination Influenz a Vaccine (Season Ended) [facility] Start: 08-14-2024 End: 08-14-2024 Professional / ancillary services management 08/14/2024 8:30 AM EDT Ancillary Procedure [facility] [address] [place] [id number] [facility] Start: 07-28-2024 Bacteria identified in Urine by Culture [facility] Work Phone: Comment on above: Ordered: 07/28/2024 Start: 07-28-2024 End: 07-28-2024 Patient encounter procedure 07/28/2024 10:15 AM EDT Procedure Visit [facility] [address] [place] [address] Hemanth Jaquez, [address] [place], [place] [id number] [facility] Start: 03-26-2024 End: 03-26-2024 Patient encounter procedure 03/26/2024 4:50 PM EST Office Visit [facility] [address] [place] [phone] Kiko York DPM [address] [facility] [address] [place] [address] Sprain of anterior talofibular ligament of right ankle, initial encounter (Primary Dx); Venous insufficiency [facility] Comment on above: Sprain of anterior t alofibular ligament of right ankle, initial encounter (Primary Dx); Venous insufficiency Start: 03-17-2024 End: 03-17-2024 Patient encounter procedure 03/17/2024 10:40 AM EST Office Visit [facility] [address] [place] [phone] Kiko York DPJose [address] [facility] [address] [place] [address] Arrived [facility] Comment on above: Arrived Start: 03-16-2024 X-ray of right ankle XR ankle RT min 3V* [facility] Start: 03-16-2024 XR Ankle - right GE 3 Views [facility] Start: 02-25-2024 End: 02-25-2024 Patient encounter procedure 02/25/2024 10:40 AM EST Office Visit [address] [place] [address] Mindy Garcia MD [address] [facility] [address] [place] [address] [facility] Start: 10-21-2023 Influenza vaccination [facility] Start: 10-16-2023 Bacteria identified in Urine by Culture [facility] Start: 10-01-2023 [facility] Start: 10-01-2023 [facility] Start: 09-28-2023 Bacteria identified in Urine by Culture [facility] Start: 08-09-2023 Zoster Vaccines (1 of 2) Zoste r Vaccines (1 of 2) [facility] Start: 08-07-2023 End: 08-07-2023 Professional / ancillary services management 08/07/2023 10:00 AM EDT Ancillary Procedure [address] [place] [address] [facility] Start: 08-06-2023 End: 08-05-2024 Holter monitor study Holter Or Event [facility] Services Routine Palpitations Expected: 08/06/2023 (Approximate), Expires: 08/05/2024 [facility] Service Area Work Phone: Comment on above: Expected: 08/06/2023 (Approximate), Expires: 08/05/2024 Start: 05-02-2023 FUV, Provider: Mindy Garcia, Status: Pen, Time: 3:00 PM FUV, Provider: Mindy Garcia, Status: Pen, Time: 3:[address] [facility] [employer] [facility] 250 DO Work Phone: Start: 04-03-2023 [facility] Start: 03-18-2023 Bacteria identified in Urine by Culture [facility] Start: 10-20-2022 COVID-19 Vaccine ( season) COVID-19 Vaccine () [facility] Start: 09-25-2022 Bacteria identified in Urine by Culture [facility] Start: 09-13-2022 [facility] Start: 08-23-2022 FUV, Provider: Mindy Garcia, Status: Pen, Time: 3:00 PM FUV, Provider: Mindy Garcia, Status: Pen, Time: 3:[address] [facility] [employer] [facility] 250 DO Work Phone: Start: 01-11-2022 [facility] Start: 11-30-2021 FUV, Provider: Mindy Garcia, Status: Pen, Time: 2:[address] [facility] 250 DO Work Phone: Start: 2013 Screening for malign ant neoplasm of breast Mammogram [facility] Start: 08-09-2003 Screening for malign ant neoplasm of cervix [facility] Start: 1994 Screening for malign ant neoplasm of cervix [facility] Start: 1992 Hepatitis B Vaccines (1 of 3 - 19+ 3-dose series) Hepatitis B Vaccines (1 of 3 - 19+ 3-dose series) [facility] Start: 08-09-1991 Diabetes mellitus screening Diabetes Screening [facility] Start: 08-09-1991 Hepatitis C screening Hepatitis C Sc [facility] Start: 1974 MMR Vaccines (1 of 1 - Standard series) MMR Vaccines (1 of 1 - Standard series) [facility] Start: 1973 HIV screening HIV Screening [facility] Start: 1973 Lipid panel Lipid Panel [facility] Start: 1973 Screening for malign ant neoplasm of colon [facility] Start: 1973 Yearly Adult Physical Yearly Adult P hysical [facility] Body weight [facility] Calcium carbonate/To otto in [facility] Calcium hydrogen phosphate dihydrate/Total in [facility] Calcium oxalate monohydrate/Total in [facility] Calcium phosphate level [facility] Calculus analysis wi th calculus photography [Interpretation] in [facility] Calculus analysis, qualitative [facility] Calculus analysis, quantitative [facility] Calculus analysis, quantitative, infrared spectroscopy [facility] Cellular material [Mass/mass] of Stone by Estimated [facility] Cholesterol [Mass/volume] in Serum or Plasma [facility] Cystine measurement [facility] Determination of calculus chemical composition [facility] Estradiol (E2) [Mass/volume] in Serum or Plasma [facility] Evaluation procedure [facility] Human papilloma viru s 16+18+31+33+35+39+45+51+ 52+56+58+59+66+68 DNA [Presence] in Cervix by Probe with signal amplification [facility] Work Phone: Hydroxyapatite [Ener gy Difference] in 24 hour Urine [facility] Laboratory data interpretation [facility] Lutropin [Units/volu me] in Serum or Plasma [facility] Newberyite/Total in [facility] Patient Education [facility] Work Phone: Patient referral [facility] Work Phone: SENDOUT TEST MISCELLANEOUS [facility] SENDOUT TEST MISCELLANEOUS [facility] Lab Routine Screening for malignant neoplasm of cervix Encounter for gynecological examination without abnormal finding Ordered: 12/03/2023 [facility] Work Phone: Comment on above: Ordered: 12/03/2023 Specimen source subj ect [Type] [facility] Triamterene measurement [facility] Triple phosphate/Tot al in Stone [facility] Urine culture [facility] Urine culture [facility] Immunizations Immunization Date Immunization Notes Care Provider Antonella lozano 03-01-2021 Moderna COVID-19 Vaccine 100 MCG/0.5ML Intramuscular Suspension Mindy Garcia MD Work Phone: [facility] 10-15-2020 tetanus toxoid, reduced diphtheria toxoid, and acellular pertussis vaccine, adsorbed Mindy Garcia MD Work Phone: [facility] 10-05-2020 tetanus toxoid, reduced diphtheria toxoid, and acellular pertussis vaccine, adsorbed Mindy Garcia MD Work Phone: [facility] 06-09-2020 Moderna COVID-19 Vaccine 100 MCG/0.5ML Intramuscular Suspension Mindy Garcia MD Work Phone: [facility] 05-12-2020 Moderna COVID-19 Vaccine 100 MCG/0.5ML Intramuscular Suspension Mindy Garcia MD Work Phone: [facility] 05-09-2020 SARS-CoV-2 (COVID-19 ) [id number] vaccine David SPRAGUE [facility] NEGATED: Highlighted row has not occurred!05-31-2020 influenza virus vaccine, unspecified formulation David SPRAGUE [facility] Payers Date Payer Category Payer Unknown [id number] 2018 Private Health Insurance [facility] MEDICAID [id number] 2018 Unknown 2018 Medicaid [id number] 1975 Unknown [id number] 2.16840.1.456132.3.579.2 .356 1975 Unknown [id number] 2.16840.1.159282.3.579.2 .356 1975 Unknown [id number] 2.16840.1.056004.3.579.2 .1244 1975 Unknown [id number] 2.16840.1.669936.3.579.2 .1244 1975 Unknown [id number] 2.16840.1.791592.3.579.2 .72 1975 Unknown [id number] 2.16840.1.827864.3.579.2 .1973 Unknown [id number] 2.16840.1.863065.3.579.2 .72 1975 Unknown [id number] 2.16840.1.485211.3.579.2 .72 1975 Unknown [id number] 2.16840.1.734359.3.579.2 .72 1975 Unknown [id number] 2.16840.1.938787.3.579.2 .1973 Unknown [id number] 2.16.840.1.578646.3.579.2 .727 1975 Unknown [id number] 2.16840.1.193452.3.579.2 .727 1975 Unknown [id number] 2.16.840.1.947347.3.579.2 .727 1975 Unknown [id number] 2.16.840.1.900223.3.579.2 .9 1973 Unknown [id number] 2.16.840.1.619305.3.579.2 .1258 1975 Unknown [id number] 2.16.840.1.638169.3.579.2 .9 1973 Unknown [id number] 2.16.840.1.470398.3.579.2 .1258 1975 Unknown [id number] 2.16.840.1.081435.3.579.2 .9 1973 Unknown [id number] 2.16.840.1.835803.3.579.2 .9 1975 Unknown [id number] 2.16.840.1.601794.3.579.2 .9 1975 Unknown [id number] 2.16.840.1.118120.3.579.2 .1259 Self-pay Self Pay [id number] Unknown [id number] 2.16.840.1.121345.19 Worker's Compensation [id number] Social History Date Type Detail Facility Unknown if ever smoked [facility] Other Start: 08-06-2023 End: 12-03-2023 Sex Assigned At [facility] [employer] Other Start: 08-06-2023 End: 12-03-2023 Caffeine use Caffeine use -[facility] DO Work Phone: Comment on above: GREEN TEA DAILY; Start: 05-31-2020 End: 03-16-2024 Tobacco smoking status Never smoked tobacco (finding) [facility] Tobacco smoking status Never [facility] Start: 1975 Sex Assigned At Female F [facility] Start: 03-13-2023 End: 08-06-2023 Tobacco use and exposure Smokeless tobacco non-user [facility] Work Phone: Start: 08-06-2023 End: 07-28-2024 Alcoholic beverage intake Lifetime non-drinker (finding) [facility] Work Phone: Start: 1975 Sex assigned at Not on file U [facility] Work Phone: Start: 07-27-2023 End: 08-06-2023 Exposure to SARS-CoV-2 (event) Not sure [facility] Start: 03-13-2023 Alcohol Comment caffeine intak e: 1-2 cups per day tea [facility] Start: 03-16-2024 End: 07-29-2024 Sex Female (finding) [facility] Medical Equipment Procedure Code Equipment Code Equipment Origin al Text Equipment Identifier Dates Cystoscopy, with ureteral calculus manipulation and stent placement [employer] FDA Start: 10-01-2023 Cystoscopy, with ureteral calculus manipulation and stent placement [employer] Start: 10-01-2023 Cystoscopy, with ureteral calculus manipulation and stent placement [employer] FDA Start: 10-01-2023 Cystoscopy, with ureteral calculus manipulation and stent placement [employer] FDA Start: 10-01-2023 Cystoscopy, with ureteral calculus manipulation and stent placement [employer] FDA Start: 10-01-2023 Cystoscopy, with ureteral calculus manipulation and stent placement [employer] FDA Start: 10-01-2023 Cystoscopy, with ureteral calculus manipulation and stent placement [employer] FDA Start: 10-01-2023 Cystoscopy, with ureteral calculus manipulation and stent placement [employer] FDA Start: 10-01-2023 Cystoscopy, with ureteral calculus manipulation and stent placement [employer] FDA Start: 10-01-2023 Cystoscopy, with ureteral calculus manipulation and stent placement [employer] FDA Start: 10-01-2023 Cystoscopy, with ureteral calculus manipulation and stent placement [employer] FDA Start: 10-01-2023 Cystoscopy, with ureteral calculus manipulation and stent placement [employer] Start: 10-01-2023 Cystoscopy, with ureteral calculus manipulation and stent placement [employer] FDA Start: 10-01-2023 Cystoscopy, with ureteral calculus manipulation and stent placement [employer] FDA Start: 10-01-2023 Goals Date Patient Goal Desired Activity /State Functional Status Date Assessment Result Facility 10-12-2023 Functional Status N/A [facility] 08-24-2023 Functional Status N/A [facility] 03-29-2023 Functional Status N/A [facility] Clinical Notes 04-23-2014 to 07-28-2024 Note Date & Type Note Facility 07-28-2024 Evaluation note Diagnosis Onset Date Resolution Contact dermatitis acute July 282024 5:59pm [facility] Work Phone: 1(712) 867-213106-09-2025 History of Present illness Narrative* Hemanth Jaquez, - 07/28/2024 10:15 AM EDTAssociated Order(s): Bladder Catheterization Post-Procedure Diagnose(s): Post-void dribbling Images from the original note were not included. Subjective Tyron Paulino is a 48 y.o. female Chief Complaint Patient presents with Gynecologic Exam Pt presents for PVR History of Present Illness Current Outpatient Medications: PARoxetine (Paxil) 20 MG tablet, Take 20 mg by mouth in the morning., Disp: , Rfl: Aimovig 140 MG/ML injection, INJECT 140MG SUBCUTANEOUSLY ONCE EVERY MONTH for 28 days, Disp: , Rfl: albuterol HFA 90 mcg/act inhaler, Inhale 2 puffs every 4 (four) hours if needed for wheezing or shortness of breath, Disp: 18 g, Rfl: 0 cetirizine (ZyrTEC) 10 MG tablet, Take 10 mg by mouth Daily, Disp: , Rfl: metoprolol succinate XL (Toprol-XL) 25 MG 24 hr tablet, Take 25 mg by mouth in the morning., Disp: , Rfl: montelukast (Singulair) 10 MG tablet, Take 1 tablet by mouth once daily for 30 days, Disp: , Rfl: omeprazole (PriLOSEC) [address] capsule, Take 1 capsule by mouth once daily for 30 days, Disp: , Rfl: Past Medical History: Diagnosis Date Acid reflux Asthma Depression with anxiety Migraines (CMS/HCC) Missed 1999 1998 2007 2004 2013 Tachycardia Past Surgical History: Procedure Laterality Date COLONOSCOPY 12/30/2019 poor prep, otherwise normal colonoscopy ([facility]) DILATION AND CURETTAGE OF UTERUS VAGINAL DELIVERY x4 Family History Problem Relation Name Age of Onset Hypertension Mother Hypertension Father Heart disease Father Cancer Paternal Grandmother Heart disease Paternal Grandfather OB History Para Term AB Living 5 0 0 0 1 0 SAB IAB Ectopic Multiple Live Births 0 0 0 0 4 # Outcome Date GA Lbr Christos/2nd Weight Sex Type Anes PTL Lv 5 4 3 2 1 AB Obstetric Comments Pap 12/03/23- Neg, HPV Neg Cologuard 06/29/23- Neg Mammogram 10/24/23- Neg ([facility]) U/S 05/27/24- endometrium 15mm with endometrial cyst, no free fluid, ovaries normal ([facility]) Review of Systems All negative unless documented in treatment Objective Visit Vitals BP 118/80 Wt 166 lb BMI 31.37 kg/m OB Status No Periods Smoking Status Never BSA 1.8 m Allergies Allergen Reactions Penicillins Itching and Unknown Erythromycin Rash Wound Dressing Adhesive Rash Physical Exam Constitutional: Appearance: Normal appearance. Genitourinary: Vulva, bladder, rectum and urethral meatus normal. Genitourinary Comments: Gr 2 cystocele, Gr 3 rectocele, Gr 2 uterine procidentia Right Labia: No rash, tenderness, lesions, skin changes or Bartholin's cyst. Left Labia: No tenderness, lesions, skin changes, Bartholin's cyst or rash. No vaginal discharge. No vaginal atrophy present. Right Adnexa: not tender and no mass present. Left Adnexa: not tender and no mass present. No cervical motion tenderness or lesion. No parametrium nodularity or thickening present. Uterus is prolapsed. Uterus is not tender. Uterus is anteverted. Urethral hypermobility present. HENT: Head: Normocephalic and atraumatic. Cardiovascular: Rate and Rhythm: Normal rate and regular rhythm. Heart sounds: Normal heart sounds. Pulmonary: Effort: Pulmonary effort is normal. Breath sounds: Normal breath sounds. Abdominal: General: There is no distension. Palpations: Abdomen is soft. There is no mass. Hernia: No hernia is present. Musculoskeletal: Right lower leg: No edema. Left lower leg: No edema. Neurological: Mental Status: She is alert and oriented to person, place, and time. Skin: General: Skin is warm and dry. Findings: No rash. Bladder Catheterization Date/Time: 07/28/2024 10:47 AM Performed by: Hemanth Jaquez DO Authorized by: Hemanth Jaquez DO Consent: Consent obtained: Verbal Consent given by: Patient Risks, benefits, and alternatives were discussed: yes Risks discussed: Infection and pain [place] protocol: Procedure explained and questions answered to patient or proxy's satisfaction: yes Pre-procedure details: Procedure purpose: Diagnostic Procedure details: Catheter insertion: Non-indwelling Catheter size: 8 Fr Bladder irrigation: no Number of attempts: 1 Urine characteristics: Clear Post-procedure details: Procedure completion: Tolerated well, no immediate complications Comments: 12cc ICD-10-CM 1. Menorrhagia with irregular cycle N92.1 2. Stress incontinence N39.3 3. Dyspareunia in female N94.10 4. Cystocele with rectocele N81.10 N81.6 5. 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 Post-void dribbling N39.43 She presents for PVR for post void dribbling and to evaluate if she is emptying completely. PVR completed- 12cc clear urine, she tolerated this well and advised she is emptying completely. Denies urinary urgency. After consideration from last visit she would like to proceed with TVT due to leaking with coughing, laughing and sneezing. Urethral hypermobility noted on exam. She understands this procedure just address as the stress incontinence and will not address her pelvic organ prolapse issues which she also has. She continues with heavy long lasting menses. No recent U/S completed. Discussed options- OCP, IUD,cyclic progesterone etc.. Will order U/S to evaluate prior to TVT. Discussed the TVT procedure, alternatives and risks (bleeding, infection, voiding dysfunction, damage to bowel, bladder, urethra, ureters etc.) Possibility of mesh erosion and urinary retention if sling is placed to tight. Could require further surgery to loosen, cut or trim mesh. Patient advised no intercourse, jogging or strenuous activity for 4 weeks post op. Surgical consent reviewed and signed after all questions and concerns were addressed. Entered by Louann Vivar LPN acting as scribe for Dr. Hemanth Jaquez. Signature: Louann Vivar LPN The documentation recorded by the scribe accurately reflects the service(s) I personally performed and the decisions I made. Signature: Hemanth Jaquez DO Assessment & Plan documented in this encounterRipley County Memorial [id number] History of Present illness Narrative* Hemanth Jaquez DO - 06/25/2024 3:00 PM EDT Images from the original note were not included. Subjective Tyron Paulino is a 48 y.o. female Chief Complaint Patient presents with Bladder Problem Pt presents for urinary incontinence. Onset a few years and is getting worse and buldging into the vaginal area. History of Present Illness Current Outpatient Medications: Aimovig 140 MG/ML injection, INJECT 140MG SUBCUTANEOUSLY ONCE EVERY MONTH for 28 days, Disp: , Rfl: albuterol HFA 90 mcg/act inhaler, Inhale 2 puffs every 4 (four) hours if needed for wheezing or shortness of breath, Disp: 18 g, Rfl: 0 cetirizine (ZyrTEC) 10 MG tablet, Take 10 mg by mouth Daily, Disp: , Rfl: metoprolol succinate XL (Toprol-XL) 25 MG 24 hr tablet, Take 25 mg by mouth in the morning., Disp: , Rfl: montelukast (Singulair) 10 MG tablet, Take 1 tablet by mouth once daily for 30 days, Disp: , Rfl: omeprazole (PriLOSEC) [address] capsule, Take 1 capsule by mouth once daily for 30 days, Disp: , Rfl: PARoxetine (Paxil) 10 MG tablet, 1 (one) time each day at the same time, Disp: , Rfl: Past Medical History: Diagnosis Date Acid reflux Asthma Depression with anxiety Migraines (CMS/HCC) Missed 1999 1998 2008 2004 2013 Tachycardia Past Surgical History: Procedure Laterality Date COLONOSCOPY 12/30/2019 poor prep, otherwise normal colonoscopy ([facility]) DILATION AND CURETTAGE OF UTERUS VAGINAL DELIVERY x4 Family History Problem Relation Name Age of Onset Hypertension Mother Hypertension Father Heart disease Father Cancer Paternal Grandmother Heart disease Paternal Grandfather OB History Para Term AB Living 5 0 0 0 1 0 SAB IAB Ectopic Multiple Live Births 0 0 0 0 4 # Outcome Date GA Lbr Christos/2nd Weight Sex Type Anes PTL Lv 5 4 3 2 1 AB Obstetric Comments Pap 12/03/23- Neg, HPV Neg Cologuard 06/29/23- Neg Mammogram 10/24/23- Neg ([facility]) U/S 05/27/24- endometrium 15mm with endometrial cyst, no free fluid, ovaries normal ([facility]) Review of Systems All negative unless documented in treatment Objective Visit Vitals BP 102/74 Wt 165 lb BMI 31.18 kg/m OB Status No Periods Smoking Status Never BSA 1.79 m Allergies Allergen Reactions Penicillins Itching and Unknown Erythromycin Rash Wound Dressing Adhesive Rash Physical Exam Constitutional: Appearance: Normal appearance. Genitourinary: Vulva, bladder, rectum and urethral meatus normal. Genitourinary Comments: Gr 2 cystocele, Gr 3 rectocele, Gr 2 uterine procidentia Right Labia: No rash, tenderness, lesions, skin changes or Bartholin's cyst. Left Labia: No tenderness, lesions, skin changes, Bartholin's cyst or rash. No vaginal discharge. No vaginal atrophy present. Right Adnexa: not tender and no mass present. Left Adnexa: not tender and no mass present. No cervical motion tenderness or lesion. No parametrium nodularity or thickening present. Uterus is prolapsed. Uterus is not tender. Uterus is anteverted. Urethral hypermobility present. HENT: Head: Normocephalic and atraumatic. Cardiovascular: Rate and Rhythm: Normal rate and regular rhythm. Heart sounds: Normal heart sounds. Pulmonary: Effort: Pulmonary effort is normal. Breath sounds: Normal breath sounds. Abdominal: General: There is no distension. Palpations: Abdomen is soft. There is no mass. Hernia: No hernia is present. Musculoskeletal: Right lower leg: No edema. Left lower leg: No edema. Neurological: Mental Status: She is alert and oriented to person, place, and time. Skin: General: Skin is warm and dry. Findings: No rash. Procedures ICD-10-CM 1. Menorrhagia with irregular cycle N92.1 2. Stress incontinence N39.3 3. Dyspareunia in female N94.10 4. Cystocele with rectocele N81.10 N81.6 5. 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 Uterine prolapse N81.4 Continues to have menses but irregular and can skip months at a time and then last for 12-14 days. Able to hold her bladder for approx 4 hours, denies urge incontinence. Gets up once per night. Unsure if she empties completely due to intermittent post void dribbling. She will return for PVR. Admitsto stress incontinence. She also notices bulging which is uncomfortable for her and IC can be painful. On exam Gr 2 cystocele, Gr 3 rectocele, Gr 2 uterine procidentia with urethral hypermobility. Discussed treatment options for bulging - pessary or surgery (with hysterectomy and TVT). Discussed risk of recurrence and need to go home with catheter after surgery. If she would like to just address stress incontinence- kegels, pelvic floor therapy and TVT discussed. Advised TVT will not address painful IC, bulging and abnormal heavy bleeding. Discussed treatment options for bleeding- OCP , patch, nuvaring, IUD etc.. If she would like to proceed with hysterectomy would need EMB prior to surgery. She will return in 2- 3 weeks for PVR and possible EMB. Entered by Louann Vivar LPN acting as scribe for Dr. Hemanth Jaquez. Signature: Louann Vivar LPN The documentation recorded by the scribe accurately reflects the service(s) I personally performed and the decisions I made. Signature: Hemanth Jaquez DO Assessment & Plan documented in this [facility]04-08-2025 [facility] Main [place] [address] [place] [address] Ultrasound Report Signed Patient: Tyron Paulino MR#: [id number] : 1975 Acct:[id number] Age/Sex: 48 / F ADM Date: 5 Loc: Room: Type: [facility] CLI Attending Dr: Yanira Ferraro TIMBER APPRAISER-C Ordering Provider: Yanira Ferraro Date of Service: 05/27/24 US/US transvaginal: Missed menses;Elevated serum hCG ([id number]) US/US pelvic complete: 1 Copies to: Yanira Ferraro~ Pelvic ultrasound. Reason for exam: Elevated hCG. [...] with endometrial cysts noted. No definite intrauterine pregnancyis seen. No free fluid is seen. Right ovary measures 1.9 x 1.6 x 1.2 cm. Left ovary measures 2.3 x 1.9 x 1.8cm. No adnexal mass or cyst. Normal arterial [...] suggested. Impression dictated by: Tj Knox Jr., D.OJodie05/27/2024 2:46 PM Dictation Location: [place] [address] Tech: Rae Eliu Transcribed By: ELSA 05/27/24 1446 Dictated By: Tj Knox Jr, DO 05/27/24 1440 Signed By: 05/27/24 1446 [facility]03-25-2025 Radiology Diagnostic study note [facility] Main [place] [address] [place] [address] Ultrasound Report Signed Patient: Tyron Paulino MR#: [id number] : 1975 Acct:[id number] Age/Sex: 48 / F ADM Date: 5 Loc: Room: Type: [facility] Attending Dr: Yanira Ferraro TIMBER APPRAISER-C Ordering Provider: Yanira Ferraro Date of Service: 05/13/24 US/US pelvic complete: Elevated serum hCG;Missed menses ([id number]) US/US transvaginal: . Copies to: Yanira Ferraro~ Pelvic ultrasound. Reason for exam: Missed menses. Elevated beta hCG. Comparison: none Technique: Transabdominal imaging of the uterus and ovaries was performed. Transvaginal imaging of the uterus and ovaries was also obtained. Additional spectral Doppler analysis of the ovaries was also obtained. Findings: Uterus measures 9.0 x 4.3 x 4.6 cm. Endometrium measures 11 mm without evidence of intrauterine . Small amount of simple free fluid is seen. The right ovary measures 1.9 x 0.9 x1.5 cm. The left ovary measures 1.9 x 1.1 x 1.1 cm. Normal arterial and venousDoppler waveforms. No adnexal mass. US/US transvaginal Impression: No ultrasound evidence of intrauterine . Differential considerations includes early IUP, miscarriage or possibly ectopic , however no additional evidence of ectopic is seen to suggest complex free fluid or adnexal mass. Correlation with beta hCG trend and repeat ultrasound is suggested to confirm viability. Impression dictated by: Tj Knox Jr., D.OJodie05/13/2024 6:28 PM Dictation Location: [facility] Tech: aRe Romerojean claude Transcribed By: ELSA 05/13/241827 Dictated By: Tj Knox Jr, DO 05/13/241825 Signed By: 05/13/241827 [facility]02-21-2025 History of Present illness Narrative * Yuni Shoemaker NP - 04/11/2024 10:35 AM EST Images from the original note were not included. [address] , [address] [facility], [address] P: [phone] F: [phone] [facility] Historian of HPI: patient Tyron Paulino is a 48 y.o. female who presents today to the Urgent Care with the following complaints and denials which have been present for 3 day(s). C/O Denies Symptom Comments [x] [] Runny Nose [x] [] Difficulty Swallowing [x] [] Sore Throat [x] [] Cough [] [x] Ear Pain [x] [] Fever [x] [] Chills [x] [] Nasal Congestion [x] [] Myalgia [] [x] Sinus Pain [] [x] Sinus Pressure Additional Comments: pt has not taken any OTC medications. Pt is agreeable to take flu and strep testing. ROS A complete system ROS was performed and negative aside from the pertinent positives noted in the HPI and PE. Visit Vitals BP 142/60 Pulse 86 Temp 96.8 F Wt 155 lb SpO2 95% BMI 29.29 kg/m OB Status No Periods Smoking Status Never BSA 1.74 m IH Testing: PHYSICAL EXAM Physical Exam Vitals reviewed. Constitutional: General: She is not in acute distress. Appearance: Normal appearance. HENT: Head: Normocephalic and atraumatic. Right Ear: Hearing, tympanic membrane, ear canal and external ear normal. Left Ear: Hearing, tympanic membrane, ear canal and external ear normal. Nose: Nasal tenderness and congestion present. Right Turbinates: Enlarged and swollen. Left Turbinates: Enlarged and swollen. Mouth/Throat: Lips: Marcelline. Mouth: Mucous membranes are moist. Pharynx: Oropharynx is clear. Uvula midline. Posterior oropharyngeal erythema and postnasal drip present. Eyes: Extraocular Movements: Extraocular movements intact. Conjunctiva/sclera: Conjunctivae normal. Pupils: Pupils are equal, round, and reactive to light. Cardiovascular: Rate and Rhythm: Normal rate and regular rhythm. Pulses: Normal pulses. Heart sounds: Normal heart sounds. Pulmonary: Effort: Pulmonary effort is normal. No respiratory distress. Breath sounds: Decreased air movement present. Examination of the right-lower field reveals wheezing. Examination of the left-lower field reveals wheezing. Wheezing present. No rhonchi or rales. Comments: Expiratory wheezes Musculoskeletal: General: Normal range of motion. Cervical back: Normal range of motion and neck supple. Skin: General: Skin is warm and dry. Findings: No rash. Neurological: General: No focal deficit present. Mental Status: She is alert and oriented to person, place, and time. Psychiatric: Mood and Affect: Mood normal. TREATMENT PLAN 1. Cough, unspecified type -Take medication as prescribed below to completion -cough and deep breathe -May use Tylenol/Ibuprofen for pain/fever -May use OTC medication such as cough syrups especially at night time for relief, pseudoephedrine for nasal congestion, and/or Esther Pot or saline rinses. -Follow up with in 1 week if no improvement or go to the ED for worsening of symptoms such as SOB or CP. Work note provided. - STREP DNA PROBE - RAPID FLU - oseltamivir (Tamiflu) 75 MG capsule; Take 1 capsule (75 mg) by mouth in the morning and 1 capsule(75 mg) before bedtime. Do all this for 5 days. Dispense: 10 capsule; Refill: 0 - albuterol HFA 90 mcg/act inhaler; Inhale 2 puffs every 4 (four) hours if needed for wheezing or shortness of breath Dispense: 18 g; Refill: 0 2. Influenza A (Primary) Patient notified that they are positive for Influenza A. Advised patient that she is highly contagious and to avoid contact with children/elderly/immunocompromised for the next 5-7 days.. Tylenol/motrin for fever, fluids, rest, OTC supportive treatment. Discussed with the patient that Influenza is a virus and that no antibiotics will treat this. Discussed medications and directions. Start Tamifluimmediately today. Take Prednisone with food, avoid other NSAIDS.To the ER if symptoms worsen or ifshe develops chest pain, difficulty breathing or worsening sensation of shortness of breath. Follow up in 5-7 days if no improvement or sooner if worsening. - oseltamivir (Tamiflu) 75 MG capsule; Take 1 capsule (75 mg) by mouth in the morning and 1 capsule(75 mg) before bedtime. Do all this for 5 days. Dispense: 10 capsule; Refill: 0 - albuterol HFA 90 mcg/act inhaler; Inhale 2 puffs every 4 (four) hours if needed for wheezing or shortness of breath Dispense: 18 g; Refill: 0 documented in this encounterRipley County Memorial [id number] History of Present illness Narrative* Kiko Hendricks Matty, DPM - 03/26/2024 4:50 PM EST Patient: Tyron Paulino : 1975 PCP: Noms Provider MD Angella SUBJECTIVE This is a 48 y.o. female that presents today for a follow up of right ankle sprain and has been using nsaids/ ice / walking boot with positive improvement. Patient rates pain a 5/10. Allergies: Allergies Allergen Reactions Penicillins Itching and Unknown Wound Dressing Adhesive Rash Past Medical History: Past Medical History: Diagnosis Date Acid reflux Asthma ([facility]) Depression with anxiety Migraines ([facility]) Missed 1999 1998 2007 2004 2013 Tachycardia Medications: Current Outpatient Medications: Aimovig 140 MG/ML injection, INJECT 140MG SUBCUTANEOUSLY ONCE EVERY MONTH for 28 days, Disp: , Rfl: albuterol HFA 90 mcg/act inhaler, 2 puffs as needed Inhalation every 4 hrs as needed shortness of breath for 30 days, Disp: , Rfl: cetirizine (ZyrTEC) 10 MG tablet, Take 10 mg by mouth Daily, Disp: , Rfl: metoprolol succinate XL (Toprol-XL) 25 MG 24 hr tablet, Take 25 mg by mouth in the morning., Disp: , Rfl: montelukast (Singulair) 10 MG tablet, Take 1 tablet by mouth once daily for 30 days, Disp: , Rfl: omeprazole (PriLOSEC) [address] capsule, Take 1 capsule by mouth once daily for 30 days, Disp: , Rfl: PARoxetine (Paxil) 10 MG tablet, 1 (one) time each day at the same time, Disp: , Rfl: ROS: General: denies fever, chills, fatigue, malaise GI: denies abdominal pain or ulcerations with anti-inflammatory medication OBJECTIVE LE EXAM: DERM: Positive hair growth to b/l feet with good skin turgor noted. Negative openings in skin. Diminished ecchymosis to lateral right ankle with negative openings in skin or erythema to the lateral right ankle VASC: Palpable pedal pulsed b/l with warm to cool tibia to toes b/l NEURO: Gross sensation intact digits 1-10 and b/l feet ORTHO: +5/5 DF/PF/IN/EV right, +5/5 DF/PF/IN/EV left. 20 degrees inversion and 10 degrees eversion STJ b/l. Ankle ROM less than 10 degrees b/l. Diminished pain on palpation to right ATF ligament with negative palpation to right peroneal tendoninsertion the 5th metatarsal base Negative anterior drawer right ankle ASSESSMENT 1. Sprain of anterior talofibular ligament of right ankle, initial encounter 2. Venous insufficiency 3. Contracture of right ankle PLAN Patient to continue with oral anti - inflammatories as needed for pain and recommended OTC medications such as tylenol or Ibuprofen Recommended to apply ice to affected areas for 20 minutes, twice daily. Ice should not be applied directly to skin. May discontinue cam walker Patient dispensed soft ankle brace ([id number]) prefabricated multiligamentous AFO today.to maintain 90 degree foot to ankle position. ABN signed and in chart for device. The boot was assembled and adjusted for proper fitting by Kiko York DPM and staff. A verbal order was given for dispensing of device. The patient is ambulatory and may benefit functionally from this device. It may be used for the following conditions as noted per medical diagnosis in the EMR Kiko York DPM documented in this encounterRipley County Memorial [id number] History of Present illness Narrative* Kiko York DPM - 03/17/2024 10:40 AM EST Patient: Tyron Paulino : 1975 PCP: Noms Provider MD Angella SUBJECTIVE This is a 48 y.o. female that presents today for a chief complaint of right ankle sprain 3 days agoand was seen in the ER at local hospital with walking boot dispensed. Patient states it has improved and rates it up to /10 with still some swelling to the area and rates it as achy at time Relates inversion-type sprain. Allergies: Allergies Allergen Reactions Penicillins Itching and Unknown Wound Dressing Adhesive Rash Past Medical History: Past Medical History: Diagnosis Date Acid reflux Asthma (CMS/HCC) Depression with anxiety Migraines (CMS/HCC) Missed 2000 1999 2008 2004 2013 Tachycardia Medications: Current Outpatient Medications: Aimovig 140 MG/ML injection, INJECT 140MG SUBCUTANEOUSLY ONCE EVERY MONTH for 28 days, Disp: , Rfl: albuterol HFA 90 mcg/act inhaler, 2 puffs as needed Inhalation every 4 hrs as needed shortness of breath for 30 days, Disp: , Rfl: cetirizine (ZyrTEC) 10 MG tablet, Take 10 mg by mouth Daily, Disp: , Rfl: metoprolol succinate XL (Toprol-XL) 25 MG 24 hr tablet, Take 25 mg by mouth in the morning., Disp: , Rfl: montelukast (Singulair) 10 MG tablet, Take 1 tablet by mouth once daily for 30 days, Disp: , Rfl: omeprazole (PriLOSEC) [address] capsule, Take 1 capsule by mouth once daily for 30 days, Disp: , Rfl: PARoxetine (Paxil) 10 MG tablet, 1 (one) time each day at the same time, Disp: , Rfl: ROS: General: denies fever, chills, fatigue, malaise GI: denies abdominal pain or ulcerations with anti-inflammatory medication OBJECTIVE LE EXAM: DERM: Positive hair growth to b/l feet with good skin turgor noted. Negative openings in skin. Positive ecchymosis to lateral right ankle with negative openings in skin or erythema. To the lateral right ankle VASC: Palpable pedal pulsed b/l with warm to cool tibia to toes b/l NEURO: Gross sensation intact digits 1-10 and b/l feet ORTHO: +5/5 DF/PF/IN/EV right, +5/5 DF/PF/IN/EV left. 20 degrees inversion and 10 degrees eversion STJ b/l. Ankle ROM less than 10 degrees b/l. Positive pain on palpation to right ATF ligament with negative palpation to right peroneal tendon insertion the 5th metatarsal base Negative anterior drawer right ankle XRAY: Reviewed radiographs and report from [facility] on 03/15/2024 with negative fractures identified and soft tissue swelling noted US: ASSESSMENT 1. Sprain of anterior talofibular ligament of right ankle, initial encounter 2. Venous insufficiency PLAN Patient to continue with oral anti - inflammatories as needed for pain and recommended OTC medications such as tylenol or Ibuprofen Recommended to apply ice to affected areas for 20 minutes, twice daily. Ice should not be applied directly to skin. Continue with walking boot Application today of multilayer compressive dressing for swelling and edema to the foot and ankle region. Dressing consisting of Webril and Dax wrap today. Today's procedure is a staged procedure andpatient may need further procedures in the future. Kiko York DPM documented in this encounterRipley County Memorial [id number] History of Present illness Narrative* Darek Emmanuel, DO - 02/14/2024 5:00 PM EST Images from the original note were not included. [address] , [address] [facility], [address] P: [phone] F: [phone] HPI Historian of HPI: patient Tyron Paulino is a 48 y.o. female who presents today to the Urgent Care with the following complaints and denials which have been present for 4 day(s) C/O Denies Symptom Comments [x] [] Runny Nose [] [x] Difficulty Swallowing [x] [] Sore Throat [x] [] Cough [x] [] Ear Pain itchy [x] [] Fever Maybe earlier today [] [x] Chills [x] [] Nasal Congestion [x] [] Myalgia [] [x] Sinus Pain [] [x] Sinus Pressure Additional Comments: pt has not taken any OTC medications Pt tested pos for COVID yesterday. ROS A complete system ROS was performed and negative aside from the pertinent positives noted in the HPI and PE. IH Testing: PHYSICAL EXAM Physical Exam Constitutional: General: She is not in acute distress. Appearance: She is not ill-appearing. HENT: Head: Normocephalic. Cardiovascular: Rate and Rhythm: Normal rate and regular rhythm. Heart sounds: No murmur heard. Pulmonary: Effort: Pulmonary effort is normal. Breath sounds: Normal breath sounds. No wheezing. Abdominal: General: Abdomen is flat. There is no distension. Tenderness: There is no abdominal tenderness. Musculoskeletal: General: No deformity. Normal range of motion. Cervical back: Normal range of motion. Skin: General: Skin is warm and dry. Neurological: General: No focal deficit present. Mental Status: She is alert and oriented to person, place, and time. Psychiatric: Mood and Affect: Mood normal. Behavior: Behavior normal. Thought Content: Thought content normal. Judgment: Judgment normal. TREATMENT PLAN 1. Cough, unspecified type - POCT COVID ANTIGEN 2. COVID-19 (Primary) Discussed viral nature of current illness. Recommend symptomatic/supportive tx. Return/ER precautions discussed extensively. May return to work and other social activities once fever free x 24 hours. Work not provided for today and tomorrow. Out of antiviral treatment window. documented in this encounterRipley County Memorial [id number] History of Present illness Narrative* Derek Short MD - 12/03/2023 1:00 PM EDT Images from the original note were not included. Derek Short MD Obstetrics and Gynecology Patient: Tyron Paulino : 1975 (48 y.o.) Yearly Wellness Exam Date: 12/03/2023 Reason for Visit - Chief Complaint Patient presents with Gynecologic Exam LMP: unknown Last Mammogram: 2023 Last Pap: 2 years Cologuard: 06/29/23- neg Paternal gm Complaints: weight gain and hot flashes, prolapsed bladder. The patient presented with hot flashes and weight gain, which they have been experiencing for several months. They have not taken any medication for these symptoms. The patient also reported recent job loss, which has contributed to emotional ups and downs. Their menstrual periods have been abnormal for about four years, initially heavy and now light for the past two months. Visit Vitals BP 120/78 Wt 161 lb LMP (LMP Unknown) BMI 30.42 kg/m OB Status No Periods Smoking Status Never BSA 1.77 m History of Present Illness, Associated Treatments and Results - OB History Para Term AB Living 5 0 0 0 1 0 SAB IAB Ectopic Multiple Live Births 0 0 0 0 4 # Outcome Date GA Lbr Christos/2nd Weight Sex Type Anes PTL Lv 5 4 3 2 1 AB Review of Systems - Constitutional: Negative. HENT: Negative. Eyes: Negative. Respiratory: Negative. Cardiovascular: Negative. Gastrointestinal: Negative. Endocrine: Negative. Genitourinary: Negative. Musculoskeletal: Negative. Skin: Negative. Allergic/Immunologic: Negative. Neurological: Negative. Hematological: Negative. Psychiatric/Behavioral: Negative. Allergies Allergen Reactions Penicillins Itching and Unknown Wound Dressing Adhesive Rash Current Outpatient Medications: Aimovig 140 MG/ML injection, INJECT 140MG SUBCUTANEOUSLY ONCE EVERY MONTH for 28 days, Disp: , Rfl: albuterol HFA 90 mcg/act inhaler, 2 puffs as needed Inhalation every 4 hrs as needed shortness of breath for 30 days, Disp: , Rfl: Black Cohosh 40 MG capsule, Take 1 tablet by mouth Daily, Disp: 30 capsule, Rfl: 3 metoprolol succinate XL (Toprol-XL) 25 MG 24 hr tablet, Take 25 mg by mouth in the morning., Disp: , Rfl: montelukast (Singulair) 10 MG tablet, Take 1 tablet by mouth once daily for 30 days, Disp: , Rfl: omeprazole (PriLOSEC) [address] capsule, Take 1 capsule by mouth once daily for 30 days, Disp: , Rfl: PARoxetine (Paxil) 10 MG tablet, 1 (one) time each day at the same time, Disp: , Rfl: Past Medical History: Diagnosis Date Acid reflux Asthma ([facility]) Depression with anxiety Migraines ([facility]) Missed 1999 1998 2008 2004 2013 Tachycardia Past Surgical History: Procedure Laterality Date DILATION AND CURETTAGE OF UTERUS VAGINAL DELIVERY x4 Family History Problem Relation Name Age of Onset Hypertension Mother Hypertension Father Heart disease Father Cancer Paternal Grandmother Heart disease Paternal Grandfather Social History Tobacco Use Smoking Status Never Smokeless Tobacco Never Physical Exam - General appearance, mentation, extraocular movements, facial strength and movement, hearing, upper and lower extremity strength and tone, sensation to gross testing, coordination, and gait are normalor at baseline unless noted below. Physical Exam Constitutional: Appearance: Normal appearance. Genitourinary: Right Labia: No rash or lesions. Left Labia: No lesions or rash. No vaginal discharge or erythema. No vaginal prolapse present. No vaginal atrophy present. Right Adnexa: not tender and no mass present. Left Adnexa: not tender and no mass present. No cervical lesion. Uterus is not tender. Uterus is anteverted. Breasts: Right: Normal. No mass or nipple discharge. Left: Normal. No mass or nipple discharge. HENT: Head: Normocephalic and atraumatic. Cardiovascular: Rate and Rhythm: Normal rate and regular rhythm. Pulmonary: Breath sounds: Normal breath sounds. Abdominal: General: There is no distension. Palpations: Abdomen is soft. There is no mass. Tenderness: There is no abdominal tenderness. Musculoskeletal: General: Normal range of motion. Cervical back: Neck supple. Lymphadenopathy: Cervical: No cervical adenopathy. Neurological: Mental Status: She is alert and oriented to person, place, and time. Skin: General: Skin is warm and dry. Psychiatric: Mood and Affect: Mood normal. Assessment/Plan 4. Perimenopausal symptoms (hot flashes, weight gain): - Plan: a) Prescribe black cohosh to help alleviate hot flashes. b) Encourage a healthy diet and exercise to manage weight gain. c) Monitor symptoms and consider hormone replacement therapy if symptoms worsen or become intolerable. 5. Recent job loss and emotional stress: - Plan: a) Encourage the patient to seek support from friends, family, or a mental health professional if needed. b) Monitor for signs of depression or anxiety during follow-up visits. 6. Preventive care (mammogram, colonoscopy): - Plan: a) Ensure the patient has completed a recent mammogram. b) Verify patient is up-to-date with colonoscopy screenings based on family history and age. c) Schedule follow-up screenings as recommended by guidelines. ICD-10-CM 1. Encounter for gynecological examination without abnormal finding Z01.419 SENDOUT TEST MISCELLANEOUS [facility] 2. Screening for malignant neoplasm of cervix Z12.4 SENDOUT TEST MISCELLANEOUS [facility] 3. Encounter for screening mammogram for malignant neoplasm of breast Z12.31 Bilateral screening mammogram with tomosynthesis 4. Hormone imbalance E34.9 Black Cohosh 40 MG capsule Pap and exam performed. Mammogram ordered Results can be found in MyChart in 7 days Bone health discussed Black Cohash ordered for menopausal symptoms Return 1 year/prn documented in this encounterRipley County Memorial [id number] Hospital Discharge instructions Patient Education 10/12/2023 07:43:15 Dietary Guidelines to Help Prevent Kidney Stones Dietary Guidelines to Help Prevent Kidney Stones Kidney stones are deposits of minerals and salts that form inside your kidneys. Your risk of developing kidney stones may be greater depending on your diet, your lifestyle, the medicines you take, and whether you have certain medical conditions. Most people can lower their risks of developing kidney stones by following these dietary guidelines. Your dietitian may give you more specific instructions depending on your overall health and the type of kidney stones you tend to develop. What are tips for following this plan? Reading food labels Choose foods with no salt added or low-salt labels. Limit your salt (sodium) intake to less than 1,500 mg a day. Choose foods with calcium for each meal and snack. Try to eat about 300 mg of calcium at each meal.Foods that contain 200 500 mg of calcium a serving include: ?8 oz (237 mL) of milk, nlonbam-cehoxfqcexhn-pajvm milk, and calcium- fortifiedfruit juice. Calcium-fortified means that calcium has been added to these drinks. ?8 oz (237 mL) of kefir, yogurt, and soy yogurt. ?4 oz (114 g) of tofu. ?1 oz (28 g) of cheese. ?1 cup (150 g) of dried figs. ?1 cup (91 g) of cooked broccoli. ?One 3 oz (85 g) can of sardines or mackerel. Most people need 1,000 1,500 mg of calcium a day. Talk to your dietitian about how much calcium is recommended for you. Shopping Buy plenty of fresh fruits and vegetables. Most people do not need to avoid fruits and vegetables, even if these foods contain nutrients that may contribute to kidney stones. When shopping for convenience foods, choose: ?Whole pieces of fruit. ?Pre-made salads with dressing on the side. ?Low-fat fruit and yogurt smoothies. Avoid buying frozen meals or prepared deli foods. These can be high in sodium. Look for foods with live cultures, such as yogurt and kefir. Choose high-fiber grains, such as whole-wheat breads, oat bran, and wheat cereals. Cooking Do not add salt to food when cooking. Place a salt shaker on the table and allow each person to addtheir own salt to taste. Use vegetable protein, such as beans, textured vegetable protein (TVP), or tofu, instead of meat inpasta, casseroles, and soups. Meal planning Eat less salt, if told by your dietitian. To do this: ?Avoid eating processed or pre-made food. ?Avoid eating fast food. Eat less animal protein, including cheese, meat, poultry, or fish, if told by your dietitian. To dothis: ?Limit the number of times you have meat, poultry, fish, or cheese each week. Eat a diet free of meat at least 2 days a week. ?Eat only one serving each day of meat, poultry, fish, or seafood. ?When you prepare animal proteins, cut pieces into small portion sizes. For most meat and fish, oneserving is about the size of the palm of your hand. Eat at least five servings of fresh fruits and vegetables each day. To do this: ?Keep fruits and vegetables on hand for snacks. ?Eat one piece of fruit or a handful of berries with breakfast. ?Have a salad and fruit at lunch. ?Have two kinds of vegetables at dinner. You may be told to limit foods that are high in a substance called oxalate. These include: ?Spinach (cooked), rhubarb, beets, sweet potatoes, and French chard. ?Peanuts. ?Potato chips, nauruan fries, and baked potatoes with skin on. ?Nuts and nut products. ?Chocolate. If you regularly take a diuretic medicine, make sure to eat at least 1 or 2 servings of fruits or vegetables that are high in potassium each day. These include: ?Avocado. ?Banana. ?Dunn, prune, carrot, or tomato juice. ?Baked potato. ?Cabbage. ?Beans and split peas. Lifestyle Drink enough fluid to keep your urine pale yellow. This is the most important thing you can do. Spread your fluid intake throughout the day. If you drink alcohol: ?Limit how much you have to: ?0 1 drink a day for women who are not . ?0 2 drinks a day for men. ?Know how much alcohol is in your drink. In the [place] one drink equals one 12 oz bottle of beer (355 mL), one 5 oz glass of wine (148 mL), or one 1 oz glass of hard liquor (44 mL). Lose weight if told by your health care provider. Work with your dietitian to find an eating plan and weight loss strategies that work best for you. General information Talk to your health care provider and dietitian about taking daily supplements. Depending on your health and the cause of your kidney stones, you may be told: ?Do not take high-dose supplements of vitamin C (1,000 mg a day or more). ?To take a calcium supplement. ?To take a daily probiotic supplement. ?To take other supplements such as magnesium, fish oil, or vitamin B6. Take etsd-yxh-zpjlidn and prescription medicines only as told by your health care provider. These include supplements. What foods should I limit? Limit your intake of the following foods, or eat them as told by your dietitian. Vegetables Spinach. Rhubarb. Beets. Canned vegetables. Pickles. Olives. Baked potatoes with skin. Grains Wheat bran. Baked goods. Salted crackers. Cereals high in sugar. Meats and other proteins Nuts. Nut butters. Large portions of meat, poultry, or fish. Salted, precooked, or cured meats, such as sausages, meat loaves, and hot dogs. Dairy Cheeses. Beverages Regular soft drinks. Regular vegetable juice. Seasonings and condiments Seasoning blends with salt. Salad dressings. Soy sauce. Ketchup. Barbecue sauce. Other foods Canned soups. Canned pasta sauce. Casseroles. Pizza. Lasagna. Frozen meals. Potato chips. Greenlandic fries. The items listed above may not be a complete list of foods and beverages you should limit. Contact a dietitian for more information. What foods should I avoid? Talk to your dietitian about specific foods you should avoid based on the type of kidney stones youhave and your overall health. Fruits Grapefruit. The item listed above may not be a complete list of foods and beverages you should avoid. Contact adietitian for more information. Summary Kidney stones are deposits of minerals and salts that form inside your kidneys. You can lower your risk of kidney stones by making changes to your diet. The most important thing you can do is drink enough fluid. Drink enough fluid to keep your urine pale yellow. Talk to your dietitian about how much calcium you should have each day, and eat less salt and animal protein as told by your dietitian. This information is not intended to replace advice given to you by your health care provider. Make sure you discuss any questions you have with your health care provider. Document Revised: 05/18/2022 Document Reviewed: 05/18/2022 [employer] Patient Education 2022 iodine. Follow Up Care 10/08/2023 10:53:09 With:Ed ESTEBAN, RACHEL Neves, [facility] Address: When: Unknown [facility] 08-23-2024 NotePatient Education Nephrology Dietary Guidelines to Help Prevent Kidney Stones Kidney stones are deposits of minerals and salts that form inside your kidneys. Your risk of developing kidney stones may be greater depending on your diet, your lifestyle, the medicines you take, and whether you have certain medical conditions. Most people can lower their risks of developing kidney stones by following these dietary guidelines. Your dietitian may give you more specific instructions depending on your overall health and the type of kidney stones you tend to develop. What are tips for following this plan? Reading food labels ? Choose foods with no salt added or low-salt labels. Limit your salt (sodium) intake to less than 1,500 mg a day. ? Choose foods with calcium for each meal and snack. Try to eat about 300 mg of calcium at each meal. Foods that contain 200?500 mg of calcium a serving include: ? 8 oz (237 mL) of milk, icukjpo-nvqfompbzvhm-akezh milk, and calcium- fortifiedfruit juice. Calcium-fortified means that calcium has been added to these drinks. ? 8 oz (237 mL) of kefir, yogurt, and soy yogurt. ? 4 oz (114 g) of tofu. ? 1 oz (28 g) of cheese. ? 1 cup (150 g) of dried figs. ? 1 cup (91 g) of cooked broccoli. ? One 3 oz (85 g) can of sardines or mackerel. Most people need 1,000?1,500 mg of calcium a day. Talk to your dietitian about how much calcium is recommended for you. Shopping ? Buy plenty of fresh fruits and vegetables. Most people do not need to avoid fruits and vegetables, even if these foods contain nutrients that may contribute to kidney stones. ? When shopping for convenience foods, choose: ? Whole pieces of fruit. ? Pre-made salads with dressing on the side. ? Low-fat fruit and yogurt smoothies. ? Avoid buying frozen meals or prepared deli foods. These can be high in sodium. ? Look for foods with live cultures, such as yogurt and kefir. ? Choose high-fiber grains, such as whole-wheat breads, oat bran, and wheat cereals. Cooking ? Do not add salt to food when cooking. Place a salt shaker on the table and allow each person to add their own salt to taste. ? Use vegetable protein, such as beans, textured vegetable protein (TVP), or tofu, instead of meat in pasta, casseroles, and soups. Meal planning ? Eat less salt, if told by your dietitian. To do this: ? Avoid eating processed or pre-made food. ? Avoid eating fast food. ? Eat less animal protein, including cheese, meat, poultry, or fish, if told by your dietitian. To do this: ? Limit the number of times you have meat, poultry, fish, or cheese each week. Eat a diet free of meat at least 2 days a week. ? Eat only one serving each day of meat, poultry, fish, or seafood. ? When you prepare animal proteins, cut pieces into small portion sizes. For most meat and fish, one serving is about the size of the palm of your hand. ? Eat at least five servings of fresh fruits and vegetables each day. To do this: ? Keep fruits and vegetables on hand for snacks. ? Eat one piece of fruit or a handful of berries with breakfast. ? Have a salad and fruit at lunch. ? Have two kinds of vegetables at dinner. ? You may be told to limit foods that are high in a substance called oxalate. These include: ? Spinach (cooked), rhubarb, beets, sweet potatoes, and French chard. ? Peanuts. ? Potato chips, nauruan fries, and baked potatoes with skin on. ? Nuts and nut products. ? Chocolate. ? If you regularly take a diuretic medicine, make sure to eat at least 1 or 2 servings of fruits orvegetables that are high in potassium each day. These include: ? Avocado. ? Banana. ? Dunn, prune, carrot, or tomato juice. ? Baked potato. ? Cabbage. ? Beans and split peas. Lifestyle ? Drink enough fluid to keep your urine pale yellow. This is the most important thing you can do. Spread your fluid intake throughout the day. ? If you drink alcohol: ? Limit how much you have to: ? 0?1 drink a day for women who are not . ? 0?2 drinks a day for men. ? Know how much alcohol is in your drink. In the [place] one drink equals one 12 oz bottle of beer (355 mL), one 5 oz glass of wine (148 mL), or one 1? oz glass of hard liquor (44 mL). ? Lose weight if told by your health care provider. Work with your dietitian to find an eating planand weight loss strategies that work best for you. General information ? Talk to your health care provider and dietitian about taking daily supplements. Depending on yourhealth and the cause of your kidney stones, you may be told: ? Do not take high-dose supplements of vitamin C (1,000 mg a day or more). ? To take a calcium supplement. ? To take a daily probiotic supplement. ? To take other supplements such as magnesium, fish oil, or vitamin B6. ? Take setf-gqt-iecmwoz and prescription medicines only as told by your health care provider. Theseinclude suppleme (more content not included)...[facility]08-12-2024 Hospital Discharge instructions Additional Instructions Take Tylenol 650-1000 mg every 6 hours, alternate with ibuprofen 400-800mg every 6 hours in between for pain relief. Tamsulosin daily for stent discomfort. Take at night if you get dizzy or lightheaded, stop if unable to tolerate. Oxybutynin as needed for bladder spasms/stent pain. May cause dry mouth/eyes and constipation. Take stool softeners. You can buy AZO (phenazopyridine) adxd-hlp-limmhxx and use as needed for burning with urination. This will make your urine orange. Drink plenty of water and fluids You must follow up to ensure your stent is removed. Failure to do so may result in recurrent infections and renal failure.[facility] Work Phone: [phone] [phone] Hospital Discharge instructions Patient Education 08/24/2023 10:51:01 Laser Therapy for Kidney Stones Laser Therapy for Kidney Stones Laser therapy for kidney stones is a procedure to break up small, hard mineral deposits that form in the kidney (kidney stones). The procedure is done using a device that produces a focused beam of light (laser). The laser breaks up kidney stones into pieces that are small enough to be passed out of the body through urination or removed from the body during the procedure. You may need laser therapy if you have kidney stones that are painful or block your urinary tract. This procedure is done by inserting a tube (ureteroscope) into your kidney through the urethral opening. The urethra is the part of the body that drains urine from the bladder. In women, the urethra opens above the vaginal opening. In men, the urethra opens at the tip of the penis. The ureteroscopeis inserted through the urethra, and surgical instruments are moved through the bladder and the muscular tube that connects the kidney to the bladder (ureter) until they reach the kidney. Tell a health care provider about: Any allergies you have. All medicines you are taking, including vitamins, herbs, eye drops, creams, and qoru-ujw-hhgnkii medicines. Any problems you or family members have had with anesthetic medicines. Any blood disorders you have. Any surgeries you have had. Any medical conditions you have. Whether you are or may be . What are the risks? Generally, this is a safe procedure. However, problems may occur, including: Infection. Bleeding. Allergic reactions to medicines. Damage to the urethra, bladder, or ureter. Urinary tract infection (UTI). Narrowing of the urethra (urethral stricture). Difficulty passing urine. Blockage of the kidney caused by a fragment of kidney stone. What happens before the procedure? Medicines Ask your health care provider about: ?Changing or stopping your regular medicines. This is especially important if you are taking diabetes medicines or blood thinners. ?Taking medicines such as aspirin and ibuprofen. These medicines can thin your blood. Do not take these medicines unless your health care provider tells you to take them. ?Taking rawc-hqp-ahvqoig medicines, vitamins, herbs, and supplements. Eating and drinking Follow instructions from your health care provider about eating and drinking, which may include: 8 hours before the procedure stop eating heavy meals or foods, such as meat, fried foods, or fatty foods. 6 hours before the procedure stop eating light meals or foods, such as toast or cereal. 6 hours before the procedure stop drinking milk or drinks that contain milk. 2 hours before the procedure stop drinking clear liquids. Staying hydrated Follow instructions from your health care provider about hydration, which may include: Up to 2 hours before the procedure you may continue to drink clear liquids, such as water, clear fruit juice, black coffee, and plain tea. General instructions You may have a physical exam before the procedure. You may also have tests, such as imaging tests and blood or urine tests. If your ureter is too narrow, your health care provider may place a soft, flexible tube (stent) inside of it. The stent may be placed days or weeks before your laser therapy procedure. Plan to have someone take you home from the hospital or clinic. If you will be going home right after the procedure, plan to have someone stay with you for 24 hours. Do not use any products that contain nicotine or tobacco for at least 4 weeks before the procedure.These products include cigarettes, e-cigarettes, and chewing tobacco. If you need help quitting, ask your health care provider. Ask your health care provider: ?How your surgical site will be marked or identified. ?What steps will be taken to help prevent infection. These may include: ?Removing hair at the surgery site. ?Washing skin with a germ-killing soap. ?Taking antibiotic medicine. What happens during the procedure? An IV will be inserted into one of your veins. You will be given one or more of the following: ?A medicine to help you relax (sedative). ?A medicine to numb the area (local anesthetic). ?A medicine to make you fall asleep (general anesthetic). A ureteroscope will be inserted into your urethra. The ureteroscope will send images to a video screen in the operating room to guide your surgeon to the area of your kidney that will be treated. A small, flexible tube will be threaded through the ureteroscope and into your bladder and ureter, up to your kidney. The laser device will be inserted into your kidney through the tube. Your surgeon will pulse the laser on and off to break up kidney stones. A surgical instrument that has a tiny wire basket may be inserted through the tube into your kidneyto remove the pieces of broken kidney stone. The procedure may vary among health care providers and hospitals. What happens after the procedure? Your blood pressure, heart rate, breathing rate, and blood oxygen level will be monitored until youleave the hospital or clinic. You will be given pain medicine as needed. You may continue to receive antibiotics. You may have a stent temporarily placed in your ureter. Do not drive for 24 hours if you were given a sedative during your procedure. You may be given a strainer to collect any stone fragments that you pass in your urine. Your healthcare provider may have these tested. This information is not intended to replace advice given to you by your health care provider. Make sure you discuss any questions you have with your health care provider. Document Revised: 06/14/2022 Document Reviewed: 10/10/2021 [employer] Patient Education 2022 iodine. Follow Up Care 04/16/2023 15:25:04 With:Ed ESTEBAN, RACHEL Neves, URO Address: When: Unknown [facility] 07-05-2024 NotePatient Education Nephrology Laser Therapy for Kidney Stones Laser therapy for kidney stones is a procedure to break up small, hard mineral deposits that form in the kidney (kidney stones). The procedure is done using a device that produces a focused beam of light (laser). The laser breaks up kidney stones into pieces that are small enough to be passed out of the body through urination or removed from the body during the procedure. You may need laser therapy if you have kidney stones that are painful or block your urinary tract. This procedure is done by inserting a tube (ureteroscope) into your kidney through the urethral opening. The urethra is the part of the body that drains urine from the bladder. In women, the urethra opens above the vaginal opening. In men, the urethra opens at the tip of the penis. The ureteroscopeis inserted through the urethra, and surgical instruments are moved through the bladder and the muscular tube that connects the kidney to the bladder (ureter) until they reach the kidney. Tell a health care provider about: ? Any allergies you have. ? All medicines you are taking, including vitamins, herbs, eye drops, creams, and yeou-gkd-gbgmrqe medicines. ? Any problems you or family members have had with anesthetic medicines. ? Any blood disorders you have. ? Any surgeries you have had. ? Any medical conditions you have. ? Whether you are or may be . What are the risks? Generally, this is a safe procedure. However, problems may occur, including: ? Infection. ? Bleeding. ? Allergic reactions to medicines. ? Damage to the urethra, bladder, or ureter. ? Urinary tract infection (UTI). ? Narrowing of the urethra (urethral stricture). ? Difficulty passing urine. ? Blockage of the kidney caused by a fragment of kidney stone. What happens before the procedure? Medicines ? Ask your health care provider about: ? Changing or stopping your regular medicines. This is especially important if you are taking diabetes medicines or blood thinners. ? Taking medicines such as aspirin and ibuprofen. These medicines can thin your blood. Do not take these medicines unless your health care provider tells you to take them. ? Taking cahp-nvs-buofsma medicines, vitamins, herbs, and supplements. Eating and drinking Follow instructions from your health care provider about eating and drinking, which may include: ? 8 hours before the procedure ? stop eating heavy meals or foods, such as meat, fried foods, or fatty foods. ? 6 hours before the procedure ? stop eating light meals or foods, such as toast or cereal. ? 6 hours before the procedure ? stop drinking milk or drinks that contain milk. ? 2 hours before the procedure ? stop drinking clear liquids. Staying hydrated Follow instructions from your health care provider about hydration, which may include: ? Up to 2 hours before the procedure ? you may continue to drink clear liquids, such as water, clear fruit juice, black coffee, and plain tea. General instructions ? You may have a physical exam before the procedure. You may also have tests, such as imaging testsand blood or urine tests. ? If your ureter is too narrow, your health care provider may place a soft, flexible tube (stent) inside of it. The stent may be placed days or weeks before your laser therapy procedure. ? Plan to have someone take you home from the hospital or clinic. ? If you will be going home right after the procedure, plan to have someone stay with you for 24 hours. ? Do not use any products that contain nicotine or tobacco for at least 4 weeks before the procedure. These products include cigarettes, e-cigarettes, and chewing tobacco. If you need help quitting, ask your health care provider. ? Ask your health care provider: ? How your surgical site will be marked or identified. ? What steps will be taken to help prevent infection. These may include: ? Removing hair at the surgery site. ? Washing skin with a germ-killing soap. ? Taking antibiotic medicine. What happens during the procedure? ? An IV will be inserted into one of your veins. ? You will be given one or more of the following: ? A medicine to help you relax (sedative). ? A medicine to numb the area (local anesthetic). ? A medicine to make you fall asleep (general anesthetic). ? A ureteroscope will be inserted into your urethra. The ureteroscope will send images to a video screen in the operating room to guide your surgeon to the area of your kidney that will be treated. ? A small, flexible tube will be threaded through the ureteroscope and into your bladder and ureter, up to your kidney. ? The laser device will be inserted into your kidney through the tube. Your surgeon will pulse the laser on and off to break up kidney stones. ? A surgical instrument that has a tiny wire basket may be inserted through the tube into your kidney (more content not included)...[facility] 08-06-2023 History of Present illness Narrative* Mindy Garcia MD - 08/06/2023 2:20 PM EDT Subjective Tyron Paulino is a 47 y.o. female Chief Complaint Follow-up HPI Patient is here for follow-up continue management for previous evaluation for palpitation with documentation of sporadic PACs and PVCs, history of supraventricular tachycardia. Previous complaint of lightheadedness dizziness. Since last time I saw her she denies any cardiac complaint of chest pain, lightheadedness, dizziness or syncope. She describes some symptoms of palpitation. She reported increased frequency of her palpitation. Her last Holter monitor was normal 3 years ago. Assessment 1. Palpitation felt to be related to ectopic beat with previous documentation of sporadic PACs and PVCs markedly improved with adjustment of his medication to metoprolol and magnesium oxide 2. History of supraventricular tachycardia with no recent recurrence 3. Previous history of lightheadedness and dizziness improved with increasing fluid and salt intake 4. Mild obesity Plan 1. I advised the patient to continue present medical regimen 2. I advised the patient to repeat her 48-hour Holter monitor considering increased frequency of her palpitation to rule out tacky arrhythmia 3. I advised her to exercise and lose weight 4. I reviewed with her the result of previous diagnostic testing 5. We will see her back in the office in 6-month Review of Systems Constitutional: Positive for malaise/fatigue. Cardiovascular: Positive for irregular heartbeat, leg swelling and palpitations. All other systems reviewed and are negative. Vitals: 08/06/23 1433 BP: 108/70 BP Location: Left arm Patient Position: Sitting Pulse: 72 Weight: 73.9 kg (163 lb) Height: 1.549 m (5' 1 ) EKG done in office today Objective Physical Exam Constitutional: Appearance: Normal appearance. HENT: Nose: Nose normal. Neck: Vascular: No carotid bruit. Cardiovascular: Rate and Rhythm: Normal rate. Pulses: Normal pulses. Heart sounds: Normal heart sounds. Pulmonary: Effort: Pulmonary effort is normal. Abdominal: General: Bowel sounds are normal. Palpations: Abdomen is soft. Musculoskeletal: General: Normal range of motion. Cervical back: Normal range of motion. Right lower leg: No edema. Left lower leg: No edema. Skin: General: Skin is warm and dry. Neurological: General: No focal deficit present. Mental Status: She is alert. Psychiatric: Mood and Affect: Mood normal. Behavior: Behavior normal. Thought Content: Thought content normal. Judgment: Judgment normal. Allergies Erythromycin and Penicillins Current Medications Current Outpatient Medications: albuterol (Ventolin HFA) 90 mcg/actuation inhaler, Inhale 2 puffs every 4 hours if needed for shortness of breath., Disp: , Rfl: cetirizine (ZyrTEC) 10 mg tablet, Take 1 tablet (10 mg) by mouth once daily., Disp: , Rfl: erenumab (Aimovig Autoinjector) 140 mg/mL injection, Inject 1 mL (140 mg) under the skin every 30 (thirty) days., Disp: , Rfl: magnesium oxide (Mag-Ox) 400 mg (241.3 mg magnesium) tablet, Take 1 tablet (400 mg) by mouth 2 times a day., Disp: , Rfl: meloxicam (Mobic) 15 mg tablet, Take 1 tablet (15 mg) by mouth once daily., Disp: , Rfl: montelukast (Singulair) 10 mg tablet, Take 1 tablet (10 mg) by mouth once daily., Disp: , Rfl: omeprazole (PriLOSEC) [address] capsule, Take 1 capsule (40 mg) by mouth once daily., Disp: , Rfl: PARoxetine (Paxil) 20 mg tablet, Take 1 tablet (20 mg) by mouth once daily in the morning. Take before meals., Disp: , Rfl: rizatriptan (Maxalt) 10 mg tablet, Take 1 tablet (10 mg) by mouth. Take one tablet by mouth at onset of headache, may repeat every 2 hours as needed, maximum of 3 tablets in 24 hours, Disp: , Rfl: metoprolol succinate XL (Toprol-XL) 25 mg 24 hr tablet, Take 1 tablet (25 mg) by mouth once daily.,Disp: 90 tablet, Rfl: 3 Assessment/Plan 1. 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 Paroxysmal SVT (supraventricular tachycardia) (CMS-HCC) metoprolol succinate XL (Toprol-XL) 25 mg 24 hr tablet 3. Premature atrial contraction 4. PVC (premature ventricular contraction) 5. BMI 30.0-30.9,adult Scribe Attestation By signing my name below, I, Rubens Hartmann LPN attest that this documentation has been prepared under the direction and in the presence of MD [facility]. Provider Attestation - Scribe documentation All medical record entries made by the Scribe were at my direction and personally dictated by me. Ihave reviewed the chart and agree that the record accurately reflects my personal performance of the history, physical exam, discussion and plan. documented in this [facility] Work Phone: [phone] Instructions* Patient Instructions* Kirti Flores LPN - 08/06/2023 2:20 PM EDT Please bring all medicines, vitamins, and herbal supplements with you when you come to the office. Prescriptions will not be filled unless you are compliant with your follow up appointments or have a follow up appointment scheduled as per instruction of your physician. Refills should be requested at the time of your visit. BMI was above normal measurement. Current weight: 73.9 kg (163 lb) Weight change since last visit (-) denotes wt loss 7 lbs Weight loss needed to achieve BMI 25: 31 Lbs Weight loss needed to achieve BMI 30: 4.6 Lbs Provided instructions on dietary changes. * Attachments The following attachments cannot be sent through Care Everywhere. * Heart Healthy Diet (Estonian) documented in this [facility] Work Phone: [phone] 802-778202-08-2024 Hospital Discharge instructions Patient Education 03/29/2023 11:10:18 Ureteroscopy, Care After Ureteroscopy, Care After After a ureteroscopy, it is common to have a burning feeling when you urinate. It is also common tohave: Blood in your urine. Mild soreness in the bladder or kidney. A need to urinate often and urgently. If you need a tube to keep your ureter open (ureteral stent), this may cause some pain in the kidney or bladder areas. The pain is usually mild. You may need to urinate often and urgently. Follow these instructions at home: The instructions below may help you care for yourself at home. Your health care provider may give you more instructions. If you have questions, ask your health care provider. Medicines Take eijn-ytd-kvoqjhc and prescription medicines as told by your health care provider. If you were prescribed antibiotics, take them as told by your health care provider. Do not stop taking them even if you start to feel better. General instructions Keep all follow-up visits. This is important. If you had a stent placed, ask your health care provider when you need to have it removed. Eating and drinking restrictions Follow instructions from your health care provider about what you may eat and drink. Drink enough fluid to keep your urine pale yellow. Drink 16 ounces of water each hour for the next few hours as told. Bathing Take a warm bath or hold a warm, damp washcloth over the urethral opening to relieve any burning feeling. Activity If you were given a sedative during your procedure, do not drive or use machines until your health care provider says that it is safe. A sedative is a medicine that helps you relax. Return to your normal activities when your health care provider says that it is safe. Contact a health care provider if: You have chills or a fever. You have burning pain for longer than 24 hours. You have blood in your urine for longer than 24 hours. Get help right away if: You have large amounts of blood in your urine. You have blood clots in your urine. You have bad pain. You have chest pain or trouble breathing. You feel like you have a full bladder, but cannot urinate. These symptoms may be an emergency. Get help right away. Call 911. Do not wait to see if the symptoms will go away. Do not drive yourself to the hospital. Summary If you need a tube to keep your ureter open, this may cause some pain in the kidney or bladder areas. The pain is usually mild. You may need to urinate often and urgently. If you were given a sedative, do not drive or use machines until your health care provider says that it is safe. Contact your health care provider if you have burning pain for longer than 24 hours. This information is not intended to replace advice given to you by your health care provider. Make sure you discuss any questions you have with your health care provider. Document Revised: 06/02/2022 Document Reviewed: 06/02/2022 [employer] Patient Education 2022 iodine. 03/29/2023 11:10:17 Ureteroscopy Ureteroscopy Ureteroscopy is a procedure to check for and treat problems inside part of the urinary tract. In this procedure, a long rigid or flexible tube with a lens and light at the end (ureteroscope) is used to look at the inside of the kidneys and the ureters. The ureters are the tubes that carry urine from the kidneys to the bladder. The ureteroscope is inserted into one or both of the ureters. You may need this procedure if you have frequent urinary tract infections (UTIs), blood in your urine, or a stone in one or both of your ureters. A ureteroscopy can be done: To find the cause of urine blockage in a ureter and to evaluate other abnormalities inside the ureters or kidneys. To remove stones. To remove or treat growths of tissue (polyps), abnormal tissue, and some types of tumors. To remove a tissue sample and check it for disease under a microscope (biopsy). Tell a health care provider about: Any allergies you have. All medicines you are taking, including vitamins, herbs, eye drops, creams, and iabp-naz-heorhyh medicines. Any problems you or family members have had with anesthetic medicines. Any bleeding problems you have. Any surgeries you have had. Any medical conditions you have. Whether you are or may be . What are the risks? Your health care provider will talk with you about risks. These may include: Abdominal pain or a burning feeling or pain while urinating. Abnormal bleeding. A UTI. Allergic reactions to medicines. Scarring that narrows the ureter (stricture) or swelling. Creating a hole (perforation) in the ureter. Damage to other structures or organs, such as the part of your body that drains urine from your bladder (urethra), your bladder, or your uterus. What happens before the procedure? When to stop eating and drinking 8 hours before your procedure ?Stop eating most foods. Do not eat meat, fried foods, or fatty foods. ?Eat only light foods, such as toast or crackers. ?All liquids are okay except energy drinks and alcohol. 6 hours before your procedure ?Stop eating. ?Drink only clear liquids, such as water, clear fruit juice, black coffee, plain tea, and sports drinks. ?Do not drink energy drinks or alcohol. 2 hours before your procedure ?Stop drinking all liquids. ?You may be allowed to take medicines with small sips of water. Medicines Ask your health care provider about: Changing or stopping your regular medicines. These include any diabetes medicines or blood thinnersyou take. Taking medicines such as aspirin and ibuprofen. These medicines can thin your blood. Do not take these medicines unless your health care provider tells you to. Taking irwe-gkx-[id number] medicines, vitamins, herbs, and supplements. General instructions Do not use any products that contain nicotine or tobacco for at least 4 weeks before the procedure.These products include cigarettes, chewing tobacco, and vaping devices, such as e-cigarettes. If you need help quitting, ask your health care provider. If you will be going home right after the procedure, plan to have a responsible adult: ?Take you home from the hospital or clinic. You will not be allowed to drive. ?Care for you for the time you are told. Ask your health care provider what steps will be taken to help prevent infection. These may include: ?Washing skin with a soap that kills germs. ?Receiving antibiotic medicine. Tests You may have an exam or testing. ?You may have a urine sample taken to check for infection. What happens during the procedure? An IV will be inserted into one of your veins. You may be given: ?A sedative. This helps you relax. ?Anesthesia. This will: ?Numb certain areas of your body. ?Make you fall asleep for surgery. Your urethra will be cleaned with a germ-killing solution. The ureteroscope will be passed through your urethra into your bladder. A salt-water solution will be sent through the ureteroscope to fill your bladder. This will help the health care provider see the openings of your ureters more clearly. The ureteroscope will be passed into your ureter. ?If a growth is found, a biopsy may be done. ?If a stone is found, it may be removed through the ureteroscope, or the stone may be broken up using a laser, shock waves, or electrical energy. ?In some cases, if the ureter is too small, a tube may be inserted that keeps the ureter open (ureteral stent). The stent may be left in place for 1 or 2 weeks, and then the ureteroscopy procedure will be done again. The scope will be removed, and your bladder will be emptied. The procedure may vary among health care providers and hospitals. What happens after the procedure? Your blood pressure, heart rate, breathing rate, and blood oxygen level will be monitored until youleave the hospital or clinic. It is up to you to get the results of your procedure. Ask your health care provider, or the department that is doing the procedure, when your results will be ready. Summary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 Reason Comments Gynecologic Exam Pt presents for PVR Care Team (unrecognized sect ion and content) Team Status: Inactive Member Role Status [facility] Primary Care Provider, Family P rovider Active Liya Millan APRN TIMBER APPRAISER-C Attending Provider Eladio ctive Team Status: Inactive Member Role Status [facility] Family [facility] Primary Care Provider, Family P rovider Active Dionisio Perez NP-C Attending Provider Activ e Team Status: Active Member Role Status [facility] Family [facility] Family Provider Active Services Family [facility] Primary Care Provider Active Team Status: Inactive Member Role Status [facility] Family [facility] Primary Care Provider, Family P rovider Active Brendan Gastelum MD Attending Provider Active Team Status: Active Member Role Status [facility] Family [facility] Family Provider Active Team Status: Inactive Member Role Status [facility] Family [facility] Primary Care Prov bi, Family Provider Active Yanira Ferraro NP-C Attending Provide r Active Team Status: Inactive Member Role Status [facility] Family Provider Active Yolande Alfred NP-C Attending Provider Active Team Status: Inactive Member Role Status [facility] Primary Care Provider Active Start: March 18, 2023 End: March 18, 2023 Elton Carrera DO Emergency Provider Active Start: March 18, 2023 End: March 18, 2023 Team Status: Inactive Member Role Status [facility] Primary Care Prov ider, Family Provider Active Start: March 28, 2023 End: March 28, 2023 Carnia Ward MD Attending Provider Active Start : March 28, 2023 End: March 28, 2023 Team Status: Inactive Member Role Status [facility] Primary Care Provider Active Start: March 28, 2023 End: March 28, 2023 Liya Millan APRN TIMBER APPRAISERHolleyC Attending Provider Active Start: March 28, 2023 End: March 28, 2023 Team Status: Inactive Member Role Status [facility] Primary Care Provider Active Start: March 30, 2023 End: March 30, 2023 Carina Ward MD Attending Provider Active Start : March 30, 2023 End: March 30, 2023 Team Status: Inactive Member Role Status [facility] Primary Care Provider Active Start: April 03, 2023 End: April 03, 2023 Carina Ward MD Attending Provider Active Start : April 03, 2023 End: April 03, 2023 Team Status: Inactive Member Role Status [facility] Primary Care Provider Active Start: May 03, 2023 End: May 03, 2023 Murtaza Pa DO Emergency Provider Active Sta rt: May 03, 2023 End: May 03, 2023 Team Status: Inactive Member Role Status [facility] Primary Care Provider Active Start: May 31, 2023 End: May 31, 2023 Liya Millan APRN TIMBER APPRAISER-C Attending Provider Active Start: May 30 End: May 31, 2023 Team Status: Inactive Member Role Status [facility] Primary Care Provider Active Start: June 08, 2023 End: June 08, 2023 Carina Ward MD Attending Provider Active Start : June 08, 2023 End: June 08, 2023 Team Status: Inactive Member Role Status [facility] Primary Care Provider Active Start: July 06, 2023 End: July 06, 2023 Stephanie Dubon APRN Attending Provider Active S tart: July 06, 2023 End: July 06, 2023 Team Status: Inactive Member Role Status [facility] Primary Care Provider Active Start: July 14, 2023 End: July 14, 2023 Kiko York DPM Attending Provider Active Start: July 14, 2023 End: July 14, 2023 Animal Trainer Relationship Specialty Start Date End Date Liya Millan APRN-CASTING MACHINE SET UP OPERATOR [address] [place] [address] [facility] [place] [id number] PCP - General 08/28/22 Team Status: Inactive Member Role Status [facility] Primary Care Provider Active Start: August 28, 2023 End: August 28, 2023 Carina Ward MD Attending Provider Active Start : August 28, 2023 End: August 28, 2023 Team Status: Inactive Member Role Status [facility] Primary Care Provider Active Start: August 29, 2023 End: August 29, 2023 Darek Alfred APRN Emergency Provider Active Start: August 29, 2023 End: August 29, 2023 Team Status: Inactive Member Role Status [facility] Primary Care Provider Active Start: September 19, 2023 End: September 19, 2023 Carina Ward MD Attending Provider Active Start : September 19, 2023 End: September 19, 2023 Team Status: Inactive Member Role Status [facility] Primary Care Provider Active Start: July 06, 2023 End: July 06, 2023 Stephanie HERNANDEZ APRN Attending Provider Active Start: July 06, 2023 End: July 06, 2023 Team Status: Inactive Member Role Status [facility] Primary Care Provider Active Start: September 28, 2023 End: September 28, 2023 Sharonda Pabon APRN Attending Provider Active Start: September 28, 2023 End: September 28, 2023 Team Status: Inactive Member Role Status Dates Sharonda Paobn APRN Attending Provider Active Start: September 28, 2023 End: September 28, 2023 Team Status: Inactive Member Role Status [facility] Primary Care Provider Active Start: October 01, 2023 End: October 01, 2023 Carina Ward MD Attending Provider Active Start : October 01, 2023 End: October 01, 2023 Team Status: Active Member Role Status [facility] Family Provider Active PHYSICIAN NO FAMILY Primary Care Provider Active Team Status: Inactive Member Role Status Dates Melinda Verdin APRN Attending Provider Active Sta rt: October 16, 2023 End: October 16, 2023 PHYSICIAN NO FAMILY Primary Care Provider Active Start: October 16, 2023 End: October 16, 2023 Team Status: Inactive Member Role Status Dates [facility] FAMILY Primary Care Provider Active Start: October 16, 2023 End: October 16, 2023 Melinda Verdin APRN Attending Provider Active Sta rt: October 16, 2023 End: October 16, 2023 Team Status: Inactive Member Role Status Dates Liya Millan APRN TIMBER APPRAISER-C Attending Provider Active Start: October End: October 24, 2023 PHYSICIAN NO FAMILY Primary Care Provider Active Start: October 24, 2023 End: October 24, 2023 Team Status: Inactive Member Role Status Dates [facility]IC[facility] NO FAMILY Primary Care Provider Active Start: November 13, 2023 End: November 13, 2023 Yanira lau TIMBER APPRAISER-C Attending Provider Active Start: October End: November 13, 2023 Team Status: Inactive Member Role Status Dates Carina Ward MD Attending Provider Active Start : November 26, 2023 End: November 26, 2023 PHYSICIAN NO FAMILY Primary Care Provider Active Start: November 26, 2023 End: November 26, 2023 Animal Trainer Relationship Specialty Start Date End Date UnallocatedFelipe MD [address] [place] [address] PCP - General Family Medicine 03/13/23 Animal Trainer Relationship Specialty Start Date End Date UnallocatedFelipe MD [address] [place] [address] PCP - General Family Medicine 03/13/23 Team Status: Active Member Role Status [facility] Family Provider Active Services [facility] Senior Primary Care Provider Ac tive Team Status: Inactive Member Role Status [facility] Senior Primary Care Provider Ac tive Start: February 04, 2024 End: February 04, 2024 Darek Alfred APRN Emergency Provider Active Start: February 04, 2024 End: February 04, 2024 Team Status: Inactive Member Role Status Dates [facility] Primary Care Provider Ac tive Start: March 16, 2024 End: March 16, 2024 Sherin Garza APRN Emergency Provider Active Start: March 16, 2024 End: March 16, 2024 Animal Trainer Relationship Specialty Start Date End Date Unallocated, Felipe Deleon MD [facility] [place] [address] PCP - General Family Medicine 03/13/23 Animal Trainer Relationship Specialty Start Date End Date Unallocated, Felipe Deleon MD [facility] [place] [address] PCP - General Family Medicine 03/13/23 Animal Trainer Relationship Specialty Start Date End Date Unallocated, Felipe Deleon MD [facility] [place] [address] PCP - General Family Medicine 03/13/23 Team Status: Active Member Role Status Dates [facility] Primary Care Provider Ac tive Start: April 12, 2024 Yanira lau TIMBER APPRAISER-C Attending Provider Active Start: March Team Status: Inactive Member Role Status Dates [facility] Primary Care Provider Ac tive Start: April 12, 2024 End: April 12, 2024 Yanira lau TIMBER APPRAISER-C Attending Provider Active Start: March End: April 12, 2024 Animal Trainer Relationship Specialty Start Date End Date Unallocated, Felipe Deleon MD [facility] [place] [address] PCP - General Family Medicine 03/13/23 Team Status: Active Member Role Status Dates [facility] Primary Care Provider Ac tive Start: April 18, 2024 Yanira lau TIMBER APPRAISER-C Other Provider Active Start: March Ebony Calabrese MD Attending Provider Active Sta rt: April 18, 2024 Team Status: Inactive Member Role Status Dates [facility] Primary Care Provider Ac tive Start: May 06, 2024 End: May 06, 2024 YENNY Sanchez Attending Provider Active Start: May 06 End: May 06, 2024 Team Status: Inactive Member Role Status Dates [facility] Primary Care Provider Ac tive Start: May 13, 2024 End: May 13, 2024 YENNY Sanchez Attending Provider Active Start: May 13 End: May 13, 2024 Team Status: Inactive Member Role Status Dates [facility] Primary Care Provider Ac tive Start: May 17, 2024 End: May 17, 2024 YENNY Sanchez Attending Provider Active Start: May 17 End: May 17, 2024 Team Status: Inactive Member Role Status Dates [facility] Primary Care Provider Ac tive Start: May 27, 2024 End: May 27, 2024 YENNY Sanchez Attending Provider Active Start: May 27 End: May 27, 2024 Team Status: Inactive Member Role Status Dates [facility] Primary Care Provider Ac tive Start: June 01, 2024 End: June 01, 2024 YENNY Sanchez Attending Provider Active Start: June 01 End: June 01, 2024 Animal Trainer Relationship Specialty Start Date End Date Unallocated, MD [place] [address] PCP - General Family Medicine 03/13/23 Animal Trainer Relationship Specialty Start Date End Date UnallocatedFelipe MD [address] [place] [address] PCP - General Family Medicine 03/13/23 Team Status: Active Member Role Status Dates Services [facility] Family Provider Active NON STAFF Primary Care Provider Active Team Status: Active Member Role Status Dates [facility] Primary Care Provider Ac tive Start: June 20, 2024 Yanira Blairjosé miguel lau , TIMBER APPRAISER-C Other Provider Active Start: June 20, 2024 Jose Otero MD Attending Provider Activ e Start: June 20, 2024 Team Status: Active Member Role Status Dates Hemanth Jaquez DO Attending Provider Active Sta rt: July 28, 2024 Team Status: Inactive Member Role Status Dates Keyana Reed APRN Attending Provider Active Start: July 28, 2024 End: July 28, 2024 NON STAFF Primary Care Provider Active Start: July 28, 2024 End: July 28, 2024 Team Status: Inactive Member Role Status Dates Hemanth Jaquez DO Attending Provider Active Sta rt: July 28, 2024 End: July 28, 2024 Goals (unrecognized section and content) Goals may be documented in a n alternate section INFORMATION SOURCE (unrecogn ized section and content) DATE CREATED AUTHOR 08/29/2022 [facility] ical Center DATE CREATED AUTHOR AUTHOR'S ORGANIZ ATION 08/29/2022 [employer] DATE CREATED AUTHOR AUTHOR'S ORGANIZ ATION 2023 [facility] tals Ambulatory DATE CREATED AUTHOR AUTHOR'S ORGANIZ ATION 12/02/2023 [facility] Center DATE CREATED AUTHOR AUTHOR'S ORGANIZ ATION 03/22/2024 [facility] DATE CREATED AUTHOR AUTHOR'S ORGANIZ ATION 08/01/2024 [facility] DATE CREATED AUTHOR AUTHOR'S ORGANIZ ATION 08/15/2024 [facility] [place] FOR RECORDS PERTAINING TO PATIENTS WHO ARE OR HAVE BEEN ENROLLED IN A CHEMICAL DEPENDENCY/SUBSTANCEABUSE PROGRAM, SOME INFORMATION MAY BE OMITTED. This clinical summary was aggregated from multiple sources. Caution should be exercised in using it in the provision of clinical care. This summary normalizes information from multiple sources, and as a consequence, information in this document may materially change the coding, format and clinical context of patient data. In addition, data may be omitted in some cases. CLINICAL DECISIONS SHOULD BE BASED ON THE PRIMARY CLINICAL RECORDS. [employer] provides no warranty or guarantee of the accuracy or completeness of information in this document.
[2024-08-31 20:12] VITALS: BP 132/60; PULSE 74; TEMP 36.6; O2SAT 99; BMI 28.5
[2024-08-31 21:02] LABS: Glucose Urine UA NEGATIVE (NEGATIVE)
--- NOTE | 2024-08-31 21:10 | ED.GENADUL1 ---
HPI HPI - General Adult General Chief complaint: Urogenital-Female Stated complaint: PAIN IN BLADDER AREA Time Seen by Provider: 08/31/24 21:06 Source: patient Mode of arrival: walk-in Limitations: no limitations History of Present Illness HPI narrative: Patient is a 49-year-old female who presents to the emergency department today for evaluation concerns for lower abdominal discomfort with urinary frequency and burning over the past week. She mention she had some mild lower back discomfort that is no longer present. No fever/chills. She states she has a history of UTIs and kidney stones. No nausea or vomiting present. Related Data Home Medications ?Medication ?Instructions ?Recorded ?Confirmed cetirizine 10 mg tablet mg 08/31/24 erenumab-aooe 140 mg/mL mg subcut 08/31/24 subcutaneous auto-injector (Aimovig Autoinjector) magnesium oxide 400 mg (241.3 mg mg 08/31/24 magnesium) tablet meloxicam 15 mg tablet mg 08/31/24 metoprolol succinate 25 mg mg PO 08/31/24 tablet,extended release 24 hr montelukast 10 mg tablet mg 08/31/24 omeprazole 40 mg capsule,delayed mg 08/31/24 release paroxetine HCl 20 mg tablet mg PO 08/31/24 Previous Rx's ?Medication ?Instructions ?Recorded cephalexin 500 mg capsule 500 mg PO BID 7 days #14 caps 08/31/24 Allergies Allergy/AdvReac Type Severity Reaction Status Date / Time erythromycin base Allergy Mild rash Verified 08/31/24 20:16 Penicillins Allergy Mild Rash Verified 08/31/24 20:16 Opioid HPI Opioid Management Most Recent Opioid Data: Last Pain Scale 4 Today, 20:12 Review of Systems ROS Status of ROS 10 or more systems reviewed and unremarkable except as noted in history and below PFS PFS Social History Little interest or pleasure in doing things: not at all Feeling down, depressed, or hopeless: not at all Exam Narrative Exam Narrative: Constituational: Awake/ alert, no apparent distress, well hydrated HENMT: normocephalic, external ears normal, moist oral mucous membranes and oropharynx normal Eyes: EOMI and conjunctivae normal Neck: ROM intact Chest: inspection of chest normal Respiratory: Normal respiratory effort, clear to auscultation bilaterally Cardio: regular rate and regular rhythm GI: soft to palpation and non-tender Back: nontender MSK: ROM intact, +NVI Skin: no rashes or petechiae Neuro: no focal deficits Psych: mental status grossly normal Constitutional Vital Signs, click to edit/add: Last Vital Signs Temp 98 F 08/31/24 20:12 Pulse 74 08/31/24 20:12 Resp 16 08/31/24 20:12 BP 132/60 08/31/24 20:12 Pulse Ox 99 08/31/24 20:12 O2 Del Method Room Air 08/31/24 20:12 Course Vital Signs Vital signs: Vital Signs Temperature 98 F 08/31/24 20:12 Pulse Rate 74 08/31/24 20:12 Respiratory Rate 16 08/31/24 20:12 Blood Pressure 132/60 08/31/24 20:12 Pulse Oximetry 99 08/31/24 20:12 Oxygen Delivery Method Room Air 08/31/24 20:12 Temperature 98 F 08/31/24 20:12 Pulse Rate 74 08/31/24 20:12 Respiratory Rate 16 08/31/24 20:12 Blood Pressure 132/60 08/31/24 20:12 Pulse Oximetry 99 08/31/24 20:12 Oxygen Delivery Method Room Air 08/31/24 20:12 Medical Decision Making MDM Narrative Medical decision making narrative: The patient is a nontoxic well-appearing 49-year-old female who presented to the emergency department today for evaluation concerns for symptoms of urinary burning and frequency with lower abdominal discomfort. Initial examination vital signs overall stable. UA is positive for UTI as evidenced by nitrates, leukocytes in the urine. No occult blood. Low clinical suspicion for kidney stones. Low clinical specimen for pyelonephritis. Discussed these findings with the patient including recommendations for supportive care. Will discharge home with cephalexin antibiotic therapy. Patient does have a history of allergy to penicillins however states she has tolerated cephalosporins in the past. Advised on follow-up with patient's primary care provider for reevaluation. Discussed signs and symptoms of any worsening condition and when to consider reevaluation by the emergency department. Patient verbalized an understanding of this and is agreeable to plan to be discharged home. Medical Records Medical records reviewed: Yes I reviewed the patient's medical records Lab Data Lab results reviewed: Yes I reviewed the patient's lab results Labs: Lab Results 08/31/24 Range/Units 20:35 Urine Color Dk. orange (YELLOW) Urine Clarity Clear (CLEAR) Urine pH 5.5 (5.0-9.0) Ur Specific [place] 1.025 (1.005-1.025) Urine Protein Negative (NEG/TRACE) mg/dL Urine Glucose (UA) Negative (NEGATIVE) mg/dL Urine Ketones Negative (NEGATIVE) mg/dL Urine Occult Blood Negative (NEGATIVE) Urine Nitrite Positive A (NEGATIVE) Urine Bilirubin Negative (NEGATIVE) Urine Urobilinogen 1.0 (0.2-1.0) EU/dL Ur Leukocyte Esterase Trace A (NEGATIVE) Urine RBC None seen (0-2) #/HPF Urine WBC 5-10 A (NONE SEEN) #/HPF Ur Squamous Epith Cells Few A (NONE/RARE) #/LPF Urine Crystals None seen (None Seen) #/HPF Urine Bacteria None seen (NONE SEEN) #/HPF Urine Casts None seen (NONE SEEN) #/LPF Urine Mucus None seen (NONE SEEN) Ur Culture Indicated? Yes-[facility] [place] Discharge Plan Discharge Chief Complaint: Urogenital-Female Clinical Impression: UTI (urinary tract infection) Patient Disposition: Home, Self-Care Prescriptions / Home Meds: New cephalexin 500 mg capsule 500 mg PO BID 7 Days Qty: 14 0RF No Action cetirizine 10 mg tablet meloxicam 15 mg tablet omeprazole 40 mg capsule,delayed release(DR/EC) magnesium oxide 400 mg (241.3 mg magnesium) tablet paroxetine HCl 20 mg tablet PO montelukast 10 mg tablet metoprolol succinate 25 mg tablet extended release 24 hr PO Aimovig Autoinjector 140 mg/mL auto-injector SUBCUT Print Language: Burkinan Instructions: Urinary Tract Infection in Women (DC) Additional Instructions: Headaches as prescribed. May take Tylenol and ibuprofen as needed for any fevers or pain if this occurs. Stay hydrated and drink plenty of fluids. Please up with your primary care provider for reevaluation as discussed. Referrals: Physician,Non-Staff, [Primary Care Provider] - 1 week
[2024-08-31 21:12] LABS: Cast Seen? NONE SEEN #/LPF (NONE SEEN); Crystals Seen? None Seen #/HPF (None Seen); Urine Culture Indicated YES-FRMC
[2024-08-31] MEDS: CEPHALEXIN 500 MG CAPSULE PO (21:37)
== END 2024-08-31 21:41 | disposition home or self-care (01) ==
PROVIDERS: Emergency Provider Emergency Medicine
DX: N39.0 Urinary tract infection, site not specified (principal); Z87.440 Personal history of urinary (tract) infections; Z87.442 Personal history of urinary calculi
CPT/HCPCS: 81001; 87086; 99283

== ENCOUNTER 2024-09-19 16:06 | Emergency (ER) | payer OTHER, SELFPAY ==
[2024-09-19 16:09] VITALS: BP 130/80; PULSE 83; TEMP 36.9; O2SAT 95; BMI 30.2
[2024-09-19 16:15] VITALS: O2SAT 98
--- NOTE | 2024-09-19 16:17 | ED_ITS ---
HPI HPI - General Adult General Chief complaint: Headache Stated complaint: HEADACHE Time Seen by Provider: 09/19/24 16:09 Source: patient Mode of arrival: walk-in History of Present Illness HPI narrative: 49-year-old female presents to the emergency department for headache. It is on the left side of her head which is typical for her and this is similar to previous migraine headaches. No trauma fever or stiff neck or localized weakness. It started during the nighttime. The last time she had go to the emergency department for headache was in February of this year. It has been continuous. Related Data Home Medications ?Medication ?Instructions ?Recorded ?Confirmed cetirizine 10 mg tablet mg 08/31/24 erenumab-aooe 140 mg/mL mg subcut 08/31/24 subcutaneous auto-injector (Aimovig Autoinjector) magnesium oxide 400 mg (241.3 mg mg 08/31/24 magnesium) tablet meloxicam 15 mg tablet mg 08/31/24 metoprolol succinate 25 mg mg PO 08/31/24 tablet,extended release 24 hr montelukast 10 mg tablet mg 08/31/24 omeprazole 40 mg capsule,delayed mg 08/31/24 release paroxetine HCl 20 mg tablet mg PO 08/31/24 Previous Rx's ?Medication ?Instructions ?Recorded cephalexin 500 mg capsule 500 mg PO BID 7 days #14 cap s 08/31/24 sslczjoprr-spxrseajomysn-oztygrqs 1 cap PO Q6H PRN true n 5 days #20 09/19/24 50 mg-300 mg-40 mg capsule caps (Fioricet) ondansetron 4 mg disintegrating 4 mg PO Q6H PRN nausea and 09/19/24 tablet vomiting #20 tabs Allergies Allergy/AdvReac Type Severity Reaction Status Date / Time erythromycin base Allergy Mild rash Verified 08/31/24 20:16 Penicillins Allergy Mild Rash Verified 08/31/24 20:16 Opioid HPI Opioid Management Most Recent Opioid Data: Last Pain Scale 4 08/31/24, 20:12 Review of Systems ROS Narrative A ten point review of systems is negative except as noted above. PFSH PFSH Social History Little interest or pleasure in doing things: not at all Feeling down, depressed, or hopeless: not at all Exam Narrative Exam Narrative: Nurses note and vital signs reviewed and patient is not hypoxic. General: The patient appears well and in no apparent distress. Patient is resting comfortably on cart. Skin: Warm, dry, no pallor noted. There is no rash noted. Head: Normocephalic, atraumatic; neck supple, no nuchal rigidity Eye: Normal conjunctiva, no drainage, EOMI. PERRL Ears, Nose, Mouth, and Throat: oral mucosa is moist. Nares patent. Cardiovascular: Regular Rate and Rhythm Respiratory: Patient is in no distress, no accessory muscle use, lungs are clear to auscultation, no wheezing, rales or rhonchi Back: non-tender GI: Soft and nontender Musculoskeletal: The patient has no evidence of calf tenderness, no pitting edema, symmetrical pulses noted bilaterally Neurological: A&O, normal speech; upper and lower extremity strength intact and symmetric. Cranial nerves II through XII intact. Psychiatric: Cooperative Constitutional Vital Signs, click to edit/add: Last Vital Signs Temp 98.4 F 09/19/24 16:09 Pulse 83 09/19/24 16:09 Resp 16 09/19/24 16:09 BP 130/80 09/19/24 16:09 Pulse Ox 98 09/19/24 16:15 O2 Del Method Room Air 09/19/24 16:15 Course Vital Signs Vital signs: Vital Signs Temperature 98.4 F 09/19/24 16:09 Pulse Rate 83 09/19/24 16:09 Respiratory Rate 16 09/19/24 16:09 Blood Pressure 130/80 09/19/24 16:09 Pulse Oximetry 95 09/19/24 16:09 Oxygen Delivery Method Room Air 09/19/24 16:09 Temperature 98.4 F 09/19/24 16:09 Pulse Rate 83 09/19/24 16:09 Respiratory Rate 16 09/19/24 16:09 Blood Pressure 130/80 09/19/24 16:09 Pulse Oximetry 98 09/19/24 16:15 Oxygen Delivery Method Room Air 09/19/24 16:15 Medical Decision Making MDM Narrative Medical decision making narrative: The patient feels improved after being given Toradol and Reglan and Benadryl. She is able to be discharged home with a prescription for Fioricet. I have no clinical suspicion of acute intracranial pathology or meningitis. Treatment diagnosis and follow-up were discussed with the patient. Differential Diagnosis Differential Diagnosis: Migraine headache, meningitis, intracranial hemorrhage Discharge Plan Discharge Chief Complaint: Headache Clinical Impression: Migraine Patient Disposition: Home, Self-Care Time of Disposition Decision: 16:57 Condition: Good Mode of Transportation: Private Vehicle Prescriptions / Home Meds: New hmrcytkqux-nmxqbvtjhindb-ecdc [Fioricet] 50-300-40 mg capsule 1 cap PO Q6H PRN (Reason: pain) 5 Days Qty: 20 0RF ondansetron 4 mg tablet,disintegrating 4 mg PO Q6H PRN (Reason: nausea and vomiting) Qty: 20 0RF No Action cetirizine 10 mg tablet meloxicam 15 mg tablet omeprazole 40 mg capsule,delayed release(DR/EC) magnesium oxide 400 mg (241.3 mg magnesium) tablet paroxetine HCl 20 mg tablet PO montelukast 10 mg tablet metoprolol succinate 25 mg tablet extended release 24 hr PO Aimovig Autoinjector 140 mg/mL auto-injector SUBCUT cephalexin 500 mg capsule 500 mg PO BID 7 Days Qty: 14 0RF Print Language: Thai Instructions: Migraine Headache (ED) Referrals: Physician,Non-Staff, MD [Primary Care Provider] - 1 week
[2024-09-19] MEDS: 0.9 % SODIUM CHLORIDE 1,000 ML 1000 ML IV (16:27)
[2024-09-19] MEDS: METOCLOPRAMIDE HCL 10 MG/2 ML VIAL IVP (16:27)
[2024-09-19] MEDS: KETOROLAC TROMETHAMINE 30 MG/ML VIAL IVP (16:27)
[2024-09-19] MEDS: DIPHENHYDRAMINE HCL 50 MG/ML VIAL 25 MG IVP (16:27)
[2024-09-19 17:03] VITALS: BP 112/69; PULSE 68; O2SAT 97
== END 2024-09-19 17:10 | disposition home or self-care (01) ==
PROVIDERS: Emergency Provider Emergency Medicine
DX: G43.909 Migraine, unspecified, not intractable, without status migrainosus (principal)
CPT/HCPCS: 96374; 96375; 99284; J1200; J1885; J2765